=== PATIENT | female | born 1945 | race Caucasian/White ===

== ENCOUNTER 2023-12-09 12:30 | Outpatient (CLI) | payer MEDICARE, SELFPAY | END 2023-12-09 12:31 | disposition home or self-care (01) | LOC: AMB 12-12 18:10 | PROVIDERS: Visit Provider Family Medicine | DX: S09.90XA Unspecified injury of head, initial encounter (principal); W18.30XA Fall on same level, unspecified, initial encounter; Y92.008 Other place in unspecified non-institutional (private) residence as the place of occurrence of the external cause | CPT/HCPCS: A0425; A0429 ==

== ENCOUNTER 2023-12-09 13:10 | Emergency (ER) | payer MEDICARE, SELFPAY ==
--- NOTE | 2023-12-09 | CRLHL7_ITS ---
For Patients: As a result of the Cures Act, medical imaging exams and procedure reports are released immediately into your electronic medical record. You may view this report before your referring provider. If you have questions, please contact your health care provider. INDICATION: Fall, left hip pain TECHNIQUE: X-ray left hip, two views and a single view of the pelvis COMPARISON: None. FINDINGS: Mild joint space narrowing bilaterally with marginal osteophytes. Negative for acute fracture or dislocation. The femoral heads appear well formed. Atherosclerotic vascular calcification is present. The pelvic ring is intact. IMPRESSION: Negative for acute fracture or dislocation. Dictated by Kaelyn Crawford MD @ 12/09/2023 2:24:24 PM Dictated by: Kaelyn Crawford MD @ 12/09/2023 14:24:47 (Electronically Signed)
--- NOTE | 2023-12-09 13:25 | CRLHL7_ITS ---
For Patients: As a result of the Century Cures Act, medical imaging exams and procedure reports are released immediately into your electronic medical record. You may view this report before your referring provider. If you have questions, please contact your health care provider. Indication : Trauma. Technique : CT of the brain without intravenous contrast. Comparison: None relevant available at the time of interpretation. Findings: No acute blurring of the woody-white differentiation. There is no intracranial hemorrhage. The ventricles are proportionate to the cerebral sulci. The 4th ventricle is midline. Basal cisterns appear patent. No abnormal extra-axial fluid collection identified. Moderate parenchymal volume loss. There is severe patchy periventricular hypodensity, favored to represent chronic ischemic microvascular disease. Moderate region of encephalomalacia and gliosis right frontal lobe. There is no intracranial mass, mass effect or midline shift identified. No depressed calvarial fracture. Impression: 1. No acute intracranial process. 2. 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 3. Moderate-sized chronic right frontal lobe infarct. Please note that all CT scans at this facility use dose modulation, iterative reconstruction, and/or weight-based dosing when appropriate to reduce radiation dose to as low as reasonably achievable. Dictated by José Antonio Mcghee MD @ 12/09/2023 1:52:53 PM (Electronically Signed)
--- NOTE | 2023-12-09 13:26 | ED.GENADULT ---
HPI - General Adult General Chief complaint: Fall/Minor Trauma Stated complaint: Fall Time Seen by Provider: 12/09/23 13:21 History of Present Illness HPI narrative: This 78-year-old female comes in for evaluation of a fall that occurred just prior to arrival. She states that she was getting up from a chair and did so more quickly than she should of. She grew a bit lightheaded and slowly fell onto her left side. She did bump her head but does not report any headache. She is on warfarin and her recent INR was therapeutic at 2.1. She reports some mild pain in her left hip but was able to get up and ambulate without much difficulty. Related Data Home Medications ?Medication ?Instructions ?Recorded ?Confirmed warfarin .ROUTE 12/09/23 Allergies Allergy/AdvReac Type Severity Reaction Status Date / Time amoxicillin Allergy Intermediate Verified 12/09/23 13:30 atorvastatin [From Lipitor] Allergy Intermediate Verified 12/09/23 13:30 cephalexin Allergy Intermediate Verified 12/09/23 13:30 erythromycin base Allergy Intermediate Verified 12/09/23 13:30 Fish Containing Products Allergy Intermediate Verified 12/09/23 13:30 glyburide Allergy Intermediate Verified 12/09/23 13:30 latex Allergy Intermediate Verified 12/09/23 13:30 Macrolide Antibiotics Allergy Intermediate Verified 12/09/23 13:30 nitrofurantoin Allergy Intermediate Verified 12/09/23 13:30 simvastatin Allergy Intermediate Verified 12/09/23 13:30 Sulfa (Sulfonamide Allergy Intermediate Verified 12/09/23 13:30 Antibiotics) salmon Allergy Severe Anaphylaxis Uncoded 12/09/23 13:30 Review of Systems Status of ROS: Reports: 10 or more systems reviewed and unremarkable except as noted in History and below Narrative: Constitutional: No fevers, no weight gain or loss. Eyes: No discharge. No vision changes. HENT: No congestion, no sore throat, no ear pain. Cardiovascular: No chest pain, no palpitations. Respiratory: No shortness of breath, no wheezes, no cough. Gastrointestinal: No abdominal pain, no vomiting, no diarrhea. Genitourinary: No dysuria, no hematuria. Musculoskeletal: Normal range of motion. Skin: No rashes, no pruritis. Neurological: No dizziness, weakness, sensory change, speech change. Endo/Heme/Allergies: No bruising or bleeding. No polydipsia. Pysch: no suicidality, no anxiety, no insomnia. All other systems reviewed and are negative. PFSH PFS Social History Smoking Status: Never smoker Non-prescribed substance use: denies use Exam Narrative: Exam Narrative: Constitutional: Well-developed, well-nourished, no acute distress. HEENT: Normocephalic, atraumatic. No sign of bruising, abrasion, laceration, or swelling. Neck: Normal range of motion. Nontender. Supple. Heart: Regular. No murmurs. Normal rate. Intact distal pulses. Lungs: Clear to auscultation. No chest discomfort. No wheezes, rhonchi, or rales. Abdomen: Normal bowel sounds. Nontender. No rebound tenderness. Genitalia: Deferred. Back: No midline tenderness. Normal range of motion. Extremities: Normal range of motion. No sign of injury. She is able to raise each leg to my hand. Skin: Intact. No rash. Warm. No erythema or pallor. Neurologic: No altered sensation. No weakness. Alert and oriented. No facial asymmetry. Tongue is midline. [id number] is normal. No pronator drift. Histologic Aide strength is equal bilaterally. Able to raise each leg from the bed. Psychiatric: No suicidality. No anxiety or depression. No insomnia. Nursing notes and vitals signs are reviewed. Const: Vital Signs, click to edit/add: Vital Signs - 24 hr 12/09/23 13:31 Temperature 98.0 F Pulse Rate [Pulse Oximeter] 83 Respiratory Rate 16 Blood Pressure [Ri ght Upper Arm] 132/57 L Pulse Oximetry 98 Oxygen Delivery Me thod Room Air Course Vital Signs Vital signs: Initial Vital Signs Temperature 98.0 F 12/09/23 13:31 Temperature Source Temporal Artery Scan 12/09/23 13:31 Pulse Rate 83 12/09/23 13:31 Respiratory Rate 16 12/09/23 13:31 Blood Pressure 132/57 L 12/09/23 13:31 Blood Pressure Mean 82 12/09/23 13:31 Blood Pressure Position Sitting 12/09/23 13:31 Pulse Oximetry 98 12/09/23 13:31 Oxygen Delivery Method Room Air 12/09/23 13:31 Vital Signs Temperature 98.0 F 12/09/23 13:31 Pulse Rate 83 12/09/23 13:31 Respiratory Rate 16 12/09/23 13:31 Blood Pressure 132/57 L 12/09/23 13:31 Pulse Oximetry 98 12/09/23 13:31 Oxygen Delivery Method Room Air 12/09/23 13:31 Temperature 98.0 F 12/09/23 13:31 Pulse Rate 83 12/09/23 13:31 Respiratory Rate 16 12/09/23 13:31 Blood Pressure 132/57 L 12/09/23 13:31 Pulse Oximetry 98 12/09/23 13:31 Oxygen Delivery Method Room Air 12/09/23 13:31 Medical Decision Making MDM Narrative Medical decision making narrative: This patient comes in for evaluation of a rather soft fall as she describes it that occurred just prior to arrival. She is on anticoagulants but is not reporting any headache and has normal exam and neurologic function. She does have some mild tenderness in her left hip but is able to ambulate without any limp. X-ray imaging of the left hip shows no acute findings as does CT scan of the head. This was reassuring to the patient. She is okay to return home to continue current plans. Imaging Data CT scan - head: Radiologist's impression: 1. No acute intracranial process. 2. 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 3. Moderate-sized chronic right frontal lobe infarct. XR L Hip: Radiologist's impression: Negative for acute fracture or dislocation. Discharge Plan Discharge Clinical Impression: Fall, Contusion of hip, left Patient Disposition: Home w/ Parent or Adult Condition: Stable Additional Instructions: Use [id number] medicines as needed and directed. Continue current plans and increase activity as tolerated. Follow up with MD return if worsening. Prescriptions: No Action warfarin [Coumadin] .ROUTE Follow Up/Referrals: Provider,Not a Local [Primary Care Provider] - Stand Alone Forms: [employer] Info Instructions
[2023-12-09 13:31] VITALS: BP 132/57; PULSE 83; RESP 16; TEMP 36.7; O2SAT 98; BMI 26.0
== END 2023-12-09 15:49 | disposition home or self-care (01) ==
PROVIDERS: Emergency Provider Emergency Medicine Emergency Medical Services
DX: M25.552 Pain in left hip (principal); W19.XXXA Unspecified fall, initial encounter
CPT/HCPCS: 70450; 73502; 99283; 99284

== ENCOUNTER 2023-12-24 12:02 | Outpatient (CLI) | payer MEDICARE, SELFPAY | END 2023-12-24 12:03 | disposition home or self-care (01) | LOC: NFLDREF 12-27 13:46 | PROVIDERS: Visit Provider Nurse Practitioner | DX: R30.0 Dysuria (principal); N30.01 Acute cystitis with hematuria | CPT/HCPCS: 87086; 87186 ==

== ENCOUNTER 2024-06-23 09:44 | Outpatient (CLI) | payer MEDICARE, SELFPAY | END 2024-06-23 09:45 | disposition home or self-care (01) | LOC: AMB 06-28 03:49 | PROVIDERS: PCP Student in an Organized Health Care Education/Training Program; Visit Provider Emergency Medicine | DX: R06.09 Other forms of dyspnea (principal); R63.5 Abnormal weight gain | CPT/HCPCS: A0425; A0429 ==

== ENCOUNTER 2024-06-23 10:13 | Emergency (ER) | payer MEDICARE, SELFPAY ==
[2024-06-23 10:23] VITALS: BP 168/83; PULSE 78; RESP 14; O2SAT 98
[2024-06-23 10:27] VITALS: BP 168/83; PULSE 68; RESP 25; TEMP 36.2; O2SAT 100
[2024-06-23 10:32] VITALS: BP 153/78; PULSE 71; RESP 16; O2SAT 100
--- NOTE | 2024-06-23 11:01 | CRLHL7_ITS ---
For Patients: As a result of the Cures Act, medical imaging exams and procedure reports are released immediately into your electronic medical record. You may view this report before your referring provider. If you have questions, please contact your health care provider. INDICATION: Shortness of breath. TECHNIQUE: Chest 2 views. COMPARISON: None. FINDINGS: Intracardiac device appears appropriately positioned. No pneumothorax or pleural effusion. Calcified granuloma at the left lung base. Lungs are otherwise clear. Aortic atherosclerosis. Mild cardiomegaly. No pulmonary edema. Upper abdomen and osseous structures as imaged show no acute abnormality. IMPRESSION: No evidence of acute cardiopulmonary disease. Dictated by Lee Ortiz MD @ 06/23/2024 11:52:30 AM (Electronically Signed)
[2024-06-23 11:02] VITALS: BP 158/71; PULSE 61; RESP 14; O2SAT 100
--- NOTE | 2024-06-23 11:02 | ED.GENADULT ---
HPI - General Adult General Chief complaint: Shortness of Breath/Dyspnea Stated complaint: SOB Time Seen by Provider: 06/23/24 10:53 History of Present Illness HPI narrative: This 78-year-old female comes in with her daughter to be checked out. She has a history of congestive heart failure and was noted a couple weeks ago that she had gained 3 lb. Her Lasix was increased last week and she has lost a couple lb since then. She reports a cough here and there over the past couple weeks but does not have any fever. She arrives here with normal vital signs. Her daughter brings her in stating that she wants her checked out. Related Data Home Medications ?Medication ?Instructions ?Recorded ?Confirmed warfarin .Route 12/09/23 12/24/23 blood sugar diagnostic (OneTouch #10 ea 12/24/23 12/24/23 Ultra Test strips) blood-glucose meter (OneTouch #1 ea 12/24/23 12/24/23 Ultra2 Meter) carvedilol 6.25 mg tablet 12.5 mg PO BID 12/24/23 06/23/24 cyclosporine 0.05 % eye drops in a 1 drp ophthalmic (eye) Q12H 12/24/23 06/23/24 dropperette fenofibrate 160 mg tablet 160 mg PO DAILY 12/24/23 06/23/24 fluoxetine 20 mg capsule 20 mg PO BID 12/24/23 06/23/24 furosemide 20 mg tablet 20 mg PO .every other day 12/24/23 06/23/24 losartan 25 mg tablet 25 mg PO DAILY 12/24/23 06/23/24 omeprazole 20 mg capsule,delayed 20 mg PO DAILY 12/24/23 06/23/24 release potassium chloride 10 mEq 10 meq PO .every other day 12/24/23 06/23/24 capsule,extended release simvastatin 20 mg tablet 20 mg PO QPM 12/24/23 06/23/24 sitagliptin phosphate 25 mg tablet 25 mg PO DAILY 12/24/23 06/23/24 (Vincentuvia) warfarin 2.5 mg tablet 2.5 mg PO .Mon/Wed/Fri 12/24/23 06/23/24 warfarin 5 mg tablet 5 mg PO .Sun/Tues/Thur/Sat 12/24/23 06/23/24 cholecalciferol (vitamin D3) 25 1,000 unit PO DAILY 06/23/24 06/23/24 mcg (1,000 unit) capsule (Vitamin D3) mecobalamin (vitamin B12) 1,000 1,000 mcg PO DAILY 06/23/24 06/23/24 mcg chewable tablet (B12 Active) nystatin 100,000 unit/gram topical 1 applic topical BID 06/23/24 06/23/24 powder (Klayesta) Allergies Allergy/AdvReac Type Severity Reaction Status Date / Time atorvastatin (From Lipitor) Allergy Intermediate Verified 06/23/24 10:33 cephalexin Allergy Intermediate Verified 06/23/24 10:33 erythromycin base Allergy Intermediate Verified 06/23/24 10:33 Fish Containing Products Allergy Intermediate Verified 06/23/24 10:33 glyburide Allergy Intermediate Verified 06/23/24 10:33 latex Allergy Intermediate Verified 06/23/24 10:33 Macrolide Antibiotics Allergy Intermediate Verified 06/23/24 10:33 nitrofurantoin Allergy Intermediate Verified 06/23/24 10:33 simvastatin Allergy Intermediate Verified 06/23/24 10:33 Sulfa (Sulfonamide Allergy Intermediate Verified 06/23/24 10:33 Antibiotics) amoxicillin (From Augmentin) Allergy Unknown Verified 06/23/24 10:33 Anesthetics - Amide Type - Allergy Unknown Verified 06/23/24 10:33 Select A clavulanic acid (From Allergy Unknown Verified 06/23/24 10:33 Augmentin) adhesive AdvReac Unknown Verified 06/23/24 10:33 salmon Allergy Severe Anaphylaxis Uncoded 12/24/23 12:13 Review of Systems Status of ROS: Reports: 10 or more systems reviewed and unremarkable except as noted in History and below Narrative: Constitutional: No fevers, no weight gain or loss. Eyes: No discharge. No vision changes. HENT: No congestion, no sore throat, no ear pain. Cardiovascular: No chest pain, no palpitations. Respiratory: No shortness of breath, no wheezes. She reports a cough. Gastrointestinal: No abdominal pain, no vomiting, no diarrhea. Genitourinary: No dysuria, no hematuria. Musculoskeletal: Normal range of motion. Skin: No rashes, no pruritis. Neurological: No dizziness, weakness, sensory change, speech change. Endo/Heme/Allergies: No bruising or bleeding. No polydipsia. Pysch: no suicidality, no anxiety, no insomnia. All other systems reviewed and are negative. [facility] PFS Social History Smoking Status: Never smoker How often do you have a drink containing alcohol: never AUDIT-C Alcohol total score: 0 Non-prescribed substance use: denies use Exam Narrative: Exam Narrative: Constitutional: Well-developed, well-nourished, no acute distress. HEENT: Normocephalic, atraumatic. Neck: Normal range of motion. Nontender. Supple. Heart: Regular. No murmurs. Normal rate. Intact distal pulses. Lungs: Clear to auscultation. No chest discomfort. No wheezes, rhonchi, or rales. Abdomen: Normal bowel sounds. Nontender. No rebound tenderness. Genitalia: Deferred. Back: No midline tenderness. Normal range of motion. Extremities: Normal range of motion. No injury. Mild pedal edema. Skin: Intact. No rash. Warm. No erythema or pallor. Neurologic: No altered sensation. No weakness. Alert and oriented. Psychiatric: No suicidality. No anxiety or depression. No insomnia. Nursing notes and vitals signs are reviewed. Const: Vital Signs, click to edit/add: Vital Signs - 24 hr 06/23/24 10:23 06/23/24 10:27 06/23/24 10:32 Temperature 97.2 F L Pulse Rate 78 71 Pulse Rate [Pulse Oximeter] 68 Respiratory Rate 14 25 H 16 Blood Pressure 168/83 H 153/78 H Blood Pressure [Le ft Upper Arm] 168/83 H Pulse Oximetry 98 100 100 Oxygen Delivery Me thod Room Air 06/23/24 11:02 Temperature Pulse Rate 61 Pulse Rate [Pulse Oximeter] Respiratory Rate 14 Blood Pressure 158/71 H Blood Pressure [Le ft Upper Arm] Pulse Oximetry 100 Oxygen Delivery Me thod Room Air Course Vital Signs Vital signs: Initial Vital Signs Pulse Rate 78 06/23/24 10:23 Respiratory Rate 14 06/23/24 10:23 Blood Pressure 168/83 H 06/23/24 10:23 Blood Pressure Mean 111 H 06/23/24 10:23 Pulse Oximetry 98 06/23/24 10:23 Vital Signs Pulse Rate 78 06/23/24 10:23 Respiratory Rate 14 06/23/24 10:23 Blood Pressure 168/83 H 06/23/24 10:23 Pulse Oximetry 98 06/23/24 10:23 Temperature 97.2 F L 12/08/24 10:27 Pulse Rate 61 06/23/24 11:02 Respiratory Rate 14 06/23/24 11:02 Blood Pressure 158/71 H 06/23/24 11:02 Pulse Oximetry 100 06/23/24 11:02 Oxygen Delivery Method Room Air 06/23/24 11:02 Medical Decision Making MDM Narrative Medical decision making narrative: This patient comes in for a checkup mostly requested by her daughter. The patient does not have any particular complaints. She states that she does have an occasional cough. Her Lasix was increased about a week ago and the 2 or 3 lb that she had gained prior to that are now measuring back to her previous weight. Her exam is reassuring and labs today are also reassuring. Chest x-ray is obtained and this also shows no acute cardiopulmonary disease. She is okay to be discharged home to continue current plans. Lab Data Labs: Lab Results 06/23/24 Range/Units 11:22 WBC 8.86 (4.50-11.00) K/uL RBC 3.71 L (4.00-5.20) m/uL Hgb 11.8 L (12.0-16.0) gm/dL Hct 36.7 (33.0-51.0) % MCV 99 (80-100) fL MCH 32 (26-34) pg MCHC 32 (32-36) gm/dL Plt Count 283 (140-440) K/uL Neut % (Auto) 57.1 (42.0-72.0) % Lymph % (Auto) 29.7 (20-44) % Beauregard % (Auto) 12.0 H (0.0-11.0) % Eos % (Auto) 0.6 (0.0-7.0) % Baso % (Auto) 0.5 (0.0-3.0) % Neut # (Auto) 5.10 (1.7-7.0) K/uL Lymph # (Auto) 2.60 (0.90-2.90) K/uL Beauregard # (Auto) 1.10 H (0.00-0.90) K/UL Eos # (Auto) 0.10 (0.00-0.50) K/uL Baso # (Auto) 0.00 (0.00-0.30) K/uL Abs Immat Gran (auto) 0.10 (0.00-0.30) K/uL Sodium 138 (135-149) mmol/L Potassium 4.7 (3.6-5.1) mmol/L Chloride 106 (96-114) mmol/L Carbon Dioxide 24 (20-32) mmol/L Anion Gap 8 (7-15) mEq/L BUN 32 H (7-30) mg/dL Creatinine 1.1 (0.5-1.5) mg/dL Estimated GFR 51 ml/min Glucose 116 H (60-115) mg/dL Calcium 9.8 (8.4-10.6) mg/dL NT-Pro-B Natriuret Pep 1850 pg/mL Imaging Data Chest x-ray: Radiologist's impression: No evidence of acute cardiopulmonary disease. ECG Data Attestation: I personally reviewed and interpreted this ECG as follows: Interpretation: Atrial paced rhythm with occasional PVCs. Rate is 82 beats per minute. There are no specific ST or T-wave abnormalities. Discharge Plan Discharge Clinical Impression: Congestive heart failure Patient Disposition: Home w/ Parent or Adult Condition: Stable Additional Instructions: Continue current plans. Follow up with MD or return if worsening. Prescriptions: No Action warfarin 5 mg tablet 5 mg PO .Sun//ur/Sat warfarin 2.5 mg tablet 2.5 mg PO .Mon/Mon/Fri fenofibrate 160 mg tablet 160 mg PO DAILY fluoxetine 20 mg capsule 20 mg PO BID Januvia 25 mg tablet 25 mg PO DAILY cyclosporine 0.05 % dropperette 1 drp ophthalmic (eye) Q12H furosemide 20 mg tablet 20 mg PO .every other day omeprazole 20 mg capsule,delayed release(DR/EC) 20 mg PO DAILY losartan 25 mg tablet 25 mg PO DAILY simvastatin 20 mg tablet 20 mg PO QPM carvedilol 6.25 mg tablet 12.5 mg PO BID potassium chloride 10 mEq capsule, extended release 10 meq PO .every other day (DME) OneTouch Ultra Test Strip See Rx Instructions .ROUTE .MEDSUPPLY Qty: 10 Rx Instructions: As directed (DME) blood-glucose meter [OneTouch Ultra2 Meter] [facility] See Rx Instructions .ROUTE DIRECTED Qty: 1 Rx Instructions: As directed nystatin [Klayesta] 100,000 unit/gram powder 1 applic topical BID mecobalamin (vitamin B12) [B12 Active] 1,000 mcg tablet,chewable 1,000 mcg PO DAILY cholecalciferol (vitamin D3) [Vitamin D3] 25 mcg (1,000 unit) capsule 1,000 unit PO DAILY warfarin [Coumadin] .Route Follow Up/Referrals: Provider,Not a Local [Non-Staff] - Stand Alone Forms: [facility] Info Instructions
[2024-06-23 11:54] LABS: Chloride* 106 mmol/L (96-114); Potassium* 4.7 mmol/L (3.6-5.1); Sodium* 138 mmol/L (135-149)
[2024-06-23 11:57] LABS: Anion Gap 8 mEq/L (7-15); Blood Urea Nitrogen* 32 mg/dL (7-30); Carbon Dioxide* 24 mmol/L (20-32); Creatinine* 1.1 mg/dL (0.5-1.5); Estimated Glomerular Filt Rate 51 ml/min; Glucose* 116 mg/dL (60-115)
[2024-06-23 11:58] LABS: Calcium* 9.8 mg/dL (8.4-10.6)
[2024-06-23 12:17] LABS: NT Pro B Type NatriureticPept* 1850 pg/mL
[2024-06-23 13:06] LABS: Basophils Percent Auto 0.5 % (0.0-3.0); Slide Review Reflex No
[2024-06-23 13:14] LABS: Red Blood Count 4.55 m/uL (4.00-5.20); White Blood Count* 6.54 K/uL (4.50-11.00)
[2024-06-23 13:15] LABS: Hematocrit 40.4 % (33.0-51.0); Mean Corpuscular HGB Conc 30 gm/dL (32-36); Mean Corpuscular Hemoglobin 26 pg (26-34); Mean Corpuscular Volume 89 fL (80-100)
[2024-06-23 13:16] LABS: Neutrophils Percent Auto 66.7 % (42.0-72.0); Platelet Count* 124 K/uL (140-440); RDW Coefficient of Variation % 18.1 % (11.5-15.5)
[2024-06-23 13:17] LABS: Lymphocytes Percent Auto 18.3 % (20-44)
[2024-06-23 13:18] LABS: Eosinophils Percent Auto 4.4 % (0.0-7.0); Monocytes Percent Auto 9.2 % (0.0-11.0)
[2024-06-23 13:26] VITALS: BP 168/83; PULSE 68; RESP 14; TEMP 36.2
== END 2024-06-23 13:26 | disposition home or self-care (01) ==
PROVIDERS: Emergency Provider Emergency Medicine Emergency Medical Services; PCP Student in an Organized Health Care Education/Training Program
DX: I50.9 Heart failure, unspecified (principal)
CPT/HCPCS: 36415; 71046; 80048; 83880; 85025; 93005; 99284

== ENCOUNTER 2024-07-09 17:39 | Emergency (ER) | payer MEDICARE, SELFPAY ==
[2024-07-09 17:55] VITALS: BP 125/54; PULSE 71; RESP 18; TEMP 36.4; O2SAT 98; BMI 26.0
--- NOTE | 2024-07-09 18:06 | CRLHL7_ITS ---
For Patients: As a result of the Century Cures Act, medical imaging exams and procedure reports are released immediately into your electronic medical record. You may view this report before your referring provider. If you have questions, please contact your health care provider. INDICATION: Cough. TECHNIQUE: Chest radiographs, 2 views. COMPARISON: Chest radiographs 06/23/2024. FINDINGS: Lines/devices: Left anterior chest wall pacemaker generator. Cardiovascular/Mediastinum: Normal heart size. Mitral annular calcifications Lungs: No focal consolidation. Linear band like opacification of the lungs bilaterally likely subsegmental atelectasis and/or scarring. Probable pulmonary emphysematous changes. Airways: Trachea remains midline. Pleura: No pleural effusions or pneumothorax. Bones: No acute osseous abnormalities. Upper abdomen: Unremarkable. IMPRESSION: No acute cardiopulmonary process. Dictated by Cristi Wei MD @ 07/09/2024 6:51:19 PM (Electronically Signed)
--- NOTE | 2024-07-09 18:07 | ED_ITS ---
HPI - General Adult General Chief complaint: Cough Stated complaint: Shortness of breath Time Seen by Provider: 07/09/24 18:02 History of Present Illness HPI narrative: This 78-year-old female comes in reporting cough for the past couple weeks. She states that it is so vigorous at times that she has some emesis related to coughing. She does not report any fevers. She feels like she can not take as big of breath as she use to. She does not report other shortness of breath. She does have a history of congestive heart failure and is taking a diuretic. She does not report any chest pain except for some discomfort when coughing. Related Data Home Medications ?Medication ?Instructions ?Recorded ?Confirmed warfarin .Route 12/09/23 12/24/23 blood sugar diagnostic (OneTouch #10 ea 12/24/23 12/24/23 Ultra Test strips) blood-glucose meter (OneTouch #1 ea 12/24/23 12/24/23 Ultra2 Meter) carvedilol 6.25 mg tablet 12.5 mg PO BID 12/24/23 06/23/24 cyclosporine 0.05 % eye drops in a 1 drp ophthalmic (eye) Q12H 12/24/23 06/23/24 dropperette fenofibrate 160 mg tablet 160 mg PO DAILY 12/24/23 06/23/24 fluoxetine 20 mg capsule 20 mg PO BID 12/24/23 06/23/24 furosemide 20 mg tablet 20 mg PO .every other day 12/24/23 07/09/24 losartan 25 mg tablet 25 mg PO DAILY 12/24/23 06/23/24 omeprazole 20 mg capsule,delayed 20 mg PO DAILY 12/24/23 06/23/24 release potassium chloride 10 mEq 10 meq PO .every other day 12/24/23 06/23/24 capsule,extended release simvastatin 20 mg tablet 20 mg PO QPM 12/24/23 06/23/24 sitagliptin phosphate 25 mg tablet 25 mg PO DAILY 12/24/23 06/23/24 ([place]rell) warfarin 2.5 mg tablet 2.5 mg PO .Mon/Wed/Fri 12/24/23 06/23/24 warfarin 5 mg tablet 5 mg PO .Sun/Tues/Thur/Sat 12/24/23 06/23/24 cholecalciferol (vitamin D3) 25 1,000 unit PO DAILY 06/23/24 06/23/24 mcg (1,000 unit) capsule (Vitamin D3) mecobalamin (vitamin B12) 1,000 1,000 mcg PO DAILY 06/23/24 06/23/24 mcg chewable tablet (B12 Active) nystatin 100,000 unit/gram topical 1 applic topical BID 06/23/24 06/23/24 powder (Klayesta) Previous Rx's ?Medication ?Instructions ?Recorded acetaminophen 300 mg-codeine 30 mg 1 tab PO Q6H PRN pain #15 tabs 07/09/24 tablet Allergies Allergy/AdvReac Type Severity Reaction Status Date / Time atorvastatin (From Lipitor) Allergy Intermediate Verified 06/23/24 10:33 cephalexin Allergy Intermediate Verified 06/23/24 10:33 erythromycin base Allergy Intermediate Verified 06/23/24 10:33 Fish Containing Products Allergy Intermediate Verified 06/23/24 10:33 glyburide Allergy Intermediate Verified 06/23/24 10:33 latex Allergy Intermediate Verified 06/23/24 10:33 Macrolide Antibiotics Allergy Intermediate Verified 06/23/24 10:33 nitrofurantoin Allergy Intermediate Verified 06/23/24 10:33 simvastatin Allergy Intermediate Verified 06/23/24 10:33 Sulfa (Sulfonamide Allergy Intermediate Verified 06/23/24 10:33 Antibiotics) amoxicillin (From Augmentin) Allergy Unknown Verified 06/23/24 10:33 Anesthetics - Amide Type - Allergy Unknown Verified 06/23/24 10:33 Select A clavulanic acid (From Allergy Unknown Verified 06/23/24 10:33 Augmentin) adhesive AdvReac Unknown Verified 06/23/24 10:33 salmon Allergy Severe Anaphylaxis Uncoded 12/24/23 12:13 Review of Systems Status of ROS: Reports: 10 or more systems reviewed and unremarkable except as noted in History and below Narrative: Constitutional: No fevers, no weight gain or loss. Eyes: No discharge. No vision changes. HENT: No congestion, no sore throat, no ear pain. Cardiovascular: No chest pain, no palpitations. Respiratory: Frequent cough with post-tussive emesis at times. Gastrointestinal: No abdominal pain, no vomiting, no diarrhea. Genitourinary: No dysuria, no hematuria. Musculoskeletal: Normal range of motion. Skin: No rashes, no pruritis. Neurological: No dizziness, weakness, sensory change, speech change. Endo/Heme/Allergies: No bruising or bleeding. No polydipsia. Pysch: no suicidality, no anxiety, no insomnia. All other systems reviewed and are negative. PFSH COUNTS INCLUDE 234 BEDS AT THE [facility] Social History Smoking Status: Never smoker How often do you have a drink containing alcohol: never AUDIT-C Alcohol total score: 0 Non-prescribed substance use: denies use Exam Narrative: Exam Narrative: Constitutional: Well-developed, well-nourished, no acute distress. HEENT: Normocephalic, atraumatic. Neck: Normal range of motion. Nontender. Supple. Heart: Regular. No murmurs. Normal rate. Intact distal pulses. Lungs: Clear to auscultation. No wheezes, rhonchi, or rales. No use of accessory muscles for breathing. Oximetry at 98% on room air. Abdomen: Normal bowel sounds. Nontender. No rebound tenderness. Genitalia: Deferred. Back: No midline tenderness. Normal range of motion. Extremities: Normal range of motion. No injury. Skin: Intact. No rash. Warm. No erythema or pallor. Neurologic: No altered sensation. No weakness. Alert and oriented. Psychiatric: No suicidality. No anxiety or depression. No insomnia. Nursing notes and vitals signs are reviewed. Const: Vital Signs, click to edit/add: Vital Signs - 24 hr 07/09/24 17:55 Temperature 97.5 F L Pulse Rate [Pulse Oximeter] 71 Respiratory Rate 18 Blood Pressure [Ri ght Upper Arm] 125/54 L Pulse Oximetry 98 Oxygen Delivery Me thod Room Air Course Vital Signs Vital signs: Initial Vital Signs Temperature 97.5 F L 07/09/24 17:55 Temperature Source Temporal Artery Scan 07/09/24 17:55 Pulse Rate 71 07/09/24 17:55 Respiratory Rate 18 07/09/24 17:55 Blood Pressure 125/54 L 07/09/24 17:55 Blood Pressure Mean 77 07/09/24 17:55 Pulse Oximetry 98 07/09/24 17:55 Oxygen Delivery Method Room Air 07/09/24 17:55 Vital Signs Temperature 97.5 F L 07/09/24 17:55 Pulse Rate 71 07/09/24 17:55 Respiratory Rate 18 07/09/24 17:55 Blood Pressure 125/54 L 07/09/24 17:55 Pulse Oximetry 98 07/09/24 17:55 Oxygen Delivery Method Room Air 07/09/24 17:55 Temperature 97.5 F L 07/09/24 17:55 Pulse Rate 71 07/09/24 17:55 Respiratory Rate 18 07/09/24 17:55 Blood Pressure 125/54 L 07/09/24 17:55 Pulse Oximetry 98 07/09/24 17:55 Oxygen Delivery Method Room Air 07/09/24 17:55 Medical Decision Making MDM Narrative Medical decision making narrative: This patient reports a frequent cough that sometimes causes emesis. She arrives here with reassuring vital signs. She did have her diuretic increased but is not showing currently any sign of fluid overload. I did obtain a chest x-ray in this returns with no acute findings. The patient resides in an assisted living type facility and cannot take any other medicines other than what is approved and prescribed by the doctor under the current arrangements there. She did receive a tablet of Tylenol 3 here and prescription for more going home. Most likely her symptoms are related to a virus. Imaging Data Chest x-ray: Radiologist's impression: No acute cardiopulmonary process. Discharge Plan Discharge Clinical Impression: Acute upper respiratory infection Patient Disposition: Home w/ Parent or Adult Condition: Stable Additional Instructions: Take medication as needed and directed. Follow up with MD return if worsening symptoms occur. Prescriptions: New acetaminophen-codeine 300-30 mg tablet 1 tab PO Q6H PRN (Reason: pain) Qty: 15 0RF No Action warfarin 5 mg tablet 5 mg PO .Sun/Tues/Thur/Sat warfarin 2.5 mg tablet 2.5 mg PO .Mon/Mon/Mon fenofibrate 160 mg tablet 160 mg PO DAILY fluoxetine 20 mg capsule 20 mg PO BID Januvia 25 mg tablet 25 mg PO DAILY cyclosporine 0.05 % dropperette 1 drp ophthalmic (eye) Q12H furosemide 20 mg tablet 20 mg PO .every other day omeprazole 20 mg capsule,delayed release(DR/EC) 20 mg PO DAILY losartan 25 mg tablet 25 mg PO DAILY simvastatin 20 mg tablet 20 mg PO QPM carvedilol 6.25 mg tablet 12.5 mg PO BID potassium chloride 10 mEq capsule, extended release 10 meq PO .every other day (DME) OneTouch Ultra Test Strip See Rx Instructions .ROUTE .MEDSUPPLY Qty: 10 Rx Instructions: As directed (DME) blood-glucose meter [OneTouch Ultra2 Meter] Misc See Rx Instructions .ROUTE DIRECTED Qty: 1 Rx Instructions: As directed nystatin [Klayesta] 100,000 unit/gram powder 1 applic topical BID mecobalamin (vitamin B12) [B12 Active] 1,000 mcg tablet,chewable 1,000 mcg PO DAILY cholecalciferol (vitamin D3) [Vitamin D3] 25 mcg (1,000 unit) capsule 1,000 unit PO DAILY warfarin [Coumadin] .Route Follow Up/Referrals: Rae Llanes MD [Primary Care Provider] - Stand Alone [facility]: [facility] Inst[facility]
== END 2024-07-09 20:07 | disposition home or self-care (01) ==
PROVIDERS: Emergency Provider Emergency Medicine Emergency Medical Services; PCP Student in an Organized Health Care Education/Training Program
DX: J06.9 Acute upper respiratory infection, unspecified (principal)
CPT/HCPCS: 71046; 99283; 99284; A9270

== ENCOUNTER 2024-11-16 13:31 | Outpatient (CLI) | payer MEDICARE, SELFPAY | END 2024-11-16 13:32 | disposition home or self-care (01) | LOC: AMB 11-18 10:18 | PROVIDERS: PCP Student in an Organized Health Care Education/Training Program; Visit Provider Family Medicine | DX: S79.912A Unspecified injury of left hip, initial encounter (principal); W18.30XA Fall on same level, unspecified, initial encounter; Y92.007 Garden or yard of unspecified non-institutional (private) residence as the place of occurrence of the external cause | CPT/HCPCS: A0998 ==

== ENCOUNTER 2024-12-13 18:41 | Outpatient (CLI) | payer MEDICARE, SELFPAY | END 2024-12-13 18:42 | disposition home or self-care (01) | LOC: NFLDREF 12-18 01:12 | PROVIDERS: PCP Student in an Organized Health Care Education/Training Program; Referring Provider Student in an Organized Health Care Education/Training Program; Visit Provider Nurse Practitioner Family | DX: N30.01 Acute cystitis with hematuria (principal); B96.1 Klebsiella pneumoniae [K. pneumoniae] as the cause of diseases classified elsewhere | CPT/HCPCS: 87086 ==

== ENCOUNTER 2024-12-27 11:41 | Emergency (ER) | payer MEDICARE, SELFPAY ==
--- OUTSIDE RECORDS SUMMARY | 2024-07-19 08:37 | XMS_ITS | Continuity of Care Document ---
Author Organization [facility] Address [address] [address] [place] [address] Phone Care Team Providers Care Coil Winder Hand Name Role Phone Lorie CHUNG, Kaitlynn Unavailable Unavailable Allergies, Adverse Reactions, Alerts Substance Reaction Status Criticality simvastatin Active No Information SALMON [id number] Active No Informatio n salmon oil Active No Information Macrolide Antibiotics Active No Inf ormation nitrofurantoin Active No Informatio n ATORVASTATIN CALCIUM Active No Info rmation latex Active No Information glyburide Active No Information erythromycin base Active No Informa tion cephalexin Active No Information Anesthetics - Amide Type - Select Amino Amides Active No Information amoxicillin Active No Information Sulfa (Sulfonamide Antibiotics) Active No Information adhesive tape Active No Information Medications Medication Instructions Dosage Effective Dates (start - stop) Status Comments warfarin 2.5 mg tablet take 1 tablet by oral route every day 2.5 MG - Active warfarin 5 mg tablet take 1 tablet by oral route every day 5 MG - Active acetaminophen 500 mg tablet take 2 tablet by oral route every 6 hours as needed 1000 MG - Active albuterol sulfate HFA 90 mcg/actuation aerosol inhaler inhale 2 puff by inhalation route every 4 - 6 hours as needed 180 MCG - Active Aspercreme (lidocaine HCl) 4 % topical - Active Corbin-Gest Antacid 200 mg (as calcium carbonate 500 mg) chewable tablet - Active Stool Softener 50 mg capsule take 1 capsule by oral route every day at bedtime as needed 50 MG Apr- - Active hydrocortisone 1 % topical cream apply by topical route 2 times every day a thin layer to the affected area(s) 0.00 Apr- - Active lidocaine 4 % topical cream Apr- - Active loperamide 2 mg tablet take 2 tablet by oral route after 1st loose stool and 1 tablet (2 mg) after each next bowel movement; do not exceed 16 mg in 24hrs 4 MG Oct- - Active Nystop 100,000 unit/gram topical powder apply by topical route 2 times every day to the affected area(s) 0.00 Apr- - Active carvedilol 12.5 mg tablet take 1 tablet by oral route 2 times every day with food 12.5 MG Apr- - Active polyethylene glycol 3350 17 gram/dose oral powder Apr- - Active Preparation H 0.25 %-14 %-74.9 % ointment Apr- - Active Systane Contacts eye drops Apr- - Active Preparation H (Witch Marifer) 20 % topical pads Apr- - Active cyclosporine 0.05 % eye drops in a dropperette instill 1 drop by ophthalmic route every 12 hours into affected eye(s) 1.00 drop Apr- - Active fenofibrate 160 mg tablet take 1 tablet by oral route every day 160 MG Apr- - Active ferrous sulfate 325 mg (65 mg iron) tablet take 1 tablet by oral route every day 325 MG Apr- - Active fexofenadine 180 mg tablet take 1 tablet by oral route every day 180 MG Apr- - Active fluoxetine 20 mg tablet take 1 tablet by oral route every day in the morning 20 MG Oct- - Active furosemide 20 mg tablet take 1 tablet by oral route every day 20 MG Oct- - Active Januvia 25 mg tablet take 1 tablet by oral route every day 25 MG Oct- - Active L-Lysine 500 mg tablet Apr- - Act river melatonin 3 mg tablet Apr- - Acti ve omeprazole 20 mg capsule,delayed release take 1 capsule by oral route every day 30 minutes to 1 hour before a meal 20 MG Oct-17-2024 - Active potassium chloride ER 10 mEq capsule,extended release take 1 capsule by oral route every day with food 10 MEQ - Active rosuvastatin 20 mg tablet take 1 tablet by oral route every day 20 MG - Active Tab-A-Tommie 400 mcg tablet - Active Unistik 3 Comfort Lancet 28 gauge - Active Vitamin B-12 1,000 mcg tablet - Active Vitamin D3 25 mcg (1,000 unit) capsule - Active Procedures Procedure Date Offic/outpt E&m New Mod-hi Advance Directives Directive Yes / No Effective Date File Name No Information Encounters Encounter Description Practice Location Reason(s) For Visit Diagnoses Date Provider Providers Copied on Encounter [facility] JEAN PIERRE, [address] [address], [place], [place], [id number], [place] tel:[phone] [facility] No Information Lorie Calderón. [address], [facility] [address], [place], [id number], [place]. tel:[phone] Offic/outpt E&m [facility] JEAN PIERRE, [address] [address], [place], [place], [id number], [place] tel:[phone] [facility] Symptoms or Concerns (chief complaint) Iron deficiency anemia, unspecified iron deficiency anemia typeChange in bowel habitsDiarrhe a, unspecified type Julius Scruggs. [address], [facility] [address], [place], [place], [id number], [place]. tel:[phone] Referring Provider: Rae Merlos, [address], [place], [address]. tel:[phone] [facility] JEAN PIERRE, [address] [address], [place], [place], [id number], [place] tel:[phone] [facility] No Information Rey Baumann. [address], [facility] [address], [place], [place], [id number], [place]. tel:[phone] Family History Family Member Type Diagnosis Age At Onset Son Problem Reflux disease Immunizations Vaccine Date Status Comments SARS-COV-2 (COVID-19) vaccin e, mRNA, spike protein, LNP, preservative free, 50 mcg/0.5 mL dose administered Note: [facility] bi-direct ional interface ; Source: Other Registry Influenza, high-dose, split virus, trivalent, injectable, preservative free administered Note: [facility] bi-direct ional interface ; Source: Other Registry SARS-COV-2 (COVID-19) vaccin e, subunit, recombinant spike protein-nanoparticle+Matrix-M1 Adjuvant, preservative free, 0.5mL dose administered Note: [facility] bi-direct ional interface ; Source: Other Registry SARS-COV-2 (COVID-19) vaccin e, mRNA, spike protein, LNP, preservative free, 50 mcg/0.5 mL dose administered Note: [facility] bi-direct ional interface ; Source: Other Registry Influenza, high-dose, split virus, quadrivalent, injectable, preservative free administered Note: [facility] bi-direct ional interface ; Source: Other Registry SARS-COV-2 (COVID-19) vaccin e, mRNA, spike protein, LNP, preservative free, 50 mcg/0.5 mL dose administered Note: [facility] bi-direct ional interface ; Source: Other Registry Respiratory syncytial virus (RSV), vaccine, recombinant, protein subunit RSV prefusion F, adjuvant reconstituted, 0.5 mL, preservative free administered Note: [facility] bi-direct ional interface ; Source: Other Registry Influenza, high-dose, split virus, quadrivalent, injectable, preservative free administered Note: [facility] bi-direct ional interface ; Source: Other Registry SARS-COV-2 (COVID-19) vaccin e, mRNA, spike protein, LNP, bivalent, preservative free, 50 mcg/0.5 mL or 25 mcg/0.25 mL dose administered Note: [facility] bi-direct ional interface ; Source: Other Registry SARS-COV-2 (COVID-19) vaccin e, mRNA, spike protein, LNP, preservative free, 100 mcg/0.5mL dose or 50 mcg/0.25mL dose administered Note: [facility] bi -directional interface ; Source: Other Registry Afluria Qd administered Note: [facility] bi-directional interface ; Source: Other Registry SARS-COV-2 (COVID-19) vaccin e, mRNA, spike protein, LNP, preservative free, 100 mcg/0.5mL dose or 50 mcg/0.25mL dose administered Note: [facility] bi -directional interface ; Source: Other Registry zoster vaccine recombinant administered N ote: [facility] bi-directional interface ; Source: Other Registry tetanus toxoid, reduced diphtheria toxoid, and acellular pertussis vaccine, adsorbed administered Note: [facility] b i-directional interface ; Source: Other Registry SARS-COV-2 (COVID-19) vaccin e, mRNA, spike protein, LNP, preservative free, 100 mcg/0.5mL dose or 50 mcg/0.25mL dose administered Note: [facility] bi -directional interface ; Source: Other Registry SARS-COV-2 (COVID-19) vaccin e, mRNA, spike protein, LNP, preservative free, 100 mcg/0.5mL dose or 50 mcg/0.25mL dose administered Note: [facility] bi -directional interface ; Source: Other Registry Influenza, adjuvanted, inactivated, quadrivalent, injectable, preservative free administered Note: [facility] bi-directional interface ; Source: Other Registry Influenza, high-dose, split virus, trivalent, injectable, preservative free administered Note: [facility] bi-direct ional interface ; Source: Other Registry Influenza, high-dose, split virus, trivalent, injectable, preservative free administered Note: [facility] bi-direct ional interface ; Source: Other Registry Prevnar 13 administered Note: [facility] bi-d irectional interface ; Source: Other Registry Influenza, high-dose, split virus, trivalent, injectable, preservative free administered Note: [facility] bi-direct ional interface ; Source: Other Registry Influenza, high-dose, split virus, trivalent, injectable, preservative free administered Note: [facility] bi-direct ional interface ; Source: Other Registry influenza virus vaccine, unspecified formulation administered Note: [facility] bi-di rectional interface ; Source: Other Registry Influenza, split virus, trivalent, injectable, contains preservative administered Note: [facility] bi-direct ional interface ; Source: Other Registry Influenza, split virus, trivalent, injectable, contains preservative administered Note: [facility] bi-direct ional interface ; Source: Other Registry zoster vaccine, live administered Note: [facility] bi-directional interface ; Source: Other Registry Influenza, high-dose, split virus, trivalent, injectable, preservative free administered Note: [facility] bi-direct ional interface ; Source: Other Registry Influenza, high-dose, split virus, trivalent, injectable, preservative free administered Note: [facility] bi-direct ional interface ; Source: Other Registry Influenza, split virus, trivalent, injectable, contains preservative administered Note: [facility] bi-direct ional interface ; Source: Other Registry Pneumovax administered Note: [facility] bi-d irectional interface ; Source: Other Registry Influenza, split virus, trivalent, injectable, contains preservative administered Note: [facility] bi-direct ional interface ; Source: Other Registry Influenza, split virus, trivalent, injectable, contains preservative administered Note: [facility] bi-direct ional interface ; Source: Other Registry Influenza, split virus, trivalent, injectable, contains preservative administered Note: [facility] bi-direct ional interface ; Source: Other Registry Payers Payer name Insurance type Covered green party ID Authoriza tion(s) No Information Social History Type Description Quantity Date Captured Comments Sex Female Smoking Status No Information Chief Complaint And Reason For Visit No Information Reason For Referral Reason For Referral No Information Plan Of Treatment Date Type Action Status Referral Ordered: Colonoscopy Appointment date/timeframe: 08/01/2024 ordered Referral Ordered: EGD Appointment date/timeframe: 08/01/2024 ordered History Of Present Illness Encounter Date Complaint History Of Prese nt Illness GI Symptoms or Concerns This is an 78-year-old patient here for evaluation related to iron deficiency anemia and change in bowel habits. She presents to today's visit with her family member Florence.Patient recently seen by her primary care provider on 04/16/2024 for hypotension, fatigue, pallor, weakness, and abdominal distention. Evaluation revealed new pancytopenia with hemoglobin of 10.7 and platelets of 92. Follow-up on 04/19/2024 patient was noted to have 10 pound weight gain and shortness of breath, labs repeated at that time revealed hemoglobin drop of 9.9 and increase in platelet counts. A peripheral smear was performed demonstrating iron deficiency anemia and platelet clumping, iron studies indicative of iron deficiency most likely from GI blood loss. She was ultimately referred to us for further evaluation.Today, the patient reports 2 to 3 months ago she started experiencing increased fatigue, weakness, shortness of breath, and new onset diarrhea. She was also found to have low blood pressure at that time. As mentioned above she was found to have new pancytopenia and iron deficiency anemia. She was placed on iron supplementation at the beginning of April this year. Prior to being placed on iron supplementation she was taking Imodium daily for multiple episodes of diarrhea a day. Patient describes diarrhea as pure liquid that would occur multiple times a day with fecal incontinence, as well as frequent flatulence and abdominal cramping not associated with bowel movements. Per the patient she has dealt with fecal incontinence for many years.Following being placed on iron, she was placed on MiraLAX as a preventative measure for constipation. She states her bowel movements regulated for a while, going daily or every couple of days Parker type 5 stools, but will still occasionally experience multiple episodes of diarrhea intermittently. She denies hematochezia, melena, nausea, vomiting, decreased appetite, or unintentional weight loss. Per patient's family member she has had recent weight gain, her Lasix was recently increased due to weight gain and shortness of breath. Her weight has been stable following increase in Lasix, weighing in at 151.5 pounds today. Patient denies any further weight gain, shortness of breath, or increased fatigue at today's visit.She does also have history of heartburn which she takes omeprazole 20 mg once daily at nighttime for. She denies any acid reflux, acid/ti regurgitation, or dysphagia.She had an upper endoscopy and swallow study following her stroke in August of this year, I unfortunately do not have those records at this time. Her last colonoscopy was reportedly many years ago, per the patient no polyps were ever detected.Her most recent blood work was yesterday on 05/01/2024 showing improvements in blood count but still notable for decreased hemoglobin at 11.2, decreased MCH at 25, decreased MCHC at 29.4, and increased RDW at 16.7, otherwise normal CBC. BMP was notable for elevated glucose at 109, elevated BUN at 29, elevated creatinine at 1.15, decreased EGFR at 48, and elevated bun/creatinine ratio 25. INR elevated at 2.2 and pro time elevated at 22.9.Denies family history of gastrointestinal malignancies, inflammatory bowel disease, or celiac disease.She is a former smoker, she quit smoking 40 years ago. She denies marijuana use. She rarely uses alcohol. She will take Tylenol as needed, denies NSAID medication use.Past medical history: Atrial fibrillation Stroke (08/2023)Congestive heart failure DiabetesHypertensionHypotensionHysterectomy Obesity Cardiac pacemaker Gastric bypassKidney stones (hx of extracorporeal shockwave lithotripsy) Functional Status Date Functional Assessmen t No Information Instructions Date Instruction Additional Darcyr lonnie It was nice meeting you today, Elizabet! As we discussed -I will request your most recent labs drawn on 05/01/2024, as well as your CT scan that you had last month-Complete stool testing at your earliest convenience and drop off at the closest [facility] location to you-We will call you to schedule the upper endoscopy and colonoscopy in the hospital to assess for reasoning behind your iron deficiency anemia -Continue to take your oral iron supplementation daily -Keep your follow up in [address] Llanes-You can use Miralax as needed for constipation. If you have not had a bowel movement for a day or two, start taking 1/2 a capful to one capful daily of Miralax for a goal of one soft and formed bowel movement daily or every other day-If you are having multiple episodes of diarrhea within a day, it is okay to take imodium as needed for diarrhea-I will have you follow up in clinic at [facility] following the completion of your upper endoscopy and colonoscopy to discuss the results and see how you are doing HOW TO REACH MEYou can reach me by sending a message through your patient portal or calling my patient coordinator at [phone]. [phone] Related to Iron deficiency anemia, unspecified iron deficiency anemia type Assessments Type Assessment Date No Information Patient Care Teams Name Effective Dates (start - stop) Status Members No Information
[2024-12-27 11:48] VITALS: BP 114/64; PULSE 70; RESP 16; TEMP 36.1; O2SAT 95; BMI 28.3
[2024-12-27 12:17] LABS: Appearance Urine Clear (Clear); Bilirubin Urine Negative (Negative); Blood Urine Negative (Negative); Color Urine Yellow (Yellow); Glucose Urine Negative (Negative); Ketones Urine Negative (Negative); Leukocyte Esterase Urine Negative (Negative); Nitrite Urine Negative (Negative); Protein Urine Negative (Negative); Specific Gravity Urine 1.015 (1.000-1.030); Urobilinogen Urine 0.2 (0.2-1.0)
--- OUTSIDE RECORDS SUMMARY | 2024-12-27 12:24 | XMS_ITS | Encounter Summary ---
Author Organization [facility] Address [address], [place] [address] Care Team Providers Care Veneer Layer Name Role Phone Antionette Day DNP, LDR NURSE, MEDICAL RECORD ASSISTANT Primary Care Provid er Encounter Details Date Type Department Care Team ([facility] st Contact Info) Description 07/21/2016 Correspondence [facility] [address] [place], [place] [id number] Alex Fisher MD [address] [place] [id number] ATTESTATION STATEMENT Social History Tobacco Use Types Packs/Day Years Used Date Smoking Tobacco: Former Cigarettes Smokeless Tobacco: Never Comments:quit about 20 years ago Alcohol Use Standard Drinks/Week Comments Yes 0 (1 standard drink = 0.6 oz pur e alcohol) rare Comments No Sex and Gender Information Value Date Recorded Sex Assigned at Not on file Legal Sex Female 4:05 AM CDT Gender Identity Not on file Sexual Orientation Not on file Occupation Industry Job Start Date Job End Date retired Not on file Not on file Not on file documented as of this encounter Plan of Treatment Not on file documented as of this encounter Visit Diagnoses Not on filedocumented in this encounter Care Teams Veneer Layer Relationship Specialty Start Date End Date Antionette Day DNP, LDR NURSE, MEDICAL RECORD ASSISTANT [address] [place] [phone] PCP - General Nurse Practitioner 01/02/23 documented as of this encounter
--- OUTSIDE RECORDS SUMMARY | 2024-12-27 12:24 | XMS_ITS | Clinical Summary ---
Author Organization [facility] Address [address] [place] [id number] Care Team Providers Care Cell Maker Name Role Phone Jonathan Rosado MD Unavailable Augusto Serrato Unavailable [phone] Jose G Iqbal Unavailable [phone] Rae Vazquez MD Primary Care Prov ider Allergies Active Allergy Reactions Criticality Noted Date Comments Adhesive Tape Contact Dermatitis 04/06/2006 Amoxicillin-Pot Clavulanate 10/21/2009 Stomach pain Anesthetics - Amide Type - Select Amino Amides Other - Describe In Comment Field 09/25/2012 vomiting Atorvastatin Muscle Weakness High 08/20/2008 Cephalexin GI Upset High 01/11/2017 Got a lot of pain with stomach with taking these. Clavulanic Acid *Unknown 06/23/2024 Erythromycin Other - Describe In Comment Field 01/30/2007 Abdominal pain Fish Containing Products Hives High 09/01/2006 Glyburide Other - Describe In Comment Field High 10/09/2009 Abdominal pain Hydroxyzine Other - Describe In Comment Field 07/12/2022 Patient reports jerky movements in stomach, arms, and legs while taking medication that resolved 3 days after stopping medication. Latex Edema,Itching High 04/06/2006 Macrolide Antibiotics Diarrhea High 10/09/1992 Nitrofurantoin Other - Describe In Comment Field High 01/30/2007 Abdominal pain [place] Oil Rash 01/25/2008 [place] fish when eaten Simvastatin Muscle Weakness High 08/20/2008 Sulfa (Sulfonamide Antibiotics) Hives,Rash High 10/09/1992 rash Pains in the stomach Medications cycloSPORINE (RESTASIS) 0.05 % ophthalmic emulsionIndicatio ns:dry eye Place 1 Drop into both eyes two times daily. 05/31/20 23 Active acetaminophen (Tylenol Extra Strength) 500 mg tabletIndications :pain Take 2 Tablets (1,000 mg) by mouth every 6 hours if needed for Pain or Headache. Max acetaminophen dose: 4000mg in 24 hrs. 09/21/19 24 Active omeprazole (PRILOSEC) 20 mg Delayed-Release capsuleIndication s:heartburn Take 1 Capsule (20 mg) by mouth once daily before a meal. 09/23/19 24 Active sennosides-docusa te (SENOKOT S) (8.6-50 mg) tabletIndications :Acute ischemic stroke (HC) Take 2 Tablets by mouth 2 times daily if needed for Constipation. 09/21/19 24 Active potassium chloride (KLOR-CON M10) 10 mEq extended-release tablet (part/cryst)Indic ations:hypokalemi a prevention Take 1 tablet (10 meq) by mouth every other day. 09/24/19 24 Active loperamide (IMODIUM) 2 mg tablet Take 4mg by mouth with 1st loose stool, then 2mg with each subsequent loose stool. Max 16 mg in 24 hrs 10/03/19 24 Active cyanocobalamin (Vitamin B-12) 1,000 mcg tabletIndications :prevention of vitamin B12 deficiency Take 1 Tablet (1,000 mcg) by mouth once daily. 90 Tablet 3 03/19/20 24 Active lysine 500 mg tabIndications:En counter to establish care Take 1 Tablet (500 mg) by mouth once daily before a meal. 90 Tablet 3 03/19/20 24 Active multivitamin (MVI) tabletIndications :S/P gastric bypass Take 1 Tablet by mouth once daily. 90 Tablet 3 03/19/20 24 Active cholecalciferol (Vitamin D) 1,000 unit capsuleIndication s:S/P gastric bypass Take 1 Capsule (1,000 units) by mouth once daily. 90 Capsule 3 03/19/20 24 Active fexofenadine (MIMI) 180 mg tablet Take 180 mg by mouth once daily. Do not crush or chew. 03/25/20 24 Active nystatin powder (MYCOSTATIN) powder Apply 1 Strip topically to affected area(s) two times daily. Apply to groin/abd folds 03/25/20 24 Active calcium carbonate (Corbin-Gest Antacid) 200 mg calcium (500 mg) chewable tablet Chew 1 Tablet (500 mg) by mouth three times daily with meals. 03/25/20 24 Active artificial tears PF peg 400-propylene glycol (SYSTANE) 0.4-0.3 % ophthalmic dropperetteIndica tions:Dry eye Place 2 Drops into both eyes every 2 hours if needed for Dry Eyes. 25 Each 11 04/23/20 24 Active ferrous sulfate 325 mg delayed release tabletIndications :Iron deficiency anemia due to chronic blood loss Take 1 Tablet (325 mg) by mouth once daily with a meal. 90 Tablet 3 04/23/20 24 Active FLUoxetine (PROzac) 20 mg capsuleIndication s:anxiety with depression Take 1 Capsule (20 mg) by mouth once daily in the morning. 05/01/20 24 Active melatonin 3 mg tabletIndications :Insomnia, idiopathic TAKE 2 TABLETS BY MOUTH AT BEDTIME 180 Tablet 3 05/17/20 24 Active albuterol HFA (PRO-AIR; VENTOLIN; PROVENTIL) 90 mcg/actuation inhalerIndication s:bronchospasm prevention Inhale 2 Puffs by mouth 4 times daily if needed for Shortness Of Breath or Wheezing. 18 g 2 07/31/19 25 Active carvediloL (COREG) 25 mg tabletIndications :hypertension Take 1 Tablet (25 mg) by mouth two times daily with meals. 180 Tablet 3 08/06/19 25 Active rosuvastatin (Crestor) 20 mg tabletIndications :Hyperlipidemia, unspecified hyperlipidemia type Take 1 Tablet (20 mg) by mouth at bedtime. 90 Tablet 3 08/06/19 25 Active lancets (Unistik 3 Comfort Lancet) 28 gauge miscIndications:T ype 2 diabetes mellitus with other circulatory complication, without long-term current use of insulin (HC) As directed. Dispense item covered by pt ins. 100 Each 08/19/19 25 Active polyethylene glycoL (MIRALAX) 17 gram/scoop powderIndications :Fluctuation of weight 1/2 scoop every other day 510 g 09/11/19 25 Active guaiFENesin 100 mg/5 mL liquidIndications :Acute cough Take 5 mL (100 mg) by mouth every 6 hours if needed for Expectoration. 118 mL 09/12/19 25 Active fluticasone (50 mcg per actuation) nasal solution (FLONASE)Indicati ons:Retracted ear drum, right Inhale 2 Sprays in both nostrils once daily. 16 g 2 09/12/19 25 Active clotrimazole (LOTRIMIN) 1 % creamIndications: Yeast infection of the skin Apply topically to affected area(s) two times daily. 45 g 09/20/19 25 Active furosemide (LASIX) 20 mg tabletIndications :Essential hypertension,Acut e on chronic diastolic heart failure (HC) TAKE 1 TABLET BY MOUTH EVERY MORNING 90 Tablet 2 09/30/19 25 Active fenofibrate 160 mg tabletIndications :Hyperlipidemia, unspecified hyperlipidemia type TAKE 1 TABLET BY MOUTH DAILY 90 Tablet 10/26/19 25 Active witch ye leaf (WITCH YE MISC) As directed. Active aspirin 81 mg enteric coated tabletIndications :Coronary artery disease involving [place] coronary artery of [place] heart, unspecified whether angina present Take 1 Tablet (81 mg) by mouth once daily with a meal. 90 Tablet 3 11/05/19 25 Active propylene glycoL (Systane Balance) 0.6 % ophthalmic solutionIndicatio ns:Eye irritation Place into the eye(s). 10 mL 11/09/19 25 Active hydrocortisone 1 % creamIndications: Skin irritation Apply topically to affected area(s) 2 times daily if needed for Itching for up to 1 dose. 30 g 11/14/19 25 Active SITagliptin phosphate (Januvia) 25 mg tabletIndications :Type 2 diabetes mellitus with other circulatory complication, without long-term current use of insulin (HC) TAKE 1 TABLET BY MOUTH DAILY 90 Tablet 11/22/19 25 Active lysine 600 mg tabIndications:In tranasal ulcers Take by mouth. 90 Tablet 3 11/30/19 25 Active ciprofloxacin 500 mg tabletIndications :urinary tract infection Take 1 Tablet (500 mg) by mouth two times daily for 7 days. 14 Tablet 12/21/19 25 025 Active fosfomycin tromethamine 3 gram pack packetIndications :Complicated UTI (urinary tract infection) Give 3g by mouth one time, repeat every 3 days for 3 doses total. 9 g 12/24/19 25 Active warfarin 5 mg tabletIndications :Paroxysmal atrial fibrillation (HC),Encounter for monitoring Coumadin therapy,Anticoagu lation monitoring, INR range 2-3 Take by mouth 12/24: 2.5 mg; Otherwise 5 mg every Sun, Tue, Sylvia; 2.5 mg all other days in the evening OR as directed. Recheck INR on 01/01. 7 Tablet 12/24/19 25 Active warfarin 5 mg tabletIndications :Paroxysmal atrial fibrillation (HC),Encounter for monitoring Coumadin therapy,Anticoagu lation monitoring, INR range 2-3 Take by mouth 5 mg (5 mg x 1) every Sun, Tue, Sylvia; 2.5 mg (5 mg x 0.5) all other days in the evening OR as directed recheck INR 11/29/2024 11 Tablet 11/17/19 25 025 Discontin ued(Other - add note to specify (E-cancel not sent)) warfarin 5 mg tabletIndications :Paroxysmal atrial fibrillation (HC),Encounter for monitoring Coumadin therapy,Anticoagu lation monitoring, INR range 2-3 Take by mouth 12/03: Hold; 12/04: Hold; Otherwise 5 mg every Sun, Tue, Sylvia; 2.5 mg all other days in the evening OR as directed (recheck 12/04/24) 11 Tablet 12/04/19 25 025 Discontin ued(Reord er (E-cancel not sent)) warfarin 5 mg tabletIndications :Paroxysmal atrial fibrillation (HC),Encounter for monitoring Coumadin therapy,Anticoagu lation monitoring, INR range 2-3 Take by mouth 5 mg (5 mg x 1) every Sun, Tue, Sylvia; 2.5 mg (5 mg x 0.5) all other days in the evening OR as directed recheck INR 12/12/24 6 Tablet 12/06/19 25 025 Discontin ued(Reord er (E-cancel not sent)) warfarin 5 mg tabletIndications :Paroxysmal atrial fibrillation (HC),Encounter for monitoring Coumadin therapy,Anticoagu lation monitoring, INR range 2-3 Take by mouth 5 mg (5 mg x 1) every Sun, Tue, Sylvia; 2.5 mg (5 mg x 0.5) all other days in the evening OR as directed recheck INR 12/20/24 6 Tablet 12/15/19 25 025 Discontin ued(Reord er (E-cancel not sent)) warfarin 5 mg tabletIndications :Paroxysmal atrial fibrillation (HC),Encounter for monitoring Coumadin therapy,Anticoagu lation monitoring, INR range 2-3 Take 2.5 mg on 12/22/24 otherwise: Take by mouth 5 mg (5 mg x 1) every Mon, Mon, Mon; 2.5 mg (5 mg x 0.5) all other days in the evening OR as directed recheck INR 12/23/24 4 Tablet 12/22/19 25 025 Discontin ued(Reord er (E-cancel not sent)) Active Problems Problem Noted Date Diagnosed Date Hemiparesis, aphasia, and dy sphagia as late effect of cerebrovascular accident (CVA) 09/12/2024 Acute on chronic diastolic heart failure 024 Chronic bronchitis, unspecified chronic bronchit is type 04/16/2024 Chronic kidney disease, stage 3b 04/16/2024 Anticoagulation monitoring, INR range 2-3 2023 Encounter for monitoring Coumadin therapy 2023 Acute ischemic stroke 09/05/2023 Paroxysmal atrial fibrillation 09/01/2023 Hypokalemia 05/30/2023 Hyponatremia 05/30/2023 Diastolic heart failure 09/20/2021 S/P placement of cardiac pacemaker 09/15/2021 Overview (09/15/2021): dual-chamber pacemaker placed 09/15/2021 at [facility] Assessment & Plan (10/23/2024 3:02 PM CDT): Date of last device in office evaluation: 10/23/2024 Following clinic: [facility] ? Ophthalmic Nurse and model: Medtronic Lizbeth Pacemaker. Date of implant: 09/14/21 ? Indication for device: 3rd deg AVB ? Cardiac resynchronization therapy: no MRI Conditional: yes ? Battery longevity documented as less than 3 Months: no ? Are any of the leads less than 3 months old: no ? Programming ? Pacing mode and programmed lower rate: DDDR 60 bpm ? Rate-responsive sensor type, if programmed on: accelerometer Underlying rhythm and heart rate: sinus bradycardia CHB no R waves at VVI 30 bpm, rare conducted beat ? What is the response of this device to magnet placement: Asynchronous ? PM magnet pacing rate: 85 ppm ? Any alert status on CIED generator or lead: no ? 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 06/22/2020 Bilateral kidney stones 06/21/2019 CKD stage 2-3 03/02/2019 History of lacunar cerebrovascular accident 02/2017 History of total right knee replacement 02/22/20 CVA (cerebral vascular accident) 05/10/2016 Hypercalcemia 09/24/2014 S/P gastric bypass 11/30/2009 Overview (03/11/2019): Ric and Y anastomosis, lost 70 lbs S/P hysterectomy with oophorectomy 11/30/2009 Overview (03/11/2019): At age 46 years, due to endometriosis, on hormone replacement for 2 years Vitamin D deficiency 01/01/2009 Overview (03/11/2019): Overview: 12/23 Unspecified intestinal malabsorption 07/29/2008 Bariatric surgery status 05/12/2008 Overview (03/11/2019): Overview: 01/30/07 Osteoarthrosis, unspecified whether generalized or localized, lower leg 01/30/2008 Mitral valve prolapse 09/08/2006 Overview (03/11/2019): Overview: Pt report No dental prophylaxis now Carpal tunnel syndrome 02/24/2006 Overview (03/11/2019): Overview: H/o B med n release George's granulomatosis 02/24/2006 Overview (03/11/2019): Overview: R nostril & Scars excessively Type 2 diabetes mellitus 09/09/2005 Overview (09/05/2023): Overview: microalbuminuria Essential hypertension 09/09/2005 Overview (09/05/2023): Overview: Epic Epic Allergic rhinitis 09/09/2005 Overview (03/11/2019): Overview: Epic Depressive disorder 09/09/2005 Overview (03/11/2019): SADD sxs lessening ; Depressive disorder, not elsewhere classified ([facility]) Esophageal reflux 09/09/2005 Obstructive sleep apnea 09/09/2005 Overview (03/11/2019): Overview: She feels improving since bariatric . Not using CPAP Hyperlipidemia Resolved Problems Problem Noted Date Diagnosed Date Resolved Date Headache 05/30/2023 09/01/2023 Dehydration 05/30/2023 09/01/2023 Pneumonia 04/27/2023 03/19/2024 Acute cystitis with hematuria 04/27/2023 03/19/2024 Pacemaker 09/22/2021 09/05/2023 Overview (01/02/2023): Date of last device in office evaluation: 01/02/2023 [facility] ? Ophthalmic Nurse and model: Medtronic Lizbeth Pacemaker. Date of implant: 09/14/2021 ? Indication for device: CHB ? Cardiac resynchronization therapy: no MRI Conditional: yes ? Battery longevity documented as less than 3 Months: no ? Are any of the leads less than 3 months old: yes ? Programming ? Pacing mode and programmed lower rate: DDDR 60-130 ? Rate-responsive sensor type, if programmed on: accelerometer Underlying rhythm and heart rate: Sinus rhythm with complete heart block, V rate 38 bpm ? What is the response of this device to magnet placement: asynchronous pacing DOO 85 bpm ? Any alert status on CIED generator or lead: no ? Last pacing threshold Atrial 0.75 V @ 0.4 ms Ventricular RV: 0.75 V @ 0.4 ms Right ureteral stone 03/02/2019 024 Hydronephrosis, right 03/02/20192023 Hydronephrosis 03/02/2019 04/16/2024 Sepsis secondary to UTI 04/18/201609/2023 Morbid obesity 01/30/2007 07/31/2024 Encounters Date Type Department Care Team Description 12/27/[address] [facility] [address] [place] [address] Rae Vazquez MD Urinary Tract Infection 12/27/[address] [facility] [address] [place] [address] Rae Vazquez MD Concerns (Fall and antibiotics) 12/27/[address] [facility] [address] [place] [address] Rae Vazquez MD Refill Request (Cyclosporine ) 12/23/2024 2:30 PM CDT - 12/23/2024 11:59 PM CDT Hospital Encounter [address] [address] Paroxysmal atrial fibrillation (HC); Encounter for monitoring Coumadin therapy; Anticoagulation monitoring, INR range 2-3 12/23/2024 Anticoagulation (warfarin) [facility] [address] [place] [address] 1, [facility] Anticoagulation 12/23/2024 Travel 12/21/2024 Anticoagulation (warfarin) [address] [address] 1, [facility] Anticoagulation (OV) 12/20/2024 3:05 PM CDT Office Visit [facility] [address] [place] [address] Rae Vazquez MD Urinary Problem (Burning and frequent urination. ); Follow Up (urgent care follow up 12/13) 12/20/[address] [facility] [address] [place] [address] Rae Vazquez MD Anticoagulation (OPV-CIPROFLOXACIN) 12/20/2024 Travel 12/20/[address] [facility] [address] [place] [address] Rae Vazquez MD Anticoagulation 12/20/[address] [facility] [address] [place] [address] Rae Vazquez MD Appointment (INR) 12/20/[address] [facility] [address] [place] [address] Rae Vazquez MD Questions (UTI ) 12/19/[address] [address] Rae Vazquez MD Refill Request (CYCLOSPORINE EMU 0.05% OP) 12/18/[address] [address] Rae Vazquez MD Anticoagulation (Annual re-enrollment /) 12/16/2024 Orders Only [facility] Scanner 1 scan: (1-Ord) [facility] [place], 12/16/2024 12/14/2024 Anticoagulation (warfarin) [facility] [address] [place] [address] 1, [facility] Anticoagulation 12/13/2024 2:45 PM CDT Orders Only [facility] [address] [place] [address] Lab, [facility] 12/13/2024 Travel 12/13/[address] [facility] [address] [place] [address] Rae Vazquez MD Lab (UA request) 12/05/2024 Anticoagulation (warfarin) [facility] [address] [place] [address] 1, [facility] Anticoagulation 12/04/2024 4:00 PM CDT Orders Only [address] [address] Lab, [facility] 12/04/2024 Travel 12/03/2024 Anticoagulation (warfarin) [facility] [address] [place] [address] 1, [facility] 12/02/[address] [facility] [address] [place] [address] Rae Vazquez MD Anticoagulation (Last AC Review ) 11/27/[address] [address] Rae Vazquez MD Medication Management (lysine) 11/21/[address] [address] Rae Vazquez MD Concerns (Injection from angiogram) 11/19/[address] [address] Rae Vazquez MD Refill Request (Januvia) 11/15/2024 3:00 PM CDT Orders Only [facility] [address] [place] [address] Lab, [facility] 11/15/2024 Anticoagulation (warfarin) [facility] [address] [place] [address] 1, [facility] Anticoagulation 11/15/2024 Travel 11/13/[address] [facility] [address] [place] [address] Rae Vazquez MD Medication Management (hydrocortisone 1% cream) 11/07/[address] [address] Rea Vazquez MD Refill Request (Systane Maryam, Hydrocort Cre 1% ) 11/06/2024 Telephone [facility] [address] [place], [place] [address] Jose Mooney MD Surgery Scheduled (Attempted to call daughterFlorence to discuss surgery after receiving message) 11/04/2024 8:35 AM CDT - 11/04/2024 3:57 PM CDT Hospital Encounter [facility] [address] [place] [address] Jonathan Rosado MD Cv, O3 Team, C Coronary artery disease involving tling[place] & [place] coronary artery of [place] heart, unspecified whether angina present (Primary Dx) Discharge Disposition: Home Self Care 11/04/2024 Travel 10/30/2024 9:50 AM CDT Office Visit [facility] [address] [place] [address] Rae Vazquez MD Preoperative Exam (Procedure: MITRAL VALVE REPLACEMENT (TISSUE VALVE) WITH LEFT ATRIAL APPENDAGE CLIP/11/15/24/Jose Mooney MD/General ) 10/30/[address] [facility] [address] [place] [address] Rae Vazquez MD Anticoagulation (11/04/24 angiogram. 11/06/24 tooth extraction. 11/15/24 mitral valve replacement. ) 10/30/2024 Anticoagulation (warfarin) [facility] [address] [place] [address] 1, [facility]ticoagulation 10/30/2024 Travel 10/28/2024 Telephone [facility] [address] [facility] [address] [place] [address] Jonathan Rosado MD instruct (angio) 10/25/[address] [facility] [address] [place] [address] Rae Vazquez MD Anticoagulation (OPA Fenofibrate and Warfarin ) 10/25/2024 Anticoagulation (warfarin) [facility] [address] [place] [address] 1, [facility] Anticoagulation (Chart Update) 10/24/[address] [facility] [address] [place] [address] Rae Vazquez MD Anticoagulation 10/23/2024 2:30 PM CDT Procedure Only [facility] [address] [place] [address] Device Check (Clinic MDT PPM, routine) 10/23/2024 Travel 10/23/2024 Telephone [facility] [address] [facility] [place] [address] Morris Bruno MD CIED 10/22/[address] [facility] [address] [place] [address] Rae Vazquez MD Refill Request (Fenofibrate, Cyanocobalamin) 10/16/2024 1:15 PM CDT Orders Only [facility] [address] [place] [address] Lab, [facility] 10/16/[address] [facility] [address] [place] [address] Rae Vazquez MD Anticoagulation 10/16/[address] [facility] [address] [place] [address] Rae Vazquez MD Anticoagulation (Procedure 11/15/24) 10/16/2024 Anticoagulation (warfarin) [facility] [address] [place] [address] Rae Vazquez MD Anticoagulation 10/16/2024 Travel 10/15/2024 Telephone [facility] [address] [place] [address] Jose Mooney MD Prior Authorization (No outpatient/profession al billing prior authorization required per [facility] webtool) 10/10/2024 2:45 PM CDT Orders Only [facility] [address] [place] [address] Lab, [facility] 10/10/2024 Anticoagulation (warfarin) [facility] [address] [place] [address] 1, [facility] Anticoagulation (MAXIMINO) 10/10/2024 Travel 10/10/2024 Telephone [facility] [place] [address] [place] [address] Jonathan Rosado MD Procedure (angiogram) 09/27/[address] [facility] [address] [place] [address] Rae Vazquez MD Refill Request (Furosemide, Januvia) 09/26/[address] [facility] [address] [place] [address] Emmanuel Cain MD Form from Last 3 Months Immunizations Immunization Administration Dates Next Due COVID-19 VACCINE SPIKEVAX (M ODERNA 50MCG/0.5ML) 12YO+ PFS 04/23/2024,10/26/2023,06/09/2023 Covid-19 Vaccine (Novavax) Pf, MDV 04/22/2024 Influenza Virus, Unspecified 05/11/2016,05/20/20 13 Influenza, High-dose Inactivated 024,05/01/2018,05/17/2017,05/11,05/16/2014,04/12/2011,05/21/2010 Influenza, High-dose Quadriv alent Inactivated 06/09/2023,05/24/2022 Influenza, IIV3 (Age >=3 years) 05/21/20 12,04/30/2012,03/19/2009,05/12,04/28/2006,05/01/1996,05/05/1995 Influenza, IIV4 04/22/2024,07/19/2021 Influenza, Inactivated AIIV4 (Age 65+ Years) Preserv Free 05/18/2020 Pneumococcal Poly,23-Valent (Pneumovax) 11/28/2008,05/02/2003 Pneumococcal conj 13-Valent (Prevnar 13) 10/06/2016 RSV, Recombinant ADJ Reconst ituted (Arexvy 120MCG/0.5mL) 03/22/2023 Td (Age >=7 Years) 11/28/2008,09/09/1998 Tdap 12/24/2020,11/28/2008 Zoster (Shingrix-RZV, recombinant) 12/24/2020 Zoster (Zostavax-ZVL, live) 11/12/2011 Family History Medical History Relation Name Comments Hypertension Daughter Diabetes Father Hyperlipidemia Father Hypertension Father Stroke Maternal Grandfather COPD Mother Hypertension Mother Unknown Sister Good Health Son Relation Name Status Comments Daughter Alive Father (Age 77) Maternal Grandfather Maternal Grandmother Mother (Age 73) Paternal Grandfather Paternal Grandmother Sister Alive Son Alive Social History Tobacco Use Types Packs/Day Years Used Date Smoking Tobacco: Former Cigarettes Q uit: 07/17/1983 Smokeless Tobacco: Never Tobacco Cessation:Counseling Given: Not Answered Alcohol Use Standard Drinks/Week Comments Not Currently 0 (1 standard drink = 0.6 oz pur e alcohol) PHQ-2 Answer Date Recorded PHQ-2 TOTAL SCORE 1 07/05/2024 Social Connections Answer Date Recorded Do you often feel lonely or isolated from those around you? 0 09/12/2024 Financial Resource Strain Answer Date R ecorded Difficulty of Paying Living Expenses 3 09/12/2024 Difficulty of Paying Living Expenses Not on file 09/12/2024 Food Insecurity Answer Date Recorded Do you worry your food will run out before you are able to buy more? 1 09/12/2024 Transportation Needs Answer Date Record ed Does lack of transportation keep you from medica l appointments? 1 09/12/2024 Does lack of transportation keep you from work, meetings or getting things that you need? 1 09/12/2024 Housing Stability Answer Date Recorded What is your housing situation today? 1 09/12/2024 Interpersonal Safety Answer Date Record ed Are you being hit, kicked, p ushed or yelled at (see row info)? No 11/04/2024 Interpersonal Safety Abuse 12 - 18 Not on file 11/04/2024 Interpersonal Safety Ambulatory Vulnerability No t on file 11/04/2024 Utilities Answer Date Recorded Do you have trouble paying f or utilities (for example, heat, electricity, water, phone)? 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 Not on file Not on file Obstetrics History Last Filed Vital Signs Vital Sign Reading Time Taken Comments Blood Pressure 131/76 12/20/2024 3:14 PM CDT Pulse 80 12/20/2024 3:14 PM CDT Temperature 36.6 C (97.9 F) 11/04/2024 9:08 AM CDT Respiratory Rate 14 11/04/2024 2:30 PM CDT Oxygen Saturation 98% 12/20/2024 3:14 PM CDT Inhaled Oxygen Concentration - - Weight 69.4 kg (153 lb) 11/04/2024 9:08 AM CDT Height 157.5 cm (5' 2) 11/04/2024 9:08 AM CDT Body Mass Index 27.98 11/04/2024 9:08 AM CDT Plan of Treatment Upcoming Encounters Date Type Department Care Team (Late st Contact Info) Description 12/30/2024 3:30 PM CDT Orders Only [facility] [address] [address] Lab, [facility] 02/05/2025 Procedure Only [facility] [place] [facility] [address] [place] [address] Mhvi, Mhmy Remote Health Maintenance Due Date Last Done Comments Zoster (shingles) series for age 50+ (3 of 3) 02/18/2021 12/24/2020, 11/12/2011 COVID-19 vaccine series ( season) 2024 04/23/2024, 04/22/2024, 10/26/2023, Additional history exists Depression screening for age 12+ 07/05/2025 07/05/2024, 07/05/2024, 07/05/2024, Additional history exists Medicare Wellness for age 65+ 07/06/2025 07/05/2024, 03/11/2019 BMI (ht and wt on same day) for age 18+ 08/06/2025 08/06/2024, 03/19/2024, 02/08/2024, Additional history exists Tetanus booster 12/24/2030 12/24/2020, 11/14, 11/28/2008, Additional history exists DEXA/DXA scan for age 65+ Completed 2015 [facility] Pneumococcal series for age 50+ Completed 10/06/2016, 11/28/2008, 05/02/2003 Tdap Completed 12/24/2020, 11/28/2008 RSV vaccine for adults or Completed 03/22/2023 Influenza Vaccine Completed 04/23/2024, , 07/19/2021, Additional history exists Hepatitis B series for 19+ Aged Out N o longer eligible based on patient's age to complete this topic Medical Devices Implanted Type Area Ophthalmic Nurse Device Identifier Shelf Expiration Date Model / Serial / Lot Patella Sigma 32mm Oval/[id number] J&Trishrtlaura - [id number] Implanted:Qty: 1 on 01/30/2008 at [facility] Ortho Total Joint Right: Knee Gamar 08/17/2012 96-0100# / / [id number] Description:CHECKED JI Cmnt Bone Palacos R - [id number] Implanted:Qty: 1 on 01/30/2008 at [facility] Right: Knee [employer]ma [employer] 06/16/2012 1112-140-0 1# / / [id number] Description:CHECKED JI Cmnt Bone Palacos R - [id number] Implanted:Qty: 1 on 01/30/2008 at [facility] Right: Knee [employer] 04/16/2012 1112-140-0 1# / / [id number] Description:CHECKED JI Implnt Fem Cruciate Sub Sz2.5 Rt Open Bx - [id number] Implanted:Qty: 1 on 01/30/2008 at [facility] Right: Knee DEPUY 05/17/2017 45915-10# / / [id number] Description:CHECKED JI Ty Tib Modular Cmnt Cocr [id number] - [id number] Implanted:Qty: 1 on 01/30/2008 at [facility] Right: Knee DEPUY 05/17/2017 0# / / [id number] Description:CHECKED JI Insert Gvf Sz 2 10mm Stab Sigma - [id number] Implanted:Qty: 1 on 01/30/2008 at [facility] Right: Knee DEPUY 12/15/2008 0# / / [id number] Description:CHECKED JI Explanted Type Area Ophthalmic Nurse Device Identifier Shelf Expiration Date Model / Serial / Lot Stent Inlay [id number] - [id number] Implanted:Qty: 1 on 08/20/2008 at [facility] Explanted:Qty: 1 on 04/01/2019 by Ephraim Mcfadden MD at [facility] Left: Ureter [employer] 01/14/2013 [id number]# / / [id number] Stent Inlay [id number] - [id number] Implanted:Qty: 1 on 10/15/2009 at [facility] Explanted:Qty: 1 on 04/01/2019 by Ephraim Mcfadden MD at [facility] Right: Ureter [employer] 03/17/2014 [id number]# / / [id number] Description:NO STICKER...SK Stent Uret [id number] Percuflex [place] Plus - [id number] Implanted:Qty: 2 on 03/02/2019 by Ephraim Mcfadden MD at [facility] Explanted:Qty: 2 on 04/01/2019 by Ephraim Mcfadden MD at [facility] Bilateral: Ureter [facility] 11/27/2021 175-552# / / [id number] Description:NO STICKER SJ Procedures Procedure Name Priority Date/Time Associated Diagnosis Comments PROTIME-INR Today 12/23/2024 3:10 PM CDT Paroxysmal atrial fibrillation (HC) Encounter for monitoring Coumadin therapy Anticoagulation monitoring, INR range 2-3 PROTIME-INR Routine 12/20/2024 4:11 PM CDT Paroxysmal atrial fibrillation (HC) Encounter for monitoring Coumadin therapy Anticoagulation monitoring, INR range 2-3 BASIC METABOLIC PANEL Routine 12/20/2024 4:02 PM CDT Complicated UTI (urinary tract infection) URINALYSIS MICROSCOPIC Routine 12/20/2024 3:20 PM CDT Urinary tract infection symptoms URINE CULTURE Routine 12/20/2024 3:20 PM CDT Urinary tract infection symptoms URINALYSIS [facility] ONLY POC DIP ([facility]) Routine 12/20/2024 3:20 PM CDT Urinary tract infection symptoms SCAN-PATHOLOGY REPORT 12/16/2024 12:00 AM CDT PROTIME-INR Routine 12/13/2024 2:45 PM CDT Paroxysmal atrial fibrillation (HC) Encounter for monitoring Coumadin therapy Anticoagulation monitoring, INR range 2-3 CBC WITH AUTO DIFFERENTIAL Routine 12/13/2024 2:43 PM CDT Pre-op exam BASIC METABOLIC PANEL Routine 12/13/2024 2:43 PM CDT Pre-op exam PROTIME-INR Routine 12/04/2024 4:42 PM CDT Paroxysmal atrial fibrillation (HC) Encounter for monitoring Coumadin therapy Anticoagulation monitoring, INR range 2-3 PROTIME-INR Routine 11/15/2024 3:02 PM CDT Paroxysmal atrial fibrillation (HC) Encounter for monitoring Coumadin therapy Anticoagulation monitoring, INR range 2-3 CVL CORONARY ANGIOGRAM Routine 11/04/2024 12:19 PM CDT LIPID PANEL W REFLEX MEASURED LDL FELICIANO 11/04/2024 9:28 AM CDT EXTRA TUBE GOLD/SST Today 11/04/2024 9 :28 AM CDT PROTIME-INR STAT 11/04/2024 9:28 AM CDT BASIC METABOLIC PANEL STAT 11/04/2024 9:28 AM CDT HEMOGLOBIN STAT 11/04/2024 9:28 AM CDT SCAN-CARDIAC STRIP 11/04/2024 12 :00 AM CDT INR,POCT Routine 10/30/2024 11:05 AM CDT Paroxysmal atrial fibrillation (HC) Encounter for monitoring Coumadin therapy Anticoagulation monitoring, INR range 2-3 INR,POCT Routine 10/16/2024 12:50 PM CDT Paroxysmal atrial fibrillation (HC) Encounter for monitoring Coumadin therapy Anticoagulation monitoring, INR range 2-3 PROTIME-INR Routine 10/10/2024 2:59 PM CDT Paroxysmal atrial fibrillation (HC) Encounter for monitoring Coumadin therapy Anticoagulation monitoring, INR range 2-3 INR,POCT Routine 10/10/2024 2:50 PM CDT Paroxysmal atrial fibrillation (HC) Encounter for monitoring Coumadin therapy Anticoagulation monitoring, INR range 2-3 from Last 3 Months Results * (ABNORMAL) PROTIME-INR [33948.0] - Standing Order (12/23/2024 3:10 PM CDT) Only the most recent of7 resultswithin the time period is included. INR 3.1(H) <1.3 12/23/2024 3:27 PM T [facility] PROTIME 35.8(H) 10.6 - 12.4 sec 12/23/2024 3:27 PM [facility] Blood BLOOD SPECIMEN / Unknown Venipuncture / Unknown 12/23/2024 3:10 PM CDT 12/23/2024 3:11 PM CDT [facility] LAB[facility] - 12/23/2024 3:27 PM CDT Therapeutic Range 2.0-3.0 for most anticoagulated patients 2.5-3.5 or 4.0 for high risk patients The INR is only used for patients on stable oral anticoagulant therapy. It makes no significant contribution to the diagnosis or treatment of patients whose Protime is prolonged for other reasons. INR results are increased when heparin levels exceed 1.0 U/mL, which corresponds to an aPTT >125 seconds if the patient is on UFH. Rae Vazquez MD HEMATOLOGY Fi nal Result [facility] [address] [place] [address] * (ABNORMAL) BASIC METABOLIC PANEL (12/20/2024 4:02 PM CDT) Only the most recent of3 resultswithin the time period is included. [facility] GLUCOSE 91 65 - 99 mg/dL [facility] Comment: Fasting reference interval UREA NITROGEN (BUN) 33(H) 7 - 25 mg/dL [facility] CREATININE 1.15(H) 0.60 - 0.95 mg/dL [facility] EGFR 48(L) > OR = 60 mL/min/1.7 3m2 [facility] BUN/CREATININE RATIO 29(H) 6 - 22 (calc) [facility] SODIUM 141 135 - 146 mmol/L [facility] POTASSIUM 4.0 3.5 - 5.3 mmol/L [facility] CHLORIDE 108 98 - 110 mmol/L [facility] CARBON DIOXIDE 24 20 - 32 mmol/L [facility] ELECTROLYTE BALANCE 9 7 - 17 mmol/L (calc) [facility] CALCIUM 9.1 8.6 - 10.4 mg/dL [facility] Blood BLOOD SPECIMEN / Unknown 12/20/2024 4:02 PM CDT 12/20/2024 4:02 PM CDT us Rae Vazquez MD CHEMISTRY Fi nal Result [facility] [address] [place] [address], [place] [phone] [facility] [address] [place] [address] * (ABNORMAL) POCT Urinalysis Dipstick Only [[id number]] (12/20/2024 3:20 PM CDT) PH 5.5 5.0 - 8.0 [facility] SPECIFIC GRAVITY 1.015 1.001 - 1.035 [facility] GLUCOSE NEGATIVE NEGATIVE [facility] BILIRUBIN NEGATIVE NEGATIVE [facility] KETONES NEGATIVE NEGATIVE [facility] OCCULT BLOOD NEGATIVE NEGATIVE [facility] PROTEIN NEGATIVE NEGATIVE [facility] NITRITE POSITIVE(A) NEGATIVE [facility] LEUKOCYTE ESTERASE 1+(A) NEGATIVE [facility] Urine URINE SPECIMEN / Unknown 12/20/2024 3:20 PM CDT 12/20/2024 3:20 PM CDT Rae Vazquez MD URINE Fi nal Result [facility] [address] [place], [place] [address] [phone] [facility] [address] [place] [address] * (ABNORMAL) URINALYSIS MICROSCOPIC [[id number]] - routine (12/20/2024 3:20 PM CDT) RBC 0-2 0-2, None Seen /HPF 12/20/2024 10:33 PM CDT [facility] WBC 6-10(A) 0-2, 3-5, None Seen /HPF 12/20/2024 10:33 PM CDT [facility] BACTERIA Moderate(A ) None Seen, Rare, Few Bacteria/ HPF 12/20/2024 10:33 PM CDT [facility] EPITHELIAL CELLS None Seen None Seen, Few Epi/HPF 12/20/2024 10:33 PM CDT [facility] HYALINE CASTS 3-5 0-2, 3-5 /LPF 12/20/2024 10:33 PM CDT [facility] Urine URINE SPECIMEN / Unknown Non-Blood / Unknown 12/20/2024 3:20 PM CDT 12/20/2024 3:20 PM CDT us Rae Vazquez MD URINE Fi nal Result [facility] [address] [place] [address], * (ABNORMAL) URINE CULTURE [[id number]] (12/20/2024 3:20 PM CDT) CULTURE RESULT(A) 12/23/2024 1:51 PM CDT [facility] CULTURE 50,000-100,000 CFU/mL Klebsiella pneumoniae 12/23/2024 1:51 PM CDT [facility] Urine URINE SPECIMEN / Unknown Non-Blood / Unknown 12/20/2024 3:20 PM CDT 12/20/2024 3:20 PM CDT Narrative Organism Antibiotic Method Susceptibility Klebsiella pneumoniae TRIMETHOPRIM/SULF <=19: S Klebsiella pneumoniae AMPICILLIN >=32: R Klebsiella pneumoniae CEFAZOLIN 2: S Klebsiella pneumoniae CEFAZOLIN-UC 2: S Comment:Cefazolin-UC interpretations are for therapy of uncomplicated UTIs due to E.coli, K.pneumoniae, or P.mirablis. Cefazolin breakpoint is used as a surrogate to predict results for the oral agents - cefdinir, cefuroxime, and cephalexin, when used for therapy of uncomplicated UTIs due to E coli, K, pneumoniae, and P. mirabilis. The FDA recommends cefadroxil susceptibility can be deduced from cefazolin. Klebsiella pneumoniae GENTAMICIN <=1: S Klebsiella pneumoniae CEFTRIAXONE <=0.25: S Klebsiella pneumoniae CEFTAZIDIME 2: S Klebsiella pneumoniae LEVOFLOXACIN 1: I Klebsiella pneumoniae CIPROFLOXACIN 0.5: I Klebsiella pneumoniae PIPERACILLIN/TAZO 16: Susceptible-dose dependent. Susceptibility dependent on max. possible blood level. Klebsiella pneumoniae AMPICILLIN/SULBACTAM 16: I Klebsiella pneumoniae CEFEPIME <=0.12: S Klebsiella pneumoniae MEROPENEM <=0.25: S Klebsiella pneumoniae NITROFURANTOIN 32: S us Rae Vazquez MD MICROBIOLOGY Fi nal Result [facility] [address] [place] [address], [place] * SCAN-PATHOLOGY REPORT (12/16/2024 12:00 AM CDT) us Scanner OTHER Final Result * (ABNORMAL) CBC AND DIFFERENTIAL (12/13/2024 2:43 PM CDT) WHITE BLOOD CELL COUNT 6.8 3.8 - 10.8 Thousand/u L [facility] RED BLOOD CELL COUNT 4.32 3.80 - 5.10 Million/uL [facility] HEMOGLOBIN 12.0 11.7 - 15.5 g/dL [facility] HEMATOCRIT 41.1 35.0 - 45.0 % [facility] MCV 95.1 80.0 - 100.0 fL [facility] MCH 27.8 27.0 - 33.0 pg [facility] MCHC 29.2(L) 32.0 - 36.0 g/dL [facility] Comment: For adults, a slight decrease in the calculated MCHC value (in the range of 30 to 32 g/dL) is most likely not clinically significant; however, it should be interpreted with caution in correlation with other red cell parameters and the patient's clinical condition. RDW 13.0 11.0 - 15.0 % [facility] PLATELET COUNT 335 140 - 400 Thousand/u L [facility] MPV 10.7 7.5 - 12.5 fL [facility] ABSOLUTE NEUTROPHILS 4,522 1,500 - 7,800 cells/uL [facility] ABSOLUTE LYMPHOCYTES 1,231 850 - 3,900 cells/uL [facility] ABSOLUTE MONOCYTES 490 200 - 950 cells/uL [facility] ABSOLUTE EOSINOPHILS 449 15 - 500 cells/uL [facility] ABSOLUTE BASOPHILS 109 0 - 200 cells/uL [facility] NEUTROPHILS 66.5 % [facility] LYMPHOCYTES 18.1 % [facility] MONOCYTES 7.2 % [facility] EOSINOPHILS 6.6 % [facility] BASOPHILS 1.6 % [facility] Blood BLOOD SPECIMEN / Unknown 12/13/2024 2:43 PM CDT 12/13/2024 2:43 PM CDT Rae Vazquez MD HEMATOLOGY Fi nal Result [facility] [address] [place] [address], [facility] [address] [place] [address] * CVL CORONARY ANGIOGRAM (11/04/2024 12:19 PM CDT) Anatomical Region Laterality Modality X-Ray Angiograph y 11/04/2024 12:1 9 PM CDT Narrative Transcriptions Jonathan Rosado MD - 11/04/2024 1:34 PM CDT [facility] [place] [facility] Cardiac Catheterization Report Name: ELIZABET PETERSON Event Date: 11/04/2024 12:19 Excellian ID #: [id number] ANNETTE #: [id number] Diagnostic Physician: JONATHAN ROSADO [facility] [place] Interventional Physician: JONATHAN ROSADO [facility] [place] Referring Physician: Rae Vazquez Primary Care Physician: RAE VAZQUEZ Date: 1945 Gender: Female Age: 79 Summary/Conclusions Procedure(s): Left heart catheterization Coronary angiogram Functional assessment of the RCA Indication(s): Mitral stenosis Pre-Op MVR Paroxysmal AFib Permanent pacemaker Prior stroke Hypertension Hyperlipidemia Diabetes mellitus Former tobacco use Procedure(s) findings: Left Heart Catheterization: LVEDP - 16 mmHg No LV angiogram performed to limit contrast exposure. No evidence of significant aortic stenosis. Coronary Angiography: Right dominant LM - short, mild disease LAD - mild disease LCx - mild disease RCA - calcified, mRCA 40% (DPR 0.97), remainder of vessel with milddisease Functional Assessment: No hyperemia induction needed for diastolic pressure ratio functionalassessment (hemodynamically significant equal to or less than 0.89). mRCA DPR of 0.97 Specimen(s) removed: None (EBL) Estimated Blood loss (ml): < 30 mL Access: Right Radial Artery Access obtained under ultrasound guidance using a micropuncture technique.Ultrasound was used to confirm vessel patency and visualize needleposition within the lumen of the vessel. An image was saved for themedical record. Access Closed: Yes - Radial arm band applied with 9 mL Summary: -Mild to moderate single vessel coronary artery disease withouthemodynamically significant stenoses. Plan: -Aspirin 81 mg daily. -Maximum-dose statin tolerated lifelong. -Continue with outpatient mitral valve replacement evaluation. -Discharge today. Consent & [place] Protocol The risks, benefits, and alternatives of the procedure were discussed withthe patient and written informed consent was obtained. [place] protocol was followed. TIME OUT conducted just prior tostarting procedure confirmed patient identity, site/side, procedure,patient position, and availability of correct equipment and implants (ifapplicable). Staff Name Title JONATHAN ROSADO Diagnostic Chrome Polisher Mireille Burroughs RN Lathe Winder Sheeba Tay PROFESSOR OF POLITICAL SCIENCE Monitor David Harris CVT Student Monitor Lori Vidales RTLisa Scrub Donna Machado RTR Technologist JONATHAN ROSADO Client Service And Consulting Manager Procedures ? Ultrasound guided vessel access ? Left Heart Cath ? Coronary Angiogram ? Fluoroscopy less than one hour ? iFR/dFR/RFR/dPR of Distal Circ Diagnostic Findings * Right Coronary Artery ? stenosis in the Distal RCA. Lesion Information Lesion # Vessel Segment Lesion Length Lesion Details 1 Distal RCA Hemodynamics State: Baseline Pressures (mmHg) Site Systolic Diastolic End Diastolic A Wave V Wave Mean LV 162 8 16 LV 164 7 16 AO 158 57 95 AO 139 61 94 LV 169 2 16 Interventional Results * Right Coronary Artery ? Intervention to the Distal RCA using a Pressure Wire. Interventional Devices Lesion # Vessel Segment Type Name Max Pressure 1 Distal RCA Pressure Wire Comet II Pressure Guidewire Procedure Details Estimated Blood Loss: < 30 ml Specimen Collected: None Level of Sedation Achieved: Moderate Procedure Start: 12:19 Fluoroscopy Time: 5.5 min Cumulative Air Kerma: 341 mGy DAP: 2255 Gy/M2 Contrast: Omnipaque, 70 ml Physiologic Data Weight: 69.4 kg BSA: 1.70 m2 Vascular Access Time Access Sheath Size 13:07 Right Radial Artery 6Fr Complications ? No Complications Medications Ordered and Administered Start Time Stop Time Medication Dose Units Route Ordered By Given By 12:51 Heparin bag 1000/500 (Table Flush) 2 Unknown Unknown 13:04 Versed (midazolam) 1 mg IV Jonathan Rosado Iryna RN 13:04 Fentanyl 50 mcg IV Jonathan Rosado Iryna RN 13:06 Lidocaine 2% 3 ml Subcut Jonathan Rosado 13:06 Supplemental Oxygen 3 l per min Nasal cannula 13:08 Heparin Bolus 3000 units IV Jonathan Rosado Iryna RN 13:12 Versed (midazolam) 0.5 mg IV Jonathan Rosado Iryna RN 13:20 Fentanyl 25 mcg IV Jonathan Rosado Iryna RN 13:21 Nitroglycerin Diltiazem Mix 400 mcg IA Jonathan Rosado I personally monitored the patient?s conscious sedation during theprocedure. Conscious sedation starts with the first sedation medication dose ofFentanyl or Versed and ends when the procedure is completed, the patientis stable for recovery status, and the physician or other qualified healthcare professional providing the sedation ends personal wscodlvmhozobf-aa-icab time with the patient. The medications listed above were verbally ordered by me and read back tome as documented above. Refer to the procedure log report for additional case details. electronically signed on 11/04/2024 1:34:11 PM with status of Final Jonathan Rosado MD [facility] [address] [place] [address] (p) [phone](f) us Jonathan Rosado MD CV IMAGING Edited Re sult - Final * EXTRA TUBE GOLD/SST (11/04/2024 9:28 AM CDT) Blood BLOOD SPECIMEN / Unknown Extra Tube / Unknown 11/04/2024 9:28 AM CDT 11/04/2024 9:58 AM CDT us Anahi Paul PA LABORATORY Final Re sult [facility] LAB[facility]ORY [place]NAL ZIP [address] [address] [place] [address] * LIPID PANEL W REFLEX MEASURED LDL (11/04/2024 9:28 AM CDT) CHOLESTEROL,TOTAL 143 100 - 199 mg/dL 11/04/2024 3:49 PM [facility] Comment: Cholesterol, Total Reference Ranges Desirable <200 mg/dL Borderline 200-239 mg/dL High >=240 mg/dL TRIGLYCERIDES 141 <150 mg/dL 11/04/2024 3:49 PM [facility] HDL CHOLESTEROL 49 >40 mg/dL 3:49 PM [facility] NON-HDL CHOLESTEROL 94 <145 mg/dl 11/04/2024 3:49 PM [facility] CHOL/HDL RATIO 2.92 <4.50 11/04/2024 3:49 PM [facility] LDL CHOLESTEROL 66 <=130 mg/dL 11/04/2024 3:49 PM [facility] VLDL CHOLESTEROL 28 <=30 mg/dL 11/04/2024 3:49 PM [facility] PROVIDER ORDERED STATUS RANDOM 11/04/2024 3:49 PM [facility] Blood BLOOD SPECIMEN / Unknown Butterfly / Unknown 11/04/2024 9:28 AM CDT 11/04/2024 9:32 AM CDT us Emma [place] CHEMISTRY Final Result [facility] INTERNAL ZIP [phone] [place] [address] * (ABNORMAL) Hemoglobin (11/04/2024 9:28 AM CDT) HEMOGLOBIN 11.6(L) 12.0 - 16.0 g/dL 11/04/2024 9:39 AM CDT [facility] MCV 92 80 - 100 fL 11/04/2024 9:39 AM CDT [facility] Blood BLOOD SPECIMEN / Unknown Butterfly / Unknown 11/04/2024 9:28 AM CDT 11/04/2024 9:33 AM CDT Anahi [place] HEMATOLOGY Final Re sult [facility] LABORATORY [place]NAL [address]IP [phone] [place] [address] * SCAN-CARDIAC STRIP (11/04/2024 12:00 AM CDT) Narrative 11/04/2024 12:00 AM CDT Ordered by an unspecified provider. Other Clinical Staff OTHER Final Resul t * (ABNORMAL) INR - POCT [81679.2] - Standing Order (10/30/2024 11:05 AM CDT) Only the most recent of3 resultswithin the time period is included. Pathologist [facility] INR 3.1(H) ratio [facility] Comment: INRs >2.9 may be falsely elevated in patients receiving either unfractionated Heparin or Low Molecular Weight Heparin. Follow up testing in a hospital laboratory may be helpful if clinically indicated. INR results of > or = 5.0 should be verified using the standard venipuncture procedure. Reference Range 0.9-1.1 Moderate-intensity Warfarin Therapy 2.0-3.0 Higher-intensity Warfarin Therapy 3.0-4.0 PROTHROMBIN TIMEP 37.7(H) 10.5 - 13.1 sec [facility] Comment: Point of care fingerstick Prothrombin Time/INR results may vary from venous Prothrombin Time/INR methodologies. Any results exhibiting inconsistency with the patient's clinical status should be repeated using a venous Prothrombin Time/INR method. Blood BLOOD SPECIMEN / Unknown 10/30/2024 11:05 AM CDT 10/30/2024 11:07 AM CDT Rae Vazquez MD LABORATORY Fi nal Result [facility] [address] [place] [address], [facility] [address] [place] [address] from Last 3 Months Additional Health Concerns Infection Onset Date Last Indicated MRSA Clearance Comment:Infection Control Note: Hx of MRSA, surveillance criteria met, no need for further testing or isolation precautions. Do not delete or resolve the Infection Flag. 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 Healthcare Directive 01/30/2008 * DNR (Latest Code Status on File) Date Activated Date Inactivated Comments 09/05/2023 3:27 PM 09/22/2023 12:11 PM Question Answer Comments Code Status Discussion: Reviewed Preferences * DNR Date Activated Date Inactivated Comments 08/31/2023 9:17 PM 09/05/2023 3:26 PM Question Answer Comments Code Status Discussion: Reviewed Preferences * DNR Date Activated Date Inactivated Comments 05/30/2023 3:15 AM 06/01/2023 6:41 PM Question Answer Comments Code Status Discussion: Reviewed Preferences * DNR Date Activated Date Inactivated Comments 04/27/2023 6:46 PM 04/29/2023 3:23 PM Question Answer Comments Code Status Discussion: Reviewed Preferences * Full Code Date Activated Date Inactivated Comments 04/27/2023 6:28 PM 04/27/2023 6:46 PM Question Answer Comments Code Status Discussion: Reviewed Preferences Care Teams Cell Maker Relationship Specialty Start Date End Date Rae Vazquez MD [address] [place] [address] PCP - General Family Practice 03/19/24 Jonathan Rosado MD [address] [place] [address] Cardiology Cardiology - Interventional 10/06/21 Augusto Serrato PA [address] [place] [address] Operator 01/03/23 Jose G Iqbal COTA [address] [place] [address] Occupational Therapy 09/25/23
--- OUTSIDE RECORDS SUMMARY | 2024-12-27 12:24 | XMS_ITS | Encounter Summary ---
Author Organization [facility] Address [address], [place] [address] Care Team Providers Care Swing Saw Operator Name Role Phone Antionette Day DNP, BUCKLE GLUER, LION HUNTER Primary Care Provid er Encounter Details Date Type Department Care Team ([facility] st Contact Info) Description 06/14/2016 Correspondence [facility] Family Practice [address] [place], [place] [phone] Alex Fisher MD [address] [place] [address] [phone] PLAN OF CARE Social History Tobacco Use Types Packs/Day Years [...] on filedocumented in this encounter Care Teams Swing Saw Operator Relationship Specialty Start Date End Date Antionette Day DNP, BUCKLE GLUER, LION HUNTER [address] [place] [address] [phone] PCP - General Nurse Practitioner 01/02/23 documented as of this encounter
--- OUTSIDE RECORDS SUMMARY | 2024-12-27 12:24 | XMS_ITS | Encounter Summary ---
Author Organization [facility] Address [address], [place] [address] Care Team Providers Care Prototype Special Build Name Role Phone Antionette Day DNP, CUT OFF SAW OPERATOR METAL, SHOP HAND Primary Care Provid er Encounter Details Date Type Department Care Team (Late st Contact Info) Description 08/29/2019 Correspondence External to External, [place] [address] RETROSPECTIVE DRUG UTILIZATION REVIEW Social History Tobacco Use Types Packs/Day Years [...] on file documented as of this encounter Goals Goal Patient Goal Type Associated Problems Recent Progress Patient-Stated? Author Being active Diabetes Education Diabetes Education No Sharon Purcell, RN, CDE Note: I will get up and move every hour that I am sitting down watching TV documented as of this encounter Visit Diagnoses Not on filedocumented in this encounter Care Teams Prototype Special Build Relationship Specialty Start Date End Date Atnionette Day DNP, CUT OFF SAW OPERATOR METAL, SHOP HAND [address] [place] [id number] PCP - General Nurse Practitioner 01/02/23 documented as of this encounter
--- OUTSIDE RECORDS SUMMARY | 2024-12-27 12:24 | XMS_ITS | Encounter Summary ---
Author Organization [facility] Address [address] [place] [address] Care Team Providers Care Keyboard Specialist Name Role Phone Antionette Day DNP, SKEIN DYER, ASSOCIATE PROFESSOR OF RADIOLOGY Primary Care Provid er Encounter Details Date Type Department Care Team ([facility] st Contact Info) Description 06/15/2016 Correspondence [facility] Family Practice [address] [place] [address] Alex Fisher MD [address] [place] [phone] DOC FACE TO FACE ENCOUNTER [place] Social History Tobacco Use Types Packs/Day Years [...] on filedocumented in this encounter Care Teams Keyboard Specialist Relationship Specialty Start Date End Date Antionette Day DNP, SKEIN DYER, ASSOCIATE PROFESSOR OF RADIOLOGY [address] [place] [phone] PCP - General Nurse Practitioner 01/02/23 documented as of this encounter
--- OUTSIDE RECORDS SUMMARY | 2024-12-27 12:24 | XMS_ITS | Encounter Summary ---
Author Organization [facility] Address [address] [place] [address] Care Team Providers Care Tack Cleaner Name Role Phone Antionette Day DNP, FOAM CUTTING SUPERVISOR, REGIONAL REFRIGERATED CDL TRUCK DRIVER Primary Care Provid er Encounter Details Date Type Department Care Team ([facility] st Contact Info) Description 06/14/2016 Correspondence [facility] Family Practice [address] [place], [place] [address] Alex Fisher MD [address] [place] [address] [phone] ORDER Social History Tobacco Use Types Packs/Day Years [...] on filedocumented in this encounter Care Teams Tack Cleaner Relationship Specialty Start Date End Date Antionette Day DNP, FOAM CUTTING SUPERVISOR, REGIONAL REFRIGERATED CDL TRUCK DRIVER [address] [place] [address] [phone] PCP - General Nurse Practitioner 01/02/23 documented as of this encounter
--- OUTSIDE RECORDS SUMMARY | 2024-12-27 12:24 | XMS_ITS | Encounter Summary ---
Author Organization [facility] Address [address] [place] [address] Care Team Providers Care Bakery Associate Name Role Phone Antionette Day DNP, WINDOW DRESSER, OFFICE ADMINISTRATION INSTRUCTOR Primary Care Provid er Encounter Details Date Type Department Care Team ([facility] st Contact Info) Description 06/03/2016 Correspondence [facility] Family Practice [address] [place], [place] [phone] Alex Fisher MD [address] [place] [address] [phone] MEDICATIONS Social History Tobacco Use Types Packs/Day Years [...] on filedocumented in this encounter Care Teams Bakery Associate Relationship Specialty Start Date End Date Antionette Day DNP, WINDOW DRESSER, OFFICE ADMINISTRATION INSTRUCTOR [address] [place] [address] [phone] (work) PCP - General Nurse Practitioner 01/02/23 documented as of this encounter
--- OUTSIDE RECORDS SUMMARY | 2024-12-27 12:24 | XMS_ITS | Encounter Summary ---
Author Organization [facility] Address [address], [place] [address] Care Team Providers Care Gas Dispenser Name Role Phone Antionette Day DNP, HEAD GROWER, CONTRACT PROGRAMMER Primary Care Provid er Encounter Details Date Type Department Care Team (Late st Contact Info) Description 09/02/2019 Correspondence External to External, [place] [address] RETROSPECTIVE DRUG UTILIZATION REVIEW Social History Tobacco [...] on filedocumented in this encounter Care Teams Gas Dispenser Relationship Specialty Start Date End Date Antionette Day DNP, HEAD GROWER, CONTRACT PROGRAMMER [address] [place] [phone] PCP - General Nurse Practitioner 01/02/23 documented as of this encounter
--- OUTSIDE RECORDS SUMMARY | 2024-12-27 12:24 | XMS_ITS | Clinical Summary ---
[facility] Address [address], [place] [address] Care Team Providers Care Cooler Servicer Name Role Phone Antionette Day DNP, CRYPTOGRAPHIC VULNERABILITY ANALYST, HOLE DIGGER OPERATOR Primary Care Provid er Source Comments You are receiving this document as you are listed as the primary care provider,follow-up provider, or the patient has been referred to you for consultation.This is in compliance with the Medicare andMedicaid EHR Incentive Program,which states Providers who transition their patient to another setting of careor provider of care or refers their patient to another provider of care shouldprovide summary care record for each transition of care or referral. [place] Allergies Active Allergy Reactions Criticality Noted Date Comments Adhesive Other, see comments 05/19/2005 rash Amoxicillin-Pot Clavulanate Other, see comments 10/21/2009 Stomach pain Anesthetics, Amide Other, see comments 09/26/19 13 vomiting Hydroxyzine Other, see comments 07/12/2022 Patient reports jerky movements in stomach, arms, and legs while taking medication that resolved 3 days after stopping medication. Amoxicillin-Pot Clavulanate Other, see comments 05/19/2005 unsure Cephalexin Gastrointestinal 01/11/2017 Got a lot of pain with stomach with taking these. Fish Allergy Hives 09/01/2006 Fish Oil Rash 01/25/2008 [place] fish when eaten Fish-Derived Products Hives High 09/01/2006 Glipizide Other, see comments 09/24/2014 Pt felt caused weight gain Glyburide Other, see comments 10/09/2009 Abdominal pain Latex 05/19/2005 Rash Levofloxacin Gastrointestinal 08/11/2016 diarrhea Atorvastatin Calcium Muscle Aches/Weakness 04/17 Macrolides And Ketolides Diarrhea 10/09/1992 Nitrofurantoin Other, see comments 01/30/2007 Abdominal pain Sulfa Antibiotics Hives High 05/19/2005 rash Medications CO Q-10 200 MG OR CAPS Take one tablet daily 07/13/20 07 Active DAILY MULTIVITAMIN OR None Entered 10/18/19 08 Active Cholecalciferol (VITAMIN D3 ADULT GUMMIES OR) 2,000 Int'l Units. Active Cranberry 500 MG Take 1 Capsule (500 mg) by mouth daily. Active Bismuth Subsalicylate 262 MG Active Trolamine Salicylate (ASPERCREME EX) Acti ve Lysine HCl (L-LYSINE) Active Hokrn-H-Uvuohvoehs ase (BEANO OR) Activ e Fexofenadine HCl (ALLER-EASE OR) Acti ve cycloSPORINE (RESTASIS) 0.05 % eye drop emulsion 1 Drop two times a day. Active Diclofenac Sodium (ASPERCREME ARTHRITIS PAIN EX) A ctive amLODIPine (NORVASC) 5 MG tabletIndications: Hypertension Take 1 Tablet (5 mg) by mouth daily. Indications: High Blood Pressure Disorder 90 Tablet 11/29/19 Active carvedilol (COREG) 3.125 MG tabletIndications: Essential hypertension (HRC) Take 1 Tablet (3.125 mg) by mouth two times a day with meals. 180 Tablet 11/29/19 Active clopidogrel (PLAVIX) 75 MG tabletIndications: History of lacunar cerebrovascular accident Take 1 Tablet (75 mg) by mouth daily. 90 Tablet 11/29/19 23 Active cyclobenzaprine (FLEXERIL) 10 MG tabletIndications: Muscle Spasm Take 1 Tablet (10 mg) by mouth at bedtime as needed for Muscle Spasms. Indications: Muscle Spasm 90 Tablet 11/29/19 Active Additional Information Patient not taking.Reported on 06/09/2023 omeprazole (PRILOSEC) 20 MG capsuleIndications :Gastroesophageal reflux disease with esophagitis Take 1 Capsule (20 mg) by mouth daily. Take 1 hour before a meal. 90 Capsule 11/29/19 23 Active SITagliptin (JANUVIA) 50 MG tabletIndications: 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) Take 1 Tablet (50 mg) by mouth daily. 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 60 Tablet 4 11/29/19 23 Active simvastatin (ZOCOR) 40 MG tabletIndications: Hyperlipidemia, unspecified hyperlipidemia type (HRC) Take 1 Tablet (40 mg) by mouth daily at bedtime. 90 Tablet 3 12/31/19 23 Active fluconazole (DIFLUCAN) 150 MG tabletIndications: Yeast infection TAKE 1 TABLET NOW FOR YEAST INFECTION REPEAT DOSE X1 IN 3 DAYS IF SYMPTOMS NOT RESOLVED 2 Tablet 05/19/20 23 Active Additional Information Patient not taking.Reported on 06/09/2023 terbinafine (LAMISIL) 1 % creamIndications:C utaneous Candidiasis Apply once daily as needed for 1-2 weeks Indications: Skin Infection due to Lori Yeast 24 g 06/09/20 23 Active tirzepatide (MOUNJARO) 15 MG/0.5ML injection penIndications:Shannon betes mellitus with stage 3 chronic kidney disease (HRC) Inject 15 mg subcutaneously once a week. Do not start before October 30, 2023. 2 mL 11 10/30/19 24 Active ALBUterol sulfate HFA 108 (90 Base) MCG/ACT inhalerIndications :Cough,SOB (shortness of breath) Inhale 1-2 Puffs every 4 hours as needed for Wheezing. 54 g 10/11/19 24 Active zolpidem (AMBIEN) 5 MG tablet Take 0.5 Tablets (2.5 mg) by mouth at bedtime as needed for Sleep. 30 Tablet 10/23/19 24 Active cholecalciferol (VITAMIN D3) 25 MCG (1000 UT) tablet Take 1 Tablet (1,000 Units) by mouth daily. 100 Tablet 4 10/27/19 24 Active vitamin B-12 (AKA: CYANOCOBALAMIN) 1000 MCG tablet Take 1 Tablet (1,000 mcg) by mouth daily. 100 Tablet 10/27/19 24 Active fenofibrate (LOFIBRA) 160 MG tabletIndications: high trigs Take 1 Tablet (160 mg) by mouth daily. Indications: high trigs 90 Tablet 4 10/27/19 24 Active JANUVIA 25 MG tablet Take 1 Tablet (25 mg) by mouth daily. 90 Tablet 3 10/27/19 24 Active losartan (COZAAR) 25 MG tabletIndications: Essential hypertension (HRC) Take 1 Tablet (25 mg) by mouth daily. 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 180 Capsule 4 10/27/19 24 Active carvedilol (COREG) 6.25 MG tablet Take 1 Tablet (6.25 mg) by mouth two times a day. 180 Tablet 3 10/27/19 24 Active simvastatin (ZOCOR) 20 MG tablet Take 1 Tablet (20 mg) by mouth daily at bedtime. 90 Tablet 3 10/27/19 24 Active potassium chloride (KLOR-CON M10) 10 MEQ tabletIndications: Chronic diastolic heart failure (HRC),Edema, unspecified type Take 1 Tablet (10 mEq) by mouth every other day. 45 Tablet 3 11/06/19 24 Active furosemide (LASIX) 20 MG tabletIndications: Chronic diastolic heart failure (HRC),Essential hypertension (HRC) Take 1 Tablet (20 mg) by mouth every other day. 45 Tablet 3 11/06/19 24 Active Active Problems Problem Noted Date Diagnosed Date Mitral valve stenosis 09/20/2021 Diastolic heart failure 09/20/2021 Diabetes mellitus with stage 3 chronic kidney di sease 09/20/2021 Mild episode of recurrent major depressive disor irma 06/22/2020 CAREPLAN: ADVANCE DIRECTIVES/CODE STATUS 019 Diabetes Education 06/14/2017 Hypercalcemia 09/24/2014 Vitamin D deficiency 01/01/2009 Overview (01/01/2009): 12/23 Essential hypertension 09/09/2005 Overview (04/16/2015): Epic Esophageal reflux 09/09/2005 Hyperlipidemia 09/09/2005 Overview (03/08/2017): Other and unspecified hyperlipidemia (HRC) Allergic rhinitis 09/09/2005 Overview (04/16/2015): Epic Depressive disorder 09/09/2005 Overview (03/08/2017): SADD sxs lessening ; Depressive disorder, not elsewhere classified (HRC) Resolved Problems Problem Noted Date Diagnosed Date Resolved Date History of total right knee replacement 02/21/2017 09/20/2021 History of lacunar cerebrovascular accident 02/21/2017 09/20/2021 Onychomycosis 01/11/2017 12/04/2019 Ingrown toenail without infection 01/11/2017 02/21/2017 Controlled type 2 diabetes m ellitus without complication, without long-term current use of insulin 12/29/2016 09/20/2021 PT CARE COORDINATION - HEALTH INTERMEDIATE 04/18/2016 08/14/2018 Overview (07/16/2018): If you have any questions or concerns please contact: Your Care Team at [facility] :[phone] Primary Care Provider: Luz Dumont CNP RN Coordinator: Batsheva CareLine at [phone] or after hours and on weekends. Care Coordination (Community Resources, Specialists, Home Health Agency, Caregiver, Supply Vendor, Plaster Applicator) Contact Name LIA Obtained? Phone Number Role in Care Comments Dr. Mcfadden Urologist [facility] U[facility] Dr. Moore Neurologist [facility] Action Plan Elizabet's Chosen Goal: To remain out of the hospital/ED. To return to baseline functioning post stroke. Manage blood sugars with medication and activity daily Detailed Action Steps to Achieve Goal & Who Will Complete: Elizabet will perform PT exercises daily. Elizabet will see neurologist as needed. Confidence Level: On a scale of 1-10, Elizabet's confidence level to achieve this goal is 8 Date Goal Achieved Follow-Up Batsheva will follow-up with Elizabet or Rene by phone on 09/13/18 Assessment & Plan (07/16/2018 4:36 PM REPAIRER [employer]): Spoke to patient to follow-up. States she switched to Metformin XR as she was having diarrhea and this has helped. Has not been checking her blood sugars and is interested in the Nav Sensor. States she has a needle phonbia, but would like to know what her blood sugars are running. DNS referral ordered. Discussed checking with insurance for coverage and she agreed. Will plan to check in with patient in 2 months. Batsheva Peace RN Assessment & Plan (02/14/2018 2:16 PM CDT): Spoke to patient, state she has been doing well. Has continued to remain out of the hospital and is functioning well in her day to day activities. Currently, pt and Rene are helping their son get his home in [place] ready to sell. Pt has been around her 4 year old grandson more often and believes she caught a cold from him. Pt has a dry cough and intermittent vertigo that she's has in the past. Pt reports it's nothing serious and would like to just wait it out rather than be seen. Pt also discussed Rene and his pain medication. See note in his chart (Steve Li) for futher info. Overall pt doing well and was appreciative of call. Batsheva Peace RN Assessment & Plan (10/06/2017 2:45 PM CDT): Spoke to patient to follow-up on goals. States blood sugars have been steady, and she continues to monitor closely. Elizabet has had no recent ED or hospital visits. States her URI is resolving; has a little bit of cough and postnasal drip but no further fevers. Pt doing well, will plan to call again in 3 months. States she is ready for Spring and the nicer weather. Batsheva Peace RN Assessment & Plan (06/19/2017 2:51 PM REPAIRER [employer]): Spoke to patient. Reports she is doing well. Has continues to remain out of the hospital. Pt saw DNS who increased her Metformin up to 4 tabs per day. Pt adjusted this 1 week ago and is tolerating increase fine. State she always takes the medication with food. Pt also getting up and moving 5-10 minutes out of every hour during the day. She is walking or climbing stairs for exercise. Reports blood sugars have been good. Informed her she is due to see PCP for diabetes visit. Pt will scheduled when needing next refill of Metformin. Pt has not concerns at this time. Batsheva Peace RN Assessment & Plan (03/07/2017 2:52 PM CDT): Spoke to patient to follow-up from shared visit. Pt was seen by Dr. Tidwell and cyst was incised and drained. Pt reports it is healing well. Redness has faded to a light pink color. Pt finished all but 3 doses of Clindamycin. States it gave her a significant upset stomach and made food taste terrible. Encouraged pt to monitor closely for any signs of infection (redness, swelling, pain, drainage, streaking). Will plan to follow-up with patient in 3 months or in clinic for shared visit. Batsheva Peace RN Assessment & Plan (02/21/2017 11:46 AM CDT): Met with patient today for shared visit. Reports she is doing well, other than cyst under left arm that she is being seen for today. Pt states had his gallbladder out and has had a difficult recovery. Has a home care nurse coming out a few times per week. Pt has been managing the whole household solo, tending to her cats and dog and making meals as is unable to at this time. Will plan to call pt next week for updated on cyst. Batsheva Peace RN Assessment & Plan (12/13/2016 4:23 PM CDT): Spoke to patient to follow-up. States she is doing great! Is making homemade chicken noodle soup right now. BP has been fairly good, today was 150/68. States she still continues to feel tired but realizes this may be partly due to her age. States Rene is also doing well-is currently helping their son flip a house in [place]. Pt has no concerns currently. Batsheav Peace RN Assessment & Plan (10/25/2016 2:59 PM CDT): Spoke to pt today. States for the last 1 week she has had no energy and not sleeping well. Denies any cold/URI symptoms. Has seasonal allergies. States BP today was 130/60. Pt wonders if her bp medications may be causing and if she should reduce the dose. Informed her she is due to come in for a BP check, prior to doing any adjustments of BP medicines. Pt agreeable. Appointment scheduled. Will plan to follow-up with pt in 6 weeks. Batsheva Peace RN Assessment & Plan (07/22/2016 2:29 PM REPAIRER [employer]): Spoke to spouse today, states patient is doing fine. Has had no further hospital/ED visits. Last BP check was at goal. No recent neurology appts. Rene denies any concerns, states she's just as ornery as ever, so I think she's just fine. Pt planning on seeing CASH Hyatt as Janeen Fisher MD is retired. PCP changed. Will plan to follow-up in 3 months-Rene aware another nurse (Malinda) will be calling. Batsheva Peace RN Assessment & Plan (05/27/2016 11:29 AM REPAIRER [employer]): Spoke with pt, state she is feeling good. Has some residual weakness that she knows will improve with time. Had last PT session on Monday, but will continue to do exercises daily at home. BP is in good control since adding Maxzide. Pt was in for BP check yesterday 127/61, and states she continues to have normal readings at home. Has neurology consult scheduled with Dr. Moore at [facility], but cannot remember what date. She will call to find out. Pt reports not sleeping as well at night recently. States she feels like she is less active during the day so this may be contributing. Advised if this continues despite increased daily activity she call or follow- up, and she agreed. Will follow-up with pt or spouse, Rene in 1 month. Batsheva Peace RN Assessment & Plan (05/20/2016 11:03 AM CDT): Reviewed office visit note from 05/18 for hospital follow-up visit. Will follow-up with pt/spouse next week. Batsheva Peace RN Assessment & Plan (05/03/2016 1:13 PM CDT): Chart reviewed, pt was recently in [place] [facility] and will be discharging soon. Pt has appt scheduled, changed to shared visit and will plan to follow-up with pt then. Batsheva Peace RN Bariatric surgery status 05/12/200801/2022 Overview (05/12/2008): 01/30/07 Obesity 09/08/2006 09/12/2013 Mitral valve prolapse 09/08/20062021 Overview (09/12/2013): Pt report No dental prophylaxis now Tobacco use disorder 02/24/2006 016 Overview (02/24/2006): d/c 1985 20pk smoke history Carpal tunnel syndrome 02/24/200609/20 Overview (09/12/2011): H/o B med n release Female climacteric state 02/24/2006 Overview (02/24/2006): menopausal without HRP Granulomatosis with polyangiitis 02/24/2006 09/20/2021 Overview (09/12/2011): R nostril & Scars excessively Pain in joint, shoulder region 02/24/2006 09/12/2011 Overview (02/24/2006): spurs Urinary calculus 09/14/2005 09/20/2021 Overview (04/16/2015): 6 stones treated w/ lithotripsy Epic Diabetes mellitus type 2, uncontrolled 09/09/2005 12/29/2016 Overview (11/11/2005): microalbuminuria Obstructive sleep apnea 09/09/2005 03/0 01/2022 Overview (09/12/2013): She feels improving since bariatric . Not using CPAP Seasonal allergies 02/20/1996 4 Immunizations Immunization Administration Dates Next Due Flu Vac (3+ yrs) 05/21/2012, 2,03/19/2009,2007,04/28/2006,05/19/2005,05/03/2004,1 ,05/05/1995 Influenza IIV3 (Trivalent) F luzone Highdose, 65+ Yrs (20093) 05/01/2019,05/01/2018,05/17/2017,2015,04/30/2015,05/16/2014,04/12/2011,1 07/21/2009 Influenza IIV4 (Quadrivalent ) 0.5mL (92160) 07/19/2021 Influenza IIV4 (Quadrivalent ) Fluad, 65+ Yrs 05/18/2020 Influenza IIV4 (Quadrivalent ) Fluzone, 65+ Yrs 05/24/2022 Influenza, Unspecified Formulation 05/11/2016, Moderna Bivalent 12+ 05/24/2022 Moderna Monovalent 12+ 11/08/2021,10/08/2020, Moderna Monovalent Booster 12+ 05/27/2021 PCV13 (Prevnar) 10/06/2016 PPSV23 (Pneumovax) 11/28/2008,05/02/2003 RSV Arexvy 03/22/2023 Td 11/28/2008,09/09/1998 Tdap 12/24/2020,11/28/2008 Zoster (Zostavax) 11/12/2011 Zoster RZV (Shingrix) 12/24/2020 Family History Medical History Relation Name Comments Alcohol/Drug Abuse Father Coronary Artery Disease Father age 77 - cardiac arrest Diabetes Father Diabetes, Type II Father Glaucoma Father Hyperlipidemia Father Other Father arthritis/hay f ever Alcohol/Drug Abuse Mother Depression Mother Hyperlipidemia Mother Hypertension Mother Migraines Mother Other Mother arthritis/emphy sema Cancer, Other Maternal Grandmother kidney cancer Anesthesia Reaction Other 2 self/vom iting Obesity Other 3 all Other Paternal Grandfather George 's Granulomatosis/R nostril abscess Cancer, Other Paternal Grandmother stomac h cancer Anxiety Sister 2 Cancer, Breast Negative Family History Cancer, Ovary Negative Family History Relation Name Status Comments Father (Age 73) cardiac ar rest Mother (Age 77) Daughter Alive Florence Maternal Grandfather (Age 56) bl ood clots to heart Maternal Grandmother (Age 72) ki dney cancer Other 1 Alive - Rene Other 2 Other 3 Paternal Grandfather (Age 81) We gener's granulomatosis Paternal Grandmother (Age 75) st omach cancer Sister 1 Alive Sandra Sister 2 Son Alive Jace Social History Tobacco Use Types Packs/Day Years Used Date Smoking Tobacco: Former Cigarettes Smokeless Tobacco: Never Comments:quit about 20 years ago Alcohol Use Standard Drinks/Week Comments Yes 0 (1 standard drink = 0.6 oz pur e alcohol) rare PHQ-2 Answer Date Recorded PHQ-2 Score 0 12/24/2020 Comments No Sex and Gender Information Value Date Recorded Sex Assigned at Not on file Legal Sex Female 4:05 AM CDT Gender Identity Not on file Sexual Orientation Not on file Occupation Industry Job Start Date Job End Date retired Not on file Not on file Not on file Last Filed Vital Signs Vital Sign Reading Time Taken Comments Blood Pressure 122/70 06/09/2023 2:02 PM REPAIR[employer] Pulse 72 06/09/2023 2:02 PM [employer] Temperature 36.1 C (97 F) 05/05/2023 10:18 AM CDT Respiratory Rate 14 12/29/2022 9:03 AM CDT Oxygen Saturation 97% 05/05/2023 10: 18 AM CDT Inhaled Oxygen Concentration - - Weight 67.5 kg (148 lb 12.8 oz) 06/09/2023 2:02 PM [employer] Height 154.3 cm (5' 0.75) 11/14/2022 1 2:33 PM CDT Body Mass Index 28.35 11/14/2022 12:33 PM CDT Plan of Treatment Health Maintenance Due Date Last Done Comments Zoster/Shingles Vaccine (3 of 3) 02/18/2021 12/24/2020, 11/12/2011 Diabetes: Eye Exam 01/04/2023 01/04/2022, 0 12/27/2021, 09/05/2019 (Completed), Additional history exists Diabetes: Urine Microalbumin 12/30/2023 12/29/2022, 11/08/2021, 12/24/2020, Additional history exists Diabetes: HGBA1C 02/29/2024 08/31/2023, , 06/09/2023, Additional history exists COVID-19 Vaccine ( season) 2024 10/26/2023, 06/09/2023, 05/24/2022, Additional history exists Diabetes: Foot Exam 03/22/2024 03/22/2023, 12/24/2020, 06/04/2018 (Completed), Additional history exists Diabetes: Creatinine 06/09/2024 06/09/2023, 05/05/2023, 03/22/2023, Additional history exists Medicare Annual Wellness Visit 07/17/2024 11/28/2022, 08/18/2021, 12/24/2020, Additional history exists Influenza Vaccine (Season Ended) 2025 06/09/2023, 05/24/2022, 07/19/2021, Additional history exists Diabetes: Lipid Panel 03/22/2028 03/22/2023 , 12/29/2022, 11/08/2021, Additional history exists DTaP/Tdap/Td Vaccine (4 - Tdap) 12/24/2030 12/24/2020, 11/28/2008, 11/28/2008, Additional history exists Colonoscopy Discontinued 12/09/2015, 11/15 (Completed), 10/13/2005 (Historical Completion) Dexa Completed 03/31/2016 Pneumococcal Vaccine 50+ Yrs Completed 10/06/2016, 11/28/2008, 05/02/2003 RSV Vaccine Completed 03/22/2023 HepA Vaccine Aged Out No longer eligi ble based on patient's age to complete this topic HepB Vaccine Aged Out No longer eligi ble based on patient's age to complete this topic Hib Vaccine Aged Out No longer eligi ble based on patient's age to complete this topic MCV4 Vaccine Aged Out No longer eligi ble based on patient's age to complete this topic Meningococcal B Vaccine Aged Out No l onger eligible based on patient's age to complete this topic Goals Goal Patient Goal Type Associated Problems Recent Progress Patient-Stated? Author Being active Diabetes Education Diabetes Education Sharon Trujillo RN, CDE Note: I will get up and move every hour that I am sitting down watching TV Procedures Procedure Name Priority Date/Time Associated Diagnosis Comments BASIC METABOLIC PANEL Routine 06/09/2023 1:40 PM RE[employer] Essential hypertension (HRC) 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) HGB A1C Routine 06/09/2023 1:40 PM [employer] 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) LIPID PANEL & DIRECT LDL (IF NEEDED) Routine 03/22/2023 2:52 PM CDT Mixed hyperlipidemia (HRC) ALBUMIN/CREAT RATIO Routine 12/29/2022 8 :27 AM CDT 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) BRETT (DIABETIC EYE EXAM) 01/04/2022 DXA BONE DENSITY SPINE/HIP Routine 03/31/2016 2:49 PM CDT Hypercalcemia COLONOSCOPY Routine 12/09/2015 8:17 AM CDT Anemia, unspecified from Last 3 Months or Most Recently Relevant to Health Maintenance Results * (ABNORMAL) BMP (06/09/2023 1:40 PM REPAIR[employer]) Sodium 137 136 - 145 mmol/L 06/09/2023 6:21 PM [facility] Potassium 3.8 3.5 - 5.1 mmol/L 06/09/2023 6:21 PM [facility] Chloride 107 98 - 109 mmol/L 06/09/2023 6:21 PM [employer] [facility] CO2 20 20 - 29 mmol/L 06/09/2023 6:21 PM [facility] [facility] Anion Gap 10 7 - 16 mmol/L 06/09/2023 6:21 PM [facility] Calcium 9.4 8.4 - 10.4 mg/dL 06/09/2023 6:21 PM [facility] BUN 16 7 - 26 mg/dL 06/09/2023 6:21 PM [facility] Creatinine 1.01 0.55 - 1.02 mg/dL 06/09/2023 6:21 PM [facility] Glucose 113(H) 70 - 100 mg/dL 06/09/2023 6:21 PM [facility] Comment:The given reference range is for the fasting state. Non-fasting reference range for glucose is 70 - 180 mg/dL. GFR, Estimated 57(L) >60 mL/min/1. 73m2 06/09/2023 6:21 PM [facility] Hours Fasting 4.0 8 - 12 Hours 06/09/2023 6:[address] [facility] Blood Venipuncture / Unknown 06/09/2023 1:40 PM [facility] 06/09/2023 1:[address] [facility] - 06/09/2023 6:21 PM [facility] The National Kidney Disease Education Program suggests measuring Cystatin C in patients with eGFRcrea of 45 to 59 ml/min/1.73^2 who do not have other markers of kidney damage (i.e. elevated urine Albumin/Creatinine Ratio or a prior Cystatin C confirming the presence of chronic kidney disease). us Antionette Day DNP, CRYPTOGRAPHIC VULNERABILITY ANALYST, HOLE DIGGER OPERATOR LAB_1 Mady osborne Result [facility] [address] [id number], [facility] [phone] [facility] [address] [place] [address], [facility] [phone] * (ABNORMAL) Hgb A1C (Expected: Now) - Collect in Lab (06/09/2023 1:40 PM [facility]) Hemoglobin A1C 8.5(H) <=5.6 % 06/09/2023 6:38 PM [facility] Estimated Average Glucose (Calc) 197 < 117 mg/dL 06/09/2023 6:38 PM [employer] [facility] [facility] Comment:Estimated average gl ucose (eAG) converts A1c into glucose units (mg/dL) and estimates average glucose over the past approximately 3 months. The eAG reference interval (<117 mg/dL) corresponds to an A1c of <5.7%. Blood Venipuncture / Unknown 06/09/2023 1:40 PM REPAIRER AUTO CLOCKS 06/09/2023 1:40 PM REPAIRER AUTO CLOCKS Narrative [facility] - 06/09/2023 6:38 PM REPAIRER AUTO CLOCKS For patients not previously diagnosed with diabetes: 5.7-6.4%: Increased risk for diabetes 6.5% and greater: Diagnostic for diabetes For patients diagnosed with diabetes: <8.0%: Goal of therapy for ages 18-75 Clinicians may recommend a higher or lower goal for specific individuals. us Antionette Day DNP, CRYPTOGRAPHIC VULNERABILITY ANALYST, HOLE DIGGER OPERATOR LAB_1 Mady osborne Result [facility] [address] [place] [address], [facility] [phone] * (ABNORMAL) Lipid Panel and Direct LDL(If Needed) (03/22/2023 2:52 PM CDT) [facility] Signature Cholesterol 188 0 - 199 mg/dL 03/22/2023 9:45 PM CDT [facility] Triglyceride 297(H) <=149 mg/dL 03/22/2023 9:45 PM CDT [facility] HDL Cholesterol 55 >=40 mg/dL 03/22/2023 9:45 PM CDT [facility] LDL, Calculated 74 <130 mg/dL 03/22/2023 9:45 PM CDT [facility] Non HDL Chol, Calculated 133 <=159 mg/dL 03/22/2023 9:45 PM T [facility] Cholesterol/HDL Ratio 3.4 03/22/2023 9:45 PM T [facility] Hours Fasting 19.0 8 - 12 Hours 03/22/2023 9:45 PM T [facility] Blood Venipuncture Butterfly / Unknown 03/22/2023 2:52 PM CDT 03/22/2023 2:53 PM CDT Antionette Day DNP, CRYPTOGRAPHIC VULNERABILITY ANALYST, LORENZO LAB_1 Mady osborne Result Performing Organization Address [facility]/ZIP Co de Phone Number [facility] [address] [place] [address], [facility] [phone] [facility] [address] [place] [address], [facility] [phone] * (ABNORMAL) Albumin/Creatinine Ratio,Random Urine (12/29/2022 8:27 AM CDT) Albumin/Creati nine Ratio, Urine, Random 77(H) <30 mg/g 12/29/2022 3:59 PM CDT [facility] Albumin, Urine, Random 15.3 mg/L 12/29/2022 3:59 PM CDT [facility] Creatinine, Urine, Random 20(L) >20 mg/dL mg/dL 12/29/2022 3:59 PM CDT [facility] Urine Non-blood Collection / Unknown 12/29/2022 8:27 AM CDT 12/29/2022 8:27 AM CDT Luz Dumont APRN, CNP LAB_1 Final R esult Performing Organization Address [facility]/ZIP Co de Phone Number [facility] [address] [phone] * BRETT (DIABETIC EYE EXAM) (01/04/2022) Luz Dumont APRN, CNP DUMMY/OTHER/AR Final R esult * DEXA Bone Density Spine/Hip (03/31/2016 2:49 PM CDT) Anatomical Region Laterality Modality Lower Extremity, Spine, Hip, L-Spine Other Narrative 04/03/2016 4:28 PM CDT WHO Criteria for the diagnosis of osteoporosis: T-score >-1 Normal T-score between -1 and -2.5 Osteopenia T-score <-2.5 Osteoporosis Fracture risk: T-score -1 2 times increased -2 4 times increased -3 6 times increased *With previous fragility fracture, risk of subsequent fracture doubles again SCREENING FOR OSTEO, HOLD CALCIUM Indication:Hyperparathyroidism Developmental Education Instructor and Model of Instrument: Semantria Demographics Age: 70 y.o. Gender: female Height :5'1.3 Weight (lbs):168lbs Race: Medical/Surgical History Menstrual periods:None Age of menopause:48 History of hip fractures in parents:No History of previous fractures occurring spontaneously, or a fracture as a result of a fall from a standing height or less:Yes If yes, indicated area:ankle Glucocorticoids use:No Currently taking medication:None Have or had listed medical conditions:Osteoarthritis Dietary/Habit Alcohol 3units or more per day (on average):No Currently smoking:No Other pertinent history: Dual-X-ray Absorptiometry (DXA Results) AP spine (L1-L4) Left hip (neck) Left hip (total) Left forearm (1/3) BMD (gm/cm2) 0.997 0.687 0.855 T score -0.5 -1.5 -0.7 Z score 1.8 0.5 0.9 %change from previous scan dated: N/A FRAX Score: 10 YR Risk Hip Fracture % 1.5 Typical threshold to start therapy in patients is a 10-year risk of hip fracture >3%. Clinician s judgment and/or patient preferences may indicate treatment for people with 10-year fracture probabilities above or below these levels. 10 YR Risk Major Osteoporotic Fracture % 10 Typical threshold to start therapy in patients is a 10-year risk of any osteoporotic fracture >20%.Clinicians judgment and/or patient preferences may indicate treatment for people with 10-year fracture probabilities above or below these levels. Diagnosis: *Osteopenia. Recommendations:. *Ensure appropriate calcium and vitamin D intake. *Use the FRAX score (above) and clinical judgment to guide further therapy. Comments: *Degenerative joint disease, compression fractures, or calcification artifacts may falsely increase bone mineral density. DXA Scan Follow-up When do you repeat a DXA scan? This depends on a number of factors, including baseline DXA scan results and risk factors for accelerated bone loss. Timing of follow up scan should be individualized. These are general recommendations, but if a patient has significant risk factors for accelerated bone loss that are not noted on the DXA report, more aggressive follow up should be pursued 1. In women and men with low bone mass (T-score -2.00 to -2.49) at any site or who have risk factors for ongoing bone loss (eg, glucocorticoid use, hyperparathyroidism, aromatase inhibitors, etc.), consider a follow-up DXA approximately every one to two years as long as the risk factor persists 2. In women 65 years of age and older at baseline screening, with low bone mass (T-score -1.50 to -1.99) at any site, and with no risk factors for accelerated bone loss, consider a follow-up DXA in three to five years. For women under 65 years old and men, there is no consensus recommendation due to the paucity of data. 3. In women 65 years of age and older with normal or slightly low bone mass (T-score -1.01 to -1.49) at baseline measurement and no risk factors for accelerated bone loss, consider a follow-up DXA in 10 to 15 years. For women under 65 years old and men, there is no consensus recommendation due to the paucity of data. 4. In patients with osteoporosis or who s FRAX score suggests treatment should be initiated, consider a follow-up DXA in one to two years. 5. In patients who are currently on treatment for low bone mass, consider repeating DXA scan one to two years after initiating treatment and possibly less frequently thereafter. There are no recommendations for men <50 years old, or premenopausal women. The FRAX tool has been developed by WHO to evaluate fracture risk to patients. It is based on individual patient models that integrate the risks associated with clinical risk factors as well as bone mineral density (BMD) at the femoral neck. The FRAX algorithms give the 10-year probability of fracture. The output is a 10-year probability of hip fracture and the 10-year probability of a major osteoporotic fracture (clinical spine, forearm, hip or shoulder fracture). Consider FDA-approved medical therapies in postmenopausal women and men aged 50 years and older, based on the following: A hip or vertebral (clinical or morphometric) fracture. T-score ? -2.5 at the femoral neck or spine after appropriate evaluation to exclude secondary causes. Low bone mass(T-score -1.0 and -2.5 at the femoral neck or spine) and a 10-year probability of a hip fracture ? 3% or a 10-year probability of a major osteoporosis-related fracture ? 20% based on the [place]-adapted WHO algorithm. Clinicians judgment and/or patient preferences may indicate treatment for people with 10-year fracture probabilities above or below these levels. us Alex Fisher MD RAD DEXA Final Resu lt * COLONOSCOPY [[id number]] (12/09/2015 8:17 AM CDT) 12/09/2015 8:17 AM CDT Narrative [facility] ([facility]) - 12/09/2015 9:34 AM CDT Indications: Iron deficiency anemia Providers: Zabrina Hunt MD, Deisy Braswell RN Referring MD: Alex Fisher Medicines: Midazolam 3 mg IV, Fentanyl 150 micrograms IV Complications: No immediate complications. Procedure: Pre-Anesthesia Assessment: - The history, medication list, and allergies were reviewed. The risks and benefits of the procedure and the sedation were discussed with the patient. The risks include, but are not limited to, over sedation, medication reaction, discomfort, bleeding requiring a second procedure, perforation requiring surgery, and missed lesions. All questions were answered. Physical examination performed prior to the administration of medications, revealed no contraindications to sedation and the patient was deemed in satisfactory condition to undergo the procedure using conscious sedation. After I obtained informed consent, the scope was passed under direct vision. Prior to sedation, patient identity and procedure was reverified. Throughout the procedure, the patient's blood pressure, pulse, and oxygen saturations were monitored continuously. The [id number] was introduced through the anus and advanced to the terminal ileum, with identification of the appendiceal orifice and IC valve. The colonoscopy was performed without difficulty. The patient tolerated the procedure well. The quality of the bowel preparation was good. Findings: The digital rectal exam findings include non-thrombosed external hemorrhoids. The retroflexed view of the distal rectum and anal verge was normal and showed no anal or rectal abnormalities. The colon appeared normal. The terminal ileum appeared normal. Impression: - Non-thrombosed external hemorrhoids found on digital rectal exam. - The distal rectum and anal verge are normal on retroflexion view. - The entire examined colon is normal. - The examined portion of the ileum was normal. - No specimens collected. Recommendation: - Repeat colonoscopy in 10 years for screening purposes. - Perform an upper GI endoscopy today. Procedure Code(s): --- Professional --- 82642 --- Technical --- 18475 Diagnosis Code(s): --- Professional --- D50.9 K64.4 --- Technical --- D50.9 K64.4 CPT copyright 2014 [employer]. All rights reserved. The codes documented in this report are preliminary and upon remote inpatient coder review may be revised to meet current compliance requirements. Attending Participation: Zabrina Hunt MD 12/09/2015 9:34:25 AM Number of Addenda: 0 Note Initiated On: 12/09/2015 8:17 AM Procedure Note Zabrina Hunt MD - 12/09/2015 Indications: Iron deficiency anemia Providers: Zabrina Hunt MD, Deisy Braswell RN Referring MD: Alex Fisher Medicines: Midazolam 3 mg IV, Fentanyl 150 micrograms IV Complications: No immediate complications. Procedure: Pre-Anesthesia Assessment: - The history, medication list, and allergies were reviewed. The risks and benefits of the procedure and the sedation were discussed with the patient. The risks include, but are not limited to, over sedation, medication reaction, discomfort, bleeding requiring a second procedure, perforation requiring surgery, and missed lesions. All questions were answered. Physical examination performed prior to the administration of medications, revealed no contraindications to sedation and the patient was deemed in satisfactory condition to undergo the procedure using conscious sedation. After I obtained informed consent, the scope was passed under direct vision. Prior to sedation, patient identity and procedure was reverified. Throughout the procedure, the patient's blood pressure, pulse, and oxygen saturations were monitored continuously. The [id number] was introduced through the anus and advanced to the terminal ileum, with identification of the appendiceal orifice and IC valve. The colonoscopy was performed without difficulty. The patient tolerated the procedure well. The quality of the bowel preparation was good. Findings: The digital rectal exam findings include non-thrombosed external hemorrhoids. The retroflexed view of the distal rectum and anal verge was normal and showed no anal or rectal abnormalities. The colon appeared normal. The terminal ileum appeared normal. Impression: - Non-thrombosed external hemorrhoids found on digital rectal exam. - The distal rectum and anal verge are normal on retroflexion view. - The entire examined colon is normal. - The examined portion of the ileum was normal. - No specimens collected. Recommendation: - Repeat colonoscopy in 10 years for screening purposes. - Perform an upper GI endoscopy today. Procedure Code(s): --- Professional --- 85428 --- Technical --- 90396 Diagnosis Code(s): --- Professional --- D50.9 K64.4 --- Technical --- D50.9 K64.4 CPT copyright 2014 [employer]. All rights reserved. The codes documented in this report are preliminary and upon remote inpatient coder review may be revised to meet current compliance requirements. Attending Participation: Zabrina Hunt MD 12/09/2015 9:34:25 AM Number of Addenda: 0 Note Initiated On: 12/09/2015 8:17 AM Zabrina Hunt MD DIGESTIVE CARE Final Result Performing Organization Address City/State/[facility] Co de Phone Number [facility] ([facility]) [place], [place] from Last 3 Months or Most Recently Relevant to Health Maintenance Insurance [facility] RETIREE MEDICARE ADVANTAGE Care Teams Cooler Servicer Relationship Specialty Start Date End Date Antionette Day, DNP, CRYPTOGRAPHIC VULNERABILITY ANALYST, HOLE DIGGER OPERATOR [address] [place] [address] PCP - General Nurse Practitioner 01/02/23
--- OUTSIDE RECORDS SUMMARY | 2024-12-27 12:24 | XMS_ITS | Encounter Summary ---
Author Organization [facility] Address [address], [place] [address] Care Team Providers Care Trestle Builder Name Role Phone Antionette Day DNP, NETWORK SECURITY OFFICER, CURRICULUM ADVISORY TEACHER Primary Care Provid er Encounter Details Date Type Department Care Team (Late st Contact Info) Description 06/02/2017 Correspondence External to External, [place] [address] HOUSE CALLS PLAN OF CARE Social History Tobacco Use [...] on filedocumented in this encounter Care Teams Trestle Builder Relationship Specialty Start Date End Date Antionette Day, VERONIQUE, NETWORK SECURITY OFFICER, CURRICULUM ADVISORY TEACHER [address] [place] [address] PCP - General Nurse Practitioner 01/02/23 documented as of this encounter
--- OUTSIDE RECORDS SUMMARY | 2024-12-27 12:25 | XMS_ITS | Encounter Summary ---
Author Organization [facility] Address [address] [place] [address] Care Team Providers Care Vinyl Hanger Name Role Phone Antionette Day DNP, HAIR WORKER, A AND P MECHANIC Primary Care Provid er Encounter Details Date Type Department Care Team (Latest Contact Info) Description 12/09/2015 Consent for Procedure/Treatm ent [facility] at [facility] [address] [place] [address] Zabrina Hunt MD [address] [address] INFORMED CONSENT FOR TREATMENTS OR PROCEDURES Social History Tobacco Use Types Packs/Day Years Used Date Smoking Tobacco: Former Cigarettes Smokeless Tobacco: Never Comments:quit about 20 years ago Alcohol Use Standard Drinks/Week Comments No 0 (1 standard drink = 0.6 oz pur e alcohol) Comments No Sex and Gender Information Value [...] on filedocumented in this encounter Care Teams Vinyl Hanger Relationship Specialty Start Date End Date Antionette Day DNP, HAIR WORKER, A AND P MECHANIC [address] [place] [address] PCP - General Nurse Practitioner 01/02/23 documented as of this encounter
--- OUTSIDE RECORDS SUMMARY | 2024-12-27 12:25 | XMS_ITS | Encounter Summary ---
Author Organization [facility] Address [address], [place] [address] Care Team Providers Care Rotary Furnace Operator Name Role Phone Antionette Day DNP, WOOD TILE INSTALLER, SERVICE STATION OPERATOR Primary Care Provid er Encounter Details Date Type Department Care Team (Latest Contact Info) Description 12/09/2015 Correspondence [facility] at [address] [place] [address] Zabrina Hunt MD [address] [address] INSTRUCTIONS AFTER COLONOSCOPY Social History Tobacco Use Types Packs/Day Years [...] on filedocumented in this encounter Care Teams Rotary Furnace Operator Relationship Specialty Start Date End Date Antionette Day DNP, WOOD TILE INSTALLER, SERVICE STATION OPERATOR [address] [place] [address] PCP - General Nurse Practitioner 01/02/23 documented as of this encounter
--- OUTSIDE RECORDS SUMMARY | 2024-12-27 12:25 | XMS_ITS | Encounter Summary ---
Author Organization [facility] Address [address], [place] [address] Care Team Providers Care Newspaper Or Periodical Editor Name Role Phone Antionette Day DNP, CUTTER HEAD SHARPENER, CHILD PSYCHOMETRIST Primary Care Provid er Encounter Details Date Type Department Care Team (Late st Contact Info) Description 03/31/2019 Correspondence External to External, [place] [address] RETROSPECTIVE DRUG UTILIZATION REVIEW Social History Tobacco [...] on filedocumented in this encounter Care Teams Newspaper Or Periodical Editor Relationship Specialty Start Date End Date Antionette Day DNP, CUTTER HEAD SHARPENER, CHILD PSYCHOMETRIST [address] [place] [address] PCP - General Nurse Practitioner 01/02/23 documented as of this encounter
--- OUTSIDE RECORDS SUMMARY | 2024-12-27 12:25 | XMS_ITS | Encounter Summary ---
Author Organization [facility] Address [address] [address] Care Team Providers Care Reservoir Engineering Advisor Name Role Phone Antionette Day DNP, LEAD ASSISTANT MANAGER, LEAD RECOVERER Primary Care Provid er Encounter Details Date Type Department Care Team (Late st Contact Info) Description 07/02/2019 Correspondence External to [facility], Provider DISCHAGE SUMMARY Social History Tobacco Use Types Packs/Day Years [...] on filedocumented in this encounter Care Teams Reservoir Engineering Advisor Relationship Specialty Start Date End Date Antionette Day DNP, LEAD ASSISTANT MANAGER, LEAD RECOVERER [address] [place] [address] PCP - General Nurse Practitioner 01/02/23 documented as of this encounter
--- OUTSIDE RECORDS SUMMARY | 2024-12-27 12:25 | XMS_ITS | Encounter Summary ---
Author Organization [facility] Address [address] [address] Care Team Providers Care Yarder Name Role Phone Antionette Day DNP, ROADMASTER, LEGAL SECRETARY Primary Care Provid er Encounter Details Date Type Department Care Team (Latest Contact Info) Description 12/09/2015 Correspondence [facility] Care at [address] [place] [address] Zabrina Hunt MD [address] [address] INSTRUCTIONS AFTER UPPER ENDOSCOPY WITH BIOPSY Social History Tobacco Use Types Packs/Day Years [...] on filedocumented in this encounter Care Teams Yarder Relationship Specialty Start Date End Date Antionette Day DNP, ROADMASTER, LEGAL SECRETARY [address] [place] [address] PCP - General Nurse Practitioner 01/02/23 documented as of this encounter
--- OUTSIDE RECORDS SUMMARY | 2024-12-27 12:25 | XMS_ITS | Encounter Summary ---
Author Organization [facility] Address [address] [address] Care Team Providers Care Strategic Alliances Manager Name Role Phone Antionette Day DNP, LOGISTIC SPECIALIST, FISH TENDER Primary Care Provid er Encounter Details Date Type Department Care Team (Late st Contact Info) Description 03/09/2018 Correspondence External to External, [place] [address] MEDICATION ADHERENCE PROGRAM Social History Tobacco Use Types Packs/Day Years [...] on filedocumented in this encounter Care Teams Strategic Alliances Manager Relationship Specialty Start Date End Date Antionette Day DNP, LOGISTIC SPECIALIST, FISH TENDER [address] [place] [address] PCP - General Nurse Practitioner 01/02/23 documented as of this encounter
--- OUTSIDE RECORDS SUMMARY | 2024-12-27 12:25 | XMS_ITS | Encounter Summary ---
Author Organization [facility] Address [address], [place] [address] Care Team Providers Care Egg Breaking Machine Operator Name Role Phone Antionette Day DNP, FORENSIC MEDICAL EXAMINER, LAMINATOR PREFORMS Primary Care Provid er Encounter Details Date Type Department Care Team ([facility] st Contact Info) Description 07/08/2019 Correspondence External to External, [place] [address] RETROSPECTIVE DRUG UTILIZATION REVIEW Social History Tobacco [...] on filedocumented in this encounter Care Teams Egg Breaking Machine Operator Relationship Specialty Start Date End Date Antionette Day DNP, FORENSIC MEDICAL EXAMINER, LAMINATOR PREFORMS [address] [place] [address] PCP - General Nurse Practitioner 01/02/23 documented as of this encounter
--- OUTSIDE RECORDS SUMMARY | 2024-12-27 12:25 | XMS_ITS | Encounter Summary ---
Author Organization [facility] Address [address] [address] Care Team Providers Care Punchboard Filling Machine Operator Name Role Phone Antionette Day DNP, ASSET PROTECTION ASSOCIATE, RN ACLS Primary Care Provid er Encounter Details Date Type Department Care Team (Late st Contact Info) Description 04/27/2016 Outside Hospital Transitional Care TCU DISCHARGE Social History Tobacco Use Types Packs/Day Years [...] on filedocumented in this encounter Care Teams Punchboard Filling Machine Operator Relationship Specialty Start Date End Date Antionette Day, VERONIQUE, ASSET PROTECTION ASSOCIATE, RN ACLS [address] [place] [address] PCP - General Nurse Practitioner 01/02/23 documented as of this encounter
[2024-12-27 12:30] LABS: RBC Urine 0-2 (0-2); Squamous Epithelial Cell Urine Few (None-Few); WBC Urine 0-2 (0-5)
--- NOTE | 2024-12-27 12:30 | ED.GENADULT ---
HPI - General Adult General Chief complaint: Urogenital Problems, Female Stated complaint: Possible UTI Time Seen by Provider: 12/27/24 11:42 Source: patient and family Mode of arrival: ambulatory Limitations: no limitations History of Present Illness HPI narrative: 79-year-old female coming in today concerned about a continued UTI. Patient states that 2 weeks ago she was diagnosed with a UTI and has been on 3 antibiotics since then. Was the most recent culture came back Monday of this week she was switched to fosfomycin and received a dose Monday in a 2nd dose on . The directions are 3 g every 3 days x3 doses. She states that she continues to have dysuria. No abdominal pain. She had diarrhea once or twice a day which she has had for several weeks. She denies any blood in her urine. Has good appetite. She denies any vomiting or nausea. She states that she feels more confused than her baseline. Patient does have baseline confusion and lives [facility] but her confusion has become worse in the last 2 weeks. This has not gotten better with antibiotic treatment either. Patient is here with her daughter who has noticed that she has been more confused than usual over the last 2 weeks. We did receive a call from her care center that her urine grew back Klebsiella that is resistant to fluoroquinolones. Fluoroquinolones is just about the last class of antibiotics that she is not allergic to. Related Data Home Medications ?Medication ?Instructions ?Recorded ?Confirmed blood sugar diagnostic (OneTouch #10 ea 12/24/23 12/13/24 Ultra Test strips) blood-glucose meter (MuzookaTouch #1 ea 12/24/23 12/13/24 Ultra2 Meter) carvedilol 6.25 mg tablet 12.5 mg PO BID 12/24/23 12/27/24 cyclosporine 0.05 % eye drops in a 1 drp ophthalmic (eye) Q12H 12/24/23 12/27/24 dropperette fenofibrate 160 mg tablet 160 mg PO DAILY 12/24/23 12/27/24 fluoxetine 20 mg capsule 20 mg PO BID 12/24/23 12/27/24 furosemide 20 mg tablet 20 mg PO .every other day 12/24/23 12/27/24 omeprazole 20 mg capsule,delayed 20 mg PO DAILY 12/24/23 12/27/24 release potassium chloride 10 mEq 10 meq PO .every other day 12/24/23 12/27/24 capsule,extended release sitagliptin phosphate 25 mg tablet 25 mg PO DAILY 12/24/23 12/27/24 (Januvia) warfarin 2.5 mg tablet 2.5 mg PO .Mon/Mon/Mon12/24/23 12/27/24 warfarin 5 mg tablet 5 mg PO .Sun/Tues/Thur/Sat 12/24/23 12/27/24 cholecalciferol (vitamin D3) 25 1,000 unit PO DAILY 06/23/24 12/27/24 mcg (1,000 unit) capsule (Vitamin D3) mecobalamin (vitamin B12) 1,000 1,000 mcg PO DAILY 06/23/24 12/27/24 mcg chewable tablet (B12 Active) nystatin 100,000 unit/gram topical 1 applic topical BID 06/23/24 12/27/24 powder (Klayesta) albuterol sulfate 90 mcg/actuation inhalation 07/16/24 12/13/24 aerosol inhaler calcium carbonate [Corbin-Gest PO 07/16/24 12/13/24 Antacid] dextromethorphan polistirex PO 07/16/24 12/13/24 [Robitussin ER] docusate sodium PO 07/16/24 12/13/24 ferrous sulfate 325 mg (65 mg 325 mg PO QDAY 07/16/24 12/27/24 iron) tablet fexofenadine 180 mg tablet 180 mg PO Q24H 07/16/24 12/27/24 (Allergy Relief (fexofenadine)) hydrocortisone acetate topical 07/16/24 12/13/24 lidocaine [Aspercreme (lidocaine)] topical 07/16/24 12/13/24 loperamide PO 07/16/24 12/13/24 lysine 500 mg tablet (L-Lysine) 500 mg PO QDAY 07/16/24 12/27/24 melatonin 3 mg capsule 3 mg PO ONCE 07/16/24 12/27/24 multivitamin [Tab-A-Tommie] PO 07/16/24 12/13/24 nystatin 100,000 unit/gram topical 1 applic topical QDAY 07/16/24 12/27/24 powder (Nystop) polyethylene glycol 3350 PO 07/16/24 12/13/24 propylene glycol [Systane Balance] ophthalmic (eye) 07/16/24 12/13/24 rosuvastatin 20 mg tablet 20 mg PO QPM 07/16/24 12/27/24 aspirin 81 mg tablet,delayed 81 mg PO QDAY 12/13/24 12/27/24 release (Adult Aspirin Regimen) Previous Rx's ?Medication ?Instructions ?Recorded acetaminophen 300 mg-codeine 30 mg 1 tab PO Q6H PRN pain #15 tabs 07/09/24 tablet codeine 10 mg-guaifenesin 100 mg/5 5 ml PO Q4-6H PRN cough #118 mL 07/16/24 mL oral liquid doxycycline hyclate 100 mg tablet 100 mg PO BID #14 tabs 12/13/24 Allergies Allergy/AdvReac Type Severity Reaction Status Date / Time atorvastatin (From Lipitor) Allergy Intermediate Verified 12/27/24 11:57 cephalexin Allergy Intermediate Verified 12/27/24 11:57 erythromycin base Allergy Intermediate Verified 12/27/24 11:57 Fish Containing Products Allergy Intermediate Verified 12/27/24 11:57 glyburide Allergy Intermediate Verified 12/27/24 11:57 latex Allergy Intermediate Verified 12/27/24 11:57 Macrolide Antibiotics Allergy Intermediate Verified 12/27/24 11:57 nitrofurantoin Allergy Intermediate Verified 12/27/24 11:57 simvastatin Allergy Intermediate Verified 12/27/24 11:57 Sulfa (Sulfonamide Allergy Intermediate Verified 12/27/24 11:57 Antibiotics) amoxicillin (From Augmentin) Allergy Unknown Verified 12/27/24 11:57 Anesthetics - Amide Type - Allergy Unknown Verified 12/27/24 11:57 Select A clavulanic acid (From Allergy Unknown Verified 12/27/24 11:57 Augmentin) adhesive AdvReac Unknown Verified 12/27/24 11:57 salmon Allergy Severe Anaphylaxis Uncoded 12/13/24 18:19 Review of Systems Status of ROS: Reports: 10 or more systems reviewed and unremarkable except as noted in History and below PFSH PFSH Medical History POLST (Physician Orders for Life-Sustaining Treatment) ?Z78.9 - Other specified health status (ICD-10) Social History Smoking Status: Never smoker How often do you have a drink containing alcohol: never How often do you have six or more drinks on one occasion: Never AUDIT-C Alcohol total score: 0 Non-prescribed substance use: denies use Exam Narrative: Exam Narrative: Well-nourished well-developed elderly patient in no acute distress. Awake and alert, talkative and cooperative. Answers questions appropriately. Mood and affect are appropriate. Thoughts are goal oriented and rational. No tangential or magical thinking noted. Patient speaks in full sentences without needing to catch her breath. Patient is not appear ill or toxic. HEENT: Normocephalic atraumatic. Pupils are equally round reactive to light. Extraocular muscles are intact. Conjunctivae are moist without any icterus noted. Moist mucous membranes. Cardiovascular: Heart is regular rate and rhythm S1 and S2 are present without any murmurs. Lungs: Clear to auscultation bilaterally no wheezes rhonchi or rales are appreciated. Abdomen: Soft and nontender nondistended with normal bowel sounds. Extremities: Bilateral lower extremities are without edema. Skin: Well perfused without any obvious rashes. : Labia and area around urethra are slightly erythematous and irritated. Skin is not indurated or weeping. Const: Vital Signs, click to edit/add: Vital Signs - 24 hr 12/27/24 11:48 Temperature 97 F L Pulse Rate [Right Pulse Oximeter] 70 Respiratory Rate 16 Blood Pressure [Ri ght Forearm] 114/64 Pulse Oximetry 95 Oxygen Delivery Me thod Room Air Course Course ED Course: Workup unremarkable. However, CBC machine was not working at this time so we did not have a CBC results back. UA is clear. Vital Signs Vital signs: Initial Vital Signs Temperature 97 F L 12/27/24 11:48 Temperature Source Temporal Artery Scan 12/27/24 11:48 Pulse Rate 70 12/27/24 11:48 Pulse Rhythm Regular 12/27/24 11:48 Pulse Strength 3+ Normal 12/27/24 11:48 Respiratory Rate 16 12/27/24 11:48 Blood Pressure 114/64 12/27/24 11:48 Blood Pressure Mean 80 12/27/24 11:48 Blood Pressure Position Sitting 12/27/24 11:48 Pulse Oximetry 95 12/27/24 11:48 Oxygen Delivery Method Room Air 12/27/24 11:48 Vital Signs Temperature 97 F L 12/27/24 11:48 Pulse Rate 70 12/27/24 11:48 Respiratory Rate 16 12/27/24 11:48 Blood Pressure 114/64 12/27/24 11:48 Pulse Oximetry 95 12/27/24 11:48 Oxygen Delivery Method Room Air 12/27/24 11:48 Temperature 97 F L 12/27/24 11:48 Pulse Rate 70 12/27/24 11:48 Respiratory Rate 16 12/27/24 11:48 Blood Pressure 114/64 12/27/24 11:48 Pulse Oximetry 95 12/27/24 11:48 Oxygen Delivery Method Room Air 12/27/24 11:48 Medical Decision Making MDM Narrative Medical decision making narrative: 79-year-old female close continued dysuria- likely secondary to skin irritation, confusion-history of confusion at baseline. Reason for slightly worsening confusion worsening is unclear, but does not appear to be tied to a current UTI. Recommend follow-up with primary care. Lab Data Labs: Lab Results 12/27/24 12/27/24 12/27/24 Range/Units 12:00 12:36 12:44 INR 1.94 H (0.91-1.10) Sodium 135 (135-149) mmol/L Potassium 4.2 (3.6-5.1) mmol/L Chloride 105 (96-114) mmol/L Carbon Dioxide 23 (20-32) mmol/L Anion Gap 7 (7-15) mEq/L BUN 25 (7-30) mg/dL Creatinine 1.0 (0.5-1.5) mg/dL Estimated Creat Clear 34.90 Estimated GFR 57 ml/min Glucose 89 (60-115) mg/dL Lactate 1.0 (0.5-1.9) mmol/L Calcium 9.2 (8.4-10.6) mg/dL Magnesium 2.0 (1.5-2.6) mg/dL Total Bilirubin 0.4 (0.1-1.5) mg/dL Direct Bilirubin 0.2 (0.0-0.5) mg/dL AST 26 (12-35) U/L ALT 14 (4-35) U/L Alkaline Phosphatase 44 (40-150) U/L Troponin I < 0.01 (0.01-0.04) ng/mL C-Reactive Protein < 0.5 L (0.5-1.0) mg/dL Total Protein 6.6 (6.0-8.3) g/dL Albumin 3.7 (3.3-5.0) g/dL Procalcitonin 0.05 (<0.50) ng/mL Urine Color Yellow (Yellow) Urine Appearance Clear (Clear) Urine pH 6.0 (5.0-8.5) Ur Specific [place] 1.015 (1.000-1.030) Urine Protein Negative (Negative) Urine Glucose (UA) Negative (Negative) Urine Ketones Negative (Negative) Urine Blood Negative (Negative) Urine Nitrite Negative (Negative) Urine Bilirubin Negative (Negative) Urine Urobilinogen 0.2 (0.2-1.0) Ur Leukocyte Esterase Negative (Negative) Urine RBC 0-2 (0-2) Urine WBC 0-2 (0-5) Ur Squamous Epith Cells Few (None-Few) Urine Bacteria None (None) SARS-CoV-2 (PCR) Negative SARS-CoV-2 (Negative) Discharge Plan Discharge Clinical Impression: Dysuria, Confusion, Subtherapeutic international normalized ratio (INR) Patient Disposition: Home, Self-Care Condition: Stable Additional Instructions: Workup today did not reveal any evidence of infection. Urine looks clear. Dysuria likely secondary to vaginal skin irritation. Recommend making sure that area is patted dry after urinating, can use a skin barrier cream like an [id number] diaper cream to help with discomfort. Reason for worsening confusion is unclear. Would recommend follow-up with primary care provider. Lastly, INR slightly low today 1.94. Recommend 5 mg dose today instead of 2.5 mg, then continue with regularly scheduled dosing. Follow-up with primary care next week for repeat INR check. Prescriptions: No Action warfarin 5 mg tablet 5 mg PO .Sun///Sat warfarin 2.5 mg tablet 2.5 mg PO .Mon/Mon/Mon fenofibrate 160 mg tablet 160 mg PO DAILY fluoxetine 20 mg capsule 20 mg PO BID Januvia 25 mg tablet 25 mg PO DAILY cyclosporine 0.05 % dropperette 1 drp ophthalmic (eye) Q12H furosemide 20 mg tablet 20 mg PO .every other day omeprazole 20 mg capsule,delayed release(DR/EC) 20 mg PO DAILY carvedilol 6.25 mg tablet 12.5 mg PO BID potassium chloride 10 mEq capsule, extended release 10 meq PO .every other day (DME) OneTouch Ultra Test Strip See Rx Instructions .ROUTE .MEDSUPPLY Qty: 10 Rx Instructions: As directed (DME) blood-glucose meter [OneTouch Ultra2 Meter] [facility] See Rx Instructions .ROUTE DIRECTED Qty: 1 Rx Instructions: As directed ferrous sulfate 325 mg (65 mg iron) tablet 325 mg PO QDAY fexofenadine [Allergy Relief (fexofenadine)] 180 mg tablet 180 mg PO Q24H lysine [L-Lysine] 500 mg tablet 500 mg PO QDAY melatonin 3 mg capsule 3 mg PO ONCE polyethylene glycol 3350 PO rosuvastatin 20 mg tablet 20 mg PO QPM multivitamin [Tab-A-Tommie] PO albuterol sulfate 90 mcg/actuation HFA aerosol inhaler inhalation lidocaine [Aspercreme (lidocaine)] topical calcium carbonate [Corbin-Gest Antacid] PO docusate sodium PO hydrocortisone acetate topical loperamide PO nystatin [Nystop] 100,000 unit/gram powder 1 applic topical QDAY dextromethorphan polistirex [Robitussin ER] PO propylene glycol [Systane Balance] ophthalmic (eye) codeine-guaifenesin 10-100 mg/5 mL liquid 5 ml PO Q4-6H PRN (Reason: cough) Qty: 118 0RF aspirin [Adult Aspirin Regimen] 81 mg tablet,delayed release (DR/EC) 81 mg PO QDAY doxycycline hyclate 100 mg tablet 100 mg PO BID Qty: 14 0RF nystatin [Klayesta] 100,000 unit/gram powder 1 applic topical BID mecobalamin (vitamin B12) [B12 Active] 1,000 mcg tablet,chewable 1,000 mcg PO DAILY cholecalciferol (vitamin D3) [Vitamin D3] 25 mcg (1,000 unit) capsule 1,000 unit PO DAILY acetaminophen-codeine 300-30 mg tablet 1 tab PO Q6H PRN (Reason: pain) Qty: 15 0RF Follow Up/Referrals: Rae Llanes MD [Primary Care Provider, Family Practice] Stand Alone Forms: [facility]
[2024-12-27 13:12] LABS: Albumin* 3.7 g/dL (3.3-5.0); Chloride* 105 mmol/L (96-114)
[2024-12-27 13:13] LABS: Potassium* 4.2 mmol/L (3.6-5.1); Sodium* 135 mmol/L (135-149)
[2024-12-27 13:15] LABS: Blood Urea Nitrogen* 25 mg/dL (7-30); Estimated Glomerular Filt Rate 57 ml/min
[2024-12-27 13:16] LABS: Alanine Aminotransferase* 14 U/L (4-35); Alkaline Phosphatase* 44 U/L (40-150); Anion Gap 7 mEq/L (7-15); Aspartate Amino Transferase* 26 U/L (12-35); Bilirubin Direct* 0.2 mg/dL (0.0-0.5); Bilirubin Total* 0.4 mg/dL (0.1-1.5); Calcium* 9.2 mg/dL (8.4-10.6); Carbon Dioxide* 23 mmol/L (20-32); Glucose* 89 mg/dL (60-115); Total Protein* 6.6 g/dL (6.0-8.3)
[2024-12-27 13:25] LABS: INR 1.94 (0.91-1.10); Prothrombin Time 23.2 Seconds
[2024-12-27 13:27] LABS: SARS PCR* Negative SARS-CoV-2 (Negative)
[2024-12-27 13:33] LABS: C Reactive Protein* < 0.5 mg/dL (0.5-1.0); Procalcitonin* 0.05 ng/mL (<0.50); Troponin I* < 0.01 ng/mL (0.01-0.04)
[2024-12-27 14:19] LABS: Basophils Absolute Auto 0.07 K/uL (0.00-0.30); Eosinophils Percent Auto 7.3 % (0.0-7.0); Hematocrit 35.9 % (33.0-51.0); Immature Granulocytes Abs Auto 0.06 K/uL (0.00-0.30); Immature Granulocytes Pct Auto 0.9 %; Lymphocytes Percent Auto 19.3 % (20-44); Mean Corpuscular HGB Conc 31 gm/dL (32-36); Mean Corpuscular Hemoglobin 28 pg (26-34); Mean Corpuscular Volume 93 fL (80-100); Monocytes Percent Auto 10.2 % (0.0-11.0); Neutrophils Absolute Auto 4.18 K/uL (1.7-7.0); Neutrophils Percent Auto 61.3 % (42.0-72.0); Platelet Count* 211 K/uL (140-440); RDW Coefficient of Variation % 14.2 % (11.5-15.5); Red Blood Count 3.87 m/uL (4.00-5.20); White Blood Count* 6.83 K/uL (4.50-11.00)
[2024-12-27 14:22] LABS: Slide Review Reflex No
== END 2024-12-27 14:27 | disposition home or self-care (01) ==
PROVIDERS: Emergency Provider Family Medicine; PCP Student in an Organized Health Care Education/Training Program
DX: R30.0 Dysuria (principal); R41.0 Disorientation, unspecified; R79.1 Abnormal coagulation profile; Z79.01 Long term (current) use of anticoagulants
CPT/HCPCS: 36415; 80048; 80076; 81001; 83605; 83735; 84145; 84484; 85025; 85610; 86140; 87086; 87635; 99284

== ENCOUNTER 2025-03-07 20:04 | Emergency (ER) | payer MEDICARE, SELFPAY ==
[2025-03-07] VITALS (11 sets, daily range): BP systolic 135–139; BP diastolic 92–107; PULSE 63–109; RESP 18; TEMP 36.6; O2SAT 94–99; BMI 26.0
--- NOTE | 2025-03-07 20:05 | CRLHL7_ITS ---
For Patients: As a result of the Century Cures Act, medical imaging exams and procedure reports are released immediately into your electronic medical record. You may view this report before your referring provider. If you have questions, please contact your health care provider. INDICATION: Head injury from Fall TECHNIQUE: CT Head without i.v. contrast. Coronal and sagittal reformats were obtained. COMPARISON: None FINDINGS: CSF space: Unremarkable for age. Brain: No evidence of mass, acute infarction or hemorrhage is seen. No mass-effect or midline shift is seen. Mild diffuse cortical atrophy is noted. Encephalomalacia is present within the right frontal lobe operculum. Moderate patchy regions of low attenuation are present in the periventricular white matter, likely due to chronic microvascular ischemic changes. Calvarium: The visualized paranasal sinuses are well aerated. The mastoid air cells are clear. The patient is status post prior bilateral cataract removal. The visualized orbits are grossly unremarkable. The calvarium is unremarkable in appearance with no fractures identified. A small subcutaneous hematoma is present over the left frontal region. IMPRESSION: 1. No evidence of acute infarction, intracranial hemorrhage, or mass-effect seen. Dictated by Yannick Amaral MD @ 03/07/2025 8:40:17 PM Please note that all CT scans at this facility use dose modulation, iterative reconstruction, and/or weight-based dosing when appropriate to reduce radiation dose to as low as reasonably achievable. Dictated by: Yannick Amaral MD @ 03/07/2025 20:40:29 (Electronically Signed)
--- NOTE | 2025-03-07 20:05 | CRLHL7_ITS ---
For Patients: As a result of the Cures Act, medical imaging exams and procedure reports are released immediately into your electronic medical record. You may view this report before your referring provider. If you have questions, please contact your health care provider. INDICATION: Cervical spine injury from Fall TECHNIQUE: CT cervical spine without i.v. contrast. Coronal and sagittal reformats were obtained. COMPARISON: None FINDINGS: Alignment: Straightening of the cervical spine is present. Bone: No acute fractures or aggressive bone lesions are identified. Disc: Severe degenerative disc disease is present with posterior broad-based disc osteophyte complexes causing central canal stenosis at C3-4 through C5-6. Scattered facet osteoarthritis is noted bilaterally. Soft tissue: The prevertebral soft tissues are unremarkable in appearance. The visualized lung apices and mediastinum are unremarkable. Bilateral calcified carotid plaques are noted. Cardiac pacer wires partially visualized along the left subclavian vessels. IMPRESSION: 1. No acute osseous injuries are identified. Dictated by Yannick Amaral MD @ 03/07/2025 8:42:32 PM Please note that all CT scans at this facility use dose modulation, iterative reconstruction, and/or weight-based dosing when appropriate to reduce radiation dose to as low as reasonably achievable. Dictated by: Yannick Amaral MD @ 03/07/2025 20:42:36 (Electronically Signed)
--- OUTSIDE RECORDS SUMMARY | 2025-03-07 20:07 | XMS_ITS | Encounter Summary ---
Author Organization [facility] Address [address], [place] [address] Care Team Providers Care Sheriff Name Role Phone Antionette Day DNP, CHERRY GROWER, PERSONAL INJURY SPECIALIST Primary Care Provid er Encounter Details Date Type Department Care Team ([facility] st Contact Info) Description 07/21/2016 Correspondence [facility] [address] [place], [place] [phone] Alex Fisher MD [address] [place] [id number] ATTESTATION STATEMENT Social History Tobacco Use [...] on filedocumented in this encounter Care Teams Sheriff Relationship Specialty Start Date End Date Antionette Day DNP, CHERRY GROWER, PERSONAL INJURY SPECIALIST [address] [place] [address] [phone] PCP - General Nurse Practitioner 01/02/23 documented as of this encounter
--- OUTSIDE RECORDS SUMMARY | 2025-03-07 20:07 | XMS_ITS | Encounter Summary ---
Author Organization [facility] Address [address] [address] Care Team Providers Care Clinical Education Assistant Name Role Phone Antionette Day DNP, VENETIAN BLIND TAPE CUTTER, TRAVEL CLERK Primary Care Provid er Encounter Details Date Type Department Care Team ([facility] st Contact Info) Description 06/14/2016 Correspondence [facility] [address] [place], [place] [phone] Alex Fisher MD [address] [place] [address] [phone] PLAN OF CARE Social History Tobacco Use [...] on filedocumented in this encounter Care Teams Clinical Education Assistant Relationship Specialty Start Date End Date Antionette Day DNP, VENETIAN BLIND TAPE CUTTER, TRAVEL CLERK [address] [place] [address] [phone] PCP - General Nurse Practitioner 01/02/23 documented as of this encounter
--- OUTSIDE RECORDS SUMMARY | 2025-03-07 20:07 | XMS_ITS | Encounter Summary ---
Author Organization [facility] Address [address], [place] [address] Care Team Providers Care Assemblyman Or Woman Name Role Phone Antionette Day DNP, RESEARCH WORKER ENCYCLOPEDIA, LUNG SPLITTER Primary Care Provid er Encounter Details Date Type Department Care Team ([facility] st Contact Info) Description 06/03/2016 Correspondence [facility] [address] [place], [place] [phone] Alex Fisher MD [address] [place] [address] [phone] MEDICATIONS Social History Tobacco Use Types Packs/Day [...] on filedocumented in this encounter Care Teams Assemblyman Or Woman Relationship Specialty Start Date End Date Antionette Day DNP, RESEARCH WORKER ENCYCLOPEDIA, LUNG SPLITTER [address] [place] [address] [phone] (work) PCP - General Nurse Practitioner 01/02/23 documented as of this encounter
--- OUTSIDE RECORDS SUMMARY | 2025-03-07 20:07 | XMS_ITS | Encounter Summary ---
Author Organization [facility] Address [address], [place] [address] Care Team Providers Care Director Marketing Analytics Name Role Phone Antionette Day DNP, PINION AND WHEEL TRUER, CASH PERSON Primary Care Provid er Encounter Details Date Type Department Care Team ([facility] st Contact Info) Description 06/14/2016 Correspondence [facility] [address] [place], [place] [phone] Alex Fisher MD [address] [place] [address] [phone] ORDER Social History Tobacco Use Types Packs/Day [...] on filedocumented in this encounter Care Teams Director Marketing Analytics Relationship Specialty Start Date End Date Antionette Day DNP, PINION AND WHEEL TRUER, CASH PERSON [address] [place] [address] [phone] PCP - General Nurse Practitioner 01/02/23 documented as of this encounter
--- OUTSIDE RECORDS SUMMARY | 2025-03-07 20:07 | XMS_ITS | Encounter Summary ---
Author Organization [facility] Address [address], [place] [address] Care Team Providers Care Small Engine Specialist Name Role Phone Antionette Day DNP, CHANGE CONTROL ANALYST, HOUSE REGISTRY RN Primary Care Provid er Encounter Details Date Type Department Care Team (Late st Contact Info) Description 06/02/2017 Correspondence External to External, [place] [address] HOUSE CALLS PLAN OF CARE Social History [...] on filedocumented in this encounter Care Teams Small Engine Specialist Relationship Specialty Start Date End Date Antionette Day, VERONIQUE, CHANGE CONTROL ANALYST, HOUSE REGISTRY RN [address] [place] [phone] PCP - General Nurse Practitioner 01/02/23 documented as of this encounter
--- OUTSIDE RECORDS SUMMARY | 2025-03-07 20:07 | XMS_ITS | Encounter Summary ---
Author Organization [facility] Address [address] [place] [id number] Care Team Providers Care Collection Systems Worker Name Role Phone Antionette Day DNP, FIELD SERVICE TECHNICIAN, MEDICAL REPRESENTATIVE Primary Care Provid er Encounter Details Date Type Department Care Team ([facility] st Contact Info) Description 06/15/2016 Correspondence [facility] [address] [place] [address] Alex Fisher MD [address] [place] [phone] DOC FACE TO FACE ENCOUNTER ALLINA [...] on filedocumented in this encounter Care Teams Collection Systems Worker Relationship Specialty Start Date End Date Antionette Day DNP, FIELD SERVICE TECHNICIAN, MEDICAL REPRESENTATIVE [address] [place] [phone] PCP - General Nurse Practitioner 01/02/23 documented as of this encounter
--- OUTSIDE RECORDS SUMMARY | 2025-03-07 20:07 | XMS_ITS | Clinical Summary ---
[facility] Address [address] [address] Care Team Providers Care Strip Cleaner Name Role Phone Antionette Day DNP, OVERNIGHT STOCKER, TELESCOPE MAINTENANCE Primary Care Provid er Source Comments You [...] for each transition of care or referral. [employer] Allergies Active Allergy Reactions Criticality Noted Date [...] Allergy Hives 09/01/2006 Fish Oil Rash 01/25/2008 [place] fish when eaten Fish-Derived Products Hives High [...] EX) Acti ve Lysine HCl (L-LYSINE) Active Xeqcw-D-Tgjhfdnofi ase (BEANO OR) Activ e Fexofenadine HCl [...] 12/29/2016 09/20/2021 PT CARE COORDINATION - HEALTH DETENTION 04/18/2016 08/14/2018 Overview (07/16/2018): If you have any questions or concerns please contact: Your Care Team at [facility] Practice :[phone] Primary Care Provider: Luz Dumont CNP RN Coordinator: Batsheva CareLine at [phone] or after hours and on weekends. Care Coordination (Community Resources, Specialists, Home Health Agency, Caregiver, Supply Vendor, Fleet Service Clerk) Contact Name LIA Obtained? Phone Number Role in Care Comments Dr. Mcfadden Urologist [facility] Urology Dr. Moore Neurologist [facility] of Neurology Action Plan [...] 09/13/18 Assessment & Plan (07/16/2018 4:36 PM PROPERTY ANALYST): Spoke to patient to follow-up. States she [...] helping their son get his home in [place] ready to sell. Pt has been around [...] RN Assessment & Plan (06/19/2017 2:51 PM PROPERTY ANALYST): Spoke to patient. Reports she is doing [...] helping their son flip a house in [place]. Pt has no concerns currently. Batsheva Peace RN Assessment & Plan (10/25/2016 2:59 [...] RN Assessment & Plan (07/22/2016 2:29 PM PROPERTY ANALYST): Spoke to spouse today, states patient is [...] RN Assessment & Plan (05/27/2016 11:29 AM PROPERTY ANALYST): Spoke with pt, state she is feeling [...] neurology consult scheduled with Dr. Moore at [facility], but cannot remember what [...] Chart reviewed, pt was recently in [place] and will be discharging soon. Pt has [...] IIV3 (Trivalent) F luzone Highdose, 65+ Yrs (22672) 05/01/2019,05/01/2018,05/17/2017,2015,04/30/2015,05/16/2014,04/12/2011,1 07/21/2009 Influenza IIV4 (Quadrivalent ) 0.5mL (36321) 07/19/2021 Influenza IIV4 (Quadrivalent ) Fluad, 65+ [...] Comments Blood Pressure 122/70 06/09/2023 2:02 PM PROPERTY ANALYST Pulse 72 06/09/2023 2:02 PM PROPERTY ANALYST Temperature 36.1 C (97 F) 05/05/2023 10:18 AM CDT Respiratory Rate 14 12/29/2022 9:03 AM CDT Oxygen Saturation 97% 05/05/2023 10: 18 AM CDT Inhaled Oxygen Concentration - - Weight 67.5 kg (148 lb 12.8 oz) 06/09/2023 2:02 PM PROPERTY ANALYST Height 154.3 cm (5' 0.75) 11/14/2022 1 2:33 PM CDT Body Mass Index 28.35 11/14/2022 12:33 PM CDT Plan of Treatment Health Maintenance Due Date Last Done Comments Hep B Immunization Discussion 1945 Pneumococcal PCV20 Immunization Discussion 1945 Zoster/Shingles Vaccine (3 of 3) 02/18/2021 12/24/2020, 11/12/2011 Diabetes: Eye Exam 01/04/2023 01/04/2022, 0 12/27/2021, 09/05/2019 (Completed), Additional history exists Diabetes: Albumin/Creatinine Ratio, Urine 12/30/2023 12/29/2022, 11/08/2021, 12/24/2020, Additional history exists Diabetes: HGBA1C 02/29/2024 08/31/2023, , 06/09/2023, Additional history exists COVID-19 Vaccine ( season) 2024 10/26/2023, 06/09/2023, 05/24/2022, Additional history exists Diabetes: Foot Exam 03/22/2024 03/22/2023, 12/24/2020, 06/04/2018 (Completed), Additional history exists Diabetes: Creatinine 06/09/2024 06/09/2023, 05/05/2023, 03/22/2023, Additional history exists Medicare Annual Wellness Visit 07/17/2024 11/28/2022, 08/18/2021, 12/24/2020, Additional history exists Influenza Vaccine (#1) 2025 , 05/24/2022, 07/19/2021, Additional history exists Diabetes: Lipid [...] Being active Diabetes Education Diabetes Education Sharon Trujillo, RN, CDE Note: I will get up and move every hour that I am sitting down watching TV Procedures Procedure Name Priority Date/Time Associated Diagnosis Comments BASIC METABOLIC PANEL Routine 06/09/2023 1:40 PM PROPERTY ANALYST Essential hypertension (HRC) 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) HGB A1C Routine 06/09/2023 1:40 PM PROPERTY ANALYST Diabetes mellitus with stage 3 chronic kidney [...] Results * (ABNORMAL) BMP (06/09/2023 1:40 PM PROPERTY ANALYST) Sodium 137 136 - 145 mmol/L 06/09/2023 6:21 PM PROPERTY ANALYST [facility] Potassium 3.8 3.5 - 5.1 mmol/L 06/09/2023 6:21 PM [facility] Chloride 107 98 - 109 mmol/L 06/09/2023 6:21 PM [facility]ERTY A[facility]ST [facility] CO2 20 20 - 29 mmol/L 06/09/2023 6:21 PM PROPERTY ANALYST [facility] Anion Gap 10 7 - 16 mmol/L 06/09/2023 6:21 PM [facility] Calcium 9.4 8.4 - 10.4 mg/dL 06/09/2023 6:21 PM [facility] BUN 16 7 - 26 mg/dL 06/09/2023 6:21 PM [facility] Creatinine 1.01 0.55 - 1.02 mg/dL 06/09/2023 6:21 PM [facility] Glucose 113(H) 70 - 100 mg/dL 06/09/2023 6:21 PM [facility] Comment:The given reference range is for the fasting state. Non-fasting reference range for glucose is 70 - 180 mg/dL. GFR, Estimated 57(L) >60 mL/min/1. 73m2 06/09/2023 6:21 PM [facility] Hours Fasting 4.0 8 - 12 Hours 06/09/2023 6:[address] [facility] Blood Venipuncture / Unknown 06/09/2023 1:40 PM PROPERTY ANALYST 06/09/2023 1:40 PM [facility] Narrative [facility] - 06/09/2023 6:21 PM [facility] The National Kidney Disease Education Program suggests measuring Cystatin C in patients with eGFRcrea of 45 to 59 ml/min/1.73^2 who do not have other markers of kidney damage (i.e. elevated urine Albumin/Creatinine Ratio or a prior Cystatin C confirming the presence of chronic kidney disease). us Antionette Day DNP, OVERNIGHT STOCKER, TELESCOPE MAINTENANCE LAB_1 Mady osborne Result [facility] [address] [place] [address], [facility] [phone] [facility] [address] [place] [address], [facility] [phone] * (ABNORMAL) Hgb A1C (Expected: Now) - Collect in Lab (06/09/2023 1:40 PM PROPERTY ANALYST) Hemoglobin A1C 8.5(H) <=5.6 % 06/09/2023 6:38 PM PROPERTY ANALYST [facility] Estimated Average Glucose (Calc) 197 < 117 mg/dL 06/09/2023 6:38 PM [facility] Comment:Estimated average gl ucose (eAG) converts A1c into glucose units (mg/dL) and estimates average glucose over the past approximately 3 months. The eAG reference interval (<117 mg/dL) corresponds to an A1c of <5.7%. Blood Venipuncture / Unknown 06/09/2023 1:40 PM PROPERTY ANALYST 06/09/2023 1:40 PM PROPERTY ANALYST Narrative [facility] - 06/09/2023 6:38 PM PROPERTY ANALYST For patients not previously diagnosed with diabetes: 5.7-6.4%: Increased risk for diabetes 6.5% and greater: Diagnostic for diabetes For patients diagnosed with diabetes: <8.0%: Goal of therapy for ages 18-75 Clinicians may recommend a higher or lower goal for specific individuals. us Antionette Day DNP, OVERNIGHT STOCKER, TELESCOPE MAINTENANCE LAB_1 Mady osborne Result [facility] [address] [place] [address], [facility] [phone] * (ABNORMAL) Lipid Panel and Direct LDL(If Needed) (03/22/2023 2:52 PM CDT) Cholesterol 188 0 - 199 mg/dL 03/22/2023 9:45 PM CDT [facility] Triglyceride 297(H) <=149 mg/dL 03/22/2023 9:45 PM CDT [facility] HDL Cholesterol 55 >=40 mg/dL 03/22/2023 9:45 PM CDT [facility] LDL, Calculated 74 <130 mg/dL 03/22/2023 9:45 PM CDT [facility] Non HDL Chol, Calculated 133 <=159 mg/dL 03/22/2023 9:45 PM CDT [facility] Cholesterol/HDL Ratio 3.4 03/22/2023 9:45 PM CDT [facility] Hours Fasting 19.0 8 - 12 Hours 03/22/2023 9:45 PM CDT [facility] Blood Venipuncture Butterfly / Unknown 03/22/2023 2:52 PM CDT 03/22/2023 2:53 PM CDT Antionette Day DNP, OVERNIGHT STOCKER, LORENZO LAB_1 Mady osborne Result Performing Organization Address [facility]/ZIP Co de Phone Number [facility] [address] [address], [facility] [phone] [facility] [address] [place] [address], [facility] [phone] * (ABNORMAL) Albumin/Creatinine Ratio,Random Urine (12/29/2022 8:27 AM CDT) Albumin/Creati nine Ratio, Urine, Random 77(H) <30 mg/g 12/29/2022 3:59 PM CDT [facility] Albumin, Urine, Random 15.3 mg/L 12/29/2022 3:59 PM CDT [facility] Creatinine, Urine, Random 20(L) >20 mg/dL mg/dL 12/29/2022 3:59 PM CDT [facility] Urine Non-blood Collection / Unknown 12/29/2022 8:27 AM CDT 12/29/2022 8:27 AM CDT Luz Dumont APRN, CNP LAB_1 Final R esult Performing Organization Address City/[facility]/ZIP Co de Phone Number [facility] [address] [address], [facility] [phone] * BRETT (DIABETIC EYE EXAM) (01/04/2022) Luz [...] again SCREENING FOR OSTEO, HOLD CALCIUM Indication:Hyperparathyroidism Bus Starter and Model of Instrument: in2apps Demographics Age: 70 y.o. Gender: female Height [...] RAD DEXA Final Resu lt * COLONOSCOPY [[id number]] (12/09/2015 8:17 AM CDT) 12/09/2015 8:17 AM CDT Narrative GI ([facility]OVATION) - 12/09/2015 9:34 AM CDT Indications: Iron deficiency anemia Providers: Zabrina Hunt MD, Deisy Barswell RN Referring MD: Alex Fisher Medicines: Midazolam [...] and oxygen saturations were monitored continuously. The CF-[id number] was introduced through the anus and advanced [...] endoscopy today. Procedure Code(s): --- Professional --- 77785 --- Technical --- 53441 Diagnosis Code(s): --- Professional --- D50.9 K64.4 --- Technical --- D50.9 K64.4 CPT copyright 2014 [employer]. All rights reserved. The codes documented in this report are preliminary and upon pantograph i engraver review may be revised to meet current [...] and oxygen saturations were monitored continuously. The CF-[id number] was introduced through the anus and advanced [...] endoscopy today. Procedure Code(s): --- Professional --- 24695 --- Technical --- 61095 Diagnosis Code(s): --- Professional --- D50.9 K64.4 --- Technical --- D50.9 K64.4 CPT copyright 2014 [employer]. All rights reserved. The codes documented in this report are preliminary and upon pantograph i engraver review may be revised to meet current compliance requirements. Attending Participation: Zabrina Hunt MD 12/09/2015 9:34:25 AM Number of Addenda: 0 Note Initiated On: 12/09/2015 8:17 AM Zabrina Hunt MD DIGESTIVE CARE Final Result Performing Organization Address City/State/[facility] Co de Phone Number GI ([facility]OVATION) [place], [place] from Last 3 Months or Most Recently Relevant to Health Maintenance Insurance [facility] RETIREE MEDICARE ADVANTAGE Care Teams Strip Cleaner Relationship Specialty Start Date End Date Antionette Day, DNP, OVERNIGHT STOCKER, TELESCOPE MAINTENANCE [address] [place] [address] PCP - General Nurse Practitioner 01/02/23
--- OUTSIDE RECORDS SUMMARY | 2025-03-07 20:08 | XMS_ITS | Encounter Summary ---
Author Organization [facility] Address [address] [address] Care Team Providers Care Liver Trimmer Name Role Phone Antionette Day DNP, AUTOMATIC DRILLING MACHINE OPERATOR, PAPER AND PULP MILL WORKER Primary Care Provid er Encounter Details Date [...] on filedocumented in this encounter Care Teams Liver Trimmer Relationship Specialty Start Date End Date Antionette Day, VERONIQUE, AUTOMATIC DRILLING MACHINE OPERATOR, PAPER AND PULP MILL WORKER [address] [place] [address] PCP - General Nurse Practitioner 01/02/23 documented as of this encounter
--- OUTSIDE RECORDS SUMMARY | 2025-03-07 20:08 | XMS_ITS | Encounter Summary ---
Author Organization [facility] Address [address] [address] Care Team Providers Care Compatibility Test Engineer Name Role Phone Antionette Day DNP, CUSTOMER SERVICE AGENT, REVERSE UNIT OPERATOR Primary Care Provid er Encounter Details Date Type Department Care Team (Late st Contact Info) Description 03/31/2019 Correspondence External to External, [place] [address] RETROSPECTIVE DRUG UTILIZATION REVIEW Social History Tobacco [...] on filedocumented in this encounter Care Teams Compatibility Test Engineer Relationship Specialty Start Date End Date Antionette Day DNP, CUSTOMER SERVICE AGENT, REVERSE UNIT OPERATOR [address] [place] [address] PCP - General Nurse Practitioner 01/02/23 documented as of this encounter
--- OUTSIDE RECORDS SUMMARY | 2025-03-07 20:08 | XMS_ITS | Encounter Summary ---
Author Organization [facility] Address [address] [address] Care Team Providers Care Glassware Verifier Name Role Phone Antionette Day DNP, SUPERVISOR NUT PROCESSING, EXT JS DEVELOPER Primary Care Provid er Encounter Details Date Type Department Care Team (Late st Contact Info) Description 07/02/2019 Correspondence External to [facility], Provider DISCHAGE SUMMARY Social History [...] on filedocumented in this encounter Care Teams Glassware Verifier Relationship Specialty Start Date End Date Antionette Day DNP, SUPERVISOR NUT PROCESSING, EXT JS DEVELOPER [address] [place] [address] PCP - General Nurse Practitioner 01/02/23 documented as of this encounter
--- OUTSIDE RECORDS SUMMARY | 2025-03-07 20:08 | XMS_ITS | Encounter Summary ---
Author Organization [facility] Address [address], [place] [address] Care Team Providers Care Finance Assistant Name Role Phone Antionette Day DNP, BEAUTY SHOP MANAGER, MANUFACTURING ACCOUNTANT Primary Care Provid er Encounter Details Date Type Department Care Team (Latest Contact Info) Description 12/09/2015 Correspondence [facility] at [address] [place] [address] Zabrina Hunt MD [address] [address] INSTRUCTIONS AFTER COLONOSCOPY Social History [...] on filedocumented in this encounter Care Teams Finance Assistant Relationship Specialty Start Date End Date Antionette Day DNP, BEAUTY SHOP MANAGER, MANUFACTURING ACCOUNTANT [address] [place] [address] PCP - General Nurse Practitioner 01/02/23 documented as of this encounter
--- OUTSIDE RECORDS SUMMARY | 2025-03-07 20:08 | XMS_ITS | Encounter Summary ---
Author Organization [facility] Address [address] [address] Care Team Providers Care Reimbursement Analyst Name Role Phone Antionette Day DNP, FIELD STAFF, DAY CARE ASSISTANT Primary Care Provid er Encounter Details Date Type Department Care Team (Late st Contact Info) Description 08/29/2019 Correspondence External to External, [place] [address] RETROSPECTIVE DRUG UTILIZATION REVIEW Social History Tobacco [...] on filedocumented in this encounter Care Teams Reimbursement Analyst Relationship Specialty Start Date End Date Antionette Day DNP, FIELD STAFF, DAY CARE ASSISTANT [address] [place] [address] PCP - General Nurse Practitioner 01/02/23 documented as of this encounter
--- OUTSIDE RECORDS SUMMARY | 2025-03-07 20:08 | XMS_ITS | Encounter Summary ---
Author Organization [facility] Address [address] [address] Care Team Providers Care Poultry Packer Name Role Phone Antionette Day DNP, DIRECTOR DATA MANAGEMENT, INSURANCE VERIFICATION SPECIALIST Primary Care Provid er Encounter Details Date Type Department Care Team (Latest Contact Info) Description 12/09/2015 Correspondence [facility] at [address] [place] [address] Zabrina Hunt MD [address] [address] INSTRUCTIONS AFTER UPPER ENDOSCOPY WITH [...] on filedocumented in this encounter Care Teams Poultry Packer Relationship Specialty Start Date End Date Antionette Day DNP, DIRECTOR DATA MANAGEMENT, INSURANCE VERIFICATION SPECIALIST [address] [place] [address] PCP - General Nurse Practitioner 01/02/23 documented as of this encounter
--- OUTSIDE RECORDS SUMMARY | 2025-03-07 20:08 | XMS_ITS | Encounter Summary ---
Author Organization [facility] Address [address] [place] [address] Care Team Providers Care Valve Tester Name Role Phone Antionette Day DNP, TERMINAL CARMAN, SHOE PARTS MOLDER Primary Care Provid er Encounter Details Date Type Department Care Team (Latest Contact Info) Description 12/09/2015 Consent for Procedure/Treatm ent [facility] [address] [place] [address] Zabrina Hunt MD [address] [address] INFORMED CONSENT FOR TREATMENTS OR [...] on filedocumented in this encounter Care Teams Valve Tester Relationship Specialty Start Date End Date Antionette Day DNP, TERMINAL CARMAN, SHOE PARTS MOLDER [address] [place] [address] PCP - General Nurse Practitioner 01/02/23 documented as of this encounter
--- OUTSIDE RECORDS SUMMARY | 2025-03-07 20:08 | XMS_ITS | Encounter Summary ---
Author Organization [facility] Address [address] [address] Care Team Providers Care Science And Operations Officer Name Role Phone Antionette Day DNP, ASSESSMENT NURSE, FREIGHT ROUTER Primary Care Provid er Encounter Details Date Type Department Care Team (Late st Contact Info) Description 09/02/2019 Correspondence External to External, [place] [address] RETROSPECTIVE DRUG UTILIZATION REVIEW Social History Tobacco [...] on filedocumented in this encounter Care Teams Science And Operations Officer Relationship Specialty Start Date End Date Antionette Day DNP, ASSESSMENT NURSE, FREIGHT ROUTER [address] [place] [address] PCP - General Nurse Practitioner 01/02/23 documented as of this encounter
--- OUTSIDE RECORDS SUMMARY | 2025-03-07 20:08 | XMS_ITS | Encounter Summary ---
Author Organization [facility] Address [address] [address] Care Team Providers Care Interpretive Naturalist Name Role Phone Antionette Day DNP, DRY CLEANING MACHINE OPERATOR, ESOL INSTRUCTOR Primary Care Provid er Encounter Details Date Type Department Care Team (Late st Contact Info) Description 03/09/2018 Correspondence External to External, [place] [address] MEDICATION ADHERENCE PROGRAM Social History Tobacco Use [...] on filedocumented in this encounter Care Teams Interpretive Naturalist Relationship Specialty Start Date End Date Antionette Day DNP, DRY CLEANING MACHINE OPERATOR, ESOL INSTRUCTOR [address] [place] [address] PCP - General Nurse Practitioner 01/02/23 documented as of this encounter
--- OUTSIDE RECORDS SUMMARY | 2025-03-07 20:08 | XMS_ITS | Encounter Summary ---
Author Organization [facility] Address [address], [place] [address] Care Team Providers Care Innersole Fitter Name Role Phone Antionette Day DNP, JOB INTERVIEWER, ENVIRONMENTAL SERVICES MANAGER Primary Care Provid er Encounter Details Date Type Department Care Team ([facility] st Contact Info) Description 07/08/2019 Correspondence External to External, [place] [address] RETROSPECTIVE DRUG UTILIZATION REVIEW Social History Tobacco [...] on filedocumented in this encounter Care Teams Innersole Fitter Relationship Specialty Start Date End Date Antionette Day DNP, JOB INTERVIEWER, ENVIRONMENTAL SERVICES MANAGER [address] [place] [address] PCP - General Nurse Practitioner 01/02/23 documented as of this encounter
--- OUTSIDE RECORDS SUMMARY | 2025-03-07 20:08 | XMS_ITS | Clinical Summary ---
Author Organization [facility] Address [address] [place] [id number] Care Team Providers Care Flight Radio Operator Name Role Phone Jonathan Mcdonnell MD Unavailable Augusto Serrato Unavailable [phone] Jose G Iqbal Unavailable [phone] Rae Llanes MD Primary Care Prov ider Allergies Active [...] In Comment Field High 01/30/2007 Abdominal pain Friendship Oil Rash 01/25/2008 Friendship fish when eaten Simvastatin Muscle Weakness High 08/20/2008 Sulfa (Sulfonamide Antibiotics) Hives,Rash High 10/09/1992 rash Pains in the stomach Medications sennosides-docusa te (SENOKOT S) (8.6-50 mg) tabletIndications :Acute ischemic stroke (HC) Take 2 Tablets by mouth 2 times daily if needed for Constipation. Active potassium chloride (KLOR-CON M10) 10 mEq extended-release tablet (part/cryst)Indic ations:hypokalemi a prevention Take 1 tablet (10 meq) by mouth every other day. Active cyanocobalamin (Vitamin B-12) 1,000 mcg tabletIndications :prevention of vitamin B12 deficiency Take 1 Tablet (1,000 mcg) by mouth once daily. 90 Tablet 3 Active lysine 500 mg tabIndications:En counter to establish care Take 1 Tablet (500 mg) by mouth once daily before a meal. 90 Tablet 3 Active Additional Information Patient not taking.Reported on 01/25/2025 multivitamin (MVI) tabletIndications :S/P gastric bypass Take 1 Tablet by mouth once daily. 90 Tablet 3 Active cholecalciferol (Vitamin D) 1,000 unit capsuleIndication s:S/P gastric bypass Take 1 Capsule (1,000 units) by mouth once daily. 90 Capsule 3 Active fexofenadine (MIMI) 180 mg tablet Take 180 mg by mouth once daily. Do not crush or chew. Active nystatin powder (MYCOSTATIN) powder Apply 1 Strip topically to affected area(s) two times daily. Apply to groin/abd folds Active calcium carbonate (Corbin-Gest Antacid) 200 mg calcium (500 mg) chewable tablet Chew 1 Tablet (500 mg) by mouth three times daily with meals. Active artificial tears PF peg 400-propylene glycol (SYSTANE) 0.4-0.3 % ophthalmic dropperetteIndica tions:Dry eye Place 2 Drops into both eyes every 2 hours if needed for Dry Eyes. 25 Each 11 Active ferrous sulfate 325 mg delayed release tabletIndications :Iron deficiency anemia due to chronic blood loss Take 1 Tablet (325 mg) by mouth once daily with a meal. 90 Tablet 3 024 Active melatonin 3 mg tabletIndications :Insomnia, idiopathic TAKE 2 TABLETS BY MOUTH AT BEDTIME 180 Tablet 3 024 Active albuterol HFA (PRO-AIR; VENTOLIN; PROVENTIL) 90 mcg/actuation inhalerIndication s:bronchospasm prevention Inhale 2 Puffs by mouth 4 times daily if needed for Shortness Of Breath or Wheezing. 18 g 2 025 Active rosuvastatin (Crestor) 20 mg tabletIndications :Hyperlipidemia, unspecified hyperlipidemia type Take 1 Tablet (20 mg) by mouth at bedtime. 90 Tablet 3 025 Active lancets (Unistik 3 Comfort Lancet) 28 gauge miscIndications:T ype 2 diabetes mellitus with other circulatory complication, without long-term current use of insulin (HC) As directed. Dispense item covered by pt ins. 100 Each 025 Active guaiFENesin 100 mg/5 mL liquidIndications :Acute cough Take 5 mL (100 mg) by mouth every 6 hours if needed for Expectoration. 118 mL 025 Active clotrimazole (LOTRIMIN) 1 % creamIndications: Yeast infection of the skin Apply topically to affected area(s) two times daily. 45 g 025 Active furosemide (LASIX) 20 mg tabletIndications :Essential hypertension,Acut e on chronic diastolic heart failure (HC) TAKE 1 TABLET BY MOUTH EVERY MORNING 90 Tablet 2 025 Active fenofibrate 160 mg tabletIndications :Hyperlipidemia, unspecified hyperlipidemia type TAKE 1 TABLET BY MOUTH DAILY 90 Tablet 025 Active witch ye leaf (WITCH YE MISC) As directed. Active aspirin 81 mg enteric coated tabletIndications :Coronary artery disease involving walk[place] coronary artery of [place] heart, unspecified whether angina present Take 1 Tablet (81 mg) by mouth once daily with a meal. 90 Tablet 3 025 Active propylene glycoL (Systane Balance) 0.6 % ophthalmic solutionIndicatio ns:Eye irritation Place into the eye(s). 10 mL 025 Active hydrocortisone 1 % creamIndications: Skin irritation Apply topically to affected area(s) 2 times daily if needed for Itching for up to 1 dose. 30 g 025 Active SITagliptin phosphate (Januvia) 25 mg tabletIndications :Type 2 diabetes mellitus with other circulatory complication, without long-term current use of insulin (HC) TAKE 1 TABLET BY MOUTH DAILY 90 Tablet 025 Active lysine 600 mg tabIndications:In tranasal ulcers Take by mouth. 90 Tablet 3 025 Active cycloSPORINE 0.05 % ophthalmic emulsionIndicatio ns:dry eye Place 1 Drop into both eyes two times daily. 60 Each 3 025 Active acetaminophen (Tylenol Extra Strength) 500 mg tabletIndications :pain Take 2 Tablets (1,000 mg) by mouth every 6 hours if needed for Pain or Headache. Max acetaminophen dose: 4000mg in 24 hrs. 180 Tablet 5 025 Active fluticasone (50 mcg per actuation) nasal solution (FLONASE)Indicati ons:Retracted ear drum, right Inhale 2 Sprays in both nostrils once daily. 48 g 3 025 Active loperamide 2 mg tabletIndications :Chronic diarrhea Take 4mg by mouth with 1st loose stool, then 2mg with each subsequent loose stool. As needed Max 16 mg in 24 hrs 40 Tablet 025 Active omeprazole (PRILOSEC) 20 mg Delayed-Release capsuleIndication s:Gastroesophagea l reflux disease, unspecified whether esophagitis present TAKE 1 CAPSULE BY MOUTH DAILY 90 Capsule 3 025 Active carvediloL 12.5 mg tabletIndications :hypertension Take 1 Tablet (12.5 mg) by mouth two times daily with meals. 180 Tablet 3 025 Active polyethylene glycoL (MIRALAX) 17 gram/scoop powderIndications :Fluctuation of weight 1/2 scoop every other day 510 g 1 025 Active FLUoxetine (PROZAC) 20 mg capsuleIndication s:Anxiety and depression TAKE 1 CAPSULE BY MOUTH EVERY MORNING 30 Capsule 025 Active warfarin (COUMADIN) 5 mg tabletIndications :Paroxysmal atrial fibrillation (HC),Encounter for monitoring Coumadin therapy,Anticoagu lation monitoring, INR range 2-3 Take by mouth 5 mg (5 mg x 1 tablet) every Mon, Mon, Mon; 2.5 mg (5 mg x 0.5 tablet) all other days in the evening OR as directed. Recheck INR on 03/24/25 27 Tablet 025 Active FLUoxetine (PROzac) 20 mg capsuleIndication s:anxiety with depression Take 1 Capsule (20 mg) by mouth once daily in the morning. 024 2024 Discontinued warfarin (COUMADIN) 5 mg tabletIndications :Paroxysmal atrial fibrillation (HC),Encounter for monitoring Coumadin therapy,Anticoagu lation monitoring, INR range 2-3 Take by mouth 5 mg (5 mg x 1) every Sun, Tue, Sylvia; 2.5 mg (5 mg x 0.5) all other days in the evening OR as directed. Recheck INR on 02/19/25. 24 Tablet 025 2024 Discontinued(R eorder (E-cancel not sent)) Active Problems Problem Noted Date Diagnosed Date Hemiparesis, aphasia, and dy sphagia as late effect of cerebrovascular accident (CVA) 09/12/2024 Acute on chronic diastolic heart failure Chronic bronchitis, unspecified chronic bronchit is type 04/16/2024 Chronic kidney disease, stage 3b 04/16/2024 Anticoagulation monitoring, INR range 2-3 2023 Encounter for monitoring Coumadin therapy 2023 Acute ischemic stroke 09/05/2023 Paroxysmal atrial fibrillation 09/01/2023 Hypokalemia 05/30/2023 Hyponatremia 05/30/2023 Diastolic heart failure 09/20/2021 S/P placement of cardiac pacemaker 09/15/2021 Overview (09/15/2021): dual-chamber pacemaker placed 09/15/2021 at [facility] Assessment & Plan (10/23/2024 3:02 PM CDT): Date of last device in office evaluation: 10/23/2024 Following clinic: [facility] ? Hospital Secretary and model: Medtronic Lizbeth Pacemaker. Date of [...] device in office evaluation: 01/02/2023 Following clinic: [facility] ? Hospital Secretary and model: Medtronic [place] Pacemaker. Date of implant: 09/14/2021 ? Indication [...] Hydronephrosis 03/02/2019 04/16/2024 Sepsis secondary to UTI 04/18/2016 09/0 09/2023 Morbid obesity 01/30/2007 07/31/2024 Encounters Date Type Department Care Team Description 02/18/2025 Anticoagulation (warfarin) [facility] [address] [place] [address] Nurse, Amos Anticoag Anticoagulation 02/17/2025 3:30 PM CDT Office Visit [facility] [address] [place] [address] Rae Llanes MD Hypertension Care Management 02/17/2025 Telephone [facility] [address] [place] [address] Rae Llanes MD Blood Pressure (Readings) 02/17/2025 Travel 02/12/2025 Refill [facility] [address] [place] [address] Rae Llanes MD Refill Request (Fluoxetine) 02/10/2025 Telephone [facility] [address] [place] [address] Jose Mooney MD Update 02/05/2025 Refill [facility] [address] [place] [address] Rae Llanes MD Refill Request (Poleth Glyc POW) 02/05/2025 Procedure Only [facility] [place] [facility] [address] [place] [address] DanielleiRome Remote Device Check (Remote Medtronic PPM/) 02/03/2025 Telephone [facility] [address] [place] [address] Rae Llanes MD Follow Up 01/30/2025 Telephone [facility] [place] [facility] [address] [place] [address] Jose Mooney MD Follow Up 01/25/2025 3:30 PM CDT Office Visit [facility] [address] [place] [address] Johanna Fishman NP Dysuria (X 1 week, lower back pain. ) 01/25/2025 Travel 01/22/2025 Anticoagulation (warfarin) [facility] [address] [place] [address] NurseAmos Anticoag Anticoagulation (Lab only/) 01/21/2025 3:15 PM CDT Orders Only [place] [address] [place] [address] Lab, [facility] 01/21/2025 Travel 01/21/2025 Telephone [place] [address] [place] [address] Rae Llanes MD Medication Management (carvediloL 12.5 mg tablet) 01/20/2025 Refill [facility] [address] [place] [address] Rae Llanes MD Refill Request (Omeprazole) 01/16/2025 Anticoagulation (warfarin) [facility] [address] [place] [address] NurseAmos Anticoag Anticoagulation (Chart update) 01/16/2025 Telephone [facility] [address] [place] [address] Rae Llanes MD Refill Request (Anti Diarrhea 2mg) 01/10/2025 Telephone [facility] [address] [place] [address] Rae Llanes MD Care Coordination (Orthostatic blood pressure) 01/08/2025 Refill [facility] [address] [place] [address] Carin Johnson DO Refill Request (Fluticasone) 01/08/2025 Nurse Triage [facility] [address] [place] [address] Rae Llanes MD Other (Patient had a fall ) 01/06/2025 Refill [facility] [address] [place] [address] Rae Llanes MD Refill Request (Acetamin 500mg caplets) 01/04/2025 Anticoagulation (warfarin) [facility] [address] [place] [address] 1, [facility] Anticoagulation (SKILLED NURSING) 01/03/2025 1:30 PM CDT Orders Only [address] [address] Lab, [place] [facility] 01/03/2025 Refill [facility] [address] [place] [address] Rae Llanes MD Refill Request (Polyeth Glyc) 01/03/2025 Travel 12/27/2024 Anticoagulation (warfarin) [facility] [address] [place] [address] 1, [facility] Anticoagulation (ER) 12/27/2024 Nurse Triage [facility] [address] [place] [address] Rae Llanes MD Urinary Tract Infection 12/27/2024 Telephone [facility] [address] [place] [address] Rae Llanes MD Concerns (Fall and antibiotics) 12/27/2024 Refill [facility] [address] [place] [address] Rae Llanes MD Refill Request (Cyclosporine ) 12/23/2024 2:30 PM CDT - 12/23/2024 11:59 PM CDT Hospital Encounter [facility] [address] [address] Paroxysmal atrial fibrillation (HC); Encounter for monitoring Coumadin therapy; Anticoagulation monitoring, INR range 2-3 12/23/2024 Anticoagulation (warfarin) [address] [address] 1, [facility] Anticoagulation 12/23/2024 Travel 12/21/2024 Anticoagulation (warfarin) [facility] [address] [place] [address] 1, [facility] Anticoagulation (OV) 12/20/2024 3:05 PM CDT Office Visit [address] [address] Rae Llanes MD Urinary Problem (Burning and frequent urination. ); Follow Up (urgent care follow up 12/13) 12/20/[address] [address] Rae Llanes MD Anticoagulation (OPV-CIPROFLOXACIN) 12/20/2024 Travel 12/20/[address] [address] Rae Llanes MD Anticoagulation 12/20/[address] [address] Rae Llanes MD Appointment (INR) 12/20/[address] [address] Rae Llanes MD Questions (UTI ) 12/19/[address] [address] Rae Llanes MD Refill Request (CYCLOSPORINE EMU 0.05% OP) 12/18/[address] [address] Rae Llanes MD Anticoagulation (Annual re-enrollment /) 12/16/2024 Orders Only [facility] Scanner 1 scan: (1-Ord) [place], MULTIPLE LAB TESTS, 12/16/2024 12/14/2024 Anticoagulation (warfarin) [facility] [address] [place] [address] 1, [facility] Anticoagulation 12/13/2024 2:45 PM CDT Orders Only [place] [address] [place] [address] Lab, [facility] 12/13/2024 Travel 12/13/2024 Telephone [facility] [address] [place] [address] Rae Llanes MD Lab (UA request) 12/05/2024 Anticoagulation (warfarin) [facility] [address] [facility] [address] 1, [facility] Anticoagulation from Last 3 Months Immunizations Immunization Administration Dates Next Due COVID-19 VACCINE SPIKEVAX (M ODERNA 50MCG/0.5ML) 12YO+ PFS 04/23/2024,10/26/2023,06/09/2023 Covid-19 Vaccine (Novavax) VAL Moreno 04/22/2024 Influenza Virus, Unspecified 05/11/2016,05/20/20 13 Influenza, [...] on file Legal Sex Female 5:39 AM MASK FORMER Gender Identity Not on file Sexual Orientation Not on file 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 Not on file Not on file Not on file Obstetrics History Last Filed Vital Signs Vital Sign Reading Time Taken Comments Blood Pressure 164/68 02/17/2025 3:51 PM CDT Pulse 83 02/17/2025 3:39 PM CDT Temperature 36.7 C (98 F) 01/25/2025 3:45 PM CDT Respiratory Rate 18 01/25/2025 3:45 PM CDT Oxygen Saturation 95% 02/17/2025 3:39 PM CDT Inhaled Oxygen Concentration - - Weight 68.9 kg (152 lb) 01/25/2025 3:45 PM CDT Height 157.5 cm (5' 2) 11/04/2024 9:08 AM CDT Body Mass Index 27.8 11/04/2024 9:08 AM CDT Plan of Treatment Upcoming Encounters Date Type Department Care Team (Late st Contact Info) Description 03/20/2025 3:15 PM CDT Orders Only [facility] [address] [place] [address] Lab[facility] Maintenance Due Date Last Done Comments Zoster (shingles) series for age 50+ (3 of 3) 02/18/2021 12/24/2020, 11/12/2011 COVID-19 vaccine series ( season) 2024 04/23/2024, 04/22/2024, 10/26/2023, Additional history exists Influenza Vaccine (#1) 2025 , 04/22/2024, 07/19/2021, Additional history exists Depression screening for age 12+ 07/05/2025 07/05/2024, 07/05/2024, 07/05/2024, Additional history exists Medicare Wellness for age 65+ 07/06/2025 07/05/2024, 03/11/2019 BMI (ht and wt on same day) for age 18+ 08/06/2025 08/06/2024, 03/19/2024, 02/08/2024, Additional history exists Tetanus booster 12/24/2030 12/24/2020, 11/14, 11/28/2008, Additional history exists DEXA/DXA scan for age 65+ Completed 2015 [facility] Pneumococcal series for age 50+ Completed 10/06/2016, 11/28/2008, 05/02/2003 RSV vaccine for adults or Completed 03/22/2023 Hepatitis B series for 19+ Aged Out N o longer eligible based on patient's age to complete this topic Medical Devices Implanted Type Area Hospital Secretary Device Identifier Shelf Expiration Date Model / Serial / Lot Patella Sigma 32mm Oval/Dbdh15-29 00 J&Trishrtho - [id number] Implanted:Qty: 1 on 01/30/2008 at [facility] Ortho Total Joint Right: Knee Stuffle 08/17/2012 96-0100# / / [id number] Description:CHECKED JI Cmnt Bone Palacos R - [id number] Implanted:Qty: 1 on 01/30/2008 at [facility] Right: Knee Najma [employer] 06/16/2012 1112-140-0 1# / / [id number] Description:CHECKED JI Cmnt Bone Palacos R - [id number] Implanted:Qty: 1 on 01/30/2008 at [facility] Right: Knee [employer] 04/16/2012 1112-140-0 1# / / [id number] Description:CHECKED JI Implnt Fem Cruciate Sub Sz2.5 Rt Open Bx - [id number] Implanted:Qty: 1 on 01/30/2008 at [facility] Right: Knee DEPUY 05/17/2017 [id number]# / / [id number] Description:CHECKED JI Ty Tib Modular Cmnt Cocr 97919-05-976 - [id number] Implanted:Qty: 1 on 01/30/2008 at [facility] Right: Knee DEPUY 05/17/2017 0# / / [id number] Description:CHECKED JI Insert Gvf Sz 2 10mm Stab Sigma - [id number] Implanted:Qty: 1 on 01/30/2008 at [facility] Right: Knee DEPUY 12/15/2008 0# / / [id number] Description:CHECKED JI Explanted Type Area Hospital Secretary Device Identifier Shelf Expiration Date Model / Serial / Lot Stent Inlay [id number] - [id number] Implanted:Qty: 1 on 08/20/2008 at [facility] Explanted:Qty: 1 on 04/01/2019 by Ephraim Mcfadden MD at [facility] Left: Ureter [employer] 01/14/2013 [id number]# / / [id number] Stent Inlay [id number] - [id number] Implanted:Qty: 1 on 10/15/2009 at [facility] Explanted:Qty: 1 on 04/01/2019 by Ephraim Mcfadden MD at [facility] Right: Ureter [employer] 03/17/2014 [id number]# / / [id number] Description:NO STICKER...SK Stent Uret 4.8gtf18am Percuflex F[place]ett Plus - [id number] Implanted:Qty: 2 on 03/02/2019 by Ephraim Mcfadden MD at [facility] Explanted:Qty: 2 on 04/01/2019 by Ephraim Mcfadden MD at [facility] Bilateral: Ureter [facility] 11/27/2021 [id number]# / / [id number] Description:NO STICKER SJ Procedures Procedure Name Priority Date/Time Associated Diagnosis Comments INR,POCT Routine 02/17/2025 4:17 PM CDT Paroxysmal atrial fibrillation (HC) Encounter for monitoring Coumadin therapy Anticoagulation monitoring, INR range 2-3 CBC WITH AUTO DIFFERENTIAL STAT 01/25/2025 4:24 PM CDT Right flank pain LACTATE VENOUS Patient wait 01/25/2025 4:24 PM CDT Right flank pain BASIC METABOLIC PANEL STAT 01/25/2025 4:24 PM CDT Right flank pain CBC WITH AUTO DIFFERENTIAL STAT 01/25/2025 4:24 PM CDT Right flank pain URINALYSIS MICROSCOPIC STAT 01/25/2025 3:32 PM CDT Dysuria URINE CULTURE Routine 01/25/2025 3:32 PM CDT Dysuria UA W/ SEDIMENT EXAM REFLEXED PER CRITERIA Patient wait 01/25/2025 3:32 PM CDT Dysuria INR,POCT Routine 01/21/2025 3:17 PM CDT Paroxysmal atrial fibrillation (HC) Encounter for monitoring Coumadin therapy Anticoagulation monitoring, INR range 2-3 INR,POCT Routine 01/03/2025 1:34 PM CDT Paroxysmal atrial fibrillation (HC) Encounter for monitoring Coumadin therapy Anticoagulation monitoring, INR range 2-3 INR,POCT Routine 12/27/2024 PROTIME-INR Today 12/23/2024 3:10 PM CDT Paroxysmal [...] PM CDT Urinary tract infection symptoms URINALYSIS MACROSCOPIC - [facility] ONLY POC DIP ([facility]) Routine 12/20/2024 3:20 PM CDT Urinary tract infection symptoms SCAN-PATHOLOGY REPORT 12/16/2024 12:00 AM CDT PROTIME-INR Routine 12/13/2024 2:45 PM CDT Paroxysmal atrial fibrillation (HC) Encounter for monitoring Coumadin therapy Anticoagulation monitoring, INR range 2-3 CBC WITH AUTO DIFFERENTIAL Routine 12/13/2024 2:43 PM CDT Pre-op exam BASIC METABOLIC PANEL Routine 12/13/2024 2:43 PM CDT Pre-op exam from Last 3 Months Results * (ABNORMAL) INR - POCT [81577.2] - Standing Order (02/17/2025 4:17 PM CDT) Only the most recent of4 resultswithin the time period is included. INR 3.0(H) ratio [facility] Comment: INRs >2.9 may be falsely elevated in patients receiving either unfractionated Heparin or Low Molecular Weight Heparin. Follow up testing in a hospital laboratory may be helpful if clinically indicated. INR results of > or = 5.0 should be verified using the standard venipuncture procedure. Reference Range 0.9-1.1 Moderate-intensity Warfarin Therapy 2.0-3.0 Higher-intensity Warfarin Therapy 3.0-4.0 PROTHROMBIN TIMEP 36.2(H) 10.5 - 13.1 sec [facility] Comment: Point of care fingerstick Prothrombin Time/INR results may vary from venous Prothrombin Time/INR methodologies. Any results exhibiting inconsistency with the patient's clinical status should be repeated using a venous Prothrombin Time/INR method. Blood BLOOD SPECIMEN / Unknown 02/17/2025 4:17 PM CDT 02/17/2025 4:18 PM CDT us Rae Llanes MD LABORATORY Fi nal Result [facility] [address] [place] [address], [place] [phone] [facility] [address] [place] [address] * (ABNORMAL) CBC WITH AUTO DIFFERENTIAL (01/25/2025 4:24 PM CDT) WHITE BLOOD COUNT 6.2 4.5 - 11.0 thou/cu mm 01/25/2025 5:02 PM [facility] RED BLOOD COUNT 4.00 4.00 - 5.20 mil/cu mm 01/25/2025 5:02 PM [facility] HEMOGLOBIN 11.5(L) 12.0 - 16.0 g/dL 01/25/2025 5:02 PM [facility] HEMATOCRIT 37.8 33.0 - 51.0 % 01/25/2025 5:02 PM [facility] MCV 95 80 - 100 fL 01/25/2025 5:02 PM [facility] MCH 28.8 26.0 - 34.0 pg 01/25/2025 5:02 PM [facility] MCHC 30.4(L) 32.0 - 36.0 g/dL 01/25/2025 5:02 PM [facility] RDW 14.3 11.5 - 15.5 % 01/25/2025 5:02 PM [facility] PLATELET COUNT 364 140 - 440 thou/cu mm 01/25/2025 5:02 PM [facility] MPV 9.9 6.5 - 11.0 fL 01/25/2025 5:02 PM [facility] % NEUT 60.3 % 01/25/2025 5:02 PM [facility] % LYMPH 21.6 % 01/25/2025 5:02 PM [facility] % MONO 11.0 % 01/25/2025 5:02 PM [facility] % EOS 6.3 % 01/25/2025 5:02 PM [facility] % BASO 0.8 % 01/25/2025 5:02 PM [facility] ABSOLUTE NEUTROPHILS 3.8 1.7 - 7.0 thou/cu mm 01/25/2025 5:02 PM [facility] ABSOLUTE LYMPHOCYTES 1.3 0.9 - 2.9 thou/cu mm 01/25/2025 5:02 PM [facility] ABSOLUTE MONOCYTES 0.7 <0.9 thou/cu mm 01/25/2025 5:02 PM CDT [facility] ABSOLUTE EOSINOPHILS 0.4 <0.5 thou/cu mm 01/25/2025 5:02 PM CDT [facility] ABSOLUTE BASOPHILS 0.1 <0.3 thou/cu mm 01/25/2025 5:02 PM CDT [facility] Blood BLOOD SPECIMEN / Unknown [facility] Collect / Unknown 01/25/2025 4:24 PM CDT 01/25/2025 4:24 PM CDT Johanna Fishman GROUP HOME MANAGER HEMATOLOGY Final Result [facility] [address] [place] [address] * LACTATE VENOUS (01/25/2025 4:24 PM CDT) Pathologist [facility] LACTATE,VENOUS 1.4 0.5 - 2.0 mmol/L 01/25/2025 5:20 PM CDT [facility] Blood BLOOD SPECIMEN / Unknown [facility] Collect / Unknown 01/25/2025 4:24 PM CDT 01/25/2025 4:24 PM CDT Johanna Fishman NP CHEMISTRY Final Result [facility] [address] [place] [address] * (ABNORMAL) BASIC METABOLIC PANEL (01/25/2025 4:24 PM CDT) Only the most recent of3 resultswithin the time period is included. SODIUM 140 136 - 145 mmol/L 01/25/2025 5:44 PM CDT [facility] POTASSIUM 4.7 3.5 - 5.1 mmol/L 01/25/2025 5:44 PM CDT [facility] CHLORIDE 105 98 - 107 mmol/L 01/25/2025 5:44 PM CDT [facility] CO2,TOTAL 21(L) 22 - 29 mmol/L 01/25/2025 5:44 PM T [facility] ANION GAP 14 5 - 18 01/25/2025 5:44 PM T [facility] GLUCOSE 103(H) 70 - 99 mg/dL 01/25/2025 5:44 PM T [facility] CALCIUM 9.4 8.8 - 10.4 mg/dL 01/25/2025 5:44 PM [facility] Comment: Reference ranges for this test were updated on 05/21/2024 to reflect our healthy population more accurately. Reference range changes are not retroactively applied to results, but previous results using the same methodology can be interpreted in the context of the new reference range. BUN 28(H) 8 - 23 mg/dL 01/25/2025 5:44 PM [facility] CREATININE 1.24(H) 0.50 - 0.90 mg/dL 01/25/2025 5:44 PM [facility] BUN/CREAT RATIO 23(H) 10 - 20 5:44 PM [facility] eGFR 44(L) >90 mL/min/1. 73m2 01/25/2025 5:44 PM [facility] Comment:As of 2021, eG FR is calculated by the CKD-EPI creatinine equation without race adjustment. eGFR can be influenced by muscle mass, exercise, and diet. The reported eGFR is an estimation only and is only applicable if the renal function is stable. Blood BLOOD SPECIMEN / Unknown [facility] / Unknown 01/25/2025 4:24 PM CDT 01/25/2025 4:24 PM CDT us Johanna Fishman NP CHEMISTRY Final Result [facility] [address] [place] [address] * (ABNORMAL) URINALYSIS MICROSCOPIC (01/25/2025 3:32 PM CDT) Only the most recent of2 resultswithin the time period is included. [facility] Signature RBC 0-2 0-2, None Seen /HPF 01/25/2025 4:02 PM CDT [facility] WBC 11-25(A) 0-2, 3-5, None Seen /HPF 01/25/2025 4:02 PM CDT [facility] BACTERIA Many(A) None Seen, Rare, Few Bacteria/H PF 01/25/2025 4:02 PM CDT [facility] EPITHELIAL CELLS Few None Seen, Few Epi/HPF 01/25/2025 4:02 PM CDT [facility] Urine URINE SPECIMEN / Unknown Non-Blood / Unknown 01/25/2025 3:32 PM CDT 01/25/2025 3:43 PM CDT us Johanna Fishman NP URINE Final Result [facility] [address] [place] [address] * (ABNORMAL) URINE CULTURE [03809.2] - routine (01/25/2025 3:32 PM CDT) Only the most recent of2 resultswithin the time period is included. CULTURE RESULT(A) 01/27/2025 7:05 AM CDT [facility] CULTURE >100,000 CFU/mL Klebsiella variicola 01/27/2025 7:05 AM CDT [facility] Urine URINE SPECIMEN / Unknown Non-Blood / Unknown 01/25/2025 3:32 PM CDT 01/25/2025 3:43 PM CDT Narrative Organism Antibiotic Method Susceptibility Klebsiella variicola TRIMETHOPRIM/SULF <=1/19: S Klebsiella variicola AMPICILLIN R Klebsiella variicola CEFAZOLIN 2: S Klebsiella variicola GENTAMICIN <=1: S Klebsiella variicola CEFTRIAXONE <=0.25: S Klebsiella variicola CEFTAZIDIME <=0.5: S Klebsiella variicola LEVOFLOXACIN <=0.12: S Klebsiella variicola CIPROFLOXACIN <=0.06: S Klebsiella variicola PIPERACILLIN/TAZO 8: S Klebsiella variicola AMPICILLIN/SULBACTAM 4: S Klebsiella variicola CEFEPIME <=0.12: S Klebsiella variicola MEROPENEM <=0.25: S Klebsiella variicola NITROFURANTOIN 32: S us Johanna Fishman NP MICROBIOLOGY Final Result [facility] [address] [place] [address], [place] * (ABNORMAL) UA W/ SEDIMENT EXAM REFLEXED PER CRITERIA [82036.2] (01/25/2025 3:32 PM CDT) COLOR Yellow Yellow Color 01/25/2025 3:59 PM T [facility] CLARITY Clear Clear Clarity 01/25/2025 3:59 PM [facility] SPECIFIC GRAVITY,URINE 1.015 1.010, 1.015, 1.020, 1.025 01/25/2025 3:59 PM [facility] PH,URINE 5.5 6.0, 7.0, 8.0, 5.5, 6.5, 7.5, 8.5 01/25/2025 3:59 PM [facility] UROBILINOGEN, QUALITATIVE Normal Normal EU/dl 01/25/2025 3:59 PM [facility] PROTEIN, URINE Negative Negative mg/dL 01/25/2025 3:59 PM [facility] GLUCOSE, URINE Negative Negative mg/dL 01/25/2025 3:59 PM [facility] KETONES,URINE Negative Negative mg/dL 01/25/2025 3:59 PM [facility] BILIRUBIN,URI NE Negative Negative 01/25/2025 3:59 PM [facility] OCCULT BLOOD,URINE Negative Negative 01/25/2025 3:59 PM [facility] NITRITE Positive(A) Negative 01/25/2025 3:59 PM [facility] LEUKOCYTE ESTERASE Large(A) Negative 01/25/2025 3:59 PM [facility] Urine URINE SPECIMEN / Unknown Non-Blood / Unknown 01/25/2025 3:32 PM CDT 01/25/2025 3:43 PM CDT Johanna Fishman NP URINE Final Result Performing Organization Address [facility] Co de Phone Number [facility] [address] [place] [address] * (ABNORMAL) PROTIME-INR [[id number]] - Standing Order (12/23/2024 3:10 PM CDT) Only the most recent of3 resultswithin the time period is included. INR 3.1(H) <1.3 12/23/2024 3:27 PM CDT [facility] PROTIME 35.8(H) 10.6 - 12.4 sec 12/23/2024 3:27 PM CDT [facility] Blood BLOOD SPECIMEN / Unknown Venipuncture / Unknown 12/23/2024 3:10 PM CDT 12/23/2024 3:11 PM CDT Narrative [facility] - 12/23/2024 3:27 PM CDT Therapeutic [...] seconds if the patient is on UFH. us Rae Llanes MD HEMATOLOGY Fi nal Result Performing Organization Address [facility]/ZIP Co de Phone Number [facility] [address] [place] [address] * (ABNORMAL) POCT Urinalysis Dipstick Only [[id number]] (12/20/2024 3:20 PM CDT) PH 5.5 5.0 - 8.0 [facility] SPECIFIC GRAVITY 1.015 1.001 - 1.035 [facility] GLUCOSE NEGATIVE NEGATIVE [facility] BILIRUBIN NEGATIVE NEGATIVE [facility] KETONES NEGATIVE NEGATIVE [facility] OCCULT BLOOD NEGATIVE NEGATIVE [facility] PROTEIN NEGATIVE NEGATIVE [facility] NITRITE POSITIVE(A) NEGATIVE [facility] LEUKOCYTE ESTERASE 1+(A) NEGATIVE [facility] Urine URINE SPECIMEN / Unknown 12/20/2024 3:20 PM CDT 12/20/2024 3:20 PM CDT us Rae Llanes MD URINE Fi nal Result [facility] [address] [place] [address], [facility] [address] [place] [address] * SCAN-PATHOLOGY REPORT (12/16/2024 12:00 AM CDT) [...] PM CDT 12/13/2024 2:43 PM CDT Rae Llanes MD HEMATOLOGY Fi nal Result [facility] [address] [place] [address], [facility] [address] [place] [address] from Last 3 Months Additional Health Concerns Infection Onset Date Last Indicated MRSA Clearance Comment:Infection Control Note: Hx of MRSA, surveillance criteria met, no need for further testing or isolation precautions. Do not delete or resolve the Infection Flag. 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
--- NOTE | 2025-03-07 20:41 | CRLHL7_ITS ---
For Patients: As a result of the Cures Act, medical imaging exams and procedure reports are released immediately into your electronic medical record. You may view this report before your referring provider. If you have questions, please contact your health care provider. INDICATION: Fall, knee injury TECHNIQUE: Knee radiograph 3 views right COMPARISON: None FINDINGS: Bone: No acute fractures or aggressive bone lesions are identified. Severe diffuse osteopenia is present. Joint: A total knee arthroplasty with patellar resurfacing is present. No significant knee effusion is seen. Soft tissue: Unremarkable. No radiopaque foreign bodies are seen. Mild vascular calcifications are noted. IMPRESSION: 1. No acute osseous injuries or abnormalities are noted. Dictated by Yannick Amaral MD @ 03/07/2025 9:38:11 PM Dictated by: Yannick Amaral MD @ 03/07/2025 21:38:15 (Electronically Signed)
--- NOTE | 2025-03-07 20:41 | CRLHL7_ITS ---
For Patients: As a result of the Cures Act, medical imaging exams and procedure reports are released immediately into your electronic medical record. You may view this report before your referring provider. If you have questions, please contact your health care provider. INDICATION: Fall, shoulder injury TECHNIQUE: Shoulder radiograph 3 views right COMPARISON: None FINDINGS: Bone: There is an ill-defined curvilinear density posterior to the humeral head on the transscapular Y-view which may represent a fracture fragment. Severe diffuse osteopenia is present. Joint: Moderate osteoarthritis of the glenohumeral joint is noted. The acromioclavicular joint is unremarkable. Soft tissue: Unremarkable. The visualized hemithorax is unremarkable in appearance. No radiopaque foreign bodies are seen. IMPRESSION: 1. There is an ill-defined curvilinear density posterior to the humeral head on the transscapular Y-view which may represent a fracture fragment. Dictated by Yannick Amaral MD @ 03/07/2025 9:39:19 PM Dictated by: Yannick Amaral MD @ 03/07/2025 21:39:24 (Electronically Signed)
--- NOTE | 2025-03-07 21:05 | ED.HEATRA ---
HPI - Head Injury General Date Seen: 03/07/25 Chief complaint: Head Injury/Pain Stated complaint: Fall Time Seen by Provider: 03/07/25 20:05 Source: patient and family Mode of arrival: EMS Limitations: no limitations History of Present Illness HPI Narrative: Patient is an 1-year-old female presenting to the emergency department with her daughter after a fall. Patient comes from [facility] with can alter her daughter's car when she tripped and fell to the ground. She struck her head on the ground. Did not lose consciousness. Patient has dementia at baseline her daughter states she is acting normally. Is not on warfarin. Patient was helped up to the stretcher and has not tried to walk since the fall. Is complaining about right shoulder and right knee pain also prior denies any neck pain. Denies chest pain, abdominal pain, weakness, numbness, lightheadedness, dizziness. No other concerns noted at this time. Related Data Home Medications ?Medication ?Instructions ?Recorded ?Confirmed blood sugar diagnostic (Kaye GroupTouch #10 ea 12/24/23 12/13/24 Ultra Test strips) blood-glucose meter ([employer] #1 ea 12/24/23 12/13/24 Ultra2 Meter) carvedilol 6.25 mg tablet 12.5 mg PO BID 12/24/23 12/27/24 cyclosporine 0.05 % eye drops in a 1 drp ophthalmic (eye) Q12H 12/24/23 12/27/24 dropperette fenofibrate 160 mg tablet 160 mg PO DAILY 12/24/23 12/27/24 fluoxetine 20 mg capsule 20 mg PO BID 12/24/23 12/27/24 furosemide 20 mg tablet 20 mg PO .every other day 12/24/23 12/27/24 omeprazole 20 mg capsule,delayed 20 mg PO DAILY 12/24/23 12/27/24 release potassium chloride 10 mEq 10 meq PO .every other day 12/24/23 12/27/24 capsule,extended release sitagliptin phosphate 25 mg tablet 25 mg PO DAILY 12/24/23 12/27/24 (Januvia) warfarin 2.5 mg tablet 2.5 mg PO .Mon/Wed/Fri 12/24/23 12/27/24 warfarin 5 mg tablet 5 mg PO .Sun/Tues/Thur/Sat 12/24/23 12/27/24 cholecalciferol (vitamin D3) 25 1,000 unit PO DAILY 06/23/24 12/27/24 mcg (1,000 unit) capsule (Vitamin D3) mecobalamin (vitamin B12) 1,000 1,000 mcg PO DAILY 06/23/24 12/27/24 mcg chewable tablet (B12 Active) nystatin 100,000 unit/gram topical 1 applic topical BID 06/23/24 12/27/24 powder (Klayesta) albuterol sulfate 90 mcg/actuation inhalation 07/16/24 12/13/24 aerosol inhaler calcium carbonate [Corbin-Gest PO 07/16/24 12/13/24 Antacid] dextromethorphan polistirex PO 07/16/24 12/13/24 [Robitussin ER] docusate sodium PO 07/16/24 12/13/24 ferrous sulfate 325 mg (65 mg 325 mg PO QDAY 07/16/24 12/27/24 iron) tablet fexofenadine 180 mg tablet 180 mg PO Q24H 07/16/24 12/27/24 (Allergy Relief (fexofenadine)) hydrocortisone acetate topical 07/16/24 12/13/24 lidocaine [Aspercreme (lidocaine)] topical 07/16/24 12/13/24 loperamide PO 07/16/24 12/13/24 lysine 500 mg tablet (L-Lysine) 500 mg PO QDAY 07/16/24 12/27/24 melatonin 3 mg capsule 3 mg PO ONCE 07/16/24 12/27/24 multivitamin [Tab-A-Tommie] PO 07/16/24 12/13/24 nystatin 100,000 unit/gram topical 1 applic topical QDAY 07/16/24 12/27/24 powder (Nystop) polyethylene glycol 3350 PO 07/16/24 12/13/24 propylene glycol [Systane Balance] ophthalmic (eye) 07/16/24 12/13/24 rosuvastatin 20 mg tablet 20 mg PO QPM 07/16/24 12/27/24 aspirin 81 mg tablet,delayed 81 mg PO QDAY 12/13/24 12/27/24 release (Adult Aspirin Regimen) Previous Rx's ?Medication ?Instructions ?Recorded acetaminophen 300 mg-codeine 30 mg 1 tab PO Q6H PRN pain #15 tabs 07/09/24 tablet codeine 10 mg-guaifenesin 100 mg/5 5 ml PO Q4-6H PRN cough #118 mL 07/16/24 mL oral liquid doxycycline hyclate 100 mg tablet 100 mg PO BID #14 tabs 12/13/24 Allergies Allergy/AdvReac Type Severity Reaction Status Date / Time atorvastatin (From Lipitor) Allergy Intermediate Verified 12/27/24 11:57 cephalexin Allergy Intermediate Verified 12/27/24 11:57 erythromycin base Allergy Intermediate Verified 12/27/24 11:57 Fish Containing Products Allergy Intermediate Verified 12/27/24 11:57 glyburide Allergy Intermediate Verified 12/27/24 11:57 latex Allergy Intermediate Verified 12/27/24 11:57 Macrolide Antibiotics Allergy Intermediate Verified 12/27/24 11:57 nitrofurantoin Allergy Intermediate Verified 12/27/24 11:57 simvastatin Allergy Intermediate Verified 12/27/24 11:57 Sulfa (Sulfonamide Allergy Intermediate Verified 12/27/24 11:57 Antibiotics) amoxicillin (From Augmentin) Allergy Unknown Verified 12/27/24 11:57 Anesthetics - Amide Type - Allergy Unknown Verified 12/27/24 11:57 Select A clavulanic acid (From Allergy Unknown Verified 12/27/24 11:57 Augmentin) adhesive AdvReac Unknown Verified 12/27/24 11:57 salmon Allergy Severe Anaphylaxis Uncoded 12/13/24 18:19 Review of Systems Narrative: Pertinent systems reviewed and were negative unless stated in HPI [facility] Medical History POLST (Physician Orders for Life-Sustaining Treatment) ?Z78.9 - Other specified health status (ICD-10) Social History Smoking Status: Never smoker How often do you have a drink containing alcohol: never How often do you have six or more drinks on one occasion: Never AUDIT-C Alcohol total score: 0 Non-prescribed substance use: denies use Exam Narrative: Exam Narrative: Const: Well-nourished, Well-developed, in no distress Eyes: PERRL, no conjunctival injection, and symmetrical lids HENT: Atraumatic external nose and ears. Moist mucous membranes. Neck: Symmetric, trachea midline, No thyromegaly. CVS: RRR, No murmurs or gallops. Peripheral pulses 2+ and equal in all extremities RESP: Unlabored respiratory effort. Clear to auscultation bilaterally. GI: Nontender/Nondistended, No rebound or guarding. MSK:Extremities w/o deformity, Normal Active ROM, no spinal tenderness or step-offs. Tenderness noted to right anterior shoulder mild tenderness to right knee. No tenderness noted to chest, rest of extremities. Skin: Warm, Dry. Abrasion to left forehead with a 1 cm laceration. Neuro: Normal Muscle tone, No focal neurological deficits. GCS 15 Psych: Awake, Alert, & Oriented x3. Appropriate mood and affect. Const: Vital Signs, click to edit/add: Vital Signs - 24 hr 03/07/25 20:28 03/07/25 20:30 03/07/25 20:31 Temperature 97.8 F Pulse Rate 66 64 Pulse Rate [Left P ulse Oximeter] 109 H Respiratory Rate 18 Blood Pressure 139/107 H Blood Pressure [Le ft Upper Arm] 139/107 H Pulse Oximetry 99 95 96 Oxygen Delivery Me thod Room Air 03/07/25 20:32 03/07/25 20:33 03/07/25 21:12 Temperature Pulse Rate 65 64 64 Pulse Rate [Left P ulse Oximeter] Respiratory Rate Blood Pressure 135/92 H Blood Pressure [Le ft Upper Arm] Pulse Oximetry 94 97 96 Oxygen Delivery Me thod 03/07/25 21:15 03/07/25 21:30 03/07/25 21:35 Temperature Pulse Rate 66 63 65 Pulse Rate [Left P ulse Oximeter] Respiratory Rate Blood Pressure Blood Pressure [Le ft Upper Arm] Pulse Oximetry 97 96 97 Oxygen Delivery Me thod 03/07/25 21:36 03/07/25 21:45 Temperature Pulse Rate 67 67 Pulse Rate [Left P ulse Oximeter] Respiratory Rate Blood Pressure Blood Pressure [Le ft Upper Arm] Pulse Oximetry 97 96 Oxygen Delivery Me thod Course Vital Signs Vital signs: Initial Vital Signs Temperature 97.8 F 03/07/25 20:28 Temperature Source Temporal Artery Scan 03/07/25 20:28 Pulse Rate 109 H 03/07/25 20:28 Respiratory Rate 18 03/07/25 20:28 Blood Pressure 139/107 H 03/07/25 20:28 Blood Pressure Mean 117 H 03/07/25 20:28 Blood Pressure Position Sitting 03/07/25 20:28 Pulse Oximetry 99 03/07/25 20:28 Oxygen Delivery Method Room Air 03/07/25 20:28 Vital Signs Temperature 97.8 F 03/07/25 20:28 Pulse Rate 109 H 03/07/25 20:28 Respiratory Rate 18 03/07/25 20:28 Blood Pressure 139/107 H 03/07/25 20:28 Pulse Oximetry 99 03/07/25 20:28 Oxygen Delivery Method Room Air 03/07/25 20:28 Temperature 97.8 F 03/07/25 20:28 Pulse Rate 67 03/07/25 21:45 Respiratory Rate 18 03/07/25 20:28 Blood Pressure 135/92 H 03/07/25 20:32 Pulse Oximetry 96 03/07/25 21:45 Oxygen Delivery Method Room Air 03/07/25 20:28 MDM - Head Injury MDM Narrative Medical decision making narrative: Patient is an 79-year-old female presenting to the emergency department for a ground level mechanical fall. EMS called TTA due to the patient being on blood thinners. As far as we can tell this is not meet [facility] and after saw the patient TTA was canceled. Did see the patient in the hallway though and patient went straight to CT for CT scan of her head and cervical spine as she did hit her head. Is in for evaluation she is also having right shoulder and right knee pain. No other injuries noted. Her daughter states she is acting normally. Will also check an INR as she is on warfarin. CT scans showed no acute concerning abnormalities. X-ray of the right knee shows no acute concerning abnormalities. X-ray of the right shoulder shows an ill-defined curvilinear density posterior humeral head. Most her pain is anterior and I do think this is unlikely to be a fracture but I will place her in a shoulder sling. Will have her follow-up with orthopedics. INR is 1.78. She does have a laceration to her left forehead. I spoke to her and her daughter about doing sutures versus skin glue. Is a rather superficial laceration but do think closing it would be beneficial. They decided on skin glue. The bone was placed after thorough irrigation of the area. She is safe for discharge. Her and her daughter agree with this plan Lab Data Labs: Lab Results 03/07/25 Range/Units 21:23 INR 1.78 H (0.91-1.10) Imaging Data CT scan head: Attestation: I have reviewed the pertinent imaging results. Radiologist's impression: 1. No evidence of acute infarction, intracranial hemorrhage, or mass-effect seen. Dictated by Yannick Amaral MD @ 03/07/2025 8:40:17 PM Please note that all CT scans at this facility use dose modulation, iterative reconstruction, and/or weight-based dosing when appropriate to reduce radiation dose to as low as reasonably achievable. Dictated by: Yannick Amaral MD @ 03/07/2025 20:40:29 CT scan cervical spine: Attestation: I have reviewed the pertinent imaging results. Radiologist's impression: 1. No acute osseous injuries are identified. Dictated by Yannick Amaral MD @ 03/07/2025 8:42:32 PM Please note that all CT scans at this facility use dose modulation, iterative reconstruction, and/or weight-based dosing when appropriate to reduce radiation dose to as low as reasonably achievable. Dictated by: Yannick Amaral MD @ 03/07/2025 20:42:36 X-ray right knee: Attestation: I have reviewed the pertinent imaging results. Radiologist's impression: 1. No acute osseous injuries or abnormalities are noted. Dictated by Yannick Amaral MD @ 03/07/2025 9:38:11 PM X-ray right shoulder: Attestation: I have reviewed the pertinent imaging results. Radiologist's impression: 1. There is an ill-defined curvilinear density posterior to the humeral head on the transscapular Y-view which may represent a fracture fragment. Dictated by Yannick Amaral MD @ 03/07/2025 9:39:19 PM ECG Data Attestation: I personally reviewed and interpreted this ECG as follows: Prior ECG tracings: available for review Interpretation: Atrial sensed ventricular paced rhythm with a rate of 63 beats per minute, indeterminate axis, no obvious ST or T-wave abnormalities. Appears similar previous EKG on file Discharge Plan Discharge Clinical Impression: Closed head injury Qualifiers: Encounter type: initial encounter Qualified Code(s): S09.90XA - Unspecified injury of head, initial encounter Patient Disposition: Home, Self-Care Condition: Improved Instructions: Head Injury (DC), Skin Adhesive Care (ED) Additional Instructions: Skin glue will dissolve on its own over the next week. Patient can wash the area but do not scrub as this may pole off the skin glue prematurely. Pat dry the area. Do not use topical antibiotics as that will dissolve the glue faster. If worried about scar formation can place sunscreen over the area for the next 6 months whenever patient goes outside once glue is gone. Where the arm sling until you can follow-up. Follow-up with [facility]. Call them at . Is hard to say right now if there is a small fracture and repeat imaging may be beneficial. Prescriptions: No Action warfarin 5 mg tablet 5 mg PO .Sun///Mon warfarin 2.5 mg tablet 2.5 mg PO .Mon/Mon/Mon fenofibrate 160 mg tablet 160 mg PO DAILY fluoxetine 20 mg capsule 20 mg PO BID Januvia 25 mg tablet 25 mg PO DAILY cyclosporine 0.05 % dropperette 1 drp ophthalmic (eye) Q12H furosemide 20 mg tablet 20 mg PO .every other day omeprazole 20 mg capsule,delayed release(DR/EC) 20 mg PO DAILY carvedilol 6.25 mg tablet 12.5 mg PO BID potassium chloride 10 mEq capsule, extended release 10 meq PO .every other day (DME) OneTouch Ultra Test Strip See Rx Instructions .ROUTE .MEDSUPPLY Qty: 10 Rx Instructions: As directed (DME) blood-glucose meter [OneTouch Ultra2 Meter] [facility] See Rx Instructions .ROUTE DIRECTED Qty: 1 Rx Instructions: As directed ferrous sulfate 325 mg (65 mg iron) tablet 325 mg PO QDAY fexofenadine [Allergy Relief (fexofenadine)] 180 mg tablet 180 mg PO Q24H lysine [L-Lysine] 500 mg tablet 500 mg PO QDAY melatonin 3 mg capsule 3 mg PO ONCE polyethylene glycol 3350 PO rosuvastatin 20 mg tablet 20 mg PO QPM multivitamin [Tab-A-Tommie] PO albuterol sulfate 90 mcg/actuation HFA aerosol inhaler inhalation lidocaine [Aspercreme (lidocaine)] topical calcium carbonate [Corbin-Gest Antacid] PO docusate sodium PO hydrocortisone acetate topical loperamide PO nystatin [Nystop] 100,000 unit/gram powder 1 applic topical QDAY dextromethorphan polistirex [Robitussin ER] PO propylene glycol [Systane Balance] ophthalmic (eye) codeine-guaifenesin 10-100 mg/5 mL liquid 5 ml PO Q4-6H PRN (Reason: cough) Qty: 118 0RF aspirin [Adult Aspirin Regimen] 81 mg tablet,delayed release (DR/EC) 81 mg PO QDAY doxycycline hyclate 100 mg tablet 100 mg PO BID Qty: 14 0RF nystatin [Klayesta] 100,000 unit/gram powder 1 applic topical BID mecobalamin (vitamin B12) [B12 Active] 1,000 mcg tablet,chewable 1,000 mcg PO DAILY cholecalciferol (vitamin D3) [Vitamin D3] 25 mcg (1,000 unit) capsule 1,000 unit PO DAILY acetaminophen-codeine 300-30 mg tablet 1 tab PO Q6H PRN (Reason: pain) Qty: 15 0RF Follow Up/Referrals: Rae Llanes MD [Primary Care Provider, Family Practice] [facility] Instructions
[2025-03-07 22:14] LABS: INR 1.78 (0.91-1.10); Prothrombin Time 21.8 Seconds
== END 2025-03-07 22:46 | disposition home or self-care (01) ==
PROVIDERS: Emergency Provider Student in an Organized Health Care Education/Training Program; PCP Student in an Organized Health Care Education/Training Program
DX: S01.81XA Laceration without foreign body of other part of head, initial encounter (principal); M25.511 Pain in right shoulder; M25.561 Pain in right knee; W01.0XXA Fall on same level from slipping, tripping and stumbling without subsequent striking against object, initial encounter
CPT/HCPCS: 12001; 36415; 70450; 72125; 73030; 73562; 85610; 99284

== ENCOUNTER 2025-03-08 09:35 | Emergency (ER) | payer MEDICARE, SELFPAY ==
--- OUTSIDE RECORDS SUMMARY | 2025-03-08 09:38 | XMS_ITS | Encounter Summary ---
Author Organization [facility] Address [address], [place] [address] Care Team Providers Care Net Ui Developer Name Role Phone Antionette Day DNP, TAX PROCESSOR, RN CARDIAC CATH Primary Care Provid er Encounter Details Date Type Department Care Team ([facility] st Contact Info) Description 06/14/2016 Correspondence [facility] [address] [place], [place] [id number] Alex Fisher MD [address] [place] [address] [phone] ORDER Social History Tobacco Use Types Packs/Day [...] on filedocumented in this encounter Care Teams Net Ui Developer Relationship Specialty Start Date End Date Antionette Day DNP, TAX PROCESSOR, RN CARDIAC CATH [address] [place] [address] [phone] PCP - General Nurse Practitioner 01/02/23 documented as of this encounter
--- OUTSIDE RECORDS SUMMARY | 2025-03-08 09:38 | XMS_ITS | Encounter Summary ---
Author Organization [facility] Address [address], [place] [address] Care Team Providers Care Equipment Application Specialist Name Role Phone Antionette Day DNP, INTELLIGENCE DIRECTOR, INFRASTRUCTURE PROJECT MANAGER Primary Care Provid er Encounter Details Date Type Department Care Team (Latest Contact Info) Description 12/09/2015 Correspondence [facility] [address] [place] [address] Zabrina Hunt MD [address] [address] INSTRUCTIONS AFTER UPPER ENDOSCOPY WITH [...] on filedocumented in this encounter Care Teams Equipment Application Specialist Relationship Specialty Start Date End Date Antionette Day DNP, INTELLIGENCE DIRECTOR, INFRASTRUCTURE PROJECT MANAGER [address] [place] [address] PCP - General Nurse Practitioner 01/02/23 documented as of this encounter
--- OUTSIDE RECORDS SUMMARY | 2025-03-08 09:38 | XMS_ITS | Encounter Summary ---
Author Organization [facility] Address [address] [address] Care Team Providers Care Wood Planer Name Role Phone Antionette Day DNP, RETORT OR CONDENSER PRESS OPERATOR, SUPERVISOR TANK CLEANING Primary Care Provid er Encounter Details Date Type Department Care Team ([facility] st Contact Info) Description 07/08/2019 Correspondence External to External, [place] [address] RETROSPECTIVE DRUG UTILIZATION REVIEW Social History Tobacco [...] on filedocumented in this encounter Care Teams Wood Planer Relationship Specialty Start Date End Date Antionette Day DNP, RETORT OR CONDENSER PRESS OPERATOR, SUPERVISOR TANK CLEANING [address] [place] [phone] PCP - General Nurse Practitioner 01/02/23 documented as of this encounter
--- OUTSIDE RECORDS SUMMARY | 2025-03-08 09:38 | XMS_ITS | Encounter Summary ---
Author Organization [facility] Address [address] [address] Care Team Providers Care Neighborhood Aide Name Role Phone Antionette Day DNP, DECAL TRANSFERRER, CONTACT CENTER REPRESENTATIVE Primary Care Provid er Encounter Details Date Type Department Care Team (Late st Contact Info) Description 07/02/2019 Correspondence External to [facility], Provider DISCHAGE SUMMARY Social [...] on filedocumented in this encounter Care Teams Neighborhood Aide Relationship Specialty Start Date End Date Antionette Day DNP, DECAL TRANSFERRER, CONTACT CENTER REPRESENTATIVE [address] [place] [address] PCP - General Nurse Practitioner 01/02/23 documented as of this encounter
--- OUTSIDE RECORDS SUMMARY | 2025-03-08 09:38 | XMS_ITS | Encounter Summary ---
Author Organization [facility] Address [address] [place] [address] Care Team Providers Care Rn Obgyn Name Role Phone Antionette Day DNP, NEW ORDER CLERK, CISCO CONSULTANT Primary Care Provid er Encounter Details Date Type Department Care Team ([facility] st Contact Info) Description 06/15/2016 Correspondence [facility] [address] [place] [address] Alex Fisher MD [address] [place] [phone] DOC FACE TO FACE ENCOUNTER ALLINA [...] on filedocumented in this encounter Care Teams Rn Obgyn Relationship Specialty Start Date End Date Antionette Day DNP, NEW ORDER CLERK, CISCO CONSULTANT [address] [place] [phone] PCP - General Nurse Practitioner 01/02/23 documented as of this encounter
--- OUTSIDE RECORDS SUMMARY | 2025-03-08 09:38 | XMS_ITS | Encounter Summary ---
Author Organization [facility] Address [address], [place] [address] Care Team Providers Care Cnc Machine Setter Name Role Phone Antionette Day DNP, PROVIDER RELATIONS SPECIALIST, CHECKER Primary Care Provid er Encounter Details Date Type Department Care Team ([facility] st Contact Info) Description 07/21/2016 Correspondence [facility] [address] [place], [place] [address] Aelx Fisher MD [address] [place] [phone] ATTESTATION STATEMENT Social History Tobacco Use [...] on filedocumented in this encounter Care Teams Cnc Machine Setter Relationship Specialty Start Date End Date Antionette Day DNP, PROVIDER RELATIONS SPECIALIST, CHECKER [address] [place] [address] [phone] PCP - General Nurse Practitioner 01/02/23 documented as of this encounter
--- OUTSIDE RECORDS SUMMARY | 2025-03-08 09:38 | XMS_ITS | Encounter Summary ---
Author Organization [facility] Address [address], [place] [address] Care Team Providers Care Executive Vice President And Chief Operating Officer Name Role Phone Antionette Day DNP, GO CART MECHANIC, FOOD SCIENCE TECHNICIAN Primary Care Provid er Encounter Details Date [...] on filedocumented in this encounter Care Teams Executive Vice President And Chief Operating Officer Relationship Specialty Start Date End Date Antionette Day, VERONIQUE, GO CART MECHANIC, FOOD SCIENCE TECHNICIAN [address] [place] [address] PCP - General Nurse Practitioner 01/02/23 documented as of this encounter
--- OUTSIDE RECORDS SUMMARY | 2025-03-08 09:38 | XMS_ITS | Encounter Summary ---
Author Organization [facility] Address [address] [address] Care Team Providers Care Diving Coach Name Role Phone Antionette Day DNP, BINDING BENCH WORKER, JUNIOR PARALEGAL Primary Care Provid er Encounter Details Date Type Department Care Team ([facility] st Contact Info) Description 06/14/2016 Correspondence [facility] [address] [place], [place] [address] Alex Fisher MD [address] [place] [address] [phone] PLAN OF CARE Social History Tobacco Use [...] on filedocumented in this encounter Care Teams Diving Coach Relationship Specialty Start Date End Date Antionette Day DNP, BINDING BENCH WORKER, JUNIOR PARALEGAL [address] [place] [phone] PCP - General Nurse Practitioner 01/02/23 documented as of this encounter
--- OUTSIDE RECORDS SUMMARY | 2025-03-08 09:38 | XMS_ITS | Encounter Summary ---
Author Organization [facility] Address [address], [place] [address] Care Team Providers Care Burner Operator Name Role Phone Antionette Day DNP, [employer] BOATMAN, AUTO MECHANIC SUPERVISOR Primary Care Provid er Encounter Details Date Type Department Care Team (Latest Contact Info) Description 12/09/2015 Correspondence [facility] [address] [place] [address] Zabrina Hunt MD [address] [address] INSTRUCTIONS AFTER COLONOSCOPY Social History [...] on filedocumented in this encounter Care Teams Burner Operator Relationship Specialty Start Date End Date Antionette Day DNP, R[employer] BOATMAN, AUTO MECHANIC SUPERVISOR [address] [place] [address] PCP - General Nurse Practitioner 01/02/23 documented as of this encounter
--- OUTSIDE RECORDS SUMMARY | 2025-03-08 09:38 | XMS_ITS | Clinical Summary ---
Author Organization [employer] [facility] Address [address] [place] [address] Care Team Providers Care Flat Lock Operator Name Role Phone Jonathan Mcdonnell MD Unavailable Augusto Serrato Unavailable [phone] Jose G Iqbal Unavailable [phone] Rae Llanes MD Primary Care Prov ider [...] In Comment Field High 01/30/2007 Abdominal pain [place] Oil Rash 01/25/2008 [place] fish when eaten Simvastatin Muscle Weakness High [...] enteric coated tabletIndications :Coronary artery disease involving [place] coronary artery of [place] heart, unspecified whether angina present Take 1 [...] office evaluation: 10/23/2024 Following clinic: [facility] ? Sales Development Specialist and model: Medtronic Lizbeth Pacemaker. Date of [...] office evaluation: 01/02/2023 Following clinic: [facility] ? Sales Development Specialist and model: Medtronic [place] Pacemaker. Date of implant: 09/14/2021 ? Indication [...] Department Care Team Description 02/18/2025 Anticoagulation (warfarin) [facility] [address] [place] [address] Nurse, Amos Anticoag Anticoagulation 02/17/2025 3:30 PM CDT Office Visit [facility] [address] [place] [address] Rae Llanes MD Hypertension Care Management 02/17/2025 Telephone [facility] [address] [place] [address] Rae Llanes MD Blood Pressure (Readings) 02/17/2025 Travel 02/12/2025 Refill [facility] [address] [place] [address] Rae Llanes MD Refill Request (Fluoxetine) 02/10/2025 Telephone [facility] [address] [place] [address] Jose Mooney MD Update 02/05/2025 Refill [facility] [address] [place] [address] aRe Llanes MD Refill Request (Poleth Glyc POW) 02/05/2025 Procedure Only [facility] [facility] [address] [place] [address] DanielleiRome Remote Device Check (Remote Medtronic PPM/) 02/03/2025 Telephone [facility] [address] [place] [address] Rea Llanes MD Follow Up 01/30/2025 Telephone [facility] [address] [place] [address] Jose Mooney MD Follow Up 01/25/2025 3:30 PM CDT Office Visit [facility] [address] [place] [address] Johanna Fishman NP Dysuria (X 1 week, lower back pain. ) 01/25/2025 Travel 01/22/2025 Anticoagulation (warfarin) [facility] [address] [place] [address] NurseAmos Anticoag Anticoagulation (Lab only/) 01/21/2025 3:15 PM CDT Orders Only [facility] [address] [place] [address] Lab, Farm Lab 01/21/2025 Travel 01/21/2025 Telephone [place] [address] [place] [address] Rae Llanes MD Medication Management (carvediloL 12.5 mg tablet) 01/20/2025 Refill [facility] [address] [place] [address] Rae Llanes MD Refill Request (Omeprazole) 01/16/2025 Anticoagulation (warfarin) [facility] [address] [place] [address] NurseAmos Anticoag Anticoagulation (Chart update) 01/16/2025 Telephone [facility] [address] [place] [address] Rae Llanes MD Refill Request (Anti Diarrhea 2mg) 01/10/2025 Telephone [facility] [address] [place] [address] Rae Llanes MD Care Coordination (Orthostatic blood pressure) 01/08/2025 Refill [facility] [address] [place] [address] Carin Johnson DO Refill Request (Fluticasone) 01/08/2025 Nurse Triage [facility] [address] [place] [address] Rae Llanes MD Other (Patient had a fall ) 01/06/2025 Refill [facility] [address] [place] [address] Rae Llanes MD Refill Request (Acetamin 500mg caplets) 01/04/2025 Anticoagulation (warfarin) [facility] [address] [place] [address] 1, [facility] Anticoagulation (SHELTER) 01/03/2025 1:30 PM CDT Orders Only [address] [address] Lab, [place] [facility] 01/03/2025 Refill [facility] [address] [place] [address] Rae Llanes MD Refill Request (Polyeth Glyc) 01/03/2025 Travel 12/27/2024 Anticoagulation (warfarin) [facility] [address] [place] [address] 1, [facility] Anticoagulation (ER) 12/27/2024 Nurse Triage [facility] [address] [place] [address] Rae Llanes MD Urinary Tract Infection 12/27/2024 Telephone [facility] [address] [place] [address] Rae Llanes MD Concerns (Fall and antibiotics) 12/27/2024 Refill [facility] [address] [place] [address] Rae Llanes MD Refill Request (Cyclosporine ) 12/23/2024 2:30 PM CDT - 12/23/2024 11:59 PM CDT Hospital Encounter [facility] [address] [address] Paroxysmal atrial fibrillation (HC); Encounter for monitoring Coumadin therapy; Anticoagulation monitoring, INR range 2-3 12/23/2024 Anticoagulation (warfarin) [address] [address] 1, [facility] Anticoagulation 12/23/2024 Travel 12/21/2024 Anticoagulation (warfarin) [facility] [address] [place] [address] 1, [facility] Anticoagulation (OV) 12/20/2024 3:05 PM CDT Office Visit [address] [address] Rae Llanes MD Urinary Problem (Burning and frequent urination. ); Follow Up (urgent care follow up 12/13) 12/20/[address] [address] Rae Llanes MD Anticoagulation (OPV-CIPROFLOXACIN) 12/20/2024 Travel 12/20/[address] [address] Rae Llanes MD Anticoagulation 12/20/[address] [address] Rae Llanes MD Appointment (INR) 12/20/[address] [address] Rae Llanes MD Questions (UTI ) 12/19/[address] [address] Rae Llanes MD Refill Request (CYCLOSPORINE EMU 0.05% OP) 12/18/[address] [address] Rae Llanes MD Anticoagulation (Annual re-enrollment /) 12/16/[address] [facility] Scanner 1 scan: (1-Ord) [place], MULTIPLE LAB TESTS, 12/16/2024 12/14/2024 Anticoagulation (warfarin) [facility] [address] [facility] [address] 1, [facility]ticoagulation 12/13/2024 2:45 PM CDT Orders Only [facility] [address] [place] [address] Lab, [facility] Lab 12/13/2024 Travel 12/13/2024 Telephone [facility] [address] [place] [address] Rae Llanes MD Lab (UA request) from Last 3 Months Immunizations Immunization Administration [...] on file Legal Sex Female 5:39 AM ONCOLOGY NAVIGATOR Gender Identity Not on file Sexual Orientation Not on file 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 Not on file Not [...] Description 03/20/2025 3:15 PM CDT Orders Only [facility] [address] [place] [address] Lab, [place] [facility] Maintenance Due Date Last [...] age 65+ Completed 2015 (Completed outside of [facility]) Pneumococcal series for age 50+ Completed 10/06/2016, 11/28/2008, 05/02/2003 RSV vaccine for adults or Completed 03/22/2023 Hepatitis B series for 19+ Aged Out N o longer eligible based on patient's age to complete this topic Medical Devices Implanted Type Area Sales Development Specialist Device Identifier Shelf Expiration Date Model / Serial / Lot Patella Sigma 32mm Oval/[id number] J&Jortho - [id number] Implanted:Qty: 1 on 01/30/2008 at [facility] Ortho Total Joint Right: Knee [facility]Doc [facility] 08/17/2012 96-0100# / / [id number] Description:CHECKED JI Cmnt Bone Palacos R - [id number] Implanted:Qty: 1 on 01/30/2008 at [facility] Right: Knee [employer] 06/16/2012 1112-140-0 1# / / [id number] Description:CHECKED JI Cmnt Bone Palacos R - [id number] Implanted:Qty: 1 on 01/30/2008 at [facility] Right: Knee [employer] 04/16/2012 1112-140-0 1# / / [id number] Description:CHECKED JI Implnt Fem Cruciate Sub Sz2.5 Rt Open Bx - [id number] Implanted:Qty: 1 on 01/30/2008 at [facility] Right: Knee [employer] 05/17/2017 57586-76# / / [id number] Description:CHECKED JI Ty Tib Modular Cmnt Cocr 32882-59-894 - [id number] Implanted:Qty: 1 on 01/30/2008 at [facility] Right: Knee [employer] 05/17/2017 0# / / [id number] Description:CHECKED JI Insert Gvf Sz 2 10mm Stab Sigma - [id number] Implanted:Qty: 1 on 01/30/2008 at [facility] Right: Knee [employer] 12/15/2008 0# / / [id number] Description:CHECKED JI Explanted Type Area Sales Development Specialist Device Identifier Shelf Expiration Date Model / Serial / Lot Stent Inlay [id number] - [id number] Implanted:Qty: 1 on 08/20/2008 at [facility] Explanted:Qty: 1 on 04/01/2019 by Ephraim Mcfadden MD at [facility] Left: Ureter [employer] 01/14/2013 [id number]# / / [id number] Stent Inlay [id number] - [id number] Implanted:Qty: 1 on 10/15/2009 at [facility] Explanted:Qty: 1 on 04/01/2019 by Ephraim Mcfadden MD at [facility] Right: Ureter [employer] 03/17/2014 [id number]# / / [id number] Description:NO STICKER...SK Stent Uret [id number] Percuflex [place] Plus - [id number] Implanted:Qty: 2 on 03/02/2019 by Ephraim Mcfadden MD at [facility] Explanted:Qty: 2 on 04/01/2019 by Ephraim Mcfadden MD at [facility] Bilateral: Ureter [facility] Urology 11/27/2021 175-642# / / [id number] Description:NO STICKER SJ Procedures Procedure Name Priority [...] Months Results * (ABNORMAL) INR - POCT [41439.2] - Standing Order (02/17/2025 4:17 PM CDT) Only the most recent of4 resultswithin the time period is included. Pathologist [facility] INR 3.0(H) ratio [facility] Comment: INRs >2.9 may be falsely elevated [...] PROTHROMBIN TIMEP 36.2(H) 10.5 - 13.1 sec [facility] Comment: Point of care fingerstick Prothrombin Time/INR results may vary from venous Prothrombin Time/INR methodologies. Any results exhibiting inconsistency with the patient's clinical status should be repeated using a venous Prothrombin Time/INR method. Blood BLOOD SPECIMEN / Unknown 02/17/2025 4:17 PM CDT 02/17/2025 4:18 PM CDT Rae Llanes MD LABORATORY Fi nal Result [facility] [address] [place] [address], [facility] [address] [place] [address] * (ABNORMAL) CBC WITH AUTO DIFFERENTIAL (01/25/2025 4:24 PM CDT) Pathologist [facility] WHITE BLOOD COUNT 6.2 4.5 - 11.0 thou/cu mm 01/25/2025 5:02 PM CDT [facility] RED BLOOD COUNT 4.00 4.00 - 5.20 mil/cu mm 01/25/2025 5:02 PM [facility] HEMOGLOBIN 11.5(L) 12.0 - 16.0 g/dL 01/25/2025 5:02 PM [facility] HEMATOCRIT 37.8 33.0 - 51.0 % 01/25/2025 5:02 PM [facility] MCV 95 80 - 100 fL 01/25/2025 5:02 PM [facility] MCH 28.8 26.0 - 34.0 pg 01/25/2025 5:02 PM [facility] MCHC 30.4(L) 32.0 - 36.0 g/dL 01/25/2025 5:02 PM [facility] RDW 14.3 11.5 - 15.5 % 01/25/2025 5:02 PM [facility] PLATELET COUNT 364 140 - 440 thou/cu mm 01/25/2025 5:02 PM [facility] MPV 9.9 6.5 - 11.0 fL 01/25/2025 5:02 PM [facility] % NEUT 60.3 % 01/25/2025 5:02 PM [facility] % LYMPH 21.6 % 01/25/2025 5:02 PM [facility] % MONO 11.0 % 01/25/2025 5:02 PM [facility] % EOS 6.3 % 01/25/2025 5:02 PM [facility] % BASO 0.8 % 01/25/2025 5:02 PM [facility] ABSOLUTE NEUTROPHILS 3.8 1.7 - 7.0 thou/cu mm 01/25/2025 5:02 PM [facility] ABSOLUTE LYMPHOCYTES 1.3 0.9 - 2.9 thou/cu mm 01/25/2025 5:02 PM [facility] ABSOLUTE MONOCYTES 0.7 <0.9 thou/cu mm 01/25/2025 5:02 PM [facility] ABSOLUTE EOSINOPHILS 0.4 <0.5 thou/cu mm 01/25/2025 5:02 PM CDT [facility] ABSOLUTE BASOPHILS 0.1 <0.3 thou/cu mm 01/25/2025 5:02 PM CDT [facility] Blood BLOOD SPECIMEN / Unknown [facility] / Unknown 01/25/2025 4:24 PM CDT 01/25/2025 4:24 PM CDT Johanna Fishman FIBERGLASS PIPE COVERING SUPERVISOR HEMATOLOGY Final Result Performing Organization Address [facility]/ZIP Co de Phone Number [facility] [address] [place] [address] * LACTATE VENOUS (01/25/2025 4:24 PM CDT) [facility] LACTATE,VENOUS 1.4 0.5 - 2.0 mmol/L 01/25/2025 5:20 PM CDT [facility] Blood BLOOD SPECIMEN / Unknown [facility] / Unknown 01/25/2025 4:24 PM CDT 01/25/2025 4:24 PM CDT Johanna Fishman FIBERGLASS PIPE COVERING SUPERVISOR CHEMISTRY Final Result Performing Organization Address [facility] Co de Phone Number [facility] [address] [place] [address] * (ABNORMAL) BASIC METABOLIC PANEL (01/25/2025 4:24 PM CDT) Only the most recent of3 resultswithin the time period is included. SODIUM 140 136 - 145 mmol/L 01/25/2025 5:44 PM CDT [facility] POTASSIUM 4.7 3.5 - 5.1 mmol/L 01/25/2025 5:44 PM CDT [facility] CHLORIDE 105 98 - 107 mmol/L 01/25/2025 5:44 PM CDT [facility] CO2,TOTAL 21(L) 22 - 29 mmol/L 01/25/2025 5:44 PM CDT [facility] ANION GAP 14 5 - 18 01/25/2025 5:44 PM T [facility] GLUCOSE 103(H) 70 - 99 mg/dL 01/25/2025 5:44 PM T [facility] CALCIUM 9.4 8.8 - 10.4 mg/dL 01/25/2025 5:44 PM T [facility] Comment: Reference ranges for this test were updated on 05/21/2024 to reflect our healthy population more accurately. Reference range changes are not retroactively applied to results, but previous results using the same methodology can be interpreted in the context of the new reference range. BUN 28(H) 8 - 23 mg/dL 01/25/2025 5:44 PM [facility] CREATININE 1.24(H) 0.50 - 0.90 mg/dL 01/25/2025 5:44 PM [facility] BUN/CREAT RATIO 23(H) 10 - 20 5:44 PM [facility] eGFR 44(L) >90 mL/min/1. 73m2 01/25/2025 5:44 PM [facility] Comment:As of 2021, eG FR is [...] us Johanna Fishman NP CHEMISTRY Final Result [facility] [address] [place], [place] [id number] * (ABNORMAL) URINALYSIS MICROSCOPIC (01/25/2025 3:32 PM CDT) Only the most recent of2 resultswithin the time period is included. RBC 0-2 0-2, None Seen /HPF 01/25/2025 4:02 PM CDT [facility] WBC 11-25(A) 0-2, 3-5, None Seen /HPF 01/25/2025 4:02 PM CDT [facility] BACTERIA Many(A) None Seen, Rare, Few Bacteria/H PF 01/25/2025 4:02 PM CDT [facility] EPITHELIAL CELLS Few None Seen, Few Epi/HPF 01/25/2025 4:02 PM CDT [facility] Urine URINE SPECIMEN / Unknown Non-Blood / Unknown 01/25/2025 3:32 PM CDT 01/25/2025 3:43 PM CDT us Johanna Fishman FIBERGLASS PIPE COVERING SUPERVISOR URINE Final Result [facility] [address] [place] [address] * (ABNORMAL) URINE CULTURE [[id number]] - routine (01/25/2025 3:32 PM CDT) Only the most recent of2 resultswithin the time period is included. CULTURE RESULT(A) 01/27/2025 7:05 AM CDT [facility] CULTURE >100,000 CFU/mL Klebsiella variicola 01/27/2025 7:05 AM CDT [facility] Urine URINE SPECIMEN / [...] <=0.25: S Klebsiella variicola NITROFURANTOIN 32: S Johanna Fishman NP MICROBIOLOGY Final Result [facility] [address] [place] [address], * (ABNORMAL) UA W/ SEDIMENT EXAM REFLEXED PER CRITERIA [03762.2] (01/25/2025 3:32 PM CDT) COLOR Yellow Yellow Color 01/25/2025 3:59 PM CDT [facility] CLARITY Clear Clear Clarity 01/25/2025 3:59 PM T [facility] SPECIFIC GRAVITY,URINE 1.015 1.010, 1.015, 1.020, 1.025 01/25/2025 3:59 PM T [facility] PH,URINE 5.5 6.0, 7.0, 8.0, 5.5, 6.5, 7.5, 8.5 01/25/2025 3:59 PM [facility] UROBILINOGEN, QUALITATIVE Normal Normal EU/dl 01/25/2025 3:59 PM T [facility] PROTEIN, URINE Negative Negative mg/dL 01/25/2025 3:59 PM T [facility] GLUCOSE, URINE Negative Negative mg/dL 01/25/2025 3:59 PM T [facility] KETONES,URINE Negative Negative mg/dL 01/25/2025 3:59 PM [facility] BILIRUBIN,URI NE Negative Negative 01/25/2025 3:59 PM [facility] OCCULT BLOOD,URINE Negative Negative 01/25/2025 3:59 PM [facility] NITRITE Positive(A) Negative 01/25/2025 3:59 PM [facility] LEUKOCYTE ESTERASE Large(A) Negative 01/25/2025 3:59 PM [facility] Urine URINE SPECIMEN / Unknown Non-Blood / Unknown 01/25/2025 3:32 PM CDT 01/25/2025 3:43 PM CDT Johanna Fishman NP URINE Final Result Performing Organization Address [facility] Co de Phone Number [facility] [address] [place] [address] * (ABNORMAL) PROTIME-INR [[id number]] - Standing Order (12/23/2024 3:10 PM CDT) Only the most recent of3 resultswithin the time period is included. INR 3.1(H) <1.3 12/23/2024 3:27 PM CDT [facility] PROTIME 35.8(H) 10.6 - 12.4 sec 12/23/2024 3:27 PM CDT [facility] Blood BLOOD SPECIMEN / Unknown Venipuncture / Unknown 12/23/2024 3:10 PM CDT 12/23/2024 3:11 PM CDT [facility] - 12/23/2024 3:27 PM CDT Therapeutic [...] if the patient is on UFH. Rae Llanes MD HEMATOLOGY Fi nal Result Performing Organization Address [facility]/ZIP Co de Phone Number [facility] [address] [place] [address] * (ABNORMAL) POCT Urinalysis Dipstick Only [[id number]] (12/20/2024 3:20 PM CDT) PH 5.5 5.0 - 8.0 [facility] SPECIFIC GRAVITY 1.015 1.001 - 1.035 [facility] GLUCOSE NEGATIVE NEGATIVE [facility] BILIRUBIN NEGATIVE NEGATIVE [facility] KETONES NEGATIVE NEGATIVE [facility] OCCULT BLOOD NEGATIVE NEGATIVE [facility] PROTEIN NEGATIVE NEGATIVE [facility] NITRITE POSITIVE(A) NEGATIVE [facility] LEUKOCYTE ESTERASE 1+(A) NEGATIVE [facility] Urine URINE SPECIMEN / Unknown 12/20/2024 3:20 PM CDT 12/20/2024 3:20 PM CDT us Rae Llanes MD URINE Fi nal Result [facility] [address] [place] [address], [facility] [address] [place] [address] * SCAN-PATHOLOGY REPORT (12/16/2024 12:00 AM CDT) [...] MD HEMATOLOGY Fi nal Result [facility] [address] [place] [address], [facility] [address] [place] [address] from Last 3 Months Additional Health Concerns Infection Onset Date Last Indicated MRSA Clearance Comment:Infection Control Note: Hx of MRSA, surveillance criteria met, no need for further testing or isolation precautions. Do not delete or resolve the Infection Flag. 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 POLST 07/05/2024 Healthcare [...] Code Status Discussion: Reviewed Preferences Care Teams Flat Lock Operator Relationship Specialty Start Date End Date Rae Llanes MD [address] [place] [id number] PCP - General Family Practice 03/19/24 Jonathan Mcdonnell MD [address] [place] [address] Cardiology Cardiology - Interventional 10/06/21 Augusto Serrato PA [address] [place] [address] Physician's Computer Programmer Analyst Physician Computer Programmer Analyst 01/03/23 Jose G Iqbal, DIANE [address] [place] [address] Occupational Therapy 09/25/23
--- OUTSIDE RECORDS SUMMARY | 2025-03-08 09:38 | XMS_ITS | Encounter Summary ---
Author Organization [facility] Address [address], [place] [address] Care Team Providers Care Crop Specialist Name Role Phone Antionette Day DNP, DATA ABSTRACTOR, HOURLY SIGN LANGUAGE INTERPRETER Primary Care Provid er Encounter Details Date Type Department Care Team (Late st Contact Info) Description 09/02/2019 Correspondence External to External, [place] [address] RETROSPECTIVE DRUG UTILIZATION REVIEW Social History Tobacco [...] on filedocumented in this encounter Care Teams Crop Specialist Relationship Specialty Start Date End Date Antionette Day DNP, DATA ABSTRACTOR, HOURLY SIGN LANGUAGE INTERPRETER [address] [place] [address] PCP - General Nurse Practitioner 01/02/23 documented as of this encounter
--- OUTSIDE RECORDS SUMMARY | 2025-03-08 09:38 | XMS_ITS | Encounter Summary ---
Author Organization [facility] Address [address] [address] Care Team Providers Care Slag Motor Operator Name Role Phone Antionette Day DNP, BOOK OR SCRIPT EDITOR, SPACE AND MISSILE OPERATIONS Primary Care Provid er Encounter Details Date Type Department Care Team (Late st Contact Info) Description 08/29/2019 Correspondence External to External, [place] [address] RETROSPECTIVE DRUG UTILIZATION REVIEW Social History Tobacco [...] on filedocumented in this encounter Care Teams Slag Motor Operator Relationship Specialty Start Date End Date Antionette Day DNP, BOOK OR SCRIPT EDITOR, SPACE AND MISSILE OPERATIONS [address] [place] [address] PCP - General Nurse Practitioner 01/02/23 documented as of this encounter
--- OUTSIDE RECORDS SUMMARY | 2025-03-08 09:38 | XMS_ITS | Encounter Summary ---
Author Organization [facility] Address [address], [place] [address] Care Team Providers Care Taste Tester Name Role Phone Antionette Day DNP, TITLE I MATH TUTOR, WELDER 2ND SHIFT Primary Care Provid er Encounter Details Date Type Department Care Team ([facility] st Contact Info) Description 06/03/2016 Correspondence [facility] [address] [place], [place] [address] Alex Fisher MD [address] [place] [phone] MEDICATIONS Social History Tobacco Use Types Packs/Day [...] on filedocumented in this encounter Care Teams Taste Tester Relationship Specialty Start Date End Date Antionette Day DNP, TITLE I MATH TUTOR, WELDER 2ND SHIFT [address] [place] [phone] (work) PCP - General Nurse Practitioner 01/02/23 documented as of this encounter
--- OUTSIDE RECORDS SUMMARY | 2025-03-08 09:38 | XMS_ITS | Encounter Summary ---
Author Organization [facility] Address [address], [place] [address] Care Team Providers Care Photocomposing Keyboard Operator Name Role Phone Antionette Day DNP, PROPERTY MANAGEMENT ACCOUNTANT, BRAND MARKETING INTERN Primary Care Provid er Encounter Details Date Type Department Care Team (Late st Contact Info) Description 03/31/2019 Correspondence External to External, [place] [address] RETROSPECTIVE DRUG UTILIZATION REVIEW Social History Tobacco [...] on filedocumented in this encounter Care Teams Photocomposing Keyboard Operator Relationship Specialty Start Date End Date Antionette Day DNP, PROPERTY MANAGEMENT ACCOUNTANT, BRAND MARKETING INTERN [address] [place] [address] PCP - General Nurse Practitioner 01/02/23 documented as of this encounter
--- OUTSIDE RECORDS SUMMARY | 2025-03-08 09:38 | XMS_ITS | Encounter Summary ---
Author Organization [facility] Address [address] [place] [address] Care Team Providers Care Bike Shop Manager Name Role Phone Antionette Day DNP, SPOOL WINDER, DIRECTOR OF PHOTOGRAPHY Primary Care Provid er Encounter Details Date Type Department Care Team (Latest Contact Info) Description 12/09/2015 Consent for Procedure/Treatm ent [facility] [address] [place] [address] Zabrina Hunt MD [address] [address] INFORMED CONSENT FOR TREATMENTS OR [...] on filedocumented in this encounter Care Teams Bike Shop Manager Relationship Specialty Start Date End Date Antionette Day DNP, SPOOL WINDER, DIRECTOR OF PHOTOGRAPHY [address] [place] [address] PCP - General Nurse Practitioner 01/02/23 documented as of this encounter
--- OUTSIDE RECORDS SUMMARY | 2025-03-08 09:38 | XMS_ITS | Clinical Summary ---
[facility] Address [address], [place] [address] Care Team Providers Care Escalator Operator Name Role Phone Antionette Day DNP, BLIND INSTALLER, WASTE HANDLING TECHNICIAN Primary Care Provid er Source Comments You [...] for each transition of care or referral. Capptain Allergies Active Allergy Reactions Criticality Noted Date [...] Allergy Hives 09/01/2006 Fish Oil Rash 01/25/2008 Candor fish when eaten Fish-Derived Products Hives High [...] EX) Acti ve Lysine HCl (L-LYSINE) Active Crzor-I-Cenafeqtlc ase (BEANO OR) Activ e Fexofenadine HCl [...] concerns please contact: Your Care Team at [facility] Practice :[phone] Primary Care Provider: Luz Dumont CNP RN Coordinator: Batsheva CareLine at [phone] or after hours and on weekends. Care Coordination (Community Resources, Specialists, Home Health Agency, Caregiver, Supply Vendor, Museum Technician) Contact Name LIA Obtained? Phone Number Role in Care Comments Dr. Mcfadden Urologist [facility] Urology Dr. Moore Neurologist [facility] Action Plan [facility] [facility] [...] 09/13/18 Assessment & Plan (07/16/2018 4:36 PM LASER PRINT OPERATOR): Spoke to patient to follow-up. States she [...] helping their son get his home in [place] ready to sell. Pt has been around [...] well and was appreciative of call. Batsheva Paece RN Assessment & Plan (10/06/2017 2:45 PM [...] RN Assessment & Plan (06/19/2017 2:51 PM LASER PRINT OPERATOR): Spoke to patient. Reports she is doing [...] helping their son flip a house in [place]. Pt has no concerns currently. Batsheva Peace [...] RN Assessment & Plan (07/22/2016 2:29 PM LASER PRINT OPERATOR): Spoke to spouse today, states patient is [...] RN Assessment & Plan (05/27/2016 11:29 AM LASER PRINT OPERATOR): Spoke with pt, state she is feeling [...] neurology consult scheduled with Dr. Moore at [facility], but cannot remember what [...] Chart reviewed, pt was recently in [place] and will be discharging soon. Pt has [...] IIV3 (Trivalent) F luzone Highdose, 65+ Yrs (67679) 05/01/2019,05/01/2018,05/17/2017,2015,04/30/2015,05/16/2014,04/12/2011,1 07/21/2009 Influenza IIV4 (Quadrivalent ) 0.5mL (99244) 07/19/2021 Influenza IIV4 (Quadrivalent ) Fluad, 65+ [...] Comments Blood Pressure 122/70 06/09/2023 2:02 PM LASER PRINT OPERATOR Pulse 72 06/09/2023 2:02 PM LASER PRINT OPERATOR Temperature 36.1 C (97 F) 05/05/2023 10:18 AM CDT Respiratory Rate 14 12/29/2022 9:03 AM CDT Oxygen Saturation 97% 05/05/2023 10: 18 AM CDT Inhaled Oxygen Concentration - - Weight 67.5 kg (148 lb 12.8 oz) 06/09/2023 2:02 PM LASER PRINT OPERATOR Height 154.3 cm (5' 0.75) 11/14/2022 1 [...] BASIC METABOLIC PANEL Routine 06/09/2023 1:40 PM LASER PRINT OPERATOR Essential hypertension (HRC) 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) HGB A1C Routine 06/09/2023 1:40 PM LASER PRINT OPERATOR Diabetes mellitus with stage 3 chronic kidney [...] Results * (ABNORMAL) BMP (06/09/2023 1:40 PM LASER PRINT OPERATOR) Sodium 137 136 - 145 mmol/L 06/09/2023 6:21 PM LASER PRINT OPERATOR [facility] Potassium 3.8 3.5 - 5.1 mmol/L 06/09/2023 6:21 PM LASER PRINT OPERATOR [facility] Chloride 107 98 - 109 mmol/L 06/09/2023 6:21 PM LASER PRINT OPERATOR [facility] CO2 20 20 - 29 mmol/L 06/09/2023 6:21 PM LASER PRINT OPERATOR [facility] Anion Gap 10 7 - 16 mmol/L 06/09/2023 6:21 PM [facility] Calcium 9.4 8.4 - 10.4 mg/dL 06/09/2023 6:21 PM [facility] BUN 16 7 - 26 mg/dL 06/09/2023 6:21 PM [facility] Creatinine 1.01 0.55 - 1.02 mg/dL 06/09/2023 6:21 PM [facility] Glucose 113(H) 70 - 100 mg/dL 06/09/2023 6:21 PM [facility] Comment:The given reference range is for the fasting state. Non-fasting reference range for glucose is 70 - 180 mg/dL. GFR, Estimated 57(L) >60 mL/min/1. 73m2 06/09/2023 6:21 PM [facility] Hours Fasting 4.0 8 - 12 Hours 06/09/2023 6:[address] [facility] Blood Venipuncture / Unknown 06/09/2023 1:40 PM LASER PRINT OPERATOR 06/09/2023 1:40 PM [facility] Narrative [facility] - 06/09/2023 6:21 PM [facility] The National Kidney Disease Education Program suggests measuring Cystatin C in patients with eGFRcrea of 45 to 59 ml/min/1.73^2 who do not have other markers of kidney damage (i.e. elevated urine Albumin/Creatinine Ratio or a prior Cystatin C confirming the presence of chronic kidney disease). us Antionette Day DNP, BLIND INSTALLER, WASTE HANDLING TECHNICIAN LAB_1 Mady osborne Result [facility] [address] [place] [address], [facility] [phone] [facility] [address] [place] [address], [facility] [phone] * (ABNORMAL) Hgb A1C (Expected: Now) - Collect in Lab (06/09/2023 1:40 PM LASER PRINT OPERATOR) Hemoglobin A1C 8.5(H) <=5.6 % 06/09/2023 6:38 PM LASER PRINT OPERATOR [facility] Estimated Average Glucose (Calc) 197 < 117 mg/dL 06/09/2023 6:38 PM [facility] Comment:Estimated average gl ucose (eAG) converts A1c into glucose units (mg/dL) and estimates average glucose over the past approximately 3 months. The eAG reference interval (<117 mg/dL) corresponds to an A1c of <5.7%. Blood Venipuncture / Unknown 06/09/2023 1:40 PM LASER PRINT OPERATOR 06/09/2023 1:40 PM LASER PRINT OPERATOR Narrative [facility] - 06/09/2023 6:38 PM LASER PRINT OPERATOR For patients not previously diagnosed with diabetes: 5.7-6.4%: Increased risk for diabetes 6.5% and greater: Diagnostic for diabetes For patients diagnosed with diabetes: <8.0%: Goal of therapy for ages 18-75 Clinicians may recommend a higher or lower goal for specific individuals. us Antionette Day DNP, BLIND INSTALLER, WASTE HANDLING TECHNICIAN LAB_1 Mady osborne Result [facility] [address] [place] [address], [facility] [phone] * (ABNORMAL) Lipid Panel and Direct LDL(If Needed) (03/22/2023 2:52 PM CDT) Cholesterol 188 0 - 199 mg/dL 03/22/2023 9:45 PM CDT [facility] Triglyceride 297(H) <=149 mg/dL 03/22/2023 9:45 PM CDT [facility] HDL Cholesterol 55 >=40 mg/dL 03/22/2023 9:45 PM CDT [facility] LDL, Calculated 74 <130 mg/dL 03/22/2023 9:45 PM CDT [facility] Non HDL Chol, Calculated 133 <=159 mg/dL 03/22/2023 9:45 PM CDT [facility] Cholesterol/HDL Ratio 3.4 03/22/2023 9:45 PM CDT [facility] Hours Fasting 19.0 8 - 12 Hours 03/22/2023 9:45 PM CDT [facility] Blood Venipuncture Butterfly / Unknown 03/22/2023 2:52 PM CDT 03/22/2023 2:53 PM CDT Antionette Day DNP, BLIND INSTALLER, LORENZO LAB_1 Mady osborne Result Performing Organization Address [facility]/ZIP Co de Phone Number [facility] [address] [address], [facility] [phone] [facility] [address] [place] [address], [facility] [phone] * (ABNORMAL) Albumin/Creatinine Ratio,Random Urine (12/29/2022 8:27 AM CDT) Albumin/Creati nine Ratio, Urine, Random 77(H) <30 mg/g 12/29/2022 3:59 PM CDT [facility] Albumin, Urine, Random 15.3 mg/L 12/29/2022 3:59 PM CDT [facility] Creatinine, Urine, Random 20(L) >20 mg/dL mg/dL 12/29/2022 3:59 PM CDT [facility] Urine Non-blood Collection / Unknown 12/29/2022 8:27 AM CDT 12/29/2022 8:27 AM CDT Luz Dumont APRN, CNP LAB_1 Final R esult Performing Organization Address City/[facility]/ZIP Co de Phone Number [facility] [address] [address], [facility] [phone] * BRETT (DIABETIC EYE EXAM) (01/04/2022) Luz [...] again SCREENING FOR OSTEO, HOLD CALCIUM Indication:Hyperparathyroidism Clerical Associate and Model of Instrument: [employer] Demographics Age: 70 y.o. Gender: female Height [...] RAD DEXA Final Resu lt * COLONOSCOPY [[id number]] (12/09/2015 8:17 AM CDT) 12/09/2015 8:17 AM [...] and oxygen saturations were monitored continuously. The [id number] was introduced through the anus and advanced [...] endoscopy today. Procedure Code(s): --- Professional --- 39426 --- Technical --- 10692 Diagnosis Code(s): --- Professional --- D50.9 K64.4 --- Technical --- D50.9 K64.4 CPT copyright 2014 [employer]. All rights reserved. The codes documented in this report are preliminary and upon parts driver review may be revised to meet current [...] and oxygen saturations were monitored continuously. The [id number] was introduced through the anus and advanced [...] endoscopy today. Procedure Code(s): --- Professional --- 89330 --- Technical --- 97089 Diagnosis Code(s): --- Professional --- D50.9 K64.4 --- Technical --- D50.9 K64.4 CPT copyright 2014 [employer]. All rights reserved. The codes documented in this report are preliminary and upon parts driver review may be revised to meet current compliance requirements. Attending Participation: Zabrina Hunt MD 12/09/2015 9:34:25 AM Number of Addenda: 0 Note Initiated On: 12/09/2015 8:17 AM Zabrina Hunt MD DIGESTIVE CARE Final Result Performing Organization Address City/State/[facility] Co de Phone Number GI (PROVATION) [place], [place] from Last 3 Months or Most Recently Relevant to Health Maintenance Insurance [facility] RETI[facility] MEDICARE ADVANTAGE Care Teams Escalator Operator Relationship Specialty Start Date End Date Antionette Day, DNP, BLIND INSTALLER, WASTE HANDLING TECHNICIAN [address] [place] [address] PCP - General Nurse Practitioner 01/02/23
--- OUTSIDE RECORDS SUMMARY | 2025-03-08 09:38 | XMS_ITS | Encounter Summary ---
Author Organization [facility] Address [address], [place] [address] Care Team Providers Care Microsoft Net Developer Name Role Phone Antionette Day DNP, HELIUM ARC WELDER, MID LEVEL BUSINESS ANALYST Primary Care Provid er Encounter Details Date Type Department Care Team (Late st Contact Info) Description 06/02/2017 Correspondence External to External, Provider [place] [address] HOUSE CALLS PLAN OF CARE Social History [...] on filedocumented in this encounter Care Teams Microsoft Net Developer Relationship Specialty Start Date End Date Antionette Day, VERONIQUE, HELIUM ARC WELDER, MID LEVEL BUSINESS ANALYST [address] [place] [address] PCP - General Nurse Practitioner 01/02/23 documented as of this encounter
--- OUTSIDE RECORDS SUMMARY | 2025-03-08 09:38 | XMS_ITS | Encounter Summary ---
Author Organization [facility] Address [address], [place] [address] Care Team Providers Care Bill Poster Installer Name Role Phone Antionette Day DNP, PSYCHOLOGIST INDUSTRIAL ORGANIZATIONAL, POT RELINER Primary Care Provid er Encounter Details Date Type Department Care Team (Late st Contact Info) Description 03/09/2018 Correspondence External to External, [place] [address] MEDICATION ADHERENCE PROGRAM Social History Tobacco Use [...] on filedocumented in this encounter Care Teams Bill Poster Installer Relationship Specialty Start Date End Date Antionette Day DNP, PSYCHOLOGIST INDUSTRIAL ORGANIZATIONAL, POT RELINER [address] [place] [address] PCP - General Nurse Practitioner 01/02/23 documented as of this encounter
[2025-03-08 09:44] VITALS: BP 111/58; PULSE 69; RESP 18; TEMP 36.5; O2SAT 95; BMI 26.3
--- NOTE | 2025-03-08 10:02 | CRLHL7_ITS ---
For Patients: As a result of the Cures Act, medical imaging exams and procedure reports are released immediately into your electronic medical record. You may view this report before your referring provider. If you have questions, please contact your health care provider. INDICATION: Neurological changes after fall. TECHNIQUE: CT head without contrast. COMPARISON: 03/07/2025. FINDINGS: Brain: No intra or extra-axial fluid collection, mass or edema. Unchanged right frontal encephalomalacia. Moderate periventricular white matter hypoattenuation, likely chronic small vessel ischemic disease. The ventricles are prominent, unchanged. Other: Frontal scalp hematoma. No displaced calvarial fracture. Visualized portions of the orbits, mastoids and paranasal sinuses are unremarkable. IMPRESSION: 1. No gross acute intracranial abnormality. Grossly unchanged chronic findings compared to 03/07/2025. Please note that all CT scans at this facility use dose modulation, iterative reconstruction, and/or weight-based dosing when appropriate to reduce radiation dose to as low as reasonably achievable. Dictated by Pineda Peralta MD @ 03/08/2025 10:25:05 AM (Electronically Signed)
--- NOTE | 2025-03-08 10:03 | ED.GENADULT ---
HPI - General Adult General Chief complaint: Unspecified Complaint, Adult Stated complaint: assisted living staff worried about pupil dilation Time Seen by Provider: 03/08/25 09:54 History of Present Illness HPI narrative: Patient is a 79-year-old woman who is seen yesterday after a fall. Patient lives in a memory care unit and fell and struck the left side of her head. Patient had full evaluation history including CT head neck. She does have some abrasions of musculoskeletal injuries but no other acute problems in no neurologic findings. Today was felt that the pupils were asymmetric. Patient has no other neurologic complaints. She is brought in by her daughter for further evaluation. Patient her baseline mentally and has no other major concerns. Related Data Home Medications ?Medication ?Instructions ?Recorded ?Confirmed blood sugar diagnostic (OneTouch #10 ea 12/24/23 12/13/24 Ultra Test strips) blood-glucose meter (OneTouch #1 ea 12/24/23 12/13/24 Ultra2 Meter) carvedilol 6.25 mg tablet 12.5 mg PO BID 12/24/23 12/27/24 cyclosporine 0.05 % eye drops in a 1 drp ophthalmic (eye) Q12H 12/24/23 12/27/24 dropperette fenofibrate 160 mg tablet 160 mg PO DAILY 12/24/23 12/27/24 fluoxetine 20 mg capsule 20 mg PO BID 12/24/23 12/27/24 furosemide 20 mg tablet 20 mg PO .every other day 12/24/23 12/27/24 omeprazole 20 mg capsule,delayed 20 mg PO DAILY 12/24/23 12/27/24 release potassium chloride 10 mEq 10 meq PO .every other day 12/24/23 12/27/24 capsule,extended release sitagliptin phosphate 25 mg tablet 25 mg PO DAILY 12/24/23 12/27/24 (Januvia) warfarin 2.5 mg tablet 2.5 mg PO .Mon/Mon/Mon12/24/23 12/27/24 warfarin 5 mg tablet 5 mg PO .Sun/Tues/Thur/Sat 12/24/23 12/27/24 cholecalciferol (vitamin D3) 25 1,000 unit PO DAILY 06/23/24 12/27/24 mcg (1,000 unit) capsule (Vitamin D3) mecobalamin (vitamin B12) 1,000 1,000 mcg PO DAILY 06/23/24 12/27/24 mcg chewable tablet (B12 Active) nystatin 100,000 unit/gram topical 1 applic topical BID 06/23/24 12/27/24 powder (Klayesta) albuterol sulfate 90 mcg/actuation inhalation 07/16/24 12/13/24 aerosol inhaler calcium carbonate [Corbin-Gest PO 07/16/24 12/13/24 Antacid] dextromethorphan polistirex PO 07/16/24 12/13/24 [Robitussin ER] docusate sodium PO 07/16/24 12/13/24 ferrous sulfate 325 mg (65 mg 325 mg PO QDAY 07/16/24 12/27/24 iron) tablet fexofenadine 180 mg tablet 180 mg PO Q24H 07/16/24 12/27/24 (Allergy Relief (fexofenadine)) hydrocortisone acetate topical 07/16/24 12/13/24 lidocaine [Aspercreme (lidocaine)] topical 07/16/24 12/13/24 loperamide PO 07/16/24 12/13/24 lysine 500 mg tablet (L-Lysine) 500 mg PO QDAY 07/16/24 12/27/24 melatonin 3 mg capsule 3 mg PO ONCE 07/16/24 12/27/24 multivitamin [Tab-A-Tommie] PO 07/16/24 12/13/24 nystatin 100,000 unit/gram topical 1 applic topical QDAY 07/16/24 12/27/24 powder (Nystop) polyethylene glycol 3350 PO 07/16/24 12/13/24 propylene glycol [Systane Balance] ophthalmic (eye) 07/16/24 12/13/24 rosuvastatin 20 mg tablet 20 mg PO QPM 07/16/24 12/27/24 aspirin 81 mg tablet,delayed 81 mg PO QDAY 12/13/24 12/27/24 release (Adult Aspirin Regimen) Previous Rx's ?Medication ?Instructions ?Recorded acetaminophen 300 mg-codeine 30 mg 1 tab PO Q6H PRN pain #15 tabs 07/09/24 tablet codeine 10 mg-guaifenesin 100 mg/5 5 ml PO Q4-6H PRN cough #118 mL 07/16/24 mL oral liquid doxycycline hyclate 100 mg tablet 100 mg PO BID #14 tabs 12/13/24 Allergies Allergy/AdvReac Type Severity Reaction Status Date / Time atorvastatin (From Lipitor) Allergy Intermediate Verified 12/27/24 11:57 cephalexin Allergy Intermediate Verified 12/27/24 11:57 erythromycin base Allergy Intermediate Verified 12/27/24 11:57 Fish Containing Products Allergy Intermediate Verified 12/27/24 11:57 glyburide Allergy Intermediate Verified 12/27/24 11:57 latex Allergy Intermediate Verified 12/27/24 11:57 Macrolide Antibiotics Allergy Intermediate Verified 12/27/24 11:57 nitrofurantoin Allergy Intermediate Verified 12/27/24 11:57 simvastatin Allergy Intermediate Verified 12/27/24 11:57 Sulfa (Sulfonamide Allergy Intermediate Verified 12/27/24 11:57 Antibiotics) amoxicillin (From Augmentin) Allergy Unknown Verified 12/27/24 11:57 Anesthetics - Amide Type - Allergy Unknown Verified 12/27/24 11:57 Select A clavulanic acid (From Allergy Unknown Verified 12/27/24 11:57 Augmentin) adhesive AdvReac Unknown Verified 12/27/24 11:57 salmon Allergy Severe Anaphylaxis Uncoded 12/13/24 18:19 Review of Systems Status of ROS: Reports: 10 or more systems reviewed and unremarkable except as noted in History and below [facility] Medical History POLST (Physician Orders for Life-Sustaining Treatment) ?Z78.9 - Other specified health status (ICD-10) Social History Smoking Status: Never smoker How often do you have a drink containing alcohol: never How often do you have six or more drinks on one occasion: Never AUDIT-C Alcohol total score: 0 Non-prescribed substance use: denies use Exam Narrative: Exam Narrative: EXAM GENERAL: Patient appears comfortable and well. Obvious contusion left side of the face and head and right arm is in a sling. EYES: No scleral icterus. ENT: Tympanic membranes and oropharynx normal. THYROID: no thyroid nodules or thyromegaly. LYMPH: No supraclavicular or cervical lymphadenopathy. SKIN: Visible skin seen during exam normal or with benign process only. EXT: No dependent lower extremity pedal edema. HEART: Regular rate and rhythm with no murmurs, rubs, or gallops. LUNGS: Clear to auscultation bilaterally with no crackles or wheezes. ABD: Soft, non tender, non distended. PSYCH: Good eye contact, speech is not pressured. Const: Vital Signs, click to edit/add: Vital Signs - 24 hr 03/08/25 09:44 Temperature 97.7 F Pulse Rate [Pulse Oximeter] 69 Respiratory Rate 18 Blood Pressure [Ri ght Upper Arm] 111/58 L Pulse Oximetry 95 Oxygen Delivery Me thod Room Air Course Course ED Course: Patient seen examined. She appears to be at baseline plus the injuries from yesterday. Will repeat her CT of her head for safety and re-evaluate. Vital Signs Vital signs: Initial Vital Signs Temperature 97.7 F 03/08/25 09:44 Temperature Source Temporal Artery Scan 03/08/25 09:44 Pulse Rate 69 03/08/25 09:44 Respiratory Rate 18 03/08/25 09:44 Blood Pressure 111/58 L 03/08/25 09:44 Blood Pressure Mean 75 03/08/25 09:44 Pulse Oximetry 95 03/08/25 09:44 Oxygen Delivery Method Room Air 03/08/25 09:44 Vital Signs Temperature 97.7 F 03/08/25 09:44 Pulse Rate 69 03/08/25 09:44 Respiratory Rate 18 03/08/25 09:44 Blood Pressure 111/58 L 03/08/25 09:44 Pulse Oximetry 95 03/08/25 09:44 Oxygen Delivery Method Room Air 03/08/25 09:44 Temperature 97.7 F 03/08/25 09:44 Pulse Rate 69 03/08/25 09:44 Respiratory Rate 18 03/08/25 09:44 Blood Pressure 111/58 L 03/08/25 09:44 Pulse Oximetry 95 03/08/25 09:44 Oxygen Delivery Method Room Air 03/08/25 09:44 Medical Decision Making MDM Narrative Medical decision making narrative: Patient is an 79-year-old woman who fell recently had negative workup with negative CT of the head and neck. She does have some local abrasions. There is concern today that the patient's pupils were not responding normally in memory care unit. Patient is at her normal baseline for cognitive functioning. Pupils respond normally during my exam. Repeat CT of the head shows no acute abnormalities. This time will resume previous care center back to memory care with outpatient follow-up. Discharge Plan Discharge Clinical Impression: Closed head injury Qualifiers: Encounter type: initial encounter Qualified Code(s): S09.90XA - Unspecified injury of head, initial encounter Patient Disposition: Home w/ Parent or Adult Condition: Stable Instructions: Head Injury (ED) Activity Level: No Restrictions Discharge Diet: Regular Prescriptions: No Action warfarin 5 mg tablet 5 mg PO .Sun///Sat warfarin 2.5 mg tablet 2.5 mg PO .Mon/Mon/Fri fenofibrate 160 mg tablet 160 mg PO DAILY fluoxetine 20 mg capsule 20 mg PO BID Januvia 25 mg tablet 25 mg PO DAILY cyclosporine 0.05 % dropperette 1 drp ophthalmic (eye) Q12H furosemide 20 mg tablet 20 mg PO .every other day omeprazole 20 mg capsule,delayed release(DR/EC) 20 mg PO DAILY carvedilol 6.25 mg tablet 12.5 mg PO BID potassium chloride 10 mEq capsule, extended release 10 meq PO .every other day (DME) OneTouch Ultra Test Strip See Rx Instructions .ROUTE .MEDSUPPLY Qty: 10 Rx Instructions: As directed (DME) blood-glucose meter [OneTouch Ultra2 Meter] [facility] See Rx Instructions .ROUTE DIRECTED Qty: 1 Rx Instructions: As directed ferrous sulfate 325 mg (65 mg iron) tablet 325 mg PO QDAY fexofenadine [Allergy Relief (fexofenadine)] 180 mg tablet 180 mg PO Q24H lysine [L-Lysine] 500 mg tablet 500 mg PO QDAY melatonin 3 mg capsule 3 mg PO ONCE polyethylene glycol 3350 PO rosuvastatin 20 mg tablet 20 mg PO QPM multivitamin [Tab-A-Tommie] PO albuterol sulfate 90 mcg/actuation HFA aerosol inhaler inhalation lidocaine [Aspercreme (lidocaine)] topical calcium carbonate [Corbin-Gest Antacid] PO docusate sodium PO hydrocortisone acetate topical loperamide PO nystatin [Nystop] 100,000 unit/gram powder 1 applic topical QDAY dextromethorphan polistirex [Robitussin ER] PO propylene glycol [Systane Balance] ophthalmic (eye) codeine-guaifenesin 10-100 mg/5 mL liquid 5 ml PO Q4-6H PRN (Reason: cough) Qty: 118 0RF aspirin [Adult Aspirin Regimen] 81 mg tablet,delayed release (DR/EC) 81 mg PO QDAY doxycycline hyclate 100 mg tablet 100 mg PO BID Qty: 14 0RF nystatin [Klayesta] 100,000 unit/gram powder 1 applic topical BID mecobalamin (vitamin B12) [B12 Active] 1,000 mcg tablet,chewable 1,000 mcg PO DAILY cholecalciferol (vitamin D3) [Vitamin D3] 25 mcg (1,000 unit) capsule 1,000 unit PO DAILY acetaminophen-codeine 300-30 mg tablet 1 tab PO Q6H PRN (Reason: pain) Qty: 15 0RF Follow Up/Referrals: Rae Llanes MD [Primary Care Provider, Family Practice] Stand Alone Forms: [employer] Info Instructions
== END 2025-03-08 11:46 | disposition home or self-care (01) ==
PROVIDERS: Emergency Provider Internal Medicine; PCP Student in an Organized Health Care Education/Training Program
DX: S09.90XA Unspecified injury of head, initial encounter (principal)
CPT/HCPCS: 70450; 99283

== ENCOUNTER 2025-04-03 23:40 | Emergency (ER) | payer MEDICARE, SELFPAY ==
--- OUTSIDE RECORDS SUMMARY | 2025-04-03 23:42 | XMS_ITS | Encounter Summary ---
Author Organization [facility] ? Address [address], [place] [address] Care Team Providers Care Speech/Language Therapist Name Role Phone Antionette Day DNP, LAB ANALYST, EXECUTIVE ADMINISTRATIVE ASST Primary Care Provid er Encounter Details Date Type Department Care Team ([facility] st Contact Info) Description 06/14/2016 Correspondence [facility] [address] [place], [place] [id number] Alex Fisher MD [address] [place] [address] [phone] ORDER Social History Tobacco Use Types Packs/Day [...] on filedocumented in this encounter Care Teams Speech/Language Therapist Relationship Specialty Start Date End Date Antionette Day DNP, LAB ANALYST, EXECUTIVE ADMINISTRATIVE ASST [address] [place] [address] [phone] PCP - General Nurse Practitioner 01/02/23 documented as of this encounter
--- OUTSIDE RECORDS SUMMARY | 2025-04-03 23:42 | XMS_ITS | Clinical Summary ---
Author Organization [facility] Address [address] [address] Care Team Providers Care Program Director/Traffic Director Name Role Phone Antionette Day DNP, SEAT COVER MAKER, EMBEDDED LINUX ENGINEER Primary Care Provid er Source Comments You [...] for each transition of care or referral. [employer] Allergies Active Allergy Reactions Criticality Noted Date [...] Allergy Hives 09/01/2006 Fish Oil Rash 01/25/2008 Jenison fish when eaten Fish-Derived Products Hives High [...] EX) Acti ve Lysine HCl (L-LYSINE) Active Xnkvt-X-Hynhsrzdvk ase (BEANO OR) Activ e Fexofenadine HCl [...] 12/29/2016 09/20/2021 PT CARE COORDINATION - HEALTH NURSING HOME 04/18/2016 08/14/2018 Overview (07/16/2018): If you have any questions or concerns please contact: Your Care Team at [facility] Practice :[phone] Primary Care Provider: Luz Dumont CNP RN Coordinator: B[facility]heva CareLine at [phone] or after hours and on weekends. Care Coordination (Community Resources, Specialists, Home Health Agency, Caregiver, Supply Vendor, Laboratory Aide) Contact Name LIA Obtained? Phone Number Role in Care Comments Dr. Mcfadden Urologist [facility] Urology Dr. Moore Neurologist [facility] Action Plan Elizabet's [...] 09/13/18 Assessment & Plan (07/16/2018 4:36 PM FARM MACHINERY MECHANIC): Spoke to patient to follow-up. States she [...] helping their son get his home in [place] ready to sell. Pt has been around [...] RN Assessment & Plan (06/19/2017 2:51 PM FARM MACHINERY MECHANIC): Spoke to patient. Reports she is doing [...] helping their son flip a house in [place]. Pt has no concerns currently. Batsheva Peace [...] RN Assessment & Plan (07/22/2016 2:29 PM FARM MACHINERY MECHANIC): Spoke to spouse today, states patient is [...] RN Assessment & Plan (05/27/2016 11:29 AM FARM MACHINERY MECHANIC): Spoke with pt, state she is feeling [...] neurology consult scheduled with Dr. Moore at [facility], but cannot remember what [...] Chart reviewed, pt was recently in [place] longterm and will be discharging soon. Pt has [...] IIV3 (Trivalent) F luzone Highdose, 65+ Yrs (30608) 05/01/2019,05/01/2018,05/17/2017,2015,04/30/2015,05/16/2014,04/12/2011,1 07/21/2009 Influenza IIV4 (Quadrivalent ) 0.5mL (57277) 07/19/2021 Influenza IIV4 (Quadrivalent ) Fluad, 65+ [...] Comments Blood Pressure 122/70 06/09/2023 2:02 PM FARM MACHINERY MECHANIC Pulse 72 06/09/2023 2:02 PM FARM MACHINERY MECHANIC Temperature 36.1 C (97 F) 05/05/2023 10:18 AM CDT Respiratory Rate 14 12/29/2022 9:03 AM CDT Oxygen Saturation 97% 05/05/2023 10: 18 AM CDT Inhaled Oxygen Concentration - - Weight 67.5 kg (148 lb 12.8 oz) 06/09/2023 2:02 PM FARM MACHINERY MECHANIC Height 154.3 cm (5' 0.75) 11/14/2022 1 2:33 PM CDT Body Mass Index 28.35 11/14/2022 12:33 PM CDT Plan of Treatment Health Maintenance Due Date Last Done Comments Hep B Immunization Discussion 1945 Pneumococcal PCV20 Immunization Discussion 1945 Zoster/Shingles Vaccine (3 of 3) 02/18/2021 12/24/2020, 11/12/2011 Diabetes: Albumin/Creatinine Ratio, Urine 12/30/2023 12/29/2022, 11/08/2021, 12/24/2020, Additional history exists Diabetes: HGBA1C 02/29/2024 08/31/2023, , 06/09/2023, Additional history exists Diabetes: Foot Exam 03/22/2024 03/22/2023, 12/24/2020, 06/04/2018 (Completed), Additional history exists Diabetes: Creatinine 06/09/2024 06/09/2023, 05/05/2023, 03/22/2023, Additional history exists Medicare Annual Wellness Visit 07/17/2024 11/28/2022, 08/18/2021, 12/24/2020, Additional history exists COVID-19 Vaccine ( season) 2025 10/26/2023, 06/09/2023, 05/24/2022, Additional history exists Influenza Vaccine (#1) 2025 , 05/24/2022, 07/19/2021, Additional history exists Diabetes: Eye Exam 10/30/2025 10/30/2024, 0 07/22/2024, 10/17/2023, Additional history exists Diabetes: Lipid Panel 03/22/2028 [...] BASIC METABOLIC PANEL Routine 06/09/2023 1:40 PM FARM MACHINERY MECHANIC Essential hypertension (HRC) 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) HGB A1C Routine 06/09/2023 1:40 PM FARM MACHINERY MECHANIC Diabetes mellitus with stage 3 chronic kidney [...] Results * (ABNORMAL) BMP (06/09/2023 1:40 PM FARM MACHINERY MECHANIC) Sodium 137 136 - 145 mmol/L 06/09/2023 6:21 PM FARM MACHINERY MECHANIC [facility] Potassium 3.8 3.5 - 5.1 mmol/L 06/09/2023 6:21 PM FARM MACHINERY MECHANIC [facility] Chloride 107 98 - 109 mmol/L 06/09/2023 6:21 PM FARM MACHINERY MECHANIC [facility] CO2 20 20 - 29 mmol/L 06/09/2023 6:21 PM FARM MACHINERY MECHANIC [facility] Anion Gap 10 7 - 16 mmol/L 06/09/2023 6:21 PM [facility] Calcium 9.4 8.4 - 10.4 mg/dL 06/09/2023 6:21 PM [facility] BUN 16 7 - 26 mg/dL 06/09/2023 6:21 PM [facility] Creatinine 1.01 0.55 - 1.02 mg/dL 06/09/2023 6:21 PM [facility] Glucose 113(H) 70 - 100 mg/dL 06/09/2023 6:21 PM [facility] Comment:The given reference range is for the fasting state. Non-fasting reference range for glucose is 70 - 180 mg/dL. GFR, Estimated 57(L) >60 mL/min/1. 73m2 06/09/2023 6:21 PM [facility] Hours Fasting 4.0 8 - 12 Hours 06/09/2023 6:21 PM [facility] Blood Venipuncture / Unknown 06/09/2023 1:40 PM FARM MACHINERY MECHANIC 06/09/2023 1:40 PM [facility] Narrative [facility] - 06/09/2023 6:21 PM FARM MACHINERY MECHANIC The National Kidney Disease Education Program suggests measuring Cystatin C in patients with eGFRcrea of 45 to 59 ml/min/1.73^2 who do not have other markers of kidney damage (i.e. elevated urine Albumin/Creatinine Ratio or a prior Cystatin C confirming the presence of chronic kidney disease). us Antionette Day DNP, SEAT COVER MAKER, EMBEDDED LINUX ENGINEER LAB_1 Mady osborne Result [facility] [address] [address], [facility] [phone] [facility] [address] [place] [address], [facility] [phone] * (ABNORMAL) Hgb A1C (Expected: Now) - Collect in Lab (06/09/2023 1:40 PM FARM MACHINERY MECHANIC) Hemoglobin A1C 8.5(H) <=5.6 % 06/09/2023 6:38 PM FARM MACHINERY MECHANIC [facility] Estimated Average Glucose (Calc) 197 < 117 mg/dL 06/09/2023 6:38 PM [facility] Comment:Estimated average gl ucose (eAG) converts A1c into glucose units (mg/dL) and estimates average glucose over the past approximately 3 months. The eAG reference interval (<117 mg/dL) corresponds to an A1c of <5.7%. Blood Venipuncture / Unknown 06/09/2023 1:40 PM FARM MACHINERY MECHANIC 06/09/2023 1:40 PM FARM MACHINERY MECHANIC Narrative [facility] - 06/09/2023 6:38 PM FARM MACHINERY MECHANIC For patients not previously diagnosed with diabetes: 5.7-6.4%: Increased risk for diabetes 6.5% and greater: Diagnostic for diabetes For patients diagnosed with diabetes: <8.0%: Goal of therapy for ages 18-75 Clinicians may recommend a higher or lower goal for specific individuals. us Antionette Day DNP, SEAT COVER MAKER, EMBEDDED LINUX ENGINEER LAB_1 Mady osborne Result [facility] [address] [place] [address], [facility] [phone] * (ABNORMAL) Lipid Panel and Direct LDL(If Needed) (03/22/2023 2:52 PM CDT) Cholesterol 188 0 - 199 mg/dL 03/22/2023 9:45 PM T [facility] Triglyceride 297(H) <=149 mg/dL 03/22/2023 9:45 PM T [facility] HDL Cholesterol 55 >=40 mg/dL 03/22/2023 9:45 PM T [facility] LDL, Calculated 74 <130 mg/dL 03/22/2023 9:45 PM T [facility] Non HDL Chol, Calculated 133 <=159 mg/dL 03/22/2023 9:45 PM [facility] Cholesterol/HDL Ratio 3.4 03/22/2023 9:45 PM [facility] Hours Fasting 19.0 8 - 12 Hours 03/22/2023 9:45 PM CDT [facility] Blood Venipuncture Butterfly / Unknown 03/22/2023 2:52 PM CDT 03/22/2023 2:53 PM CDT Antionette Day DNP, SEAT COVER MAKER, LORENZO LAB_1 Mady osborne Result Performing Organization Address City/[facility]/ZIP Co de Phone Number [facility] [address] [place] [address], [facility] [phone] [facility] [address] [place] [address], [facility] [phone] * (ABNORMAL) Albumin/Creatinine Ratio,Random Urine (12/29/2022 8:27 AM CDT) Albumin/Creati nine Ratio, Urine, Random 77(H) <30 mg/g 12/29/2022 3:59 PM CDT [facility] Albumin, Urine, Random 15.3 mg/L 12/29/2022 3:59 PM CDT [facility] Creatinine, Urine, Random 20(L) >20 mg/dL mg/dL 12/29/2022 3:59 PM CDT [facility] Urine Non-blood Collection / Unknown 12/29/2022 8:27 AM CDT 12/29/2022 8:27 AM CDT Luz Dumont APRN, CNP LAB_1 Final R esult Performing Organization Address City/[facility]/ZIP Co de Phone Number [facility] [address] [address], [facility] [phone] * BRETT (DIABETIC EYE EXAM) (01/04/2022) Luz [...] again SCREENING FOR OSTEO, HOLD CALCIUM Indication:Hyperparathyroidism Press Reader and Model of Instrument: [employer] Demographics Age: 70 y.o. Gender: female Height [...] RAD DEXA Final Resu lt * COLONOSCOPY [[id number]] (12/09/2015 8:17 AM CDT) 12/09/2015 8:17 AM [...] and oxygen saturations were monitored continuously. The [id number] was introduced through the anus and advanced [...] endoscopy today. Procedure Code(s): --- Professional --- 78975 --- Technical --- 29717 Diagnosis Code(s): --- Professional --- D50.9 K64.4 --- Technical --- D50.9 K64.4 CPT copyright 2014 [employer]. All rights reserved. The codes documented in this report are preliminary and upon electron beam photo mask technician review may be revised to meet current [...] and oxygen saturations were monitored continuously. The [id number] was introduced through the anus and advanced [...] endoscopy today. Procedure Code(s): --- Professional --- 70569 --- Technical --- 87822 Diagnosis Code(s): --- Professional --- D50.9 K64.4 --- Technical --- D50.9 K64.4 CPT copyright 2014 [employer]. All rights reserved. The codes documented in this report are preliminary and upon electron beam photo mask technician review may be revised to meet current compliance requirements. Attending Participation: Zabrina Hunt MD 12/09/2015 9:34:25 AM Number of Addenda: 0 Note Initiated On: 12/09/2015 8:17 AM Zabrina Hunt MD DIGESTIVE CARE Final Result [facility] ([facility]OVATION) [place], [place] from Last 3 Months or Most Recently Relevant to Health Maintenance Insurance [facility] MEDICARE ADVANTAGE Care Teams Program Director/Traffic Director Relationship Specialty Start Date End Date Antionette Day, DNP, SEAT COVER MAKER, EMBEDDED LINUX ENGINEER [address] [place] [address] PCP - General Nurse Practitioner 01/02/23
--- OUTSIDE RECORDS SUMMARY | 2025-04-03 23:42 | XMS_ITS | Encounter Summary ---
Author Organization [facility] Address [address] [place] [address] Care Team Providers Care Pool Coordinator Name Role Phone Antionette Day DNP, INDUSTRIAL REFRIGERATION MECHANIC, ROUSTABOUT SUPERVISOR Primary Care Provid er Encounter Details Date Type Department Care Team ([facility] st Contact Info) Description 06/15/2016 Correspondence [facility] Family Practice [address] [place] [address] Alex Fisher MD [address] [place] [address] DOC FACE TO FACE ENCOUNTER ALLINA [...] on filedocumented in this encounter Care Teams Pool Coordinator Relationship Specialty Start Date End Date Antionette Day DNP, INDUSTRIAL REFRIGERATION MECHANIC, ROUSTABOUT SUPERVISOR [address] [place] [address] PCP - General Nurse Practitioner 01/02/23 documented as of this encounter
--- OUTSIDE RECORDS SUMMARY | 2025-04-03 23:42 | XMS_ITS | Encounter Summary ---
Author Organization [facility] Address [address], [place] [address] Care Team Providers Care Podiatry Professor Name Role Phone Antionette Day DNP, MOBILE APPLICATION DEVELOPER, GUZZLER BUILDER Primary Care Provid er Encounter Details Date Type Department Care Team ([facility] st Contact Info) Description 06/03/2016 Correspondence [facility] [address] [place], [place] [phone] Alex Fisher MD [address] [place] [address] [phone] MEDICATIONS Social History Tobacco Use Types Packs/Day [...] on filedocumented in this encounter Care Teams Podiatry Professor Relationship Specialty Start Date End Date Antionette Day DNP, MOBILE APPLICATION DEVELOPER, GUZZLER BUILDER [address] [place] [address] [phone] (work) PCP - General Nurse Practitioner 01/02/23 documented as of this encounter
--- OUTSIDE RECORDS SUMMARY | 2025-04-03 23:42 | XMS_ITS | Encounter Summary ---
Author Organization [facility] Address [address] [address] Care Team Providers Care Senior Coldfusion Developer Name Role Phone Antionette Day DNP, BUFFING WHEEL FORMER MACHINE, DRY CLIPPER TENDER Primary Care Provid er Encounter Details Date Type Department Care Team ([facility] st Contact Info) Description 06/14/2016 Correspondence [facility] [address] [place], [place] [address] Alex Fisher MD [address] [place] [address] [phone] PLAN OF CARE Social History Tobacco Use [...] on filedocumented in this encounter Care Teams Senior Coldfusion Developer Relationship Specialty Start Date End Date Antionette Day DNP, BUFFING WHEEL FORMER MACHINE, DRY CLIPPER TENDER [address] [place] [address] [phone] PCP - General Nurse Practitioner 01/02/23 documented as of this encounter
--- OUTSIDE RECORDS SUMMARY | 2025-04-03 23:42 | XMS_ITS | Encounter Summary ---
Author Organization [facility] Address [address] [address] Care Team Providers Care Brass Wind Instrument Maker Name Role Phone Antionette Day DNP, RAILCAR CARPENTER, BIOMETRICS SPECIALIST Primary Care Provid er Encounter Details Date Type Department Care Team ([facility] st Contact Info) Description 07/21/2016 Correspondence [facility] [address] [place], [place] [phone] Alex Fisher MD [address] [place] [phone] ATTESTATION STATEMENT Social History Tobacco Use [...] on filedocumented in this encounter Care Teams Brass Wind Instrument Maker Relationship Specialty Start Date End Date Antionette Day DNP, RAILCAR CARPENTER, BIOMETRICS SPECIALIST [address] [place] [address] [phone] PCP - General Nurse Practitioner 01/02/23 documented as of this encounter
--- OUTSIDE RECORDS SUMMARY | 2025-04-03 23:42 | XMS_ITS | Encounter Summary ---
Author Organization [facility] Address [address], [place] [address] Care Team Providers Care Reconciliation Specialist Name Role Phone Antionette Day DNP, PERFORMANCE IMPROVEMENT MANAGER, CHICK SEXER Primary Care Provid er Encounter Details Date Type Department Care Team (Late st Contact Info) Description 06/02/2017 Correspondence External to External, [place] [address] HOUSE CALLS PLAN OF CARE Social History [...] on filedocumented in this encounter Care Teams Reconciliation Specialist Relationship Specialty Start Date End Date Antionette Day, VERONIQUE, PERFORMANCE IMPROVEMENT MANAGER, CHICK SEXER [address] [place] [phone] PCP - General Nurse Practitioner 01/02/23 documented as of this encounter
--- OUTSIDE RECORDS SUMMARY | 2025-04-03 23:43 | XMS_ITS | Encounter Summary ---
Author Organization [facility] Address [address], [place] [address] Care Team Providers Care Tape Weaver Name Role Phone Antionette Day DNP, COMPENSATION CONSULTING MANAGER, FREELANCE OPERATOR Primary Care Provid er Encounter Details Date Type Department Care Team (Late st Contact Info) Description 07/02/2019 Correspondence External to [facility], Provider DISCHAGE SUMMARY Social [...] on filedocumented in this encounter Care Teams Tape Weaver Relationship Specialty Start Date End Date Antionette Day DNP, COMPENSATION CONSULTING MANAGER, FREELANCE OPERATOR [address] [place] [address] PCP - General Nurse Practitioner 01/02/23 documented as of this encounter
--- OUTSIDE RECORDS SUMMARY | 2025-04-03 23:43 | XMS_ITS | Clinical Summary ---
Author Organization [email or web address] [facility] Address [address] [place] [id number] Care Team Providers Care Service Center Manager Name Role Phone Jonathan Mcdonnell MD Unavailable Augusto Serrato Unavailable [phone] Jose G Iqbal Unavailable Rae Llanes MD Primary Care Prov ider [facility], Branch Unavailable [phone] Allergies Active Allergy Reactions Criticality Noted Date [...] In Comment Field High 01/30/2007 Abdominal pain [place] Oil Rash 01/25/2008 [place] fish when eaten Simvastatin Muscle Weakness High [...] meq) by mouth every other day. Active lysine 500 mg tabIndications:En counter to establish care Take 1 Tablet (500 mg) by mouth once daily before a meal. 90 Tablet 3 Active multivitamin (MVI) tabletIndications :S/P gastric bypass Take 1 Tablet by mouth once daily. 90 Tablet 3 Active cholecalciferol (Vitamin D) 1,000 unit capsuleIndication s:S/P gastric bypass Take 1 Capsule (1,000 units) by mouth once daily. 90 Capsule 3 Active nystatin powder (MYCOSTATIN) powder Apply 1 [...] if needed for Dry Eyes. 25 Each Active ferrous sulfate 325 mg delayed release tabletIndications :Iron deficiency anemia due to chronic blood loss Take 1 Tablet (325 mg) by mouth once daily with a meal. 90 Tablet 3 Active melatonin 3 mg tabletIndications :Insomnia, idiopathic TAKE 2 TABLETS BY MOUTH AT BEDTIME 180 Tablet 3 Active albuterol HFA (PRO-AIR; VENTOLIN; PROVENTIL) 90 [...] two times daily. 45 g 025 Active fenofibrate 160 mg tabletIndications :Hyperlipidemia, unspecified hyperlipidemia type TAKE 1 TABLET BY MOUTH DAILY 90 Tablet 025 Active witch ye leaf (WITCH YE MISC) As directed. Active aspirin 81 mg enteric coated tabletIndications :Coronary artery disease involving [place] coronary artery of [place] heart, unspecified whether angina present Take 1 [...] times daily. 60 Each 3 025 Active fluticasone (50 mcg per actuation) [...] 1/2 scoop every other day 510 g 025 Active FLUoxetine (PROZAC) 20 mg capsuleIndication s:Anxiety and depression TAKE 1 CAPSULE BY MOUTH EVERY MORNING 30 Capsule 025 Active furosemide (LASIX) 20 mg tabletIndications :Essential hypertension,Acut e on chronic diastolic heart failure (HC) TAKE 1 TABLET BY MOUTH DAILY 28 Tablet 12 025 Active cyanocobalamin (VITAMIN B12) 1,000 mcg tabletIndications :Encounter to establish care TAKE 1 TABLET BY MOUTH DAILY 90 Tablet 3 025 Active acetaminophen (Tylenol Extra Strength) 500 mg tabletIndications :pain Take 2 Tablets (1,000 mg) by mouth three times daily. Max acetaminophen dose: 4000mg in 24 hrs. 180 Tablet 5 025 Active warfarin (COUMADIN) 5 mg tabletIndications :Paroxysmal atrial fibrillation (HC),Encounter for monitoring Coumadin therapy,Anticoagu lation monitoring, INR range 2-3 Take by mouth 5 mg (5 mg x 1) every Mon, Mon; 2.5 mg (5 mg x 0.5) all other days in the evening OR as directed Recheck INR on 04/02/25 10 Tablet 025 Active fexofenadine (Allergy Relief (fexofenadine)) 180 mg tablet Take 180 mg by mouth once daily. Take 1 tablet by mouth daily (swallow whole with water, do not take with fruit juice) OK to crush. Active codeine-guaiFENes in 10-100 mg/5 mL liquid Take 5 mL by mouth every 4 hours if needed for Cough. Take 5 ml by mouth every 4 to 6 hours as needed for cough Active HYDROcodone-aceta minophen (5-325 mg/tablet) 1 Tablet every 6 hours if needed for Pain. Take 1 tablet by mouth every 6 hours as needed for severe pain (max of 4 tablets per day). Up to 4 times a day every 6 hours. Active medication order composer Apply 1 Application topically to affected area(s) four times daily. Lidocaine 4 % Cream. Apply to affected areas four times daily as needed for pain. Up to 4 times a day. Active medication order composer Apply 1 Application topically to affected area(s) 2 times daily if needed. Use Preparation H Cream ( or pharmacy generic substitution) May use twice daily up to 5 days until hemorrhoids resolve Active cyanocobalamin (Vitamin B-12) 1,000 mcg tabletIndications :prevention of vitamin B12 deficiency Take 1 Tablet (1,000 mcg) by mouth once daily. 90 Tablet 3 024 2024 Discontinued fexofenadine (MIMI) 180 mg tablet Take 180 mg by mouth once daily. Do not crush or chew. 024 2024 Discontinued furosemide (LASIX) 20 mg tabletIndications :Essential hypertension,Acut e on chronic diastolic heart failure (HC) TAKE 1 TABLET BY MOUTH EVERY MORNING 90 Tablet 2 025 2024 Discontinued acetaminophen (Tylenol Extra Strength) 500 mg tabletIndications :pain Take 2 Tablets (1,000 mg) by mouth every 6 hours if needed for Pain or Headache. Max acetaminophen dose: 4000mg in 24 hrs. 180 Tablet 5 025 2024 Discontinued(R eorder (E-cancel not sent)) warfarin (COUMADIN) 5 mg tabletIndications :Paroxysmal atrial fibrillation (HC),Encounter for monitoring Coumadin therapy,Anticoagu lation monitoring, INR range 2-3 Take by mouth 5 mg (5 mg x 1 tablet) every Mon, Mon, Mon; 2.5 mg (5 mg x 0.5 tablet) all other days in the evening OR as directed. Recheck INR on 03/24/25 27 Tablet 025 2024 Discontinued(R eorder (E-cancel not sent)) fexofenadine 180 mg tabletIndications :Environmental allergies TAKE 1 TABLET BY MOUTH DAILY *SWALLOW WHOLE WITH WATER, DO NOT TAKE WITH FRUIT JUICE 28 Tablet 12 025 2024 Discontinued(* Patient states no longer taking) Active Problems Problem Noted Date Diagnosed Date [...] Overview (09/15/2021): dual-chamber pacemaker placed 09/15/2021 at [facility] Assessment & Plan (10/23/2024 3:02 PM CDT): Date of last device in office evaluation: 10/23/2024 Following clinic: [facility] ? Pre Owned Sales Manager and model: Medtronic Lizbeth Pacemaker. Date of [...] office evaluation: 01/02/2023 Following clinic: [facility] ? Pre Owned Sales Manager and model: Medtronic Lizbeth Pacemaker. Date of [...] Encounters Date Type Department Care Team Description 04/03/2025 11:00 AM CDT Home Care Visit [facility] [address] [place] [address] Karishma Zendejas, PT PT - HOME VISIT 04/03/2025 9:00 AM CDT Home Care Visit [facility] [address] [place] [address], [place] [phone] Triny Rainey CONTRERAS OT - HOME VISIT 04/03/2025 Home Care Visit [facility] [address] [place] [address], [place] [phone] Triny Rainey CONTRERAS CARE COORDINATION 03/31/2025 1:15 PM CDT Home Care Visit [facility] [address] [place] [phone] Karishma Zendejas, PT PT - HOME VISIT 03/31/2025 Refill [facility] [address] [place] [address] Rae Llanes MD Refill Request (fexofenadine (Allergy Relief (fexofenadine)) 180 mg tablet) 03/31/2025 Home Care Visit [facility] [address] [place] [phone] Karishma Zendejas, PT CARE COORDINATION 03/27/2025 8:30 AM CDT Home Care Visit [facility] [address] [place] [phone] Elza Bolaños, OT OT - INITIAL ASSESSMENT 03/27/2025 Home Care Visit [facility] [address] [place] [address], [place] [phone] Elza Bolaños OT CARE COORDINATION 03/26/2025 10:00 AM CDT Home Care Visit [facility] [address] [place] [phone] Amada Delcid, PRODUCT SAFETY TECHNICIAN PT - HOME VISIT 03/26/2025 Telephone [facility] [address] [place] [address] Rae Llanes MD Blood Pressure 03/24/2025 3:15 PM CDT Home Care Visit [facility] [address] [place] [address] Karishma Zendejas, PT PT - HOME VISIT 03/24/2025 Home Care Visit [facility] [address] [place] [phone] Karishma Zendejas, PT CARE COORDINATION 03/21/2025 10:30 AM CDT Home Care Visit [facility] [address] [place] [phone] Gilbert Aguirre, PT PT - OASIS START OF CARE 03/21/2025 Plan of Care Documentation [facility] [address] [place] [address], [place] [phone] 03/19/2025 2:40 PM CDT Office Visit [facility] [address] [place] [address] Rae Llanes MD Follow Up; Fall (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 ) 03/19/2025 Anticoagulation (warfarin) [facility] [address] [place] [address] Nurse, Amos Anticoag Anticoagulation ([facility]) 03/19/2025 Travel 03/14/2025 Telephone [facility] [address] [place] [address] Rae Llanes MD Blood Pressure 03/13/2025 Refill [facility] [address] [place] [address] Rae Llanes MD Refill Request (Fexofenadine, Furosemide, Cyanocobalamin) 03/12/[address] [place] [address] Rae Llanes MD Questions 03/08/2025 Orders Only [facility] Scanner 1 scan: (1-Ord) [facility], CT HEAD/BRAIN WO CONTRAST, 03/08/2025 03/07/2025 Orders Only [facility] Scanner 1 scan: (1-Ord) [place], XR RT KNEE 3V, 03/07/2025 03/07/2025 Orders Only [facility] Scanner 1 scan: (1-Ord) [facility], CT HEAD/BRAIN W/O, 03/07/2025 03/07/2025 Orders Only [facility] Scanner 1 scan: (1-Ord) [facility], XR SHOULDER RT MIN 2V, 03/07/2025 03/07/2025 Orders Only [facility] Scanner 1 scan: (1-Ord) [facility], CT CERVICAL SPINE W/O, 03/07/2025 02/18/2025 Anticoagulation (warfarin) [facility] [address] [place] [address] Nurse, Ahg Anticoag Anticoagulation 02/17/2025 3:30 PM CDT Office Visit [facility] [address] [place] [address] Rae Llanes MD Hypertension Care Management 02/17/2025 Telephone [facility] [address] [place] [address] Rae Llanes MD Blood Pressure (Readings) 02/17/2025 Travel 02/12/2025 Refill [facility] [address] [place] [address] Rae Llanes MD Refill Request (Fluoxetine) 02/10/2025 Telephone [facility] [address] [place] [address] Jose Mooney MD Update 02/05/2025 Refill [facility] [address] [place] [address] Rae Llanes MD Refill Request (Poleth Glyc POW) 02/05/2025 Procedure Only [facility] [address] [place] [address] [place] Vizcarra Remote Device Check (Remote Medtronic PPM/) 02/03/2025 Telephone [facility] [address] [place] [address] Rae Llanes MD Follow Up 01/30/2025 Telephone [facility] [address] [place] [address] Jose Mooney MD Follow Up 01/25/2025 3:30 PM CDT Office Visit [facility] [address] [place] [address] Johanna Fishman NP Dysuria (X 1 week, lower back pain. ) 01/25/2025 Travel 01/22/2025 Anticoagulation (warfarin) [facility] [address] [place] [address] NurseAmos Anticoag Anticoagulation (Lab only/) 01/21/2025 3:15 PM CDT Orders Only [facility] [address] [facility] [place] [address] Lab, [facility] 01/21/2025 Travel 01/21/2025 Telephone [place] [address] [place] [address] Rae Llanes MD Medication Management (carvediloL 12.5 mg tablet) 01/20/2025 Refill [facility] [address] [place] [address] Rae Llanes MD Refill Request (Omeprazole) 01/16/2025 Anticoagulation (warfarin) [facility] [address] [place] [address] Nurse, Amos Anticoag Anticoagulation (Chart update) 01/16/2025 Telephone [facility] [address] [place] [address] Rae Llanes MD Refill Request (Anti Diarrhea 2mg) 01/10/2025 Telephone [facility] [address] [place] [address] Rae Llanes MD Care Coordination (Orthostatic blood pressure) 01/08/2025 Refill [facility] [address] [place] [address] Carin Johnson, Refill Request (Fluticasone) 01/08/2025 Nurse Triage [facility] [address] [place] [address] Rae Llanes MD Other (Patient had a fall ) 01/06/2025 Refill [facility] [address] [place] [address] Rae Llanes MD Refill Request (Acetamin 500mg caplets) 01/04/2025 Anticoagulation (warfarin) [address] [address] 1, [facility]tico[facility] ([facility]) 01/03/2025 1:30 PM CDT Orders Only [address] [address] Lab, [place] [facility] 01/03/[address] [address] Rae Llanes MD Refill Request (Polyeth Glyc) 01/03/2025 Travel from Last 3 Months Immunizations Immunization Administration [...] on file 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 Gender Identity Not on file Sexual Orientation Not on file 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 file Not on file Not on file Obstetrics History Last Filed Vital Signs Vital Sign Reading Time Taken Comments Blood Pressure 112/64 04/03/2025 11:08 AM CDT Pulse 61 04/03/2025 11:08 AM CDT Temperature 36.2 C (97.1 F) 04/03/2025 11:08 AM CDT Respiratory Rate 18 04/03/2025 11:0 8 AM CDT Oxygen Saturation 99% 04/03/2025 11: 08 AM CDT Inhaled Oxygen Concentration - - Weight 68.9 kg (152 lb) 04/03/2025 11:0 8 AM CDT taken this morning Height 157.5 cm (5' 2) 11/04/2024 9:08 AM CDT Body Mass Index 27.8 11/04/2024 9:08 AM CDT Plan of Treatment Upcoming Encounters Date Type Department Care Team (Late st Contact Info) Description 04/08/2025 10:15 AM CDT Home Care Visit [facility] [address] [place] [phone] Karishma Zendejas, PT [address] [place] [address] 04/10/2025 4:00 AM CDT Home Care Visit [facility] [address] [place] [phone] Triny Rainey COTA [address] [place] [address] 04/15/2025 3:00 AM CDT Home Care Visit [facility] [address] [place] [phone] Karishma Zendejas, PT [address] [place] [address] 04/15/2025 4:00 AM CDT Home Care Visit [facility] [address] [place] [phone] Elza Bolaños, OT [address] [place] [address] Health Maintenance Due Date Last Done Comments Zoster (shingles) series for age 50+ (3 of 3) 02/18/2021 12/24/2020, 11/12/2011 COVID-19 vaccine series ( season) 2025 04/23/2024, 04/22/2024, 10/26/2023, Additional history exists Influenza [...] age 65+ Completed 2015 ([facility] Pneumococcal series for age 50+ Completed 10/06/2016, 11/28/2008, 05/02/2003 RSV vaccine for adults or Completed 03/22/2023 Hepatitis B series for 19+ Aged Out N o longer eligible based on patient's age to complete this topic Medical Devices Implanted Type Area Pre Owned Sales Manager Device Identifier Shelf Expiration Date Model / Serial / Lot Patella Sigma 32mm Oval/[id number] 00 J&Jortho - [id number] Implanted:Qty: 1 on 01/30/2008 at [facility] Ortho Total Joint Right: Knee [employer] 08/17/2012 96-0100# / / [id number] Description:CHECKED JI Cmnt Bone Palacos R - [id number] Implanted:Qty: 1 on 01/30/2008 at [facility] Right: Knee [employer] 06/16/2012 1112-140-0 1# / / [id number] Description:CHECKED JI Cmnt Bone Palacos R - [id number] Implanted:Qty: 1 on 01/30/2008 at [facility] Right: Knee [employer] 04/16/2012 1112-140-0 1# / / [id number] Description:CHECKED JI Implnt Fem Cruciate Sub Sz2.5 Rt Open Bx - [id number] Implanted:Qty: 1 on 01/30/2008 at [facility] Right: Knee [employer] 05/17/2017 [id number]# / / [id number] Description:CHECKED JI Ty Tib Modular Cmnt Cocr 30591-09-942 - [id number] Implanted:Qty: 1 on 01/30/2008 at [facility] Right: Knee [employer] 05/17/2017 0# / / [id number] Description:CHECKED JI Insert Gvf Sz 2 10mm Stab Sigma - [id number] Implanted:Qty: 1 on 01/30/2008 at [facility] Right: Knee [employer] 12/15/2008 0# / / [id number] Description:CHECKED JI Explanted Type Area Pre Owned Sales Manager Device Identifier Shelf Expiration Date Model / Serial / Lot Stent Inlay [id number] - [id number] Implanted:Qty: 1 on 08/20/2008 at [facility] Explanted:Qty: 1 on 04/01/2019 by Ephraim Mcfadden MD at [facility] Left: Ureter [employer] 01/14/2013 [id number]# / / [id number] Stent Inlay [id number] - [id number] Implanted:Qty: 1 on 10/15/2009 at [facility] Explanted:Qty: 1 on 04/01/2019 by Ephraim Mcfadden MD at [facility] Right: Ureter [employer] 03/17/2014 [id number]# / / [id number] Description:NO STICKER...SK Stent Uret [id number] Percuflex [place] Plus - [id number] Implanted:Qty: 2 on 03/02/2019 by Ephraim Mcfadden MD at [facility] Explanted:Qty: 2 on 04/01/2019 by Ephraim Mcfadden MD at [facility] Bilateral: Ureter [facility] 11/27/2021 175-552# / / [id number] Description:NO STICKER SJ Procedures Procedure Name Priority Date/Time Associated Diagnosis Comments INR,POCT Routine 03/19/2025 3:44 PM CDT Paroxysmal atrial fibrillation (HC) Encounter for monitoring Coumadin therapy Anticoagulation monitoring, INR range 2-3 SCAN-CT INTERPRETATION 03/08/2025 12:00 AM CDT SCAN-RADIOLOGY REPORT 03/07/2025 12:00 AM CDT SCAN-CT INTERPRETATION 03/07/2025 12:00 AM CDT SCAN-RADIOLOGY REPORT 03/07/2025 12:00 AM CDT SCAN-CT INTERPRETATION 03/07/2025 12:00 AM CDT INR,POCT Routine 02/17/2025 4:17 PM CDT Paroxysmal [...] Months Results * (ABNORMAL) INR - POCT [85547.2] - Standing Order (03/19/2025 3:44 PM CDT) Only the most recent of4 resultswithin the time period is included. INR 3.9(H) ratio 03/19/2025 3:[address] [facility] Comment: INRs >2.9 may be falsely elevated in patients receiving either unfractionated Heparin or Low Molecular Weight Heparin. Follow up testing in a hospital laboratory may be helpful if clinically indicated. INR results of > or = 5.0 should be verified using the standard venipuncture procedure. Reference Range 0.9-1.1 Moderate-intensity Warfarin Therapy 2.0-3.0 Higher-intensity Warfarin Therapy 3.0-4.0 PROTHROMBIN TIMEP 47.2(H) 10.5 - 13.1 sec 03/19/2025 3:[address] [facility] Comment: Point of care fingerstick Prothrombin Time/INR results may vary from venous Prothrombin Time/INR methodologies. Any results exhibiting inconsistency with the patient's clinical status should be repeated using a venous Prothrombin Time/INR method. Blood BLOOD SPECIMEN / Unknown [facility] / Unknown 03/19/2025 3:44 PM CDT 03/19/2025 3:45 PM CDT us Rae Llanes MD LABORATORY Fi nal Result [facility] [address] [place] [address], [place] [phone] [facility] [address] [place] [address], [place] [phone] * SCAN-CT INTERPRETATION (03/08/2025 12:00 AM CDT) Only the most recent of3 resultswithin the time period is included. Anatomical Region Laterality Modality Other us Scanner OTHER Final Result * SCAN-RADIOLOGY REPORT (03/07/2025 12:00 AM CDT) Only the most recent of2 resultswithin the time period is included. Anatomical Region Laterality Modality Other us Scanner OTHER Final Result * (ABNORMAL) CBC WITH AUTO DIFFERENTIAL (01/25/2025 4:24 PM CDT) WHITE BLOOD COUNT 6.2 4.5 - 11.0 thou/cu mm 01/25/2025 5:02 PM CDT [facility] RED BLOOD COUNT 4.00 4.00 - 5.20 mil/cu mm 01/25/2025 5:02 PM CDT [facility] HEMOGLOBIN 11.5(L) 12.0 - 16.0 g/dL 01/25/2025 5:02 PM CDT [facility] HEMATOCRIT 37.8 33.0 - 51.0 % 01/25/2025 5:02 PM [facility] MCV 95 80 - 100 fL 01/25/2025 5:02 PM [facility] MCH 28.8 26.0 - 34.0 pg 01/25/2025 5:02 PM [facility] MCHC 30.4(L) 32.0 - 36.0 g/dL 01/25/2025 5:02 PM [facility] RDW 14.3 11.5 - 15.5 % 01/25/2025 5:02 PM [facility] PLATELET COUNT 364 140 - 440 thou/cu mm 01/25/2025 5:02 PM [facility] MPV 9.9 6.5 - 11.0 fL 01/25/2025 5:02 PM [facility] % NEUT 60.3 % 01/25/2025 5:02 PM [facility] % LYMPH 21.6 % 01/25/2025 5:02 PM [facility] % MONO 11.0 % 01/25/2025 5:02 PM [facility] % EOS 6.3 % 01/25/2025 5:02 PM [facility] % BASO 0.8 % 01/25/2025 5:02 PM [facility] ABSOLUTE NEUTROPHILS 3.8 1.7 - 7.0 thou/cu mm 01/25/2025 5:02 PM [facility] ABSOLUTE LYMPHOCYTES 1.3 0.9 - 2.9 thou/cu mm 01/25/2025 5:02 PM [facility] ABSOLUTE MONOCYTES 0.7 <0.9 thou/cu mm 01/25/2025 5:02 PM [facility] ABSOLUTE EOSINOPHILS 0.4 <0.5 thou/cu mm 01/25/2025 5:02 PM [facility] ABSOLUTE BASOPHILS 0.1 <0.3 thou/cu mm 01/25/2025 5:02 PM [facility] Blood BLOOD SPECIMEN / Unknown [facility] / Unknown 01/25/2025 4:24 PM CDT 01/25/2025 4:24 PM CDT Johanna Fishman ASSISTANT STORE MANAGER TRAINEE HEMATOLOGY Final Result Performing Organization Address City/[facility]/ZIP Co de Phone Number [facility] [address] [place] [address] * LACTATE VENOUS (01/25/2025 4:24 PM CDT) LACTATE,VENOUS 1.4 0.5 - 2.0 mmol/L 01/25/2025 5:20 PM CDT [facility] Blood BLOOD SPECIMEN / Unknown [facility] / Unknown 01/25/2025 4:24 PM CDT 01/25/2025 4:24 PM CDT Johanna Fishman ASSISTANT STORE MANAGER TRAINEE CHEMISTRY Final Result Performing Organization Address [facility]/ZIP Co de Phone Number [facility] [address] [place] [address] * (ABNORMAL) BASIC METABOLIC PANEL (01/25/2025 4:24 PM CDT) SODIUM 140 136 - 145 mmol/L 01/25/2025 5:44 PM T [facility] POTASSIUM 4.7 3.5 - 5.1 mmol/L 01/25/2025 5:44 PM [facility] CHLORIDE 105 98 - 107 mmol/L 01/25/2025 5:44 PM [facility] CO2,TOTAL 21(L) 22 - 29 mmol/L 01/25/2025 5:44 PM [facility] ANION GAP 14 5 - 18 01/25/2025 5:44 PM [facility] GLUCOSE 103(H) 70 - 99 mg/dL 01/25/2025 5:44 PM [facility] CALCIUM 9.4 8.8 - 10.4 mg/dL 01/25/2025 5:44 PM [facility] Comment: Reference ranges for this test were updated on 05/21/2024 to reflect our healthy population more accurately. Reference range changes are not retroactively applied to results, but previous results using the same methodology can be interpreted in the context of the new reference range. BUN 28(H) 8 - 23 mg/dL 01/25/2025 5:44 PM T [facility] CREATININE 1.24(H) 0.50 - 0.90 mg/dL 01/25/2025 5:44 PM [facility] BUN/CREAT RATIO 23(H) 10 - 20 5:44 PM [facility] eGFR 44(L) >90 mL/min/1. 73m2 01/25/2025 5:44 PM [facility] Comment:As of 2021, eG FR is [...] us Johanna Fishman NP CHEMISTRY Final Result [facility] [address] [place] [phone] * (ABNORMAL) URINALYSIS MICROSCOPIC (01/25/2025 3:32 PM CDT) RBC 0-2 0-2, None Seen /HPF 01/25/2025 4:02 PM T [facility] WBC 11-25(A) 0-2, 3-5, None Seen /HPF 01/25/2025 4:02 PM [facility] BACTERIA Many(A) None Seen, Rare, Few Bacteria/H PF 01/25/2025 4:02 PM T [facility] [facility] EPITHELIAL CELLS Few None Seen, Few Epi/HPF 01/25/2025 4:02 PM [facility] Urine URINE SPECIMEN / Unknown Non-Blood / Unknown 01/25/2025 3:32 PM CDT 01/25/2025 3:43 PM CDT Johanna Fishman ASSISTANT STORE MANAGER TRAINEE URINE Final Result [facility] [address] [place] [address] * (ABNORMAL) URINE CULTURE [90029.2] - routine (01/25/2025 3:32 PM CDT) CULTURE RESULT(A) 01/27/2025 7:05 AM CDT [facility] CULTURE >100,000 CFU/mL Klebsiella variicola 01/27/2025 7:05 AM CDT [facility] Urine URINE SPECIMEN / Unknown [...] Klebsiella variicola NITROFURANTOIN 32: S Johanna Fishman ASSISTANT STORE MANAGER TRAINEE MICROBIOLOGY Final Result [facility] [address] [place] [address], * (ABNORMAL) UA W/ SEDIMENT EXAM REFLEXED PER CRITERIA [06210.2] (01/25/2025 3:32 PM CDT) COLOR Yellow Yellow Color 01/25/2025 3:59 PM CDT [facility] CLARITY Clear Clear Clarity 01/25/2025 3:59 PM CDT [facility] SPECIFIC GRAVITY,URINE 1.015 1.010, 1.015, 1.020, 1.025 01/25/2025 3:59 PM T [facility] PH,URINE 5.5 6.0, 7.0, 8.0, 5.5, 6.5, 7.5, 8.5 01/25/2025 3:59 PM T [facility] UROBILINOGEN, QUALITATIVE Normal Normal EU/dl 01/25/2025 3:59 PM T [facility] PROTEIN, URINE Negative Negative mg/dL 01/25/2025 3:59 PM T [facility] GLUCOSE, URINE Negative Negative mg/dL 01/25/2025 3:59 PM T [facility] KETONES,URINE Negative Negative mg/dL 01/25/2025 3:59 PM T [facility] BILIRUBIN,URI NE Negative Negative 01/25/2025 3:59 PM T [facility] OCCULT BLOOD,URINE Negative Negative 01/25/2025 3:59 PM T [facility] NITRITE Positive(A) Negative 01/25/2025 3:59 PM T [facility] LEUKOCYTE ESTERASE Large(A) Negative 01/25/2025 3:59 PM [facility] Urine URINE SPECIMEN / Unknown Non-Blood / Unknown 01/25/2025 3:32 PM CDT 01/25/2025 3:43 PM CDT Johanna Fishman NP URINE Final Result [facility] [address] [place], [place] [id number] from Last 3 Months Additional Health Concerns Infection Onset Date Last Indicated MRSA Clearance Comment:Infection Control Note: Hx of MRSA, surveillance criteria met, no need for further testing or isolation precautions. Do not delete or resolve the Infection Flag. 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 POLST 07/05/2024 Healthcare Directive 01/30/2008 [...] Code Status Discussion: Reviewed Preferences Care Teams Service Center Manager Relationship Specialty Start Date End Date Rae Llanes MD [address] [place] [address] PCP - General Family Practice 03/19/24 Jonathan Mcdonnell MD [address] [place] [address] Cardiology Cardiology - Interventional 10/06/21 Augusto Serrato PA [address] [place] [address] Physician's Tank Truck Loader Physician Tank Truck Loader 01/03/23 Jose G Iqbal COTA [address] [place] [address] Occupational Therapy 09/25/23 [facility] [address] [place] [address] 04/01/25
--- OUTSIDE RECORDS SUMMARY | 2025-04-03 23:43 | XMS_ITS | Encounter Summary ---
Author Organization [facility] Address [address], [place] [address] Care Team Providers Care Pigment Furnace Tender Name Role Phone Antionette Day DNP, GROOMING SALON MANAGER, TERMINAL MAKEUP OPERATOR Primary Care Provid er Encounter Details [...] on filedocumented in this encounter Care Teams Pigment Furnace Tender Relationship Specialty Start Date End Date Antionette Day, VERONIQUE, GROOMING SALON MANAGER, TERMINAL MAKEUP OPERATOR [address] [place] [address] PCP - General Nurse Practitioner 01/02/23 documented as of this encounter
--- OUTSIDE RECORDS SUMMARY | 2025-04-03 23:43 | XMS_ITS | Encounter Summary ---
Author Organization [facility] Address [address], [place] [address] Care Team Providers Care Vulcan Crewmember Name Role Phone Antionette Day DNP, GROUND SUPPORT EQUIPMENT MECHANIC, AIRPORT PLANNER Primary Care Provid er Encounter Details Date Type Department Care Team (Late st Contact Info) Description 03/31/2019 Correspondence External to External, [place] [address] RETROSPECTIVE DRUG UTILIZATION REVIEW Social History Tobacco [...] on filedocumented in this encounter Care Teams Vulcan Crewmember Relationship Specialty Start Date End Date Antionette Day DNP, GROUND SUPPORT EQUIPMENT MECHANIC, AIRPORT PLANNER [address] [place] [phone] PCP - General Nurse Practitioner 01/02/23 documented as of this encounter
--- OUTSIDE RECORDS SUMMARY | 2025-04-03 23:43 | XMS_ITS | Encounter Summary ---
Author Organization [facility] Address [address], [place] [address] Care Team Providers Care Director Safety Name Role Phone Antionette Day DNP, BUSINESS SYSTEMS ARCHITECT, FILING OR REGISTRY CLERK Primary Care Provid er Encounter Details Date Type Department Care Team (Late st Contact Info) Description 09/02/2019 Correspondence External to External, [place] [address] RETROSPECTIVE DRUG UTILIZATION REVIEW Social History Tobacco [...] filedocumented in this encounter Care Teams Director Safety Relationship Specialty Start Date End Date Antionette Day DNP, BUSINESS SYSTEMS ARCHITECT, FILING OR REGISTRY CLERK [address] [place] [id number] PCP - General Nurse Practitioner 01/02/23 documented as of this encounter
--- OUTSIDE RECORDS SUMMARY | 2025-04-03 23:43 | XMS_ITS | Encounter Summary ---
Author Organization [facility] Address [address] [place] [address] Care Team Providers Care Makeup Editor Name Role Phone Antionette Day DNP, PERFORATOR OPERATOR OIL WELL, HOT PLATE [place] PRESS LABORER Primary Care Provid er Encounter Details Date Type Department Care Team (Latest Contact Info) Description 12/09/2015 Consent for Procedure/Treatm ent [facility] [address] [place] [address] Zabrina Hunt MD [address] [address] INFORMED CONSENT FOR TREATMENTS OR [...] on filedocumented in this encounter Care Teams Makeup Editor Relationship Specialty Start Date End Date Antionette Day DNP, PERFORATOR OPERATOR OIL WELL, HOT PLATE [place] PRESS LABORER [address] [place] [phone] PCP - General Nurse Practitioner 01/02/23 documented as of this encounter
--- OUTSIDE RECORDS SUMMARY | 2025-04-03 23:43 | XMS_ITS | Encounter Summary ---
Author Organization [facility] Address [address] [address] Care Team Providers Care Director Patient Accounting Name Role Phone Antionette Day DNP, DOMESTIC HOUSEKEEPER, RESEARCH CHEMIST Primary Care Provid er Encounter Details Date Type Department Care Team (Late st Contact Info) Description 08/29/2019 Correspondence External to External, [place] [address] RETROSPECTIVE DRUG UTILIZATION REVIEW Social History Tobacco [...] filedocumented in this encounter Care Teams Director Patient Accounting Relationship Specialty Start Date End Date Antionette Day DNP, DOMESTIC HOUSEKEEPER, RESEARCH CHEMIST [address] [place] [phone] PCP - General Nurse Practitioner 01/02/23 documented as of this encounter
--- OUTSIDE RECORDS SUMMARY | 2025-04-03 23:43 | XMS_ITS | Encounter Summary ---
Author Organization [facility] Address [address], [place] [address] Care Team Providers Care Investment Manager Name Role Phone Antionette Day DNP, SLATE CUTTER, RETAIL FIELD REPRESENTATIVE Primary Care Provid er Encounter Details Date Type Department Care Team (Late st Contact Info) Description 03/09/2018 Correspondence External to External, [place] [address] MEDICATION ADHERENCE PROGRAM Social History Tobacco Use [...] on filedocumented in this encounter Care Teams Investment Manager Relationship Specialty Start Date End Date Antionette Day DNP, SLATE CUTTER, RETAIL FIELD REPRESENTATIVE [address] [place] [phone] PCP - General Nurse Practitioner 01/02/23 documented as of this encounter
--- OUTSIDE RECORDS SUMMARY | 2025-04-03 23:43 | XMS_ITS | Encounter Summary ---
Author Organization [facility] Address [address] [address] Care Team Providers Care Network Technical Analyst Name Role Phone Antionette Day DNP, MINE EQUIPMENT DESIGN ENGINEER, HOTEL OFFICE MANAGER Primary Care Provid er Encounter Details Date Type Department Care Team ([facility] st Contact Info) Description 07/08/2019 Correspondence External to External, [place] [address] RETROSPECTIVE DRUG UTILIZATION REVIEW Social History Tobacco [...] on filedocumented in this encounter Care Teams Network Technical Analyst Relationship Specialty Start Date End Date Antionette Day DNP, MINE EQUIPMENT DESIGN ENGINEER, HOTEL OFFICE MANAGER [address] [place] [phone] PCP - General Nurse Practitioner 01/02/23 documented as of this encounter
--- OUTSIDE RECORDS SUMMARY | 2025-04-03 23:43 | XMS_ITS | Encounter Summary ---
Author Organization formerly [facility] Address [address], [place] [address] Care Team Providers Care Margin Trimmer Name Role Phone Antionette Day DNP, SALES ENGINEER, RADIO INTERFERENCE SUPERVISOR Primary Care Provid er Encounter Details Date Type Department Care Team (Latest Contact Info) Description 12/09/2015 Correspondence [facility] at [address] [place] [address] Zabrina Hunt MD [address] [address] INSTRUCTIONS AFTER COLONOSCOPY Social History [...] on filedocumented in this encounter Care Teams Margin Trimmer Relationship Specialty Start Date End Date Antionette Day DNP, SALES ENGINEER, RADIO INTERFERENCE SUPERVISOR [address] [place] [address] PCP - General Nurse Practitioner 01/02/23 documented as of this encounter
--- OUTSIDE RECORDS SUMMARY | 2025-04-03 23:43 | XMS_ITS | Encounter Summary ---
Author Organization [facility] Address [address] [address] Care Team Providers Care Software Applications Architect Name Role Phone Antionette Day DNP, ENTRY LEVEL ACCOUNTING CLERK, AIR HAMMER OPERATOR Primary Care Provid er Encounter Details Date Type Department Care Team (Latest Contact Info) Description 12/09/2015 Correspondence [facility] at [address] [place] [address] Zabrina Hunt MD [address] [address] INSTRUCTIONS AFTER UPPER ENDOSCOPY WITH [...] on filedocumented in this encounter Care Teams Software Applications Architect Relationship Specialty Start Date End Date Antionette Day DNP, ENTRY LEVEL ACCOUNTING CLERK, AIR HAMMER OPERATOR [address] [place] [address] PCP - General Nurse Practitioner 01/02/23 documented as of this encounter
--- NOTE | 2025-04-03 23:49 | CRLHL7_ITS ---
For Patients: As a result of the Century Cures Act, medical imaging exams and procedure reports are released immediately into your electronic medical record. You may view this report before your referring provider. If you have questions, please contact your health care provider. INDICATION: Fall, hit back of head. COMPARISON: CT head 03/08/2025. TECHNIQUE: CT of the head without IV contrast. Coronal and sagittal reconstructions. FINDINGS: Brain: No intracranial hemorrhage, abnormal extra-axial fluid collection, or evidence of acute infarct. No mass effect or midline shift. Moderate generalized cerebral and cerebellar volume loss with associated ex vacuo dilation of the lateral ventricles. Moderate chronic small vessel ischemic disease. Unchanged chronic areas of encephalomalacia in the right frontal lobe. Skull base and calvarium: The visualized paranasal sinuses and mastoid air cells are clear. The visualized orbits are grossly unremarkable. No acute fracture identified. Soft tissues: Left occipital scalp hematoma. IMPRESSION: 1. No acute intracranial findings. 2. Left occipital scalp hematoma. Please note that all CT scans at this facility use dose modulation, iterative reconstruction, and/or weight-based dosing when appropriate to reduce radiation dose to as low as reasonably achievable. Dictated by Monalisa Mendoza MD @ 04/04/2025 12:33:04 AM (Electronically Signed)
--- NOTE | 2025-04-03 23:49 | CRLHL7_ITS ---
For Patients: As a result of the Century Cures Act, medical imaging exams and procedure reports are released immediately into your electronic medical record. You may view this report before your referring provider. If you have questions, please contact your health care provider. INDICATION: Fall, hit back of head. COMPARISON: CT of the cervical spine 03/07/2025. TECHNIQUE: CT of the cervical spine without IV contrast. Coronal and sagittal reconstructions. FINDINGS: Vertebrae: No acute fracture or suspicious bone lesion. Vertebral bodies are normally aligned. Straightening of the normal cervical lordosis. Discs and facet joints: Spondylotic changes including endplate spurring, facet arthropathy, and disc space narrowing. Multilevel varying degrees of neural foraminal narrowing and spinal canal stenosis most severe at C5-C6. Extraspinal findings: Visualized intracranial contents and paravertebral soft tissues are unremarkable. Partially visualized left occipital scalp hematoma. The included lung apices are grossly clear. Left subclavian pacemaker leads. IMPRESSION: 1. No acute fracture or traumatic malalignment of the cervical spine. 2. Multilevel degenerative spondylosis, with severe spinal canal stenosis at C5-C6. 3. Partially visualized left occipital scalp hematoma. Please note that all CT scans at this facility use dose modulation, iterative reconstruction, and/or weight-based dosing when appropriate to reduce radiation dose to as low as reasonably achievable. Dictated by Monalisa Mendoza MD @ 04/04/2025 12:39:37 AM (Electronically Signed)
[2025-04-03 23:50] VITALS: BP 181/80; PULSE 84; RESP 16; TEMP 36.7; O2SAT 96; BMI 27.4
[2025-04-04 00:05] LABS: Hematocrit* 38.1 % (33.0-51.0); Hemoglobin* 11.7 gm/dL (12.0-16.0); Immature Granulocytes Abs Auto 0.06 K/uL (0.00-0.30); Immature Granulocytes Pct Auto 1.2 %; Lymphocytes Absolute Auto 1.20 K/uL (0.90-2.90); Mean Corpuscular HGB Conc 31 gm/dL (32-36); Mean Corpuscular Hemoglobin 29 pg (26-34); Mean Corpuscular Volume 95 fL (80-100); RDW Coefficient of Variation % 14.6 % (11.5-15.5); Red Blood Count* 4.02 m/uL (4.00-5.20); White Blood Count* 4.97 K/uL (4.50-11.00)
[2025-04-04 00:09] LABS: Slide Review Reflex No
[2025-04-04 00:17] LABS: INR 2.86 (0.91-1.10); Prothrombin Time 31.2 Seconds
--- OUTSIDE RECORDS SUMMARY | 2025-04-04 00:41 | XMS_ITS | Encounter Summary ---
Author Organization [facility] Address [address], [place] [address] Care Team Providers Care Customer Service Dispatcher Name Role Phone Antionette Day DNP, SUPERVISOR AIRPLANE FLIGHT ATTENDANT, FLIGHT INFORMATION EXPEDITER Primary Care Provid er Encounter Details Date Type Department Care Team ([facility] st Contact Info) Description 07/21/2016 Correspondence [facility] [address] [place], [place] [address] Alex Fisher MD [address] [place] [address] ATTESTATION STATEMENT Social History Tobacco Use [...] on filedocumented in this encounter Care Teams Customer Service Dispatcher Relationship Specialty Start Date End Date Antionette Day DNP, SUPERVISOR AIRPLANE FLIGHT ATTENDANT, FLIGHT INFORMATION EXPEDITER [address] [place] [phone] PCP - General Nurse Practitioner 01/02/23 documented as of this encounter
--- OUTSIDE RECORDS SUMMARY | 2025-04-04 00:41 | XMS_ITS | Encounter Summary ---
Author Organization [facility] Address [address], [place] [address] Care Team Providers Care Associate Designer Name Role Phone Antionette Day DNP, TWINE REELING MACHINE OPERATOR, TOWN JUSTICE Primary Care Provid er Encounter Details Date Type Department Care Team (Late st Contact Info) Description 06/02/2017 Correspondence External to External, [place] [address] HOUSE CALLS PLAN OF CARE Social History [...] on filedocumented in this encounter Care Teams Associate Designer Relationship Specialty Start Date End Date Antionette Day, VERONIQUE, TWINE REELING MACHINE OPERATOR, TOWN JUSTICE [address] [place] [phone] PCP - General Nurse Practitioner 01/02/23 documented as of this encounter
--- OUTSIDE RECORDS SUMMARY | 2025-04-04 00:41 | XMS_ITS | Encounter Summary ---
Author Organization [email or web address] Address [address], [place] [address] Care Team Providers Care Field Appraiser Name Role Phone Antionette Day DNP, LATENT FINGERPRINT EXAMINER, BROACHER Primary Care Provid er Encounter Details Date Type Department Care Team ([facility] st Contact Info) Description 06/14/2016 Correspondence [facility] [address] [place], [place] [phone] Alex Fisher MD [address] [place] [phone] ORDER Social History Tobacco Use Types Packs/Day [...] on filedocumented in this encounter Care Teams Field Appraiser Relationship Specialty Start Date End Date Antionette Day DNP, LATENT FINGERPRINT EXAMINER, BROACHER [address] [place] [phone] PCP - General Nurse Practitioner 01/02/23 documented as of this encounter
--- OUTSIDE RECORDS SUMMARY | 2025-04-04 00:41 | XMS_ITS | Clinical Summary ---
Author Organization [facility] Address [address] [place] [address] Care Team Providers Care Applications Engineering Manager Name Role Phone Antionette Day DNP, SQL DEVELOPER DBA, FOREIGN POLICY OFFICER Primary Care Provid er Source Comments You [...] for each transition of care or referral. [employer] Allergies Active Allergy Reactions Criticality Noted Date [...] Allergy Hives 09/01/2006 Fish Oil Rash 01/25/2008 [place] fish when eaten Fish-Derived Products Hives High [...] EX) Acti ve Lysine HCl (L-LYSINE) Active Yxadx-A-Grdjsamvdp ase (BEANO OR) Activ e Fexofenadine HCl [...] 12/29/2016 09/20/2021 PT CARE COORDINATION - [facility] 04/18/2016 08/14/2018 Overview (07/16/2018): If you have any questions or concerns please contact: Your Care Team at [facility] Practice :[phone] Primary Care Provider: Luz Dumont CNP RN Coordinator: Batsheva CareLine at [phone] or after hours and on weekends. Care Coordination (Community Resources, Specialists, Home Health Agency, Caregiver, Supply Vendor, Car Head Liner Installer) Contact Name LIA Obtained? Phone Number Role in Care Comments Dr. Mcfadden Urologist [facility] Urology Dr. Moore Neurologist [facility] Neurology Action Plan [facility] [...] 09/13/18 Assessment & Plan (07/16/2018 4:36 PM BENCH ASSEMBLER ELECTRICAL): Spoke to patient to follow-up. States she [...] helping their son get his home in [place] ready to sell. Pt has been around [...] RN Assessment & Plan (06/19/2017 2:51 PM BENCH ASSEMBLER ELECTRICAL): Spoke to patient. Reports she is doing [...] helping their son flip a house in [place]. Pt has no concerns currently. Batsheva Peace [...] RN Assessment & Plan (07/22/2016 2:29 PM BENCH ASSEMBLER ELECTRICAL): Spoke to spouse today, states patient is [...] RN Assessment & Plan (05/27/2016 11:29 AM BENCH ASSEMBLER ELECTRICAL): Spoke with pt, state she is feeling [...] neurology consult scheduled with Dr. Moore at [facility], but cannot remember what [...] Chart reviewed, pt was recently in [place] [facility] and will be discharging soon. Pt has [...] IIV3 (Trivalent) F luzone Highdose, 65+ Yrs (77038) 05/01/2019,05/01/2018,05/17/2017,2015,04/30/2015,05/16/2014,04/12/2011,1 07/21/2009 Influenza IIV4 (Quadrivalent ) 0.5mL (36559) 07/19/2021 Influenza IIV4 (Quadrivalent ) Fluad, 65+ [...] Comments Blood Pressure 122/70 06/09/2023 2:02 PM BENCH ASSEMBLER ELECTRICAL Pulse 72 06/09/2023 2:02 PM BENCH ASSEMBLER ELECTRICAL Temperature 36.1 C (97 F) 05/05/2023 10:18 AM CDT Respiratory Rate 14 12/29/2022 9:03 AM CDT Oxygen Saturation 97% 05/05/2023 10: 18 AM CDT Inhaled Oxygen Concentration - - Weight 67.5 kg (148 lb 12.8 oz) 06/09/2023 2:02 PM BENCH ASSEMBLER ELECTRICAL Height 154.3 cm (5' 0.75) 11/14/2022 1 [...] BASIC METABOLIC PANEL Routine 06/09/2023 1:40 PM BENCH ASSEMBLER ELECTRICAL Essential hypertension (HRC) 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) HGB A1C Routine 06/09/2023 1:40 PM BENCH ASSEMBLER ELECTRICAL Diabetes mellitus with stage 3 chronic kidney [...] Results * (ABNORMAL) BMP (06/09/2023 1:40 PM BENCH ASSEMBLER ELECTRICAL) Sodium 137 136 - 145 mmol/L 06/09/2023 6:21 PM BENCH ASSEMBLER ELECTRICAL [facility] Potassium 3.8 3.5 - 5.1 mmol/L 06/09/2023 6:21 PM BENCH ASSEMBLER ELECTRICAL [facility] Chloride 107 98 - 109 mmol/L 06/09/2023 6:21 PM BENCH ASSEMBLER ELECTRICAL [facility] CO2 20 20 - 29 mmol/L 06/09/2023 6:21 PM BENCH ASSEMBLER ELECTRICAL [facility] Anion Gap 10 7 - 16 mmol/L 06/09/2023 6:21 PM [facility] Calcium 9.4 8.4 - 10.4 mg/dL 06/09/2023 6:21 PM [facility] BUN 16 7 - 26 mg/dL 06/09/2023 6:21 PM [facility] Creatinine 1.01 0.55 - 1.02 mg/dL 06/09/2023 6:21 PM [facility] Glucose 113(H) 70 - 100 mg/dL 06/09/2023 6:21 PM [facility] Comment:The given reference range is for the fasting state. Non-fasting reference range for glucose is 70 - 180 mg/dL. GFR, Estimated 57(L) >60 mL/min/1. 73m2 06/09/2023 6:21 PM [facility] Hours Fasting 4.0 8 - 12 Hours 06/09/2023 6:21 PM [facility] Blood Venipuncture / Unknown 06/09/2023 1:40 PM BENCH ASSEMBLER ELECTRICAL 06/09/2023 1:40 PM [facility] Narrative [facility] - 06/09/2023 6:21 PM BENCH ASSEMBLER ELECTRICAL The National Kidney Disease Education Program suggests measuring Cystatin C in patients with eGFRcrea of 45 to 59 ml/min/1.73^2 who do not have other markers of kidney damage (i.e. elevated urine Albumin/Creatinine Ratio or a prior Cystatin C confirming the presence of chronic kidney disease). us Antionette Day DNP, SQL DEVELOPER DBA, FOREIGN POLICY OFFICER LAB_1 Mady osborne Result [facility] [address] [address], [facility] [phone] [facility] [address] [place] [address], [facility] [phone] * (ABNORMAL) Hgb A1C (Expected: Now) - Collect in Lab (06/09/2023 1:40 PM BENCH ASSEMBLER ELECTRICAL) Hemoglobin A1C 8.5(H) <=5.6 % 06/09/2023 6:38 PM BENCH ASSEMBLER ELECTRICAL [facility] Estimated Average Glucose (Calc) 197 < 117 mg/dL 06/09/2023 6:38 PM [facility] Comment:Estimated average gl ucose (eAG) converts A1c into glucose units (mg/dL) and estimates average glucose over the past approximately 3 months. The eAG reference interval (<117 mg/dL) corresponds to an A1c of <5.7%. Blood Venipuncture / Unknown 06/09/2023 1:40 PM BENCH ASSEMBLER ELECTRICAL 06/09/2023 1:40 PM BENCH ASSEMBLER ELECTRICAL Narrative [facility] - 06/09/2023 6:38 PM BENCH ASSEMBLER ELECTRICAL For patients not previously diagnosed with diabetes: 5.7-6.4%: Increased risk for diabetes 6.5% and greater: Diagnostic for diabetes For patients diagnosed with diabetes: <8.0%: Goal of therapy for ages 18-75 Clinicians may recommend a higher or lower goal for specific individuals. us Antionette Day DNP, SQL DEVELOPER DBA, FOREIGN POLICY OFFICER LAB_[address] [facility] [address] [place] [address], [facility] [phone] * (ABNORMAL) Lipid Panel and Direct LDL(If Needed) (03/22/2023 2:52 PM CDT) Cholesterol 188 0 - 199 mg/dL 03/22/2023 9:45 PM T [facility] Triglyceride 297(H) <=149 mg/dL 03/22/2023 9:45 PM T [facility] HDL Cholesterol 55 >=40 mg/dL 03/22/2023 9:45 PM T [facility] LDL, Calculated 74 <130 mg/dL 03/22/2023 9:45 PM T [facility] Non HDL Chol, Calculated 133 <=159 mg/dL 03/22/2023 9:45 PM [facility] Cholesterol/HDL Ratio 3.4 03/22/2023 9:45 PM [facility] Hours Fasting 19.0 8 - 12 Hours 03/22/2023 9:45 PM CDT [facility] Blood Venipuncture Butterfly / Unknown 03/22/2023 2:52 PM CDT 03/22/2023 2:53 PM CDT Antionette Day DNP, SQL DEVELOPER DBA, LORENZO LAB_1 Mady osborne Result Performing Organization Address City/[facility]/ZIP Co de Phone Number [facility] [address] [place] [address], [facility] [phone] [facility] [address] [place] [address], [facility] [phone] * (ABNORMAL) Albumin/Creatinine Ratio,Random Urine (12/29/2022 8:27 AM CDT) Albumin/Creati nine Ratio, Urine, Random 77(H) <30 mg/g 12/29/2022 3:59 PM CDT [facility] Albumin, Urine, Random 15.3 mg/L 12/29/2022 3:59 PM CDT [facility] Creatinine, Urine, Random 20(L) >20 mg/dL mg/dL 12/29/2022 3:59 PM CDT [facility] Urine Non-blood Collection / Unknown 12/29/2022 8:27 AM CDT 12/29/2022 8:27 AM CDT Luz Dumont APRN, CNP LAB_1 Final R esult Performing Organization Address City/[facility]/ZIP Co de Phone Number [facility] [address] [address], [facility] [phone] * BRETT (DIABETIC EYE EXAM) (01/04/2022) Luz [...] again SCREENING FOR OSTEO, HOLD CALCIUM Indication:Hyperparathyroidism Bowling Floor Manager and Model of Instrument: AXON Ghost Sentinel Demographics Age: 70 y.o. Gender: female Height [...] RAD DEXA Final Resu lt * COLONOSCOPY [[id number]] (12/09/2015 8:17 AM CDT) 12/09/2015 8:17 AM [...] and oxygen saturations were monitored continuously. The [id number] was introduced through the anus and advanced [...] endoscopy today. Procedure Code(s): --- Professional --- 38545 --- Technical --- 47391 Diagnosis Code(s): --- Professional --- D50.9 K64.4 --- Technical --- D50.9 K64.4 CPT copyright 2014 [employer]. All rights reserved. The codes documented in this report are preliminary and upon recreational assistant review may be revised to meet current compliance requirements. Attending Participation: Zabrina Hunt MD 12/09/2015 9:34:25 AM Number of Addenda: 0 Note Initiated On: 12/09/2015 8:17 AM Procedure Note Zabrina uHnt MD - 12/09/2015 Indications: Iron deficiency anemia [...] and oxygen saturations were monitored continuously. The [id number] was introduced through the anus and advanced [...] endoscopy today. Procedure Code(s): --- Professional --- 40998 --- Technical --- 10259 Diagnosis Code(s): --- Professional --- D50.9 K64.4 --- Technical --- D50.9 K64.4 CPT copyright 2014 [employer]. All rights reserved. The codes documented in this report are preliminary and upon recreational assistant review may be revised to meet current compliance requirements. Attending Participation: Zabrina Hunt MD 12/09/2015 9:34:25 AM Number of Addenda: 0 Note Initiated On: 12/09/2015 8:17 AM Zabrina Hunt MD DIGESTIVE CARE Final Result [facility] ([facility]) [place], [place] from Last 3 Months or Most Recently Relevant to Health Maintenance Insurance [facility] MEDICARE ADVANTAGE Care Teams Applications Engineering Manager Relationship Specialty Start Date End Date Antionette Day, DNP, SQL DEVELOPER DBA, FOREIGN POLICY OFFICER [address] [place] [address] PCP - General Nurse Practitioner 01/02/23
--- OUTSIDE RECORDS SUMMARY | 2025-04-04 00:41 | XMS_ITS | Encounter Summary ---
Author Organization [facility] Address [address], [place] [address] Care Team Providers Care Can Slider Name Role Phone Antionette Day DNP, FLASK CARRIER, FURNACE MECHANIC HELPER Primary Care Provid er Encounter Details Date Type Department Care Team ([facility] st Contact Info) Description 06/14/2016 Correspondence [facility] [address] [place], [place] [phone] Alex Fisher MD [address] [place] [address] [phone] PLAN OF CARE Social History Tobacco Use [...] on filedocumented in this encounter Care Teams Can Slider Relationship Specialty Start Date End Date Antionette Day DNP, FLASK CARRIER, FURNACE MECHANIC HELPER [address] [place] [address] [phone] PCP - General Nurse Practitioner 01/02/23 documented as of this encounter
--- OUTSIDE RECORDS SUMMARY | 2025-04-04 00:41 | XMS_ITS | Encounter Summary ---
Author Organization [facility] Address [address] [place] [address] Care Team Providers Care Stucco Applicator Name Role Phone Antionette Day DNP, BOAT CARPENTER MECHANIC, COTTON GROWER Primary Care Provid er Encounter Details Date Type Department Care Team ([facility] st Contact Info) Description 06/15/2016 Correspondence [facility] [address] [place] [address] Alex Fisher MD [address] [place] [address] DOC FACE TO FACE ENCOUNTER ALLINA [...] on filedocumented in this encounter Care Teams Stucco Applicator Relationship Specialty Start Date End Date Antionette Day DNP, BOAT CARPENTER MECHANIC, COTTON GROWER [address] [place] [address] PCP - General Nurse Practitioner 01/02/23 documented as of this encounter
--- OUTSIDE RECORDS SUMMARY | 2025-04-04 00:41 | XMS_ITS | Encounter Summary ---
Author Organization [facility] Address [address] [address] Care Team Providers Care Financial Systems Analyst Name Role Phone Antionette Day DNP, INDEPENDENT CROP CONSULTANT, HOT POND OPERATOR Primary Care Provid er Encounter Details Date Type Department Care Team ([facility] st Contact Info) Description 06/03/2016 Correspondence [facility] [address] [place], [place] [phone] Alex Fisher MD [address] [place] [address] [phone] MEDICATIONS Social History Tobacco Use Types Packs/Day [...] on filedocumented in this encounter Care Teams Financial Systems Analyst Relationship Specialty Start Date End Date Antionette Day DNP, INDEPENDENT CROP CONSULTANT, HOT POND OPERATOR [address] [place] [address] [phone] (work) PCP - General Nurse Practitioner 01/02/23 documented as of this encounter
--- OUTSIDE RECORDS SUMMARY | 2025-04-04 00:42 | XMS_ITS | Encounter Summary ---
Author Organization [facility] Address [address], [place] [address] Care Team Providers Care Advertising Display Rotator Name Role Phone Antionette Day DNP, AERONAUTICAL DESIGN ENGINEER, SHOP AND ALTERATION TAILOR Primary Care Provid er Encounter Details Date Type Department Care Team (Late st Contact Info) Description 03/31/2019 Correspondence External to External, [place] [address] RETROSPECTIVE DRUG UTILIZATION REVIEW Social History Tobacco [...] on filedocumented in this encounter Care Teams Advertising Display Rotator Relationship Specialty Start Date End Date Antionette Day DNP, AERONAUTICAL DESIGN ENGINEER, SHOP AND ALTERATION TAILOR [address] [place] [address] PCP - General Nurse Practitioner 01/02/23 documented as of this encounter
--- OUTSIDE RECORDS SUMMARY | 2025-04-04 00:42 | XMS_ITS | Encounter Summary ---
Author Organization [facility] Address [address] [place] [address] Care Team Providers Care Software Developer Consultant Name Role Phone Antionette Day DNP, MACHINE TOOL OPERATOR, PORTABLE GRINDING MACHINE OPERATOR Primary Care Provid er Encounter Details Date Type Department Care Team (Latest Contact Info) Description 12/09/2015 Consent for Procedure/Treatm ent [facility] [address] [place] [address] Zabrina Hunt MD [address] [phone] INFORMED CONSENT FOR TREATMENTS OR [...] filedocumented in this encounter Care Teams Software Developer Consultant Relationship Specialty Start Date End Date Antionette Day DNP, MACHINE TOOL OPERATOR, PORTABLE GRINDING MACHINE OPERATOR [address] [place] [phone] PCP - General Nurse Practitioner 01/02/23 documented as of this encounter
--- OUTSIDE RECORDS SUMMARY | 2025-04-04 00:42 | XMS_ITS | Encounter Summary ---
Author Organization [facility] Address [address], [place] [address] Care Team Providers Care Paper Counter Name Role Phone Antionette Day DNP, HISTORICAL SOCIETY DIRECTOR, CARPENTERS Primary Care Provid er Encounter Details Date Type Department Care Team (Late st Contact Info) Description 03/09/2018 Correspondence External to External, [place] [address] MEDICATION ADHERENCE PROGRAM Social History Tobacco Use [...] on filedocumented in this encounter Care Teams Paper Counter Relationship Specialty Start Date End Date Antionette Day DNP, HISTORICAL SOCIETY DIRECTOR, CARPENTERS [address] [place] [address] PCP - General Nurse Practitioner 01/02/23 documented as of this encounter
--- OUTSIDE RECORDS SUMMARY | 2025-04-04 00:42 | XMS_ITS | Encounter Summary ---
Author Organization [facility] Address [address], [place] [address] Care Team Providers Care Medical Technologist Prn Name Role Phone Antionette Day DNP, POWER SUPPLY ENGINEER, NUMERICAL TOOL PROGRAMMER Primary Care Provid er Encounter Details Date Type Department Care Team (Late st Contact Info) Description 08/29/2019 Correspondence External to External, [place] [address] RETROSPECTIVE DRUG UTILIZATION REVIEW Social History Tobacco [...] on filedocumented in this encounter Care Teams Medical Technologist Prn Relationship Specialty Start Date End Date Antionette Day DNP, POWER SUPPLY ENGINEER, NUMERICAL TOOL PROGRAMMER [address] [place] [address] PCP - General Nurse Practitioner 01/02/23 documented as of this encounter
--- OUTSIDE RECORDS SUMMARY | 2025-04-04 00:42 | XMS_ITS | Clinical Summary ---
Author Organization [employer] [facility] Address [address] [place] [address] Care Team Providers Care Galvanometer Assembler Name Role Phone Jonathan Mcdonnell MD Unavailable [phone] Augusto Serrato Unavailable [phone] Jose G Iqbal Unavailable Rae Llanes MD Primary Care Prov ider [facility] Care, Branch Unavailable [phone] Allergies Active Allergy Reactions Criticality Noted Date [...] In Comment Field High 01/30/2007 Abdominal pain [place] Oil Rash 01/25/2008 [place] fish when eaten Simvastatin Muscle Weakness High [...] enteric coated tabletIndications :Coronary artery disease involving asa'carsarmiut coronary artery of asa'carsarmiut heart, unspecified whether angina present Take 1 [...] Overview (09/15/2021): dual-chamber pacemaker placed 09/15/2021 at [facility] Assessment & Plan (10/23/2024 3:02 PM CDT): Date of last device in office evaluation: 10/23/2024 Following clinic: [facility] ? Second Steward and model: Medtronic Lizbeth Pacemaker. Date of [...] office evaluation: 01/02/2023 Following clinic: [facility] ? Second Steward and model: Medtronic Lizbeth Pacemaker. Date of [...] 04/03/2025 11:00 AM CDT Home Care Visit Counts Include [address] [facility] [address] [facility] [place] [address] Karishma Zendejas, PT PT - HOME VISIT 04/03/2025 9:00 AM CDT Home Care Visit Counts Include [facility] [address] [place] [address], [place] [address] Triny Rainey CONTRERAS OT - HOME VISIT 04/03/2025 Home Care Visit Counts Include [address] [facility] [address] [place] [address], [place] [address] Triny Rainey CONTRERAS CARE COORDINATION 03/31/2025 1:15 PM CDT Home Care Visit Counts Include [address] [facility] [address] [place] [phone] Karishma Zendejas, PT PT - HOME VISIT 03/31/2025 Refill [facility] [address] [place] [address] Rae Llanes MD Refill Request (fexofenadine (Allergy Relief (fexofenadine)) 180 mg tablet) 03/31/2025 Home Care Visit Counts Include [address] [facility] [address] [place] [phone] Karishma Zendejas, PT CARE COORDINATION 03/27/2025 8:30 AM CDT Home Care Visit Counts Include [address] [facility] [address] [place] [phone] Elza Bolaños, OT OT - INITIAL ASSESSMENT 03/27/2025 Home Care Visit Counts Include [address] [facility] [address] [place] [address], [place] [address] Elza Bolaños OT CARE COORDINATION 03/26/2025 10:00 AM CDT Home Care Visit Counts Include [address] [facility] [address] [place] [phone] Amada Delcid, CREAM BUYER PT - HOME VISIT 03/26/2025 Telephone [facility] [address] [place] [address] Rae Llanes MD Blood Pressure 03/24/2025 3:15 PM CDT Home Care Visit Counts Include [address] [facility] [address] [place] [address] Karishma Zendejas, PT PT - HOME VISIT 03/24/2025 Home Care Visit Counts Include [address] [facility] [address] [place] [address] Karishma Zendejas, PT CARE COORDINATION 03/21/2025 10:30 AM CDT Home Care Visit Counts Include [address] [facility] [address] [place] [address] Gilbert Aguirre, PT PT - OASIS START OF CARE 03/21/2025 Plan of Care Documentation Counts Include [address] [facility] [address] [place] [address], [place] [address] 03/19/2025 2:40 PM CDT Office Visit [facility] [address] [place] [address] Rae Llanes MD Follow Up; 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 ) 03/19/2025 Anticoagulation (warfarin) [facility] [address] [place] [address] Nurse, Amos Anticoag Anticoagulation ([facility]) 03/19/2025 Travel 03/14/2025 Telephone [facility] [address] [place] [address] Rae Llanes MD Blood Pressure 03/13/2025 Refill [facility] [address] [place] [address] Rae Llanes MD Refill Request (Fexofenadine, Furosemide, Cyanocobalamin) 03/12/[address] [place] [address] Rae Llanes MD Questions 03/08/2025 Orders Only [facility] Scanner 1 scan: (1-Ord) [facility], CT HEAD/BRAIN WO CONTRAST, 03/08/2025 03/07/2025 Orders Only [facility] Scanner 1 scan: (1-Ord) [facility], XR RT KNEE 3V, 03/07/2025 03/07/2025 Orders Only [facility] Scanner 1 scan: (1-Ord) [facility], CT HEAD/BRAIN W/O, 03/07/2025 03/07/2025 Orders Only [facility] Scanner 1 scan: (1-Ord) [facility], XR SHOULDER RT MIN 2V, 03/07/2025 03/07/2025 Orders Only [facility] Scanner 1 scan: (1-Ord) [facility], CT CERVICAL SPINE W/O, 03/07/2025 02/18/2025 Anticoagulation (warfarin) [facility] [address] [place] [address] Nurse, Ahg Anticoag Anticoagulation 02/17/2025 3:30 PM CDT Office Visit [facility] [address] [place] [address] Rae Llanes MD Hypertension Care Management 02/17/2025 Telephone [facility] [address] [place] [address] Rae Llanes MD Blood Pressure (Readings) 02/17/2025 Travel 02/12/2025 Refill [facility] [address] [place] [address] Rae Llanes MD Refill Request (Fluoxetine) 02/10/2025 Telephone [facility] [address] [place] [address] Jose Mooney MD Update 02/05/2025 Refill [facility] [address] [place] [address] Rae Llanes MD Refill Request (Poleth Glyc POW) 02/05/2025 Procedure Only [facility] [address] [place] [address] [place] Vizcarra Remote Device Check (Remote Medtronic PPM/) 02/03/2025 Telephone [facility] [address] [place] [address] Rae Llanes MD Follow Up 01/30/2025 Telephone [facility] [address] [place] [address] Jose Mooney MD Follow Up 01/25/2025 3:30 PM CDT Office Visit [facility] [address] [place] [address] Johanna Fishman NP Dysuria (X 1 week, lower back pain. ) 01/25/2025 Travel 01/22/2025 Anticoagulation (warfarin) [facility] [address] [place] [address] NurseAmos Anticoag Anticoagulation (Lab only/) 01/21/2025 3:15 PM CDT Orders Only [facility] [address] [facility] [place] [address] Lab, Farm Lab 01/21/2025 Travel 01/21/2025 Telephone [place] [address] [place] [address] Rae Llanes MD Medication Management (carvediloL 12.5 mg tablet) 01/20/2025 Refill [facility] [address] [place] [address] Rae Llanes MD Refill Request (Omeprazole) 01/16/2025 Anticoagulation (warfarin) [facility] [address] [place] [address] Nurse, Amos Anticoag Anticoagulation (Chart update) 01/16/2025 Telephone [facility] [address] [place] [address] Rae Llanes MD Refill Request (Anti Diarrhea 2mg) 01/10/2025 Telephone [facility] [address] [place] [address] Rae Llanes MD Care Coordination (Orthostatic blood pressure) 01/08/2025 Refill [facility] [address] [place] [address] Carin Johnson, Refill Request (Fluticasone) 01/08/2025 Nurse Triage [facility] [address] [place] [address] Rae Llanes MD Other (Patient had a fall ) 01/06/2025 Refill [facility] [address] [place] [address] Rae Llanes MD Refill Request (Acetamin 500mg caplets) 01/04/2025 Anticoagulation (warfarin) [address] [address] 1, [facility]ticoagulation ([facility]) 01/03/2025 1:30 PM CDT Orders Only [address] [address] Lab, [place] [facility] 01/03/[address] [address] Rae Llanes MD Refill Request (Polyeth Glyc) [...] on file Legal Sex Female 5:39 AM [employer] Gender Identity Not on file Sexual Orientation Not on file 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 Not on file Not [...] 04/08/2025 10:15 AM CDT Home Care Visit [facility] [address] [place] [phone] Karishma Zendejas, PT [address] [place] [address] 04/10/2025 4:00 AM CDT Home Care Visit Counts Include [address] [facility] [address] [place] [phone] Triny Rainey COTA [address] [place] [address] 04/15/2025 3:00 AM CDT Home Care Visit Counts Include [address] [facility] [address] [place] [phone] Karishma Zendejas, PT [address] [place] [address] 04/15/2025 4:00 AM CDT Home Care Visit Counts Include [address] [facility] [address] [place] [phone] Elza Bolaños, OT [address] [place] [address] Health Maintenance Due Date Last Done Comments [...] age 65+ Com[facility] 2015 [facility] Pneumococcal series for age 50+ Completed 10/06/2016, 11/28/2008, 05/02/2003 RSV vaccine for adults or Completed 03/22/2023 Hepatitis B series for 19+ Aged Out N o longer eligible based on patient's age to complete this topic Medical Devices Implanted Type Area Second Steward Device Identifier Shelf Expiration Date Model / Serial / Lot Patella Sigma 32mm Oval/[id number] J&Jortho - [id number] Implanted:Qty: 1 on 01/30/2008 at [facility] Ortho Total Joint Right: Knee Sindi [employer] 08/17/2012 96-0100# / / [id number] Description:CHECKED JI Cmnt Bone Palacos R - [id number] Implanted:Qty: 1 on 01/30/2008 at [facility] Right: Knee [employer] 06/16/2012 1112-140-0 1# / / [id number] Description:CHECKED JI Cmnt Bone Palacos R - [id number] Implanted:Qty: 1 on 01/30/2008 at [facility] Right: Knee [employer] 04/16/2012 1112-140-0 1# / / [id number] Description:CHECKED JI Implnt Fem Cruciate Sub Sz2.5 Rt Open Bx - [id number] Implanted:Qty: 1 on 01/30/2008 at [facility] Right: Knee DEPUY 05/17/2017 91282-61# / / [id number] Description:CHECKED JI Ty Tib Modular Cmnt Cocr 95824-45-126 - [id number] Implanted:Qty: 1 on 01/30/2008 at [facility] Right: Knee DEPUY 05/17/2017 0# / / [id number] Description:CHECKED JI Insert Gvf Sz 2 10mm Stab Sigma - [id number] Implanted:Qty: 1 on 01/30/2008 at [facility] Right: Knee DEPUY 12/15/2008 0# / / [id number] Description:CHECKED JI Explanted Type Area Second Steward Device Identifier Shelf Expiration Date Model / Serial / Lot Stent Inlay [id number] - [id number] Implanted:Qty: 1 on 08/20/2008 at [facility] Explanted:Qty: 1 on 04/01/2019 by Ephraim Mcfadden MD at [facility] Left: Ureter [employer] 01/14/2013 [id number]# / / [id number] Stent Inlay [id number] - [id number] Implanted:Qty: 1 on 10/15/2009 at [facility] Explanted:Qty: 1 on 04/01/2019 by Ephraim Mcfadden MD at [facility] Right: Ureter [employer] 03/17/2014 [id number]# / / [id number] Description:NO STICKER...SK Stent Uret [id number] Percuflex [place] Plus - [id number] Implanted:Qty: 2 on 03/02/2019 by Ephraim Mcfadden MD at [facility] Explanted:Qty: 2 on 04/01/2019 by Ephraim Mcfadden MD at [facility] Bilateral: Ureter [facility] 11/27/2021 175-552# / / [id number] Description:NO STICKER SJ Procedures Procedure Name Priority [...] Months Results * (ABNORMAL) INR - POCT [30637.2] - Standing Order (03/19/2025 3:44 PM CDT) Only the most recent of4 resultswithin the time period is included. INR 3.9(H) ratio 03/19/2025 3:57 PM CDT [facility] Comment: INRs >2.9 may be falsely elevated [...] - 13.1 sec 03/19/2025 3:57 PM CDT [facility] Comment: Point of care fingerstick Prothrombin Time/INR results may vary from venous Prothrombin Time/INR methodologies. Any results exhibiting inconsistency with the patient's clinical status should be repeated using a venous Prothrombin Time/INR method. Blood BLOOD SPECIMEN / Unknown [facility] / Unknown 03/19/2025 3:44 PM CDT 03/19/2025 3:45 PM CDT us Rae Llanes MD LABORATORY Fi nal Result [facility] [place] [address] [place] [address], [place] [phone] [facility] [address] [place] [address], [place] [phone] * SCAN-CT INTERPRETATION (03/08/2025 12:00 AM CDT) [...] 11.0 thou/cu mm 01/25/2025 5:02 PM CDT [facility] RED BLOOD COUNT 4.00 4.00 - 5.20 mil/cu mm 01/25/2025 5:02 PM CDT [facility] HEMOGLOBIN 11.5(L) 12.0 - 16.0 g/dL 01/25/2025 5:02 PM CDT [facility] HEMATOCRIT 37.8 33.0 - 51.0 % 01/25/2025 5:02 PM [facility] MCV 95 80 - 100 fL 01/25/2025 5:02 PM [facility] MCH 28.8 26.0 - 34.0 pg 01/25/2025 5:02 PM [facility] MCHC 30.4(L) 32.0 - 36.0 g/dL 01/25/2025 5:02 PM [facility] RDW 14.3 11.5 - 15.5 % 01/25/2025 5:02 PM [facility] PLATELET COUNT 364 140 - 440 thou/cu mm 01/25/2025 5:02 PM [facility] MPV 9.9 6.5 - 11.0 fL 01/25/2025 5:02 PM [facility] % NEUT 60.3 % 01/25/2025 5:02 PM [facility] % LYMPH 21.6 % 01/25/2025 5:02 PM [facility] % MONO 11.0 % 01/25/2025 5:02 PM [facility] % EOS 6.3 % 01/25/2025 5:02 PM [facility] % BASO 0.8 % 01/25/2025 5:02 PM [facility] ABSOLUTE NEUTROPHILS 3.8 1.7 - 7.0 thou/cu mm 01/25/2025 5:02 PM [facility] ABSOLUTE LYMPHOCYTES 1.3 0.9 - 2.9 thou/cu mm 01/25/2025 5:02 PM [facility] ABSOLUTE MONOCYTES 0.7 <0.9 thou/cu mm 01/25/2025 5:02 PM [facility] ABSOLUTE EOSINOPHILS 0.4 <0.5 thou/cu mm 01/25/2025 5:02 PM [facility] ABSOLUTE BASOPHILS 0.1 <0.3 thou/cu mm 01/25/2025 5:02 PM [facility] Blood BLOOD SPECIMEN / Unknown [facility] / Unknown 01/25/2025 4:24 PM CDT 01/25/2025 4:24 PM CDT Johanna Fishman ANIMATOR HEMATOLOGY Final Result Performing Organization Address City/[facility]/ZIP Co de Phone Number [facility] [address] [place] [address] * LACTATE VENOUS (01/25/2025 4:24 PM CDT) LACTATE,VENOUS 1.4 0.5 - 2.0 mmol/L 01/25/2025 5:20 PM CDT [facility] Blood BLOOD SPECIMEN / Unknown [facility] / Unknown 01/25/2025 4:24 PM CDT 01/25/2025 4:24 PM CDT Johanna Fishman ANIMATOR CHEMISTRY Final Result Performing Organization Address [facility]/ZIP Co de Phone Number [facility] [address] [place] [address] * (ABNORMAL) BASIC METABOLIC PANEL (01/25/2025 4:24 PM CDT) SODIUM 140 136 - 145 mmol/L 01/25/2025 5:44 PM T [facility] POTASSIUM 4.7 3.5 - 5.1 mmol/L 01/25/2025 5:44 PM [facility] CHLORIDE 105 98 - 107 mmol/L 01/25/2025 5:44 PM [facility] CO2,TOTAL 21(L) 22 - 29 mmol/L 01/25/2025 5:44 PM [facility] ANION GAP 14 5 - 18 01/25/2025 5:44 PM [facility] GLUCOSE 103(H) 70 - 99 mg/dL 01/25/2025 5:44 PM [facility] CALCIUM 9.4 8.8 - 10.4 mg/dL 01/25/2025 5:44 PM [facility] Comment: Reference ranges for this test were updated on 05/21/2024 to reflect our healthy population more accurately. Reference range changes are not retroactively applied to results, but previous results using the same methodology can be interpreted in the context of the new reference range. BUN 28(H) 8 - 23 mg/dL 01/25/2025 5:44 PM T [facility] CREATININE 1.24(H) 0.50 - 0.90 mg/dL 01/25/2025 5:44 PM [facility] BUN/CREAT RATIO 23(H) 10 - 20 5:44 PM [facility] eGFR 44(L) >90 mL/min/1. 73m2 01/25/2025 5:44 PM [facility] Comment:As of 2021, eG FR is [...] us Johanna Fishman NP CHEMISTRY Final Result [facility] [address] [place] [address] * (ABNORMAL) URINALYSIS MICROSCOPIC (01/25/2025 3:32 PM CDT) RBC 0-2 0-2, None Seen /HPF 01/25/2025 4:02 PM T [facility] WBC 11-25(A) 0-2, 3-5, None Seen /HPF 01/25/2025 4:02 PM [facility] BACTERIA Many(A) None Seen, Rare, Few Bacteria/H PF 01/25/2025 4:02 PM T [facility] EPITHELIAL CELLS Few None Seen, Few Epi/HPF 01/25/2025 4:02 PM [facility] Urine URINE SPECIMEN / Unknown Non-Blood / Unknown 01/25/2025 3:32 PM CDT 01/25/2025 3:43 PM CDT Johanna Fishman ANIMATOR URINE Final Result [facility] [address] [place] [address] * (ABNORMAL) URINE CULTURE [43950.2] - routine (01/25/2025 3:32 PM CDT) CULTURE RESULT(A) 01/27/2025 7:05 AM CDT [facility] CULTURE >100,000 CFU/mL Klebsiella variicola 01/27/2025 7:05 AM CDT [facility] Urine URINE SPECIMEN / Unknown [...] Klebsiella variicola NITROFURANTOIN 32: S Johanna Fishman ANIMATOR MICROBIOLOGY Final Result [facility] [address] [place] [address], * (ABNORMAL) UA W/ SEDIMENT EXAM REFLEXED PER CRITERIA [56912.2] (01/25/2025 3:32 PM CDT) COLOR Yellow Yellow Color 01/25/2025 3:59 PM CDT [facility] CLARITY Clear Clear Clarity 01/25/2025 3:59 PM CDT [facility] SPECIFIC GRAVITY,URINE 1.015 1.010, 1.015, 1.020, 1.025 01/25/2025 3:59 PM T [facility] PH,URINE 5.5 6.0, 7.0, 8.0, 5.5, 6.5, 7.5, 8.5 01/25/2025 3:59 PM T [facility] UROBILINOGEN, QUALITATIVE Normal Normal EU/dl 01/25/2025 3:59 PM T [facility] PROTEIN, URINE Negative Negative mg/dL 01/25/2025 3:59 PM T [facility] GLUCOSE, URINE Negative Negative mg/dL 01/25/2025 3:59 PM T [facility] KETONES,URINE Negative Negative mg/dL 01/25/2025 3:59 PM T [facility] BILIRUBIN,URI NE Negative Negative 01/25/2025 3:59 PM T [facility] OCCULT BLOOD,URINE Negative Negative 01/25/2025 3:59 PM T [facility] NITRITE Positive(A) Negative 01/25/2025 3:59 PM T [facility] LEUKOCYTE ESTERASE Large(A) Negative 01/25/2025 3:59 PM [facility] Urine URINE SPECIMEN / Unknown Non-Blood / Unknown 01/25/2025 3:32 PM CDT 01/25/2025 3:43 PM CDT Johanna Fishman NP URINE Final Result [facility] [address] [place], [place] [id number] from Last 3 Months Additional Health Concerns Infection Onset Date Last Indicated MRSA Clearance Comment:Infection Control Note: Hx of MRSA, surveillance criteria met, no need for further testing or isolation precautions. Do not delete or resolve the Infection Flag. 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 07/05/2024 Healthcare Directive 01/30/2008 [...] Code Status Discussion: Reviewed Preferences Care Teams Galvanometer Assembler Relationship Specialty Start Date End Date Rae Llanes MD [address] [place] [address] PCP - General Family Practice 03/19/24 Jonathan Mcdonnell MD [address] [place] [address] Cardiology Cardiology - Interventional 10/06/21 Augusto Serrato PA [address] [place] [address] Physician's Turntable Operator Physician Turntable Operator 01/03/23 Jose G Iqbal COTA [address] [place] [address] Occupational Therapy 09/25/23 [facility], Branch [address] [place] [address] 04/01/25
--- OUTSIDE RECORDS SUMMARY | 2025-04-04 00:42 | XMS_ITS | Encounter Summary ---
Author Organization [facility] Address [address] [address] Care Team Providers Care Track Repair Worker Name Role Phone Antionette Day DNP, ABSORPTION OPERATOR, SPEECH THERAPIST TECHNICIAN Primary Care Provid er Encounter Details Date Type Department Care Team (Late st Contact Info) Description 09/02/2019 Correspondence External to External, [place] [address] RETROSPECTIVE DRUG UTILIZATION REVIEW Social History Tobacco [...] on filedocumented in this encounter Care Teams Track Repair Worker Relationship Specialty Start Date End Date Antionette Day DNP, ABSORPTION OPERATOR, SPEECH THERAPIST TECHNICIAN [address] [place] [address] PCP - General Nurse Practitioner 01/02/23 documented as of this encounter
--- OUTSIDE RECORDS SUMMARY | 2025-04-04 00:42 | XMS_ITS | Encounter Summary ---
Author Organization [facility] Address [address] [address] Care Team Providers Care Top Collar Baster Name Role Phone Antionette Day DNP, POKER IN, FLIGHT OPERATIONS INSPECTOR Primary Care Provid er Encounter Details Date Type Department Care Team (Latest Contact Info) Description 12/09/2015 Correspondence [facility] at [address] [place] [address] Zabrina Hunt MD [address] [address] INSTRUCTIONS AFTER COLONOSCOPY Social History [...] on filedocumented in this encounter Care Teams Top Collar Baster Relationship Specialty Start Date End Date Antionette Day DNP, POKER IN, FLIGHT OPERATIONS INSPECTOR [address] [place] [address] PCP - General Nurse Practitioner 01/02/23 documented as of this encounter
--- OUTSIDE RECORDS SUMMARY | 2025-04-04 00:42 | XMS_ITS | Encounter Summary ---
Author Organization [facility] Address [address] [address] Care Team Providers Care Acquisition Cost Estimator Name Role Phone Antionette Day DNP, TRICK RODEO RIDER, FUR CUTTING MACHINE OPERATOR Primary Care Provid er Encounter Details Date Type Department Care Team (Late st Contact Info) Description 07/02/2019 Correspondence External to [facility], Provider DISCHAGE SUMMARY Social History [...] on filedocumented in this encounter Care Teams Acquisition Cost Estimator Relationship Specialty Start Date End Date Antionette Day DNP, TRICK RODEO RIDER, FUR CUTTING MACHINE OPERATOR [address] [place] [address] PCP - General Nurse Practitioner 01/02/23 documented as of this encounter
--- OUTSIDE RECORDS SUMMARY | 2025-04-04 00:42 | XMS_ITS | Encounter Summary ---
Author Organization [facility] Address [address] [address] Care Team Providers Care Area Operations Manager Name Role Phone nAtionette Day DNP, GUM COOK, CREATIVE STRATEGIST Primary Care Provid er Encounter Details Date Type Department Care Team ([facility] st Contact Info) Description 07/08/2019 Correspondence External to External, [place] [address] RETROSPECTIVE DRUG UTILIZATION REVIEW Social History Tobacco [...] on filedocumented in this encounter Care Teams Area Operations Manager Relationship Specialty Start Date End Date Antionette Day DNP, GUM COOK, CREATIVE STRATEGIST [address] [place] [address] PCP - General Nurse Practitioner 01/02/23 documented as of this encounter
--- OUTSIDE RECORDS SUMMARY | 2025-04-04 00:42 | XMS_ITS | Encounter Summary ---
Author Organization [facility] Address [address], [place] [address] Care Team Providers Care Bunch Maker Hand Name Role Phone Antionette Day DNP, NEEDLE GRINDER, [facility] Primary Care Provid er Encounter Details Date [...] on filedocumented in this encounter Care Teams Bunch Maker Hand Relationship Specialty Start Date End Date Antionette Day, VERONIQUE, NEEDLE GRINDER, [facility] [address] [place] [address] PCP - General Nurse Practitioner 01/02/23 documented as of this encounter
--- OUTSIDE RECORDS SUMMARY | 2025-04-04 00:42 | XMS_ITS | Encounter Summary ---
Author Organization [facility] Address [address] [address] Care Team Providers Care Long Distance Operator Name Role Phone Antionette Day DNP, MARKETING SEGMENT MANAGER, FREELANCE PATTERNMAKER Primary Care Provid er Encounter Details Date Type Department Care Team (Latest Contact Info) Description 12/09/2015 Correspondence [facility] at [address] [place] [address] Zabrina Hunt MD [address] [id number] INSTRUCTIONS AFTER UPPER ENDOSCOPY WITH [...] on filedocumented in this encounter Care Teams Long Distance Operator Relationship Specialty Start Date End Date Antionette Day DNP, MARKETING SEGMENT MANAGER, FREELANCE PATTERNMAKER [address] [place] [address] PCP - General Nurse Practitioner 01/02/23 documented as of this encounter
[2025-04-04 01:10] VITALS: TEMP 36.7
[2025-04-04] MEDS: ACETAMINOPHEN 500 MG TABLET 1000 MG PO (01:10)
[2025-04-04 01:11] VITALS: BP 168/89; PULSE 86; RESP 16; TEMP 36.7; O2SAT 96
[2025-04-04 01:12] VITALS: BP 168/89; PULSE 86; RESP 16; TEMP 36.7
--- NOTE | 2025-04-04 03:40 | ED.HEATRA ---
HPI - Head Injury General Date Seen: 04/04/25 Chief complaint: Head Injury/Pain Stated complaint: fall - hit back of head Time Seen by Provider: 04/04/25 00:24 Source: patient and family Mode of arrival: ambulatory Limitations: no limitations History of Present Illness HPI Narrative: Patient is an 79-year-old resident of a memory care unit in [facility] who was up to use the bathroom when she became lightheaded and fell backward hitting the back of her head on the garbage can. She did not lose consciousness. She denies neck pain. He does have a bump on her head that is tender. She is anticoagulated due to a previous stroke. She denies other injuries. Related Data Home Medications ?Medication ?Instructions ?Recorded ?Confirmed blood sugar diagnostic (OneTouch #10 ea 12/24/23 12/13/24 Ultra Test strips) blood-glucose meter (OneTouch #1 ea 12/24/23 12/13/24 Ultra2 Meter) carvedilol 6.25 mg tablet 12.5 mg PO BID 12/24/23 12/27/24 cyclosporine 0.05 % eye drops in a 1 drp ophthalmic (eye) Q12H 12/24/23 12/27/24 dropperette fenofibrate 160 mg tablet 160 mg PO DAILY 12/24/23 12/27/24 fluoxetine 20 mg capsule 20 mg PO BID 12/24/23 12/27/24 furosemide 20 mg tablet 20 mg PO .every other day 12/24/23 12/27/24 omeprazole 20 mg capsule,delayed 20 mg PO DAILY 12/24/23 12/27/24 release potassium chloride 10 mEq 10 meq PO .every other day 12/24/23 12/27/24 capsule,extended release sitagliptin phosphate 25 mg tablet 25 mg PO DAILY 12/24/23 12/27/24 (Januvia) warfarin 2.5 mg tablet 2.5 mg PO .Mon/Mon/Mon12/24/23 12/27/24 warfarin 5 mg tablet 5 mg PO .Sun/Tues/Thur/Sat 12/24/23 12/27/24 cholecalciferol (vitamin D3) 25 1,000 unit PO DAILY 06/23/24 12/27/24 mcg (1,000 unit) capsule (Vitamin D3) mecobalamin (vitamin B12) 1,000 1,000 mcg PO DAILY 06/23/24 12/27/24 mcg chewable tablet (B12 Active) nystatin 100,000 unit/gram topical 1 applic topical BID 06/23/24 12/27/24 powder (Klayesta) albuterol sulfate 90 mcg/actuation inhalation 07/16/24 12/13/24 aerosol inhaler calcium carbonate [Corbin-Gest PO 07/16/24 12/13/24 Antacid] dextromethorphan polistirex PO 07/16/24 12/13/24 [Robitussin ER] docusate sodium PO 07/16/24 12/13/24 ferrous sulfate 325 mg (65 mg 325 mg PO QDAY 07/16/24 12/27/24 iron) tablet fexofenadine 180 mg tablet 180 mg PO Q24H 07/16/24 12/27/24 (Allergy Relief (fexofenadine)) hydrocortisone acetate topical 07/16/24 12/13/24 lidocaine [Aspercreme (lidocaine)] topical 07/16/24 12/13/24 loperamide PO 07/16/24 12/13/24 lysine 500 mg tablet (L-Lysine) 500 mg PO QDAY 07/16/24 12/27/24 melatonin 3 mg capsule 3 mg PO ONCE 07/16/24 12/27/24 multivitamin [Tab-A-Tommie] PO 07/16/24 12/13/24 nystatin 100,000 unit/gram topical 1 applic topical QDAY 07/16/24 12/27/24 powder (Nystop) polyethylene glycol 3350 PO 07/16/24 12/13/24 propylene glycol [Systane Balance] ophthalmic (eye) 07/16/24 12/13/24 rosuvastatin 20 mg tablet 20 mg PO QPM 07/16/24 12/27/24 aspirin 81 mg tablet,delayed 81 mg PO QDAY 12/13/24 12/27/24 release (Adult Aspirin Regimen) Previous Rx's ?Medication ?Instructions ?Recorded acetaminophen 300 mg-codeine 30 mg 1 tab PO Q6H PRN pain #15 tabs 07/09/24 tablet codeine 10 mg-guaifenesin 100 mg/5 5 ml PO Q4-6H PRN cough #118 mL 07/16/24 mL oral liquid doxycycline hyclate 100 mg tablet 100 mg PO BID #14 tabs 12/13/24 Allergies Allergy/AdvReac Type Severity Reaction Status Date / Time atorvastatin (From Lipitor) Allergy Intermediate Verified 12/27/24 11:57 cephalexin Allergy Intermediate Verified 12/27/24 11:57 erythromycin base Allergy Intermediate Verified 12/27/24 11:57 Fish Containing Products Allergy Intermediate Verified 12/27/24 11:57 glyburide Allergy Intermediate Verified 12/27/24 11:57 latex Allergy Intermediate Verified 12/27/24 11:57 Macrolide Antibiotics Allergy Intermediate Verified 12/27/24 11:57 nitrofurantoin Allergy Intermediate Verified 12/27/24 11:57 simvastatin Allergy Intermediate Verified 12/27/24 11:57 Sulfa (Sulfonamide Allergy Intermediate Verified 12/27/24 11:57 Antibiotics) amoxicillin (From Augmentin) Allergy Unknown Verified 12/27/24 11:57 Anesthetics - Amide Type - Allergy Unknown Verified 12/27/24 11:57 Select A clavulanic acid (From Allergy Unknown Verified 12/27/24 11:57 Augmentin) adhesive AdvReac Unknown Verified 12/27/24 11:57 salmon Allergy Severe Anaphylaxis Uncoded 12/13/24 18:19 Review of Systems Narrative: Review of systems is outlined above otherwise noted to be negative. [facility] Medical History POLST (Physician Orders for Life-Sustaining Treatment) ?Z78.9 - Other specified health status (ICD-10) Social History Smoking Status: Never smoker Second hand tobacco smoke exposure: No How often do you have a drink containing alcohol: never How often do you have six or more drinks on one occasion: Never AUDIT-C Alcohol total score: 0 Non-prescribed substance use: denies use Exam Narrative: Exam Narrative: Vitals noted. HEENT: She has a swollen tender area at the left occiput. No bony tenderness. Conjunctiva clear. Tympanic membranes are pearly white bilaterally. No postauricular ecchymosis or hemotympanum. Posterior pharynx is clear without erythema or exudate. Neck is supple without adenopathy, thyromegaly, carotid bruit. Full range of motion of the cervical spine. No palpable tenderness. Lungs: Clear to auscultation in all cespedes. No wheezes, rales, rhonchi. Heart: Regular rate and rhythm without murmur. Extremities: No cyanosis or edema. Good distal pulses. Skin: No abnormalities noted of the exposed skin. Neurologic: Awake, alert, fully oriented. Neurologic exam is nonfocal. Const: Vital Signs, click to edit/add: Vital Signs - 24 hr 04/03/25 23:50 04/04/25 01:10 04/04/25 01:11 Temperature 98.1 F 98.1 F 98.1 F Pulse Rate [Pulse Oximeter] 84 86 Respiratory Rate 16 16 Blood Pressure [Ri ght Upper Arm] 181/80 H 168/89 H Pulse Oximetry 96 96 Oxygen Delivery Me thod Room Air Room Air 04/04/25 01:12 Temperature 98.1 F Pulse Rate [Pulse Oximeter] 86 Respiratory Rate 16 Blood Pressure [Ri ght Upper Arm] 168/89 H Pulse Oximetry Oxygen Delivery Me thod Course Course ED Course: Patient seen and examined. CT of her head without contrast is normal. CT of her cervical spine without contrast is also normal. CBC shows a hemoglobin of 11.7. INR is 2.86. Vital Signs Vital signs: Initial Vital Signs Temperature 98.1 F 04/03/25 23:50 Temperature Source Temporal Artery Scan 04/03/25 23:50 Pulse Rate 84 04/03/25 23:50 Respiratory Rate 16 04/03/25 23:50 Blood Pressure 181/80 H 04/03/25 23:50 Blood Pressure Mean 113 H 04/03/25 23:50 Blood Pressure Position Sitting 04/03/25 23:50 Pulse Oximetry 96 04/03/25 23:50 Oxygen Delivery Method Room Air 04/03/25 23:50 Vital Signs Temperature 98.1 F 04/03/25 23:50 Pulse Rate 84 04/03/25 23:50 Respiratory Rate 16 04/03/25 23:50 Blood Pressure 181/80 H 04/03/25 23:50 Pulse Oximetry 96 04/03/25 23:50 Oxygen Delivery Method Room Air 04/03/25 23:50 Temperature 98.1 F 04/04/25 01:12 Pulse Rate 86 04/04/25 01:12 Respiratory Rate 16 04/04/25 01:12 Blood Pressure 168/89 H 04/04/25 01:12 Pulse Oximetry 96 04/04/25 01:11 Oxygen Delivery Method Room Air 04/04/25 01:11 Medications Administered Medications: Discontinued Medications Generic Name Dose Route Start Last Admin Trade Name Don PRN Reason Stop Dose Admin Acetaminophen 1,000 mg 04/04/25 01:05 04/04/25 01:10 Acetaminophen 500 Mg Tablet PO 04/04/25 01:06 1,000 mg ONCE ONE Administration MDM - Head Injury Lab Data Labs: Lab Results 04/03/25 04/03/25 Range/Units 23:50 23:59 WBC 4.97 (4.50-11.00) K/uL RBC 4.02 (4.00-5.20) m/uL Hgb 11.7 L (12.0-16.0) gm/dL Hct 38.1 (33.0-51.0) % MCV 95 (80-100) fL MCH 29 (26-34) pg MCHC 31 L (32-36) gm/dL RDW Coeff of Viviana 14.6 (11.5-15.5) % Plt Count 401 (140-440) K/uL Neut % (Auto) 55.8 (42.0-72.0) % Lymph % (Auto) 24.1 (20-44) % [place] % (Auto) 11.3 H (0.0-11.0) % Eos % (Auto) 6.6 (0.0-7.0) % Baso % (Auto) 1.0 (0.0-3.0) % Neut # (Auto) 2.77 (1.7-7.0) K/uL Lymph # (Auto) 1.20 (0.90-2.90) K/uL [place] # (Auto) 0.60 (0.00-0.90) K/UL Eos # (Auto) 0.33 (0.00-0.50) K/uL Baso # (Auto) 0.05 (0.00-0.30) K/uL Abs Immat Gran (auto) 0.06 (0.00-0.30) K/uL Imm/Tot Granulo (auto) 1.2 % INR 2.86 H (0.91-1.10) Discharge Plan Discharge Clinical Impression: Closed head injury Patient Disposition: Home w/ Parent or Adult Condition: Stable Additional Instructions: INR is 2.86. Continue current meds. Your scans do not show any bleeding in the brain or trauma to the neck. Tylenol for headaches. Ice. Follow up as needed. Prescriptions: No Action warfarin 5 mg tablet 5 mg PO .Sun//Thur/Sat warfarin 2.5 mg tablet 2.5 mg PO .Mon/Mon/Fri fenofibrate 160 mg tablet 160 mg PO DAILY fluoxetine 20 mg capsule 20 mg PO BID Januvia 25 mg tablet 25 mg PO DAILY cyclosporine 0.05 % dropperette 1 drp ophthalmic (eye) Q12H furosemide 20 mg tablet 20 mg PO .every other day omeprazole 20 mg capsule,delayed release(DR/EC) 20 mg PO DAILY carvedilol 6.25 mg tablet 12.5 mg PO BID potassium chloride 10 mEq capsule, extended release 10 meq PO .every other day (DME) OneTouch Ultra Test Strip See Rx Instructions .ROUTE .MEDSUPPLY Qty: 10 Rx Instructions: As directed (DME) blood-glucose meter [OneTouch Ultra2 Meter] [facility] See Rx Instructions .ROUTE DIRECTED Qty: 1 Rx Instructions: As directed ferrous sulfate 325 mg (65 mg iron) tablet 325 mg PO QDAY fexofenadine [Allergy Relief (fexofenadine)] 180 mg tablet 180 mg PO Q24H lysine [L-Lysine] 500 mg tablet 500 mg PO QDAY melatonin 3 mg capsule 3 mg PO ONCE polyethylene glycol 3350 PO rosuvastatin 20 mg tablet 20 mg PO QPM multivitamin [Tab-A-Tommie] PO albuterol sulfate 90 mcg/actuation HFA aerosol inhaler inhalation lidocaine [Aspercreme (lidocaine)] topical calcium carbonate [Corbin-Gest Antacid] PO docusate sodium PO hydrocortisone acetate topical loperamide PO nystatin [Nystop] 100,000 unit/gram powder 1 applic topical QDAY dextromethorphan polistirex [Robitussin ER] PO propylene glycol [Systane Balance] ophthalmic (eye) codeine-guaifenesin 10-100 mg/5 mL liquid 5 ml PO Q4-6H PRN (Reason: cough) Qty: 118 0RF aspirin [Adult Aspirin Regimen] 81 mg tablet,delayed release (DR/EC) 81 mg PO QDAY doxycycline hyclate 100 mg tablet 100 mg PO BID Qty: 14 0RF nystatin [Klayesta] 100,000 unit/gram powder 1 applic topical BID mecobalamin (vitamin B12) [B12 Active] 1,000 mcg tablet,chewable 1,000 mcg PO DAILY cholecalciferol (vitamin D3) [Vitamin D3] 25 mcg (1,000 unit) capsule 1,000 unit PO DAILY acetaminophen-codeine 300-30 mg tablet 1 tab PO Q6H PRN (Reason: pain) Qty: 15 0RF Follow Up/Referrals: Rae Llanes MD [Primary Care Provider, Family Practice] Stand Alone Forms: MyHealth Info Instructions
== END 2025-04-04 01:20 | disposition home or self-care (01) ==
PROVIDERS: Emergency Medicine; Emergency Provider Family Medicine; PCP Student in an Organized Health Care Education/Training Program
DX: S09.90XA Unspecified injury of head, initial encounter (principal); W19.XXXA Unspecified fall, initial encounter
CPT/HCPCS: 36415; 70450; 72125; 85025; 85610; 99282; 99283; 99284; A9270